=== PATIENT | male | born 1950 | race Two or more races ===

== ENCOUNTER → 2020-05-17 15:31 | Outpatient (BNVA) | payer MEDICARE, SELFPAY | PROVIDERS: PCP Internal Medicine; Visit Provider Internal Medicine | DX: I48.19 Other persistent atrial fibrillation (principal); Z51.81 Encounter for therapeutic drug level monitoring; Z79.01 Long term (current) use of anticoagulants | CPT/HCPCS: 85610; 99211 ==

== ENCOUNTER → 2020-06-21 14:58 | Outpatient (BNVA) | payer MEDICARE, SELFPAY | PROVIDERS: PCP Internal Medicine; Visit Provider Internal Medicine | DX: I48.19 Other persistent atrial fibrillation (principal); Z51.81 Encounter for therapeutic drug level monitoring; Z79.01 Long term (current) use of anticoagulants | CPT/HCPCS: 85610; 99211 ==

== ENCOUNTER → 2020-07-19 15:37 | Outpatient (BNVA) | payer MEDICARE, SELFPAY | PROVIDERS: PCP Internal Medicine; Visit Provider Internal Medicine | DX: I48.19 Other persistent atrial fibrillation (principal); Z51.81 Encounter for therapeutic drug level monitoring; Z79.01 Long term (current) use of anticoagulants | CPT/HCPCS: 85610; 99211 ==

== ENCOUNTER → 2020-09-01 10:30 | Outpatient (BNVA) | payer MEDICARE, SELFPAY | PROVIDERS: PCP Internal Medicine; Visit Provider Internal Medicine | DX: I48.19 Other persistent atrial fibrillation (principal); Z51.81 Encounter for therapeutic drug level monitoring; Z79.01 Long term (current) use of anticoagulants | CPT/HCPCS: 85610; 99211 ==

== ENCOUNTER 2020-09-12 12:36 | Outpatient (REF) | payer MEDICARE, SELFPAY ==
--- NOTE | ~2020-09-12 | US_ITS ---
EXAMINATION: US VENOUS ULTRASOUND WITH DOPPLER LOWER EXTREMITY, LEFT CLINICAL INFORMATION: Swelling COMPARISON: None TECHNIQUE: Ultrasound of the deep veins is performed from the hip to the calf with compression sonography and color and pulse Doppler assessment. Spectral analysis with color-flow imaging is performed. FINDINGS: There is normal venous compression and respiratory variation and augmented flow. The visualized common femoral vein, superficial femoral vein, profunda femoral vein, popliteal vein, and the trifurcation region shows no evidence of deep venous thrombosis. There is no significant popliteal fossa cyst. US/US venous duplex LE LT IMPRESSION: No DVT demonstrated in the left lower extremity.
== END 2020-09-12 12:37 | disposition home or self-care (01) ==
LOC: HO.US 12:36
PROVIDERS: PCP Internal Medicine; Visit Provider Emergency Medicine
DX: L03.116 Cellulitis of left lower limb (principal); R60.0 Localized edema; I73.9 Peripheral vascular disease, unspecified; E11.9 Type 2 diabetes mellitus without complications; I50.9 Heart failure, unspecified
CPT/HCPCS: 93971

== ENCOUNTER 2020-10-09 10:32 | Outpatient (RCR) | payer MEDICARE, SELFPAY | END 2020-10-13 12:16 | disposition home or self-care (01) | LOC: HO.WCC 10:32 | PROVIDERS: PCP Internal Medicine; Visit Provider Physician Assistant | DX: Z09 Encounter for follow-up examination after completed treatment for conditions other than malignant neoplasm (principal); R60.9 Edema, unspecified; I87.2 Venous insufficiency (chronic) (peripheral) | CPT/HCPCS: 99212 ==

== ENCOUNTER → 2020-11-03 10:20 | Outpatient (BNVA) | payer MEDICARE, SELFPAY | PROVIDERS: PCP Internal Medicine; Visit Provider Internal Medicine | DX: I48.19 Other persistent atrial fibrillation (principal); Z51.81 Encounter for therapeutic drug level monitoring; Z79.01 Long term (current) use of anticoagulants | CPT/HCPCS: 85610; 99211 ==

== ENCOUNTER → 2020-12-01 10:37 | Outpatient (BNVA) | payer MEDICARE, SELFPAY | PROVIDERS: PCP Internal Medicine; Visit Provider Internal Medicine | DX: I48.19 Other persistent atrial fibrillation (principal); Z51.81 Encounter for therapeutic drug level monitoring; Z79.01 Long term (current) use of anticoagulants | CPT/HCPCS: 85610; 99212 ==

== ENCOUNTER → 2020-12-29 10:32 | Outpatient (BNVA) | payer MEDICARE, SELFPAY | PROVIDERS: PCP Internal Medicine; Visit Provider Internal Medicine | DX: I48.19 Other persistent atrial fibrillation (principal); Z51.81 Encounter for therapeutic drug level monitoring; Z79.01 Long term (current) use of anticoagulants | CPT/HCPCS: 85610; 99211 ==

== ENCOUNTER → 2021-02-12 10:31 | Outpatient (BNVA) | payer MEDICARE, SELFPAY | PROVIDERS: PCP Internal Medicine; Visit Provider Internal Medicine | DX: I48.19 Other persistent atrial fibrillation (principal); Z51.81 Encounter for therapeutic drug level monitoring; Z79.01 Long term (current) use of anticoagulants | CPT/HCPCS: 85610; 99211 ==

== ENCOUNTER → 2021-03-12 10:23 | Outpatient (BNVA) | payer MEDICARE, SELFPAY | PROVIDERS: PCP Internal Medicine; Visit Provider Internal Medicine | DX: I48.19 Other persistent atrial fibrillation (principal); Z51.81 Encounter for therapeutic drug level monitoring; Z79.01 Long term (current) use of anticoagulants | CPT/HCPCS: 85610; 99211 ==

== ENCOUNTER → 2021-03-14 09:07 | Outpatient (REF) | payer MEDICARE, SELFPAY ==
--- NOTE | ~2021-03-14 | US_ITS ---
EXAMINATION: US LOWER EXTREMITY VENOUS (REFLUX EXAM), BILATERAL CLINICAL INDICATION: This is a 70-year-old male with venous insufficiency and varicose veins. COMPARISON: None. TECHNIQUE: Color flow triplex imaging and compression Doppler was performed to evaluate both the deep and the superficial systems bilaterally. To evaluate the superficial system, the examination was performed in the upright position. Color-flow Doppler ultrasound and compression ultrasound were utilized. In addition, maneuvers were utilized to demonstrate reflux. FINDINGS: 1. DEEP VENOUS ULTRASOUND OF THE RIGHT LOWER EXTREMITY: Common Femoral Vein: Compressible, normal respiratory variation and augmented flow. Femoral vein: Compressible, normal color flow and augmentation. Popliteal Vein: Compressible, normal augmentation. Deep Reflux: There is no evidence of reflux in the deep system in either the common femoral vein or the popliteal vein. There is no evidence of a Vaughn's cyst. 2. SUPERFICIAL ULTRASOUND WITH DOPPLER OF RIGHT LOWER EXTREMITY: GREAT SAPHENOUS VEIN: Saphenofemoral Junction: 0.9 cm. There is no reflux. Mid Thigh: 0.4 cm. The reflux time is 1108 ms. Above Knee: 0.3 cm. There is no reflux. Below Knee: 0.3 cm. The reflux time is 1044 ms. Mid Calf: 0.3 cm. There is no reflux. Ankle: 0.3 cm. There is no reflux. GSV REFLUX: There are isolated segment of reflux but not at the saphenofemoral junction. DUPLICATED GREAT SAPHENOUS VEIN: None SMALL SAPHENOUS VEIN: Proximal: 0.5 cm Distal: 0.2 cm SSV REFLUX: No evidence of reflux. VEIN OF GIACOMINI: None Imaged. PERFORATORS: There is a 0.2 cm mid thigh technical sales representative without reflux. VARICOSITIES: There is a 0.4 cm mid thigh varicose veins with reflux of 2760 ms. 3. DEEP VENOUS ULTRASOUND OF THE LEFT LOWER EXTREMITY: Common Femoral Vein: Compressible, normal respiratory variation and augmented flow. Femoral Vein: Compressible, normal color flow and augmentation. Popliteal Vein: Compressible, normal augmentation. Deep Reflux: There is no evidence of reflux in the deep system in either the common femoral vein or the popliteal vein. There is no evidence of a Vaughn's cyst. 4. SUPERFICIAL ULTRASOUND WITH DOPPLER OF LEFT LOWER EXTREMITY: GREAT SAPHENOUS VEIN: Saphenofemoral Junction: 1.0 cm. There is no reflux. Mid Thigh: 0.3 cm. There is no reflux. Above Knee: 0.4 cm. There is no reflux. Below Knee: 0.3 cm. The reflux time is 2912 ms. Mid Calf: 0.3 cm. The reflux time is 3060 ms. Ankle: 0.3 cm. There is no reflux. GSV REFLUX: There is isolated below-knee reflux. There is no reflux at the saphenofemoral junction. DUPLICATED GREAT SAPHENOUS VEIN: There is a 0.5 cm duplicated lateral great saphenous vein without reflux. SMALL SAPHENOUS VEIN: Proximal: 0.5 cm Distal: 0.3 cm SSV REFLUX: No evidence of reflux. VEIN OF GIACOMINI: None Imaged. PERFORATORS: There is a 0.3 cm mid calf technical sales representative without reflux. VARICOSITIES: There are 0.3 cm proximal calf varicose veins with reflux of 2912 ms. US/US venous duplex LE BI IMPRESSION: 1. There is a patent right great saphenous vein without reflux at the saphenofemoral junction. There are isolated areas of distal reflux. 2. There is a patent right small saphenous vein without evidence of reflux. 3. There are varicose veins in the right mid thigh measuring 0.4 cm with reflux. 4. There is a patent left great saphenous vein without reflux at the saphenofemoral junction. There is distal reflux. 5. There is a patent left small saphenous vein without reflux. 6. There are 0.3 cm varicose veins in the proximal left calf with reflux.
--- NOTE | 2021-03-14 09:13 | CA_ITS ---
Transthoracic Echocardiogram Patient (Last, First, Middle): Sergio Yepez, Gender: Male Date of : 1950 Age: 70 Procedure Date: 03/14/2021 Procedure Type: Transthoracic Echocardiogram Location: OP Height: 167.64 cm Weight: 127.01 kg BSA: 2.31 m2 Heart Rate: bpm BP: 138 / 80 mmHg Inspector Final Assembly Electrical: JEFFREY Referring MD: Yashira Tello MD Symptoms: E11.65 DM 2, I10 HTN, I50.32 CHF Study Quality: Technically Difficult/Contrast ECG Rhythm: Undetermined Conclusions: - The left ventricular systolic function is low normal. The calculated ejection fraction is 52% by biplane method. - There is mildly decreased right ventricular systolic function. - There is mild mitral annular calcification. - There is moderate dilatation of the ascending aorta measuring 4.40 cm and mild dilatation of the aortic arch measuring 3.10 cm. Findings Procedure Information Contrast agent, definity, is being given per protocol without apparent complications. Left Ventricle Normal left ventricular cavity size. There is moderately increased left ventricular wall thickness. The left ventricular systolic function is low normal. The calculated ejection fraction is 52% by biplane method. There is no evidence of regional wall motion abnormalities. Diastolic function is indeterminate on the basis of available data. Right Ventricle Normal right ventricular cavity size. There is mildly decreased right ventricular systolic function. Atria Both atria are normal in size. Aortic Valve There is a normal trileaflet aortic valve. There is mild calcification of the aortic valve. There is no aortic valve stenosis. The mean gradient is 6 mmHg. There is trace (trivial) aortic valve regurgitation. Mitral Valve The mitral valve appears normal. There is mild mitral annular calcification. There is no mitral valve regurgitation. There is no mitral valve stenosis. Pulmonic Valve The pulmonic valve is likely normal. Tricuspid Valve There is mild tricuspid valve regurgitation. The pulmonary artery systolic pressure is normal. Great Vessels The aortic arch is normal in size. There is moderate dilatation of the ascending aorta measuring 4.40 cm and mild dilatation of the aortic arch measuring 3.10 cm. Venous The inferior vena cava is normal in size and collapses greater than 50% with inspiration. Pericardium/Pleural There is no evidence of pericardial effusion. Prior Study Comparison No prior study available for comparison. Measurements 2D Linear Measurements IVSd: 1.33 0.6-0.9/0.6-1.0 cm LVIDd: 4.92 3.9-5.3/4.2-5.9 cm LVIDd Index: 2.13 2.4-3.2/2.2-3.1 cm/m2 LVIDs: 3.52 2.0-3.6 cm LVPWd: 1.26 0.7-1.1 cm Ao Root: 3.80 2.1-3.5 cm LA Diam: 4.70 2.7-3.8/3.0-4.0 cm LAIDs Index: 2.03 1.5-2.3 cm/m2 LV Mass: 316.65 67-162/88-224 g LV Mass Index: 137.08 43-95/49-115 g/m2 LVOT Diam: 2.20 3.0+(-)1.3 cm 2D Systolic Function EF 4C: 53.30 >55% EF 2C: 53.60 >55% EF BiP: 51.50 >55% Aortic Valve AoV Pk Jaleel: 1.58 AoV Mn Jaleel: 1.11 AoV VTI: 0.34 AoV Pk Grad: 10.00 Aov Mn Grad: 6.00 KAYCEE Cont.VTI: 2.23 LVOT LVOT Pk Jaleel: 1.03 LVOT Mn Jaleel: 0.68 LVOT VTI: 0.20 LVOT Pk Grad: 4.00 LVOT Mn Grad: 2.00 LVOT Diam: 2.20 LVOT Area: 3.80 Right Ventricle TAPSE (mm): 16.00 TVS' Jaleel: 12.20 Tricuspid Valve TR Pk Jaleel: 2.66 TR Pk Grad: 28.00 RA Press: 3.00 RVSP: 31.00 Great Vessels Aorta Ao Root-2D: 3.80 2.0-3.7 cm Ao Asc: 4.40 2.1-3.4 cm Ao Arch: 3.10 Updated in Other Vendor System with Status of Final Justice Hopson MD electronically signed on 03/16/2021 11:25:17 AM with status of Final
== END ==
LOC: HO.CARD 09:07
PROVIDERS: PCP Internal Medicine; Visit Provider Internal Medicine
DX: I11.0 Hypertensive heart disease with heart failure (principal); I50.32 Chronic diastolic (congestive) heart failure; E11.65 Type 2 diabetes mellitus with hyperglycemia
CPT/HCPCS: 93306; 93970; Q9957

== ENCOUNTER 2021-03-14 10:23 | Outpatient (REF) | payer MEDICARE, SELFPAY | END 2021-03-14 10:24 | disposition home or self-care (01) | LOC: HO.US 10:23 | PROVIDERS: PCP Internal Medicine; Visit Provider Physician Assistant | DX: Z13.89 Encounter for screening for other disorder (principal) ==

== ENCOUNTER → 2021-04-25 10:03 | Outpatient (BNVA) | payer MEDICARE, SELFPAY | PROVIDERS: PCP Internal Medicine; Visit Provider Internal Medicine | DX: I48.19 Other persistent atrial fibrillation (principal); Z51.81 Encounter for therapeutic drug level monitoring; Z79.01 Long term (current) use of anticoagulants | CPT/HCPCS: 85610; 99211 ==

== ENCOUNTER → 2021-05-21 10:02 | Outpatient (BNVA) | payer OTHER, SELFPAY | PROVIDERS: PCP Internal Medicine; Visit Provider Internal Medicine | DX: I48.19 Other persistent atrial fibrillation (principal); Z51.81 Encounter for therapeutic drug level monitoring; Z79.01 Long term (current) use of anticoagulants | CPT/HCPCS: 85610; 99211 ==

== ENCOUNTER → 2021-06-04 10:26 | Outpatient (BNVA) | payer MEDICARE, SELFPAY | PROVIDERS: PCP Internal Medicine; Visit Provider Internal Medicine | DX: I48.19 Other persistent atrial fibrillation (principal); Z79.01 Long term (current) use of anticoagulants; Z51.81 Encounter for therapeutic drug level monitoring | CPT/HCPCS: 85610; 99211 ==

== ENCOUNTER → 2021-06-27 10:18 | Outpatient (BNVA) | payer MEDICARE, SELFPAY | PROVIDERS: PCP Internal Medicine; Visit Provider Internal Medicine | DX: I48.19 Other persistent atrial fibrillation (principal); Z79.01 Long term (current) use of anticoagulants; Z51.81 Encounter for therapeutic drug level monitoring | CPT/HCPCS: 85610; 99211 ==

== ENCOUNTER → 2021-07-18 09:51 | Outpatient (BNVA) | payer MEDICARE, SELFPAY | PROVIDERS: PCP Internal Medicine; Visit Provider Internal Medicine | DX: I48.19 Other persistent atrial fibrillation (principal); Z79.01 Long term (current) use of anticoagulants; Z51.81 Encounter for therapeutic drug level monitoring | CPT/HCPCS: 85610; 99211 ==

== ENCOUNTER → 2021-08-03 10:48 | Outpatient (BNVA) | payer MEDICARE, SELFPAY | PROVIDERS: PCP Internal Medicine; Visit Provider Internal Medicine | DX: I48.19 Other persistent atrial fibrillation (principal); Z79.01 Long term (current) use of anticoagulants; Z51.81 Encounter for therapeutic drug level monitoring | CPT/HCPCS: 85610 ==

== ENCOUNTER → 2021-08-31 10:50 | Outpatient (BNVA) | payer MEDICARE, SELFPAY | PROVIDERS: PCP Internal Medicine; Visit Provider Internal Medicine | DX: I48.19 Other persistent atrial fibrillation (principal); Z51.81 Encounter for therapeutic drug level monitoring; Z79.01 Long term (current) use of anticoagulants | CPT/HCPCS: 85610; 99211 ==

== ENCOUNTER 2021-09-18 14:58 | Outpatient (REF) | payer OTHER, SELFPAY ==
--- NOTE | 2021-09-18 | PFT_ITS ---
INDICATIONS: COPD. SPIROMETRY: The FEV1 to FVC of 82% with an FEV1 of 2.16 L, which is 75% predicted. An FVC of 2.65 L, which is 70% predicted. No significant response to bronchodilators noted. Maximum voluntary ventilation 85% predicted. LUNG VOLUMES: Total lung capacity 72% predicted with an expiratory reserve volume of 31% predicted. DIFFUSION CAPACITY: DLCO 60% predicted. It does correct to 82% predicted when correcting for the alveolar volume. COMPARISONS: PFTs in 2017. INTERPRETATION: No obstructive ventilatory defects. No significant response to bronchodilators noted. Normal maximum voluntary ventilation. The patient does have a mild restrictive ventilatory defect, partly due to body habitus with an elevated BMI and a decreased expiratory reserve volume, although occult interstitial lung conditions cannot be ruled out. The patient also has a moderate diffusion impairment. This does correct to normal when correcting for the alveolar volume. When compared to 2017, there is a significant improvement in the FVC, a significant improvement of the FEV1, a significant improvement of the total lung capacity, and a significant decrease in the diffusion capacity. Clinical correlation warranted. MD JANUSZ Busby/SIDDHARTH / [id number]
== END 2021-09-18 14:59 | disposition home or self-care (01) ==
LOC: HO.RESP 14:58
PROVIDERS: PCP Internal Medicine; Visit Provider Internal Medicine
DX: J44.9 Chronic obstructive pulmonary disease, unspecified (principal); G47.33 Obstructive sleep apnea (adult) (pediatric); I50.22 Chronic systolic (congestive) heart failure
CPT/HCPCS: 94060; 94727; 94729

== ENCOUNTER → 2021-09-20 10:45 | Outpatient (REF) | payer OTHER, SELFPAY | LOC: HO.CARD 10:45 | PROVIDERS: PCP Internal Medicine; Visit Provider Internal Medicine | DX: I48.19 Other persistent atrial fibrillation (principal); I50.22 Chronic systolic (congestive) heart failure; I77.810 Thoracic aortic ectasia; R53.82 Chronic fatigue, unspecified; Z51.81 Encounter for therapeutic drug level monitoring; Z79.01 Long term (current) use of anticoagulants | CPT/HCPCS: 85610; 99211 ==

== ENCOUNTER → 2021-09-28 10:16 | Outpatient (BNVA) | payer OTHER, SELFPAY | PROVIDERS: PCP Internal Medicine; Visit Provider Internal Medicine | DX: I48.19 Other persistent atrial fibrillation (principal); Z79.01 Long term (current) use of anticoagulants; Z51.81 Encounter for therapeutic drug level monitoring | CPT/HCPCS: 85610; 99211 ==

== ENCOUNTER → 2021-10-02 09:50 | Outpatient (REF) | payer OTHER, SELFPAY ==
--- NOTE | 2021-10-02 09:53 | CA_ITS ---
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 - Moderately increased right ventricular cavity size. - No obvious valvular pathology seen on this study. - There is mild dilatation of the ascending aorta measuring 4.10 cm. Findings Procedure Information Contrast agent, definity, is being given per protocol without apparent complications. Left Ventricle Normal left ventricular cavity size. There is moderately increased left ventricular wall thickness. The left ventricular systolic function is mildly decreased. There is mild global hypokinesis. Diastolic function is indeterminate on the basis of available data. Estimated LVEF about 40-50%. Right Ventricle Moderately increased right ventricular cavity size. There is normal right ventricular systolic function. Atria The left atrium is moderately dilated. The right atrium is normal in size. Aortic Valve There is a normal trileaflet aortic valve. There is no aortic valve stenosis. There is trace (trivial) aortic valve regurgitation. Mitral Valve The mitral valve appears normal. There is trace mitral valve regurgitation. There is no mitral valve stenosis. Pulmonic Valve There is trace pulmonic valve regurgitation. Tricuspid Valve Normal tricuspid valve structure. There is mild tricuspid valve regurgitation. The pulmonary artery systolic pressure is normal. Great Vessels There is mild dilatation of the ascending aorta measuring 4.10 cm. Venous The inferior vena cava is normal in size and collapses greater than 50% with inspiration. Pericardium/Pleural There is no evidence of pericardial effusion. Prior Study Comparison Changes noted compared to prior study dated: 03/14/2021. LVEF slightly lower. Recommendations, Care & Conclusions No obvious valvular pathology seen on this study. Measurements 2D Linear Measurements IVSd: 1.29 0.6-0.9/0.6-1.0 cm LVIDd: 5.49 3.9-5.3/4.2-5.9 cm LVIDd Index: 2.38 2.4-3.2/2.2-3.1 cm/m2 LVIDs: 4.28 2.0-3.6 cm LVPWd: 1.27 0.7-1.1 cm LA Diam: 5.10 2.7-3.8/3.0-4.0 cm LAIDs Index: 2.21 1.5-2.3 cm/m2 LV Mass: 370.44 67-162/88-224 g LV Mass Index: 160.36 43-95/49-115 g/m2 LVOT Diam: 2.40 3.0+(-)1.3 cm 2D Systolic Function EF 4C: 35.10 >55% EF 2C: 37.70 >55% EF BiP: 35.50 >55% Mitral Valve MV Pk E: 1.07 MV Decel Time: 249.00 E'Lateral: 10.10 E'Medial: 6.09 E/E' Med: 17.60 E/E' Lat: 10.60 PHT: 73.00 MVA PHT: 3.01 Decel Gage: 4.30 Aortic Valve AoV Pk Jaleel: 1.64 AoV Mn Jaleel: 1.04 AoV VTI: 0.46 AoV Pk Grad: 11.00 Aov Mn Grad: 5.00 KAYCEE Cont.VTI: 1.88 LVOT LVOT Pk Jaleel: 0.71 LVOT Mn Jaleel: 0.51 LVOT VTI: 0.19 LVOT Pk Grad: 2.00 LVOT Mn Grad: 1.00 LVOT Diam: 2.40 LVOT Area: 4.52 Diastolic Function MV Pk E: 1.07 E'Medial: 6.09 E/E' Med: 17.60 E' Laterial: 10.10 E/E' Lat: 10.60 Right Ventricle TAPSE (mm): 27.00 TVS' Jaleel: 13.00 Tricuspid Valve TR Pk Jaleel: 2.36 TR Pk Grad: 22.00 RA Press: 3.00 RVSP: 25.00 Great Vessels Aorta Sinus of Valsalva: 3.70 2.0-3.5 cm Ao Asc: 4.10 2.1-3.4 cm Pulmonary Valve PV Pk Jaleel: 1.16 Peak PV Grad: 5.00 Updated in Other Vendor System with Status of Final Justice Hopson MD electronically signed on 10/03/2021 12:34:18 PM with status of Final
== END ==
LOC: HO.CARD 09:50
PROVIDERS: PCP Internal Medicine; Visit Provider Internal Medicine
DX: I50.22 Chronic systolic (congestive) heart failure (principal); I77.810 Thoracic aortic ectasia; R53.82 Chronic fatigue, unspecified; G47.33 Obstructive sleep apnea (adult) (pediatric)
CPT/HCPCS: 93306; Q9957

== ENCOUNTER → 2021-10-11 10:36 | Outpatient (BNVA) | payer OTHER, SELFPAY | PROVIDERS: PCP Internal Medicine; Visit Provider Internal Medicine | DX: I48.19 Other persistent atrial fibrillation (principal); Z51.81 Encounter for therapeutic drug level monitoring; Z79.01 Long term (current) use of anticoagulants | CPT/HCPCS: 85610; 99211 ==

== ENCOUNTER → 2021-10-26 10:29 | Outpatient (BNVA) | payer OTHER, SELFPAY | PROVIDERS: PCP Internal Medicine; Visit Provider Internal Medicine | DX: I48.19 Other persistent atrial fibrillation (principal); Z79.01 Long term (current) use of anticoagulants; Z51.81 Encounter for therapeutic drug level monitoring | CPT/HCPCS: 85610; 99211 ==

== ENCOUNTER → 2021-11-21 09:44 | Outpatient (BNVA) | payer OTHER, SELFPAY | PROVIDERS: PCP Internal Medicine; Visit Provider Internal Medicine | DX: I48.19 Other persistent atrial fibrillation (principal); Z79.01 Long term (current) use of anticoagulants; Z51.81 Encounter for therapeutic drug level monitoring | CPT/HCPCS: 85610; 99211 ==

== ENCOUNTER → 2021-12-25 10:14 | Outpatient (BNVA) | payer OTHER, SELFPAY | PROVIDERS: PCP Internal Medicine; Visit Provider Internal Medicine | DX: I48.19 Other persistent atrial fibrillation (principal); Z79.01 Long term (current) use of anticoagulants; Z51.81 Encounter for therapeutic drug level monitoring | CPT/HCPCS: 85610; 99211 ==

== ENCOUNTER 2022-01-09 20:21 | Emergency (ER) | payer OTHER, SELFPAY ==
[2022-01-09 20:24] VITALS: BP 188/94; PULSE 71; RESP 18; TEMP 36.9; O2SAT 95; BMI 46.7
[2022-01-09 20:56] VITALS: BP 206/94; PULSE 62; RESP 20; O2SAT 97
[2022-01-09 21:14] LABS: COVID-19 Test Positive (Negative)
--- NOTE | 2022-01-09 22:42 | ED.URI ---
HPI - URI/Sore Throat General Chief Complaint: Upper Respiratory Symptoms Stated Complaint: Covid symptoms Time Seen by Provider: 01/09/22 22:41 Source: patient Mode of arrival: ambulatory Limitations: language barrier History of Present Illness HPI Narrative: 71-year-old male presents for 1 day of upper respiratory symptoms, cough, sore throat and congestion. He does not report fevers, chills, chest pain or pressure, palpitations, shortness of breath on exertion, edema, abdominal pain, abdominal distention, dysuria, hematuria, weakness, or lightheadedness. MD elicited complaint: cough, sore throat and nasal congestion Onset (ago): day(s) (1) Consistency: constant Severity: mild Description of mucous: clear and watery Able to tolerate fluids by mouth: Yes Exacerbating factors: nothing Context: sick contacts Associated symptoms: rhinorrhea, nasal congestion, sore throat and cough Treatments prior to arrival: none Related Data Home Medications Medication Instructions Recorded Confirmed acetaminophen 500 mg tablet 0 mg PO 12/01/20 10/11/21 albuterol sulfate 2.5 mg/3 mL mg inhalation TID PRN 12/01/20 10/11/21 (0.083 %) solution for nebulization ammonium lactate 12 % topical cream appl topical DAILY PRN 12/01/20 10/11/21 atorvastatin 80 mg tablet 80 mg PO BEDTIME 12/01/20 10/11/21 blood sugar diagnostic (FreeStyle #10 ea 12/01/20 10/11/21 Lite Strips) clobetasol 0.05 % topical cream g topical BID 12/01/20 10/11/21 furosemide 80 mg tablet 80 mg PO BID 12/01/20 10/11/21 gabapentin 100 mg capsule 100 mg PO 12/01/20 10/11/21 insulin aspart U-100 100 unit/mL 10 unit subcut TID 12/01/20 10/11/21 (3 mL) subcutaneous pen (Novolog Flexpen U-100 Insulin aspart) isosorbide mononitrate 120 mg 120 mg PO QAM 12/01/20 10/11/21 tablet,extended release 24 hr lisinopril 40 mg tablet 40 mg PO QAM 12/01/20 10/11/21 metformin 1,000 mg tablet 1,000 mg PO 12/01/20 10/11/21 multivitamin 1 tab PO DAILY 12/01/20 10/11/21 pen needle, diabetic 32 gauge x #50 ea 12/01/20 10/11/21 (UltiCare Pen Needle) umeclidinium 62.5 mcg/actuation 1 inh inhalation DAILY 12/01/20 10/11/21 blister powder for inhalation (Incruse Ellipta) warfarin 5 mg tablet 0 mg PO 12/01/20 12/25/21 albuterol sulfate 90 mcg/actuation 2 puff PO Q4-6H PRN 05/21/21 10/11/21 aerosol inhaler (Ventolin HFA) blood-glucose meter (FreeStyle #1 ea 05/21/21 10/11/21 [place] Lite kit) insulin glargine 100 unit/mL (3 unit subcut 05/21/21 10/11/21 mL) subcutaneous pen (Lantus Solostar U-100 Insulin) labetalol 100 mg tablet 100 mg PO 05/21/21 10/11/21 tamsulosin 0.4 mg capsule 0.4 mg PO DAILY 10/11/21 10/11/21 Allergies Allergy/AdvReac Type Severity Reaction Status Date / Time Tetanus Vaccines and Toxoid Allergy Unknown SWELLING Verified 12/25/21 10:26 [TETANUS] TETNUS SHOT Allergy Unknown UNKNOWN Uncoded 12/25/21 10:26 Review of Systems Review of Systems: Constitutional: No Fever, No Chills ENT/Mouth: No Ear Pain, No Hoarseness, positive sore throat, positive congestion Eyes: No Eye Pain, No Swelling, No Redness, No Foreign Body Cardiovascular: No Chest Pain, No SOB Respiratory: Positive Cough, No Dyspnea Gastrointestinal: No Nausea, No Vomiting, No Diarrhea, No abdominal Pain Genitourinary: No Dysuria, No Hematuria Musculoskeletal: positive muscle pain, No Myalgias, No Joint Swelling Skin: No Skin lacerations, No rash Neuro: No Weakness, No Numbness, No Paresthesias, No Loss of Consciousness, No Dizziness, No Headache Psych: No Anxiety/Panic, No Depression Heme/Lymph: no easy bruising, no Lymphadenopathy Endocrine: No Polyuria, No Polydipsia Yes all other systems are reviewed and are negative [facility] Past Medical History Attestation statement: The following information was validated with the patient. Source: old records reviewed Social History Social History Smoked in Last 30 Days: No Use of substances other than those prescribed or required for medical reasons: No Advance Directives: No Physical Exam Vital Signs: Vital Signs: Last Vital Signs Temp 98.4 F 01/09/22 20:24 Pulse 62 01/09/22 20:56 Resp 20 01/09/22 20:56 BP 206/94 H 01/09/22 20:56 Pulse Ox 97 01/09/22 20:56 O2 Del Method 01/09/22 20:56 BMI result Body Mass Index 46.7 Appearance: Alert. Oriented X3. No acute distress. Eyes: Pupils equal, round and reactive to light. ENT: Pharynx normal. Neck: Normal inspection. Neck supple. CVS: Normal heart rate and rhythm. Pulses normal. Respiratory: No respiratory distress. Lung sounds clear to auscultation all lobes. Abdomen: Soft and nontender. Skin: Skin warm and dry. Normal skin color. Normal skin turgor. Extremities: Gait well-balanced will coordinated. Neuro: No motor deficit. No sensory deficit. Cranial nerves 2-12 intact. Course Course Course Narrative: 71-year-old male presents for evaluation for 1 day of upper respiratory symptoms. He tested positive for COVID-19 while he was in the emergency department waiting room. Patient is alert oriented x4, speaking in complete sentences, lung sounds clear to auscultation all lobes. Patient is ambulatory, even steady gait, speaking in complete sentences, in no respiratory distress. Patient is afebrile, states to have myalgia and requesting medication for pain management. Patient reports that he did not take anything for pain earlier today because he did not think it was that severe. Patient has had for COVID-19 vaccines. Patient verbalized understanding of and agrees to plan of care discharge home. Verbalized understanding of signs and symptoms indicating need for emergent intervention. Medications Administered Discontinued Medications Generic Name Dose Route Start Last Admin Trade Name Freq PRN Reason Stop Dose Admin Acetaminophen 650 mg 01/09/22 22:52 01/09/22 23:23 Acetaminophen 325 Mg Tablet PO 01/09/22 22:53 650 mg ONCE ONE Administration MDM - URI/Sore Throat Differential Diagnosis Differential diagnosis: Likely upper respiratory infection, viral infection, influenza and pharyngitis Medical Records Attestation: I reviewed the patient's medical records. Lab Data Attestation: I reviewed the patient's lab results. Labs: Lab Results 01/09/22 Range/Units 21:00 COVID-19 (JEFERSON) Positive A (Negative) COVID-19 Clin Com See Note Discharge Plan Discharge Clinical Impression: COVID Patient Disposition: Home, Self-Care Instructions: Covid-19 Viral Syndrome and Novel Coronavirus (ED) Hey/Ath, COVID-19 (Coronavirus Disease 2019) (ED) Additional Instructions: Usted fue evaluado por s?ntomas de las v?as respiratorias superiores. Has dado positivo por COVID-19. Beber mucho l?quido. Alterne Tylenol 650 mg cada 6 horas seg?n sea necesario y Motrin 600 mg cada 6 horas seg?n sea necesario para controlar el dolor y la fiebre. Le dieron ortiz ?ltima dosis de Tylenol a las 23:00. Ortiz pr?xima dosis vence a las 05:00. Considere zuleika Motrin a las 02:00. Si octavio Motrin a las 02:00 tendr? un manejo adecuado de la fiebre y el dolor cada 3 horas. Mantenga las pautas de aislamiento. L?vese las rafael con frecuencia. Wesson todos los medicamentos seg?n las indicaciones. Seguimiento con m?dico de atenci?n primaria. Si los s?ntomas empeoran, regrese al departamento de emergencias. Daniel por elegir radha departamento de emergencias para ortiz evaluaci?n. Por favor, ezequiel un seguimiento con el m?dico de atenci?n primaria seg?n sea necesario. Regrese al departamento de emergencias por cualquier s?ntoma nuevo, preocupante o que empeore. You were evaluated for upper respiratory symptoms. You tested positive for COVID-19. Drink plenty of fluids. Alternate Tylenol 650 mg every 6 hours as needed and Motrin 600 mg every 6 hours as needed for pain and fever management. Your last dose of Tylenol was given at 23:00. Your next dose is due at 05:00. Please consider taking Motrin at 02:00. If you take Motrin at 02:00 you will have adequate fever and pain management every 3 hours. Maintain isolation guidelines. Wash your hands frequently. Take all medications as directed. Follow-up with primary care physician. If symptoms worsen please return to the emergency department Thank you for choosing this emergency department for evaluation. Please follow-up with primary care physician as needed. Return to the emergency department for any new, concerning, or worsening symptoms. Prescriptions: No Action (DME) FreeStyle Lite Strips Strip See Rx Instructions Not Applicable .MEDSUPPLY Qty: 10 Rx Instructions: As directed ammonium lactate 12 % cream topical DAILY PRN clobetasol 0.05 % cream topical BID albuterol sulfate 2.5 mg /3 mL (0.083 %) solution for nebulization inhalation TID PRN gabapentin 100 mg capsule 100 mg PO multivitamin Tablet 1 tab PO DAILY Incruse Ellipta 62.5 mcg/actuation blister with device 1 inh inhalation DAILY insulin aspart U-100 [Novolog Flexpen U-100 Insulin] 100 unit/mL (3 mL) insulin pen 10 unit subcut TID warfarin 5 mg tablet 0 mg PO Protocol: Dose Management Condition: Friday (Week One) Dose/Route: 10 mg Instruction: 2 x 5 mg tablets Condition: Friday Dose/Route: 10 mg Instruction: 2 x 5 mg tablets Condition: Friday Dose/Route: 15 mg Instruction: 3 x 5 mg tablets Condition: Friday Dose/Route: 10 mg Instruction: 2 x 5 mg tablets Condition: Dose/Route: 15 mg Instruction: 3 x 5 mg tablets Condition: Friday Dose/Route: 10 mg Instruction: 2 x 5 mg tablets Condition: Friday Dose/Route: 15 mg Instruction: 3 x 5 mg tablets Condition: Friday (Week Two) Dose/Route: 10 mg Instruction: 2 x 5 mg tablets Condition: Friday Dose/Route: 10 mg Instruction: 2 x 5 mg tablets Condition: Friday Dose/Route: 15 mg Instruction: 3 x 5 mg tablets Condition: Friday Dose/Route: 10 mg Instruction: 2 x 5 mg tablets Condition: Dose/Route: 15 mg Instruction: 3 x 5 mg tablets Condition: Friday Dose/Route: 10 mg Instruction: 2 x 5 mg tablets Condition: Friday Dose/Route: 15 mg Instruction: 3 x 5 mg tablets Protocol Text: Adjustment Start Date: Friday12/25/21 INR Value: 2.3 INR Date: 12/25/21 Recheck Date: 01/22/22 isosorbide mononitrate 120 mg tablet extended release 24 hr 120 mg PO QAM lisinopril 40 mg tablet 40 mg PO QAM metformin 1,000 mg tablet 1,000 mg PO furosemide 80 mg tablet 80 mg PO BID atorvastatin 80 mg tablet 80 mg PO BEDTIME (DME) pen needle, diabetic [UltiCare Pen Needle] 32 gauge x 5/32 needle See Rx Instructions .ROUTE .MEDSUPPLY Qty: 50 Rx Instructions: As directed acetaminophen 500 mg tablet 0 mg PO tamsulosin 0.4 mg capsule 0.4 mg PO DAILY albuterol sulfate [Ventolin HFA] 90 mcg/actuation HFA aerosol inhaler 2 puff PO Q4-6H PRN labetalol 100 mg tablet 100 mg PO Lantus Solostar U-100 Insulin 100 unit/mL (3 mL) insulin pen subcut (DME) blood-glucose meter [FreeStyle [place] Lite] Kit See Rx Instructions Not Applicable .MEDSUPPLY Qty: 1 Rx Instructions: As directed Referrals: Physician,Unknown J [Physician] - 1 week Interventions: ED Discharge Assessment Last Done: 01/09/22 23:29 Discharge Date/Time: 01/09/22 23:29
--- OUTSIDE RECORDS SUMMARY | 2022-01-09 22:58 | XMS_ITS | Continuity of Care Document ---
:1950 Author Organization [facility] Address [address] [place] [phone]- Care Team Providers Name Role Phone Name Jesus GIBBS Primary Care Physician [place] [facility] [place](s[place] 04/23/19 - 08/21/19 [facility] [address] [place] [phone]- [facility] Attending Physician: Abel Aguilar MD Admitting Physician: Abel Aguilar MD Referring Physician: Jesus Somers MD Allergies, Adverse Reactions, Alerts Substance Reaction Severity Status Tetanus Toxoid Adsorbed Active Milk Products Active Immunizations Given and Recorded Vaccine Date Status Refusal Reason pneumococcal 23-valent vaccine 06/02/16 Given Medications albuterol-ipratropium 3 mg-0.5 mg/3 ml inhalation solution 3 mL, Neb, 4 times a day, # 90 mL, 0 Refills, Maintenance, 06/06/16 17:35:23, Inhalation Solution, 3mL Neb 4 times a day Start Date: 06/06/16 Status: Orderedaspirin 81 mg oral tablet, chewable 81 mg, By Mouth, Daily, # 30 tablet, Refills 0, Tot. Refills 0, Maintenance, 07/28/16 11:00:56, Route to Pharmacy Electronically, [id number], [facility] Start Date: 07/28/16 Stop Date: 08/27/16 Status: Orderedatorvastatin 80 mg oral tablet = 80 mg, By Mouth, Daily at bedtime, # 30 tablet, 0 Refills, Maintenance, Tablet, Route to Pharmacy Electronically, [id number], [facility] Start Date: 07/28/16 Stop Date: 08/27/16 Status: OrderedFish Oil By Mouth, 0 Refills, Maintenance, 12/23/18 11:38:01 EST Start Date: 12/23/18 Status: Orderedfurosemide 80 mg oral tablet 80 mg, By Mouth, 2 times a day, # 30 tablet, Refills 0, Tot. Refills 0, Maintenance, 07/28/16 11:01:07, Route to Pharmacy Electronically, [id number], [facility] Start Date: 07/28/16 Stop Date: 08/27/16 Status: Orderedgabapentin 100 mg oral capsule Refills 0, Maintenance, 07/07/18 9:55:42 EDT Start Date: 07/07/18 Status: Orderedglimepiride 2 mg oral tablet 1 tablet = 2 mg, By Mouth, Daily, # 30 tablet, 0 Refills, Maintenance, Tablet Start Date: 08/22/11 Status: OrderedHumalog 100 u/ml subcutaneous injection See Instructions, 10 units for 100-150 increasing by 3 units for every 50 mg/dL, # 20 mL, 5 Refills,Maintenance, 03/01/14 9:30:22, 10 units for 100-150 increasing by 3 units for every 50 mg/dL Start Date: 03/01/14 Status: OrderedImdur 30 mg oral tablet, extended release 60 mg, By Mouth, Daily, # 60 tablet, Refills 0, Tot. Refills 0, Maintenance, 07/28/16 11:02:47, Route to Pharmacy Electronically, [id number], [facility] Start Date: 07/28/16 Stop Date: 08/27/16 Status: Orderedinsulin glargine 100 u/ml subcutaneous solution 0.5 mL = 50 units, Subcutaneous Injection, Daily at bedtime, # 15 mL, 0 Refills, Maintenance, 06/06/16 18:01:19, Injection Start Date: 06/06/16 Status: Orderedlisinopril 40 mg oral tablet 1 tablet = 40 mg, By Mouth, Daily, # 30 tablet, 11 Refills, Maintenance, 10/01/13 10:10:15, Tablet, 1 tablet By Mouth Daily,x30 days Start Date: 10/01/13 Stop Date: 09/26/14 Status: Orderedmetformin 1000 mg oral tablet 1 tablet = 1,000 mg, By Mouth, 2 times a day, # 180 tablet, 0 Refills, Maintenance, 12/13/13 10:56:50, Tablet Start Date: 12/13/13 Status: Orderedmetoprolol 25 mg oral tablet, extended release 25 mg, 1, tablet, By Mouth, Daily, # 30 tablet, Refills 0, Tot. Refills 0, Maintenance, 07/09/18 9:32:53 EDT, Route to Pharmacy Electronically, [id number], [facility] Start Date: 07/09/18 Status: OrderedMultivitamin Daily, 0 Refills, Maintenance, 12/23/18 11:37:51 EST Start Date: 12/23/18 Status: Orderednaproxen 500 mg oral tablet 1 tablet = 500 mg, By Mouth, 2 times a day, PRN for pain, # 20 tablet, 0 Refills, Maintenance, 08/05/16 9:34:54, Tablet Start Date: 08/05/16 Status: OrderedNovoLOG FlexPen 100 units/mL subcutaneous solution 0 Refills, Maintenance, 07/07/18 9:56:33 EDT Start Date: 07/07/18 Status: OrderedSingulair 10 mg oral tablet 10 mg, 1, tablet, By Mouth, Daily in PM, # 30 tablet, Refills 0, Maintenance, 08/05/16 9:34:18 Start Date: 08/05/16 Status: OrderedTrulicity Pen 0.75 mg/0.5 mL subcutaneous solution 0 Refills, Maintenance, 07/07/18 9:56:25 EDT Start Date: 07/07/18 Status: Orderedwarfarin 10 mg oral tablet 0.5 tablet = 5 mg, By Mouth, Daily, # 15 tablet, 0 Refills, Maintenance, 07/28/16 11:01:19 EDT, Tablet Start Date: 07/28/16 Stop Date: 08/27/16 Status: Ordered Problem List Condition Effective Dates Status Health Status Informant Diabetes mellitus - adult Active onset(Confirmed) HTN - Hypertension(Confirmed) Active Hyperlipidemia(Confirmed) Active Obstructive sleep apnea (adult or Active pediatric)(Confirmed) Screening colonoscopy(Confirmed) Active Social History Social History Type Response Smoking Status Former smoker; Tobacco user in household: No; Other: quit smoking 2011; entered on: 08/05/16 Sex Male
--- OUTSIDE RECORDS SUMMARY | 2022-01-09 22:58 | XMS_ITS | Continuity of Care Document ---
:1950 Author Organization [facility] Address [address] [place] [phone]- Care Team Providers Name Role Phone Name Jesus GIBBS Primary Care Physician Encounter [facility] [place] ACCT R [id number] Date(s): 11/20/21 - 12/20/21 [facility] [address] [place] [address]- [place] Allergies, Adverse Reactions, Alerts Substance Reaction Severity [...] Maintenance, 07/28/16 11:00:56, Route to Pharmacy Electronically, [id number], [facility] Start Date: 07/28/16 Stop Date: 08/27/16 Status: Orderedatorvastatin 80 mg oral tablet = 80 mg, By Mouth, Daily at bedtime, # 30 tablet, 0 Refills, Maintenance, Tablet, Route to Pharmacy Electronically, [id number], [facility] Start Date: 07/28/16 Stop Date: 08/27/16 Status: OrderedFish Oil By Mouth, 0 Refills, Maintenance, 12/23/18 11:38:01 EST Start Date: 12/23/18 Status: Orderedfurosemide 80 mg oral tablet 80 mg, By Mouth, 2 times a day, # 30 tablet, Refills 0, Tot. Refills 0, Maintenance, 07/28/16 11:01:07, Route to Pharmacy Electronically, [id number], [facility] Start Date: 07/28/16 Stop Date: 08/27/16 [...] Maintenance, 07/28/16 11:02:47, Route to Pharmacy Electronically, [id number], [facility] Start Date: 07/28/16 Stop Date: 08/27/16 [...] 07/09/18 9:32:53 EDT, Route to Pharmacy Electronically, [id number], [facility] Start Date: 07/09/18 Status: OrderedMultivitamin Daily, [...] Date: 08/27/16 Status: Ordered Problem List Condition Confirmation Course Effective Dates Status Health I nformant Status Diabetes mellitus - Confirmed Active adult onset HTN - Hypertension Confirmed Active Hyperlipidemia Confirmed Active Obstructive sleep Confirmed Active apnea (adult or pediatric) Screening colonoscopy Confirmed Active Social History Social History Type Response Smoking Status Former smoker; Tobacco user in household: No; Other: quit smoking 2011; entered on: 6/26/17 Sex Male Patient Care team information Care Team PersonnelName: Jesus Somers MD Position: [facility] Outreach Member Role: PCP Address: Address: [address] [place] [address] Name: Clarisa Gonzalez RN Position: [facility] RN Member Role: Primary Care Nurse Name: Natalie Lau RN Position: [facility] Hospital Control Supervisor Member Role: Primary Care Nurse Name: Charito Costa RN Position: [facility] RN Member Role: Primary Care Nurse Care Team Related PersonsName: ZULEYKA PAPPAS Address: [address] [place] [address] Name: SANCHO GONZALEZ Address: [address] [place] [address]
--- OUTSIDE RECORDS SUMMARY | 2022-01-09 22:58 | XMS_ITS | Continuity of Care Document ---
:1950 Author Organization [facility] Address [address] [place] [address]- Care Team Providers Name Role Phone Name Jesus GIBBS Primary Care Physician [place] [facility] [place](s): 09/06/21 - 10/06/21 [facility] [address] [place] [address]- Attending Physician: Denise Luevano Admitting Physician: Denise Luevano Referring Physician: AdmtrDenise Allergies, Adverse Reactions, Alerts Substance Reaction Severity [...] Maintenance, 07/28/16 11:00:56, Route to Pharmacy Electronically, [id number], [facility] Start Date: 07/28/16 Stop Date: 08/27/16 Status: Orderedatorvastatin 80 mg oral tablet = 80 mg, By Mouth, Daily at bedtime, # 30 tablet, 0 Refills, Maintenance, Tablet, Route to Pharmacy Electronically, [id number], [facility] Start Date: 07/28/16 Stop Date: 08/27/16 Status: OrderedFish Oil By Mouth, 0 Refills, Maintenance, 12/23/18 11:38:01 EST Start Date: 12/23/18 Status: Orderedfurosemide 80 mg oral tablet 80 mg, By Mouth, 2 times a day, # 30 tablet, Refills 0, Tot. Refills 0, Maintenance, 07/28/16 11:01:07, Route to Pharmacy Electronically, [id number], [facility] Start Date: 07/28/16 Stop [...] Maintenance, 07/28/16 11:02:47, Route to Pharmacy Electronically, [id number], [facility] 3 Start Date: 07/28/16 Stop Date: 08/27/16 [...] 07/09/18 9:32:53 EDT, Route to Pharmacy Electronically, [id number], [facility] Start Date: 07/09/18 Status: OrderedMultivitamin Daily, [...] smoking 2011; entered on: 08/05/16 Sex Male Care Team PersonnelName: Jesus Somers MD Address: [address] [place] [id number]
--- OUTSIDE RECORDS SUMMARY | 2022-01-09 22:58 | XMS_ITS | Continuity of Care Document ---
:1950 Author Organization [facility] Address [address] [place] [address]- Care Team Providers Name Role Phone Name Jesus GIBBS Primary Care Physician Encounter [facility] Date(s): 07/22/19 - 08/21/19 [facility] [address] [place] [address]- [facility] Attending Physician: Denise Luevano Admitting Physician: Denise [...] Maintenance, 07/28/16 11:00:56, Route to Pharmacy Electronically, [id number], [facility] Start Date: 07/28/16 Stop Date: 08/27/16 Status: Orderedatorvastatin 80 mg oral tablet = 80 mg, By Mouth, Daily at bedtime, # 30 tablet, 0 Refills, Maintenance, Tablet, Route to Pharmacy Electronically, [id number], [facility] Start Date: 07/28/16 Stop Date: 08/27/16 Status: OrderedFish Oil By Mouth, 0 Refills, Maintenance, 12/23/18 11:38:01 EST Start Date: 12/23/18 Status: Orderedfurosemide 80 mg oral tablet 80 mg, By Mouth, 2 times a day, # 30 tablet, Refills 0, Tot. Refills 0, Maintenance, 07/28/16 11:01:07, Route to Pharmacy Electronically, [id number], [facility] Start Date: 07/28/16 Stop Date: [...] Maintenance, 07/28/16 11:02:47, Route to Pharmacy Electronically, [id number], [facility] Start Date: 07/28/16 Stop Date: [...] 07/09/18 9:32:53 EDT, Route to Pharmacy Electronically, [id number], [facility] 3 Start Date: 07/09/18 Status: OrderedMultivitamin Daily, [...]
--- OUTSIDE RECORDS SUMMARY | 2022-01-09 22:58 | XMS_ITS | Continuity of Care Document ---
:1950 Author Organization [facility] Address [address] [place] [phone]- Care Team Providers Name Role Phone Name Jesus GIBBS Primary Care Physician [place] [facility] [place]): 06/08/21 - 10/06/21 [facility] [address] [place] [address]- Attending Physician: Abel Aguilar MD Admitting Physician: Abel Aguilar MD Allergies, Adverse Reactions, Alerts Substance Reaction [...] Maintenance, 07/28/16 11:00:56, Route to Pharmacy Electronically, [id number], [facility] Start Date: 07/28/16 Stop Date: 08/27/16 Status: Orderedatorvastatin 80 mg oral tablet = 80 mg, By Mouth, Daily at bedtime, # 30 tablet, 0 Refills, Maintenance, Tablet, Route to Pharmacy Electronically, [id number], [facility] Start Date: 07/28/16 Stop Date: 08/27/16 Status: OrderedFish Oil By Mouth, 0 Refills, Maintenance, 12/23/18 11:38:01 EST Start Date: 12/23/18 Status: Orderedfurosemide 80 mg oral tablet 80 mg, By Mouth, 2 times a day, # 30 tablet, Refills 0, Tot. Refills 0, Maintenance, 07/28/16 11:01:07, Route to Pharmacy Electronically, [id number], [facility] 3 Start Date: 07/28/16 Stop Date: 08/27/16 [...] Maintenance, 07/28/16 11:02:47, Route to Pharmacy Electronically, [id number], [facility] 3 Start Date: 07/28/16 Stop Date: 08/27/16 [...] 07/09/18 9:32:53 EDT, Route to Pharmacy Electronically, [id number], [facility] Start Date: 07/09/18 Status: OrderedMultivitamin Daily, [...] Care Team PersonnelName: Jesus Somers MD Address: [address] [place] [id number]
[2022-01-09] MEDS: Acetaminophen 325 MG TABLET 650 MG PO (23:23)
--- NOTE | 2022-01-09 23:29 | PC.NURSE ---
Discharge instruction reviewed with pt. Pt verbalizes understanding.
== END 2022-01-09 23:29 | disposition home or self-care (01) ==
PROVIDERS: Emergency Provider Internal Medicine; PCP Internal Medicine
DX: U07.1 COVID-19 (principal); J02.9 Acute pharyngitis, unspecified
CPT/HCPCS: 87635; 99283; 99284

== ENCOUNTER → 2022-01-24 10:27 | Outpatient (BNVA) | payer OTHER, SELFPAY | PROVIDERS: PCP Internal Medicine; Visit Provider Internal Medicine | DX: I48.19 Other persistent atrial fibrillation (principal); Z79.01 Long term (current) use of anticoagulants; Z51.81 Encounter for therapeutic drug level monitoring | CPT/HCPCS: 85610; 99211 ==

== ENCOUNTER 2022-03-22 10:25 | Outpatient (REF) | payer OTHER, SELFPAY ==
--- NOTE | ~2022-03-22 | XR_ITS ---
EXAMINATION: XR WRIST, LEFT CLINICAL INFORMATION: Pain COMPARISON: None TECHNIQUE: PA, lateral, and oblique views of the left wrist. FINDINGS: No acute fracture or dislocation. Small marginal osteophytes along the radiocarpal and first CMC joints. Alignment is anatomic with normal joint spaces. No erosions or abnormal soft tissue calcifications. XR/XR wrist LT min 3V IMPRESSION: * No acute findings. * Mild degenerative changes as described.
== END 2022-03-22 10:26 | disposition home or self-care (01) ==
LOC: HO.XRAY 10:25
PROVIDERS: Absent Provider Nurse Practitioner Primary Care; PCP Nurse Practitioner Primary Care; Visit Provider Internal Medicine
DX: M25.532 Pain in left wrist (principal); I48.19 Other persistent atrial fibrillation; Z51.81 Encounter for therapeutic drug level monitoring; Z79.01 Long term (current) use of anticoagulants
CPT/HCPCS: 73110; 85610; 99211

== ENCOUNTER → 2022-04-19 10:04 | Outpatient (BNVA) | payer OTHER, SELFPAY | PROVIDERS: PCP Nurse Practitioner Primary Care; Visit Provider Internal Medicine | DX: I48.19 Other persistent atrial fibrillation (principal); Z79.01 Long term (current) use of anticoagulants; Z51.81 Encounter for therapeutic drug level monitoring | CPT/HCPCS: 85610; 99211 ==

== ENCOUNTER → 2022-07-18 10:50 | Outpatient (BNVA) | payer OTHER, SELFPAY | PROVIDERS: PCP Nurse Practitioner Primary Care; Visit Provider Internal Medicine | DX: I48.19 Other persistent atrial fibrillation (principal); Z79.01 Long term (current) use of anticoagulants; Z51.81 Encounter for therapeutic drug level monitoring | CPT/HCPCS: 85610; 99211 ==

== ENCOUNTER → 2022-07-25 10:57 | Outpatient (BNVA) | payer OTHER, SELFPAY | PROVIDERS: PCP Nurse Practitioner Primary Care; Visit Provider Internal Medicine | DX: I48.19 Other persistent atrial fibrillation (principal); Z79.01 Long term (current) use of anticoagulants; Z51.81 Encounter for therapeutic drug level monitoring | CPT/HCPCS: 85610; 99211 ==

== ENCOUNTER 2022-08-21 13:13 | Outpatient (AMB) | payer OTHER, SELFPAY ==
[2022-08-21 13:35] LABS: Prothrombin Time Whole Bld POC 35.5 sec (11.1-13.5)
--- NOTE | 2022-08-21 13:36 | MHC.OFFVISCO ---
Intake Intake Visit Reasons: Anticoagulation Allergies Tetanus Vaccines and Toxoid [TETANUS] Allergy (Unknown, Verified 08/21/22 13:30) SWELLING TETNUS SHOT Allergy (Unknown, Uncoded 08/21/22 13:30) UNKNOWN Medication List - Last Reconciled 08/21/22 by Mervat Del Castillo RN acetaminophen 0 mg PO albuterol sulfate mg inhalation TID PRN albuterol sulfate 90 mcg/actuation (Ventolin HFA) 2 puffs PO Q4-6H PRN ammonium lactate 12% appl topical DAILY PRN atorvastatin 80 mg PO BEDTIME blood sugar diagnostic (FreeStyle Lite Strips) As directed blood-glucose meter (FreeStyle [place] Lite kit) As directed clobetasol 0.05% grams topical BID clotrimazole 1% appl topical BID dapagliflozin propanediol (Farxiga) 5 mg PO DAILY furosemide 80 mg PO BID gabapentin 100 mg PO insulin aspart U-100 (Novolog FlexPen U-100 Insulin aspart) 10 units subcut BID insulin glargine (Lantus Solostar U-100 Insulin) pt states taking 44 units sq q pm isosorbide mononitrate ER 120 mg PO QAM labetalol 100 mg PO lisinopril 40 mg PO QAM metformin 1,000 mg PO multivitamin 1 tab PO DAILY pen needle, diabetic (UltiCare Pen Needle) As directed tamsulosin 0.4 mg PO DAILY triamcinolone acetonide 0.1% 1 appl topical BID-TID umeclidinium 62.5 mcg/actuation (Incruse Ellipta) 1 inh inhalation DAILY warfarin 0 mg See Protocol PO Nursing Note INR: 3.0- in therapeutic range Medications and supplements reviewed No changes in health, diet, medications, or supplements, Denies any signs and symptoms of bleeding or bruising or clotting. 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
== END 2022-08-21 13:43 | disposition home or self-care (01) ==
LOC: HO.ACS 13:13
PROVIDERS: PCP Nurse Practitioner Primary Care; Visit Provider Internal Medicine
DX: Z79.01 Long term (current) use of anticoagulants (principal)

== ENCOUNTER → 2022-08-21 13:13 | Outpatient (BNVA) | payer OTHER, SELFPAY | PROVIDERS: PCP Nurse Practitioner Primary Care; Visit Provider Internal Medicine | DX: I48.19 Other persistent atrial fibrillation (principal); Z79.01 Long term (current) use of anticoagulants; Z51.81 Encounter for therapeutic drug level monitoring | CPT/HCPCS: 85610; 99211 ==

== ENCOUNTER 2022-09-04 10:48 | Outpatient (AMB) | payer OTHER, SELFPAY ==
[2022-09-04 10:58] LABS: Prothrombin Time Whole Bld POC 21.6 sec (11.1-13.5); ~PT, ~INR - Anti Coag Clinic 1.8 (0.9-1.1)
--- NOTE | 2022-09-04 10:58 | MHC.OFFVISCO ---
Intake Intake Visit Reasons: Anticoagulation Allergies Tetanus Vaccines and Toxoid [TETANUS] Allergy (Unknown, Verified 09/04/22 10:53) SWELLING TETNUS SHOT Allergy (Unknown, Uncoded 09/04/22 10:53) UNKNOWN Medication List - Last Reconciled 09/04/22 by Mervat Del Castillo RN acetaminophen 0 mg PO albuterol sulfate mg inhalation TID PRN albuterol sulfate 90 mcg/actuation (Ventolin HFA) 2 puffs PO Q4-6H PRN ammonium lactate 12% appl topical DAILY PRN atorvastatin 80 mg PO BEDTIME blood sugar diagnostic (FreeStyle Lite Strips) As directed blood-glucose meter (FreeStyle [place] Lite kit) As directed clobetasol 0.05% grams topical BID clotrimazole 1% appl topical BID dapagliflozin propanediol (Farxiga) 5 mg PO DAILY furosemide 80 mg PO BID gabapentin 100 mg PO insulin aspart U-100 (Novolog FlexPen U-100 Insulin aspart) 10 units subcut BID insulin glargine (Lantus Solostar U-100 Insulin) pt states taking 44 units sq q pm isosorbide mononitrate ER 120 mg PO QAM labetalol 100 mg PO lisinopril 40 mg PO QAM metformin 1,000 mg PO multivitamin 1 tab PO DAILY pen needle, diabetic (UltiCare Pen Needle) As directed tamsulosin 0.4 mg PO DAILY triamcinolone acetonide 0.1% 1 appl topical BID-TID umeclidinium 62.5 mcg/actuation (Incruse Ellipta) 1 inh inhalation DAILY warfarin 0 mg See Protocol PO Nursing Note INR 1.8-?? out of therapeutic range Medications and supplements reviewed Patient status: pt states missed his dose in the am yesterday and took in the pm Medications or supplements: no changes Diet: same Denies any signs and symptoms of bleeding or clotting or unusual bruising Bleeding, bruising, clotting discussed Nutritional guidance given: no greens for 2 days, eat a red today Dose: 15mg today then reg dosing- 15mg x 3, 10mg x 4 F/U INR Date : 1 week, pt to [place] 09/12/22-09/25/22 Patient verbalizing understanding of instructions given. 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
== END 2022-09-04 11:10 | disposition home or self-care (01) ==
LOC: HO.ACS 10:48
PROVIDERS: PCP Nurse Practitioner Primary Care; Visit Provider Internal Medicine
DX: Z79.01 Long term (current) use of anticoagulants (principal)

== ENCOUNTER → 2022-09-04 10:48 | Outpatient (BNVA) | payer OTHER, SELFPAY | PROVIDERS: PCP Nurse Practitioner Primary Care; Visit Provider Internal Medicine | DX: I48.19 Other persistent atrial fibrillation (principal); Z79.01 Long term (current) use of anticoagulants; Z51.81 Encounter for therapeutic drug level monitoring | CPT/HCPCS: 85610; 99211 ==

== ENCOUNTER 2022-09-10 10:31 | Outpatient (AMB) | payer OTHER, SELFPAY ==
--- NOTE | 2022-09-10 10:32 | MHC.OFFVIS ---
Intake Vital Signs 09/10/22 10:33 Height 5 ft 6 in Weight 295 lb 3.183 oz BMI 47.6 BP 130/68 Blood Pressure Location Lt brachial Pulse 44 L Pulse Source Pulse Oximeter Temp 97.5 F Temp Source Skin Pulse Oximetry (%) 97 Oxygen Delivery Method Room Air Intake Visit Reasons: +RICCI - Confirmed Intake Note: New pt presents today for consult. C/o pain in left leg worse in knee; occasional pain and stiffness in hands. States he feels weak and tired Recreation Specialist Required: Yes Recreation Specialist Language: Rn Relief Charge Name: Milli [id number] Information Interpreted: clinical only Accompanied by: Self / Same As Patient Allergies Tetanus Vaccines and Toxoid [TETANUS] Allergy (Unknown, Verified 09/10/22 10:41) SWELLING TETNUS SHOT Allergy (Unknown, Uncoded 09/10/22 10:41) UNKNOWN Medication List - Last Reconciled 09/10/22 by Salvatore Myles MD acetaminophen 500 mg PO Q6H PRN albuterol sulfate mg inhalation TID PRN albuterol sulfate 90 mcg/actuation (Ventolin HFA) 2 puffs PO Q4-6H PRN ammonium lactate 12% appl topical DAILY PRN aspirin 81 mg PO DAILY atorvastatin 80 mg PO BEDTIME blood sugar diagnostic (FreeStyle Lite Strips) As directed blood-glucose meter (FreeStyle [place] Lite kit) As directed clobetasol 0.05% grams topical BID clotrimazole 1% appl topical BID dapagliflozin propanediol (Farxiga) 5 mg PO DAILY furosemide 80 mg PO BID gabapentin 100 mg PO BID insulin aspart U-100 (Novolog FlexPen U-100 Insulin aspart) 10 units subcut BID insulin glargine (Lantus Solostar U-100 Insulin) pt states taking 44 units sq q pm isosorbide mononitrate ER 120 mg PO QAM labetalol 100 mg PO lisinopril 40 mg PO QAM metformin 1,000 mg PO DAILY multivitamin 1 tab PO DAILY pen needle, diabetic (UltiCare Pen Needle) As directed salmeterol (Serevent Diskus) 1 inh inhalation BID tamsulosin 0.4 mg PO DAILY triamcinolone acetonide 0.1% 1 appl topical BID-TID umeclidinium 62.5 mcg/actuation (Incruse Ellipta) 1 inh inhalation DAILY warfarin 5 mg See Protocol PO DAILY HPI HPI Comments History of Present Illness Details The patient presents with complaints of pain in the left leg. The history and and exam are facilitated through the use of the iPad translating service. He says mostly the pain is around the left knee although the right knee is painful as well. Symptoms are worse with walking up or down stairs. There are also pains with rising up from a chair. He does notice any swelling. He had does not recall any history of falls or injuries to the area. The patient also has discomfort in the anterior lower pretibial regions. He notes dark color there of the skin. They have not ulcerated but they are painful to the touch at times. He has type 2 diabetes with he says poor control of blood sugars, sometimes as high as 350. There is intermittent numbness in the feet. He has not had any foot or leg ulcers. An RICCI was done that showed positivity at a titer of 1-160. He has some micro albuminuria on urine testing. [facility] Medical History (Updated 09/10/22 @ 11:20 by Salvatore Myles MD) RICCI positive Anemia Asthma Chronic diastolic heart failure Chronic low back pain COPD (chronic obstructive pulmonary disease) CRP elevated Depressive disorder Diabetic polyneuropathy Essential hypertension Obstructive sleep apnea Psoriasis Type 2 diabetes mellitus with hyperlipidemia Surgical History No history of previous surgery Family History Mother Cancer Diabetes Hypertension Father Stomach cancer Social History (Updated 09/10/22 @ 10:43 by VIKA Herrera) Household Members: Spouse and Children Alcohol intake: former Patient Tobacco Use Status: Former Tobacco user Review of Systems Const Details: Some weight gain in the last few years. It sounds like he currently avoid stairs because knees are painful so he does very little walking other than flat surfaces. Negative for appetite change, fever, chills, malaise Eyes Details: Negative for vision change, dry eyes,headaches and dizziness ENT Details: Negative for hearing change, tinnitus, oral ulcer, nose bleeds and oral dryness. Card Details: Intermittent ankle edema, he is on chronic diuretics. Negative chest pain, and syncope Resp Details: History of COPD and sleep apnea. Negative for recent changes in SOB, cough and wheezing GI Details: Negative indigestion/heartburn, nausea, abdominal pain, bowel changes, diarrhea, constipation and bloody stool. Details: Nocturia x2. Negative for dysuria, hematuria, decreased force/flow and genital discharge Skin/Breast Details: Negative for itching, rash, hives, Raynaud's symptoms, sun sensitivity, and skin cancer Neuro Details: Some numbness in the feet. Negative for epilepsy, palsy, stroke, changes in speech and weakness Psych Details: Negative for anxiety, depression and stress Endo Details: Negative for polyuria and polydypsia Sancho/Lymph Details: Negative for excessive bruising or bleeding. Physical Exam Vital Signs: Last Vital Signs Temp 97.5 F 09/10/22 10:33 Pulse 44 L 09/10/22 10:33 BP 130/68 09/10/22 10:33 Pulse Ox 97 09/10/22 10:33 Oxygen Delivery Method Room Air 09/10/22 10:33 BMI result Body Mass Index 47.6 APPEARANCE: Patient in no acute distress EYES no redness, pupils equal and reactive to light, eyelids normal EARS: External ear normal, canal clear and tympanic membrane normal. NOSE/SINUS: Airflow through both nares, no nasal discharge, no bleeding THROAT: Oral mucosa moist, no ulcerations NECK: No thyromegaly or masses, no adenopathy, trachea midline. HEART: Regulrar rhythm, S1-S2 heard, no murmurs, rubs or gallops. LUNG: Clear to percussion and auscultation ABD: Normal bowel sounds, no organomegaly, masses or tenderness. EXTREMITIES: Trace ankle and pretibial edema. There is hyperpigmentation in tenderness over the tibia area. This all looks like venous insufficiency. No calf tenderness, normal peripheral pulses. NEURO: Oriented and alert x3. No focal weakness. Reflexes symmetric. Gait normal. I do not detect any sensory loss in the feet. SKIN: Venous stasis at changes in the lower legs. No inflammatory or neoplastic lesions. Normal color and turgor JOINT EXAM:.?? Cervical Spine:.? Full range of motion without pain; no tenderness. Thoracic Spine:.? No scoliosis.? No tenderness on palpation. Lumbar Spine:.? Alignment normal.? Lumbar pain with flexion at 60 degrees. No tenderness. Chest Wall:.? No tenderness, swelling, increased warmth or erythema. Hands:.? Normal pain-free range of motion without tenderness, swelling, increased warmth or erythema. Able to make a full fist and has a good chemical pumper strength. Wrists:.? Normal pain-free range of motion without tenderness, swelling, increased warmth or erythema. Elbows:. Normal pain-free range of motion without tenderness, swelling, increased warmth or erythema. Shoulders:.?? Full range of motion without pain. No tenderness, weakness, swelling, increased warmth or erythema. Hips:.? Full range of motion with mild lumbar pain with extremes of external rotation abduction. No groin pain with motion. Hip bursa:.? Mild trochanteric tenderness. Knees: Right: Mild patellofemoral crepitus but pain-free range of motion. There is minimal medial tenderness without redness or effusion. Left: Mild patellofemoral crepitus and mild pain with extremes of normal flexion or extension. Mild medial tenderness without redness or effusion. There is no popliteal swelling or tenderness. Ankles:.? Normal pain-free range of motion without tenderness, swelling, increased warmth or erythema. Feet:.? Normal pain-free range of motion without tenderness, swelling, increased warmth or erythema. Tender points:.? No tenderness to digital palpation at the occiput, trapezius, second rib, lateral epicondyle, knees, greater trochanter and gluteal area bilaterally. ? Results Reviewed Results Reviewed: May 2022 lab work: ESR 14, CRP 0.89 mg/dL, RICCI 1:160, rheumatoid factor negative, albumin creatinine ratio in the urine was 89 Assessment & Plan Assessment & Plan (1) Knee pain, bilateral: Code(s): M25.561 - Pain in right knee; M25.562 - Pain in left knee (2) RICCI positive: Code(s): R76.8 - Other specified abnormal immunological findings in serum (3) Venous insufficiency (chronic) (peripheral): Code(s): I87.2 - Venous insufficiency (chronic) (peripheral) (4) Osteoarthritis of knees, bilateral: Code(s): M17.0 - Bilateral primary osteoarthritis of knee Plan I think most of his knee pain and leg pain is due to osteoarthritis in the knees, worse on the left. This is compounded by his obesity. Treatment options are limited because he is on Coumadin so use of NSAIDs if dangerous and use of acetaminophen may be associated with fluctuating efficacy of the warfarin. I am referring him for some physical therapy. We discussed the possibility of corticosteroid and/or gel injections for possible symptom relief. He says he wants to try something topically so I did prescribe some diclofenac gel. We will check some other serologies to workup his RICCI but I doubt that they are going to be positive as he does not really have signs or symptoms of SLE. X-rays of the knees are also ordered. A few told him that if he wants to come back for corticosteroid injections he would have to get better control of his blood sugar than he has been having recently. I would avoid corticosteroid injections unless his sugar can be shown to be routinely below 200. I gave him some written information on the osteoarthritis to review. Review of his history, physical exam and lab work took 48 minutes. Orders: Orders XR knee LT 3V Today M17.0 - Bilateral primary osteoarthritis of knee, M25.561 - Pain in right knee, M25.562 - Pain in left knee XR knee RT 3V Today M17.0 - Bilateral primary osteoarthritis of knee, M25.561 - Pain in right knee, M25.562 - Pain in left knee C Reactive Protein Today R76.8 - Other specified abnormal immunological findings in serum Complete Blood Count Auto Diff Today R76.8 - Other specified abnormal immunological findings in serum Erythrocyte Sedimentation Rate Today R76.8 - Other specified abnormal immunological findings in serum Anti DNA DS Antibody Today R76.8 - Other specified abnormal immunological findings in serum Anti Extractable Nuclear Ag Today R76.8 - Other specified abnormal immunological findings in serum PT Evaluation and Treatment Today M25.561 - Pain in right knee, M25.562 - Pain in left knee Medications: New diclofenac sodium 1% 2 grams topical 2XD 100 grams 3RF M17.0 - Bilateral primary osteoarthritis of knee Coding Level of Care Code New Pt Level 4 (06932) Diagnoses Knee pain, bilateral M25.561; M25.562 RICCI positive R76.8 Venous insufficiency (chronic) (peripheral) I87.2 Osteoarthritis of knees, bilateral M17.0
[2022-09-10 10:33] VITALS: BP 130/68; PULSE 44; TEMP 36.4; O2SAT 97; BMI 47.6
== END 2022-09-10 11:31 | disposition home or self-care (01) ==
PROVIDERS: PCP Nurse Practitioner Primary Care; Visit Provider Internal Medicine Rheumatology
DX: M25.561 Pain in right knee (principal); M25.562 Pain in left knee; R76.8 Other specified abnormal immunological findings in serum; I87.2 Venous insufficiency (chronic) (peripheral); M17.0 Bilateral primary osteoarthritis of knee
CPT/HCPCS: 99204

== ENCOUNTER → 2022-09-10 10:31 | Outpatient (BNVA) | payer OTHER, SELFPAY | PROVIDERS: PCP Nurse Practitioner Primary Care; Visit Provider Internal Medicine Rheumatology | DX: M17.0 Bilateral primary osteoarthritis of knee (principal); M25.561 Pain in right knee; M25.562 Pain in left knee; R76.8 Other specified abnormal immunological findings in serum; I87.2 Venous insufficiency (chronic) (peripheral) | CPT/HCPCS: 99202 ==

== ENCOUNTER 2022-09-10 11:35 | Outpatient (REF) | payer OTHER, SELFPAY ==
[2022-09-10 13:30] LABS: MANUAL DIFF FLAG NO
[2022-09-10 13:57] LABS: C Reactive Protein 0.55 mg/dL (< or = 0.50)
[2022-09-10 14:06] LABS: Basophils Absolute Auto 0.1 X10*3/uL (0.0-0.2); Basophils Percent Auto 0.6 % (0-2); Eosinophils Absolute Auto 0.2 X10*3/uL (0.0-0.4); Eosinophils Percent Auto 2.1 % (0-4); Hematocrit 42.4 % (42.0-52.0); Hemoglobin 13.3 g/dl (14.0-18.0); Imm Gran Abs Auto 0.03 X10*3/uL (0.00-0.03); Imm Gran Pct Auto 0.4 % (0.0-0.4); Lymphocytes Absolute Auto 2.1 X10*3/uL (1.2-4.9); Mean Corpuscular HGB Conc 31.4 g/dl (31.0-36.0); Mean Corpuscular Hemoglobin 25.9 pg (27.0-33.0); Mean Corpuscular Volume 82.5 fL (80.0-98.0); Monocytes Absolute Auto 0.8 X10*3/uL (0.1-1.2); Monocytes Percent Auto 9.8 % (2-11); Neutrophils Absolute Auto 4.7 x10*3/uL (2.0-8.3); Neutrophils Percent Auto 60.1 % (45-73); Platelet Count 141 X10*3/uL (160-400); Red Blood Count 5.14 X10*6/uL (4.60-5.80); Red Cell Distribution Width 16.7 % (11.0-16.0); White Blood Count 7.8 X10*3/uL (4.8-10.8)
[2022-09-10 14:34] LABS: Erythrocyte Sedimentation Rate 16 MM/HR (0-15)
[2022-09-11 21:52] LABS: Anti DNA DS Antibody 1 IU/mL; SM/Ribonucleoprotein Ab <1.0 NEG AI (<1.0 NEG); Smith Protein <1.0 NEG AI (<1.0 NEG)
== END 2022-09-10 11:36 | disposition home or self-care (01) ==
LOC: HO.10HDL 11:35
PROVIDERS: Visit Provider Internal Medicine Rheumatology
DX: R76.8 Other specified abnormal immunological findings in serum (principal); M25.561 Pain in right knee; M25.562 Pain in left knee; I87.2 Venous insufficiency (chronic) (peripheral); M17.0 Bilateral primary osteoarthritis of knee
CPT/HCPCS: 36415; 85025; 85652; 86140; 86225; 86235

== ENCOUNTER 2022-09-26 13:09 | Outpatient (AMB) | payer OTHER, SELFPAY ==
[2022-09-26 13:16] LABS: Prothrombin Time Whole Bld POC 33.5 sec (11.1-13.5); ~PT, ~INR - Anti Coag Clinic 2.8 (0.9-1.1)
--- NOTE | 2022-09-26 13:25 | MHC.OFFVISCO ---
Intake Intake Visit Reasons: Anticoagulation Allergies Tetanus Vaccines and Toxoid [TETANUS] Allergy (Unknown, Verified 09/10/22 10:41) SWELLING TETNUS SHOT Allergy (Unknown, Uncoded 09/10/22 10:41) UNKNOWN Nursing Note INR: 2.8 in therapeutic range Medications and supplements reviewed No changes in health, diet, medications, or supplements, Denies any signs and symptoms of bleeding or bruising or clotting. Bleeding, bruising, clotting discussed Nutritional guidance given- EAT A MIX OF FRUITS AND VEGETABLES Dose: KEEP SAME 15MG X 3 DAYS / 10MG X 4 DAYS F/U INR: 2 WEEKS PER PT REQUEST Patient verbalizes understanding of instructions given Anti-Coag Initial Assessment Social Hx Patient Tobacco Use Status: Former Tobacco user alcohol intake: former Coding Level of Care Code Est Patient Level 1 Diagnoses Current use of anticoagulant therapy Z79.01 Assessment & Plan Assessment & Plan (1) Current use of anticoagulant therapy: Code(s): Z79.01 - FDC (current) use of anticoagulants Category: Medical
== END 2022-09-26 13:27 | disposition home or self-care (01) ==
LOC: HO.ACS 13:09
PROVIDERS: PCP Nurse Practitioner Primary Care; Visit Provider Internal Medicine
DX: Z79.01 Long term (current) use of anticoagulants (principal)

== ENCOUNTER → 2022-09-26 13:09 | Outpatient (BNVA) | payer OTHER, SELFPAY | PROVIDERS: PCP Nurse Practitioner Primary Care; Visit Provider Internal Medicine | DX: I48.19 Other persistent atrial fibrillation (principal); Z79.01 Long term (current) use of anticoagulants; Z51.81 Encounter for therapeutic drug level monitoring | CPT/HCPCS: 85610; 99211 ==

== ENCOUNTER 2022-10-10 10:05 | Outpatient (AMB) | payer OTHER, SELFPAY ==
[2022-10-10 10:13] LABS: Prothrombin Time Whole Bld POC 29.8 sec (11.1-13.5); ~PT, ~INR - Anti Coag Clinic 2.5 (0.9-1.1)
--- NOTE | 2022-10-10 10:16 | MHC.OFFVISCO ---
Intake Intake Visit Reasons: Anticoagulation Allergies Tetanus Vaccines and Toxoid [TETANUS] Allergy (Unknown, Verified 09/10/22 10:41) SWELLING TETNUS SHOT Allergy (Unknown, Uncoded 09/10/22 10:41) UNKNOWN Medication List - Last Reconciled 10/10/22 by Nicky Gong RN acetaminophen 500 mg PO Q6H PRN albuterol sulfate mg inhalation TID PRN albuterol sulfate 90 mcg/actuation (Ventolin HFA) 2 puffs PO Q4-6H PRN ammonium lactate 12% appl topical DAILY PRN aspirin 81 mg PO DAILY atorvastatin 80 mg PO BEDTIME blood sugar diagnostic (FreeStyle Lite Strips) As directed blood-glucose meter (FreeStyle [place] Lite kit) As directed clobetasol 0.05% grams topical BID clotrimazole 1% appl topical BID dapagliflozin propanediol (Farxiga) 5 mg PO DAILY diclofenac sodium 1% 2 grams topical 2XD dulaglutide (Trulicity) mg subcut furosemide 80 mg PO BID gabapentin 100 mg PO BID insulin aspart U-100 (Novolog FlexPen U-100 Insulin aspart) 10 units subcut BID insulin glargine (Lantus Solostar U-100 Insulin) pt states taking 44 units sq q pm isosorbide mononitrate ER 120 mg PO QAM labetalol 100 mg PO lisinopril 40 mg PO QAM metformin 1,000 mg PO DAILY multivitamin 1 tab PO DAILY pen needle, diabetic (UltiCare Pen Needle) As directed salmeterol (Serevent Diskus) 1 inh inhalation BID tamsulosin 0.4 mg PO DAILY triamcinolone acetonide 0.1% 1 appl topical BID-TID umeclidinium 62.5 mcg/actuation (Incruse Ellipta) 1 inh inhalation DAILY warfarin 5 mg See Protocol PO DAILY Nursing Note INR: 2.5 in therapeutic range Medications and supplements reviewed No changes in health, diet, medications, or supplements, Denies any signs and symptoms of bleeding or bruising or clotting. 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
== END 2022-10-10 10:20 | disposition home or self-care (01) ==
LOC: HO.ACS 10:05
PROVIDERS: PCP Nurse Practitioner Primary Care; Visit Provider Internal Medicine
DX: Z79.01 Long term (current) use of anticoagulants (principal)

== ENCOUNTER → 2022-10-10 10:05 | Outpatient (BNVA) | payer OTHER, SELFPAY | PROVIDERS: PCP Nurse Practitioner Primary Care; Visit Provider Internal Medicine | DX: I48.19 Other persistent atrial fibrillation (principal); Z79.01 Long term (current) use of anticoagulants; Z51.81 Encounter for therapeutic drug level monitoring | CPT/HCPCS: 85610; 99211 ==

== ENCOUNTER 2022-10-15 10:05 | Outpatient (AMB) | payer OTHER, SELFPAY ==
--- NOTE | 2022-10-15 10:30 | A.OFFVIS_ITS ---
Intake Vital Signs 10/15/22 10:31 Height 5 ft 6 in Weight 294 lb BMI 47.4 BP 118/62 Blood Pressure Location Lt brachial Position Sitting Pulse 42 L Pulse Source Pulse Oximeter Pulse Oximetry (%) 95 Oxygen Delivery Method Room Air Intake Visit Reasons: Shortness of breath Intake Note: pt is here as a new patient for shortness of breath mostly with exertion and states even with talking and also when he lies down, it's been 3 years. Search Engine Optimization Analyst Required: Yes Search Engine Optimization Analyst Name: nolvia Allergies Tetanus Vaccines and Toxoid [TETANUS] Allergy (Unknown, Verified 10/15/22 10:46) SWELLING TETNUS SHOT Allergy (Unknown, Uncoded 10/15/22 10:46) UNKNOWN Medication List - Last Reconciled 10/15/22 by Miguel Thornton MD acetaminophen 500 mg PO Q6H PRN albuterol sulfate mg inhalation TID PRN albuterol sulfate 90 mcg/actuation (Ventolin HFA) 2 puffs PO Q4-6H PRN ammonium lactate 12% appl topical DAILY PRN aspirin 81 mg PO DAILY atorvastatin 80 mg PO BEDTIME blood sugar diagnostic (FreeStyle Lite Strips) As directed blood-glucose meter (FreeStyle [place] Lite kit) As directed clobetasol 0.05% grams topical BID clotrimazole 1% appl topical BID dapagliflozin propanediol (Farxiga) 5 mg PO DAILY diclofenac sodium 1% 2 grams topical 2XD dulaglutide (Trulicity) mg subcut furosemide 80 mg PO BID gabapentin 100 mg PO BID insulin aspart U-100 (Novolog FlexPen U-100 Insulin aspart) 10 units subcut BID insulin glargine (Lantus Solostar U-100 Insulin) pt states taking 44 units sq q pm isosorbide mononitrate ER 120 mg PO QAM labetalol 100 mg PO lisinopril 40 mg PO QAM metformin 1,000 mg PO DAILY multivitamin 1 tab PO DAILY pen needle, diabetic (UltiCare Pen Needle) As directed salmeterol (Serevent Diskus) 1 inh inhalation BID tamsulosin 0.4 mg PO DAILY triamcinolone acetonide 0.1% 1 appl topical BID-TID umeclidinium 62.5 mcg/actuation (Incruse Ellipta) 1 inh inhalation DAILY warfarin 5 mg See Protocol PO DAILY Do you need a note to return to daycare/school/sports/work: No HPI Shortness of breath HPI Details THIS GENTLEMAN IS 71 YEARS OLD BEING SEEN FOR THE 1ST TIME FOR PULMONARY EVALUATION, AND ALSO FOR MANAGEMENT SLEEP APNEA. HE IS A CASE OF MORBID OBESITY, DIAGNOSED TO HAVE OBSTRUCTIVE SLEEP APNEA AT LEAST 10 YEARS AGO, AND HAS BEEN USING CPAP SINCE THEN. CURRENTLY HE IS ON THE 3RD CPAP DEVICE, HE USES IT EVERY NIGHT WITH A FULLFACE MASK AND SLEEPS WELL , SOMETIMES HE USES THE CPAP EVEN DURING THE DAYTIME. THE SETTINGS ARE NOT KNOWN TO US AT THIS TIME. DME SUPPLIER IS THE [employer], , MY OFFICE HAS APPROACHED THE THEY WILL TRY TO PROGRAM HIS CPAP DEVICE SO THAT WE CAN DOWNLOAD THE COMPLIANCE DATA. ANYWAY HE DOES SLEEP BETTER WITH THE CPAP AND WITHOUT THE CPAP HE CANNOT SLEEP. HIS WEIGHT USE THE OVER 300 LBS, HE HAS TRY TO LOSE SOME WEIGHT. HE SAY IS HE IS THE PARTICIPATING IN WEIGHT MANAGEMENT PROGRAM, HE HAS BEEN TOLD THAT BEFORE THE CONSIDERED DOING ANY BARIATRIC PROCEDURE, HE HAS TO LOSE MORE WEIGHT. ACCORDING TO HIM HE HAS ALREADY LOST ABOUT 30 LB OF WEIGHT. HE HAS PAST HISTORY OF SMOKING SINCE AGE 11 AND QUIT 15 YEARS AGO AFTER SMOKING MORE THAN 1 PACK A DAY FOR AT LEAST 40 YEARS OR SO. HE COMPLAINS OF GETTING SHORT OF BREATH ON ANY EXERTION LIKE WALKING IN THE HOUSE, GOING UP HILL, OR CLIMBING STAIRS. WITH THE SHORTNESS OF BREATH HE ALSO HAS SOME WHEEZING SOUNDS. DENIES CHEST PAIN WITH EXERTION. HIS CURRENT MEDICATIONS INCLUDE INCRUSE ELLIPTA 1 INHALATION DAILY, SEREVENT DISKUS-51 INHALATION B.I.D., ALBUTEROL SOLUTION WITH THE NEBULIZER ONCE OR TWICE A DAY AND ALBUTEROL INHALER 2 PUFFS Q 4-6 HOURS P.R.N. WHEN OUTDOORS. HE CONTINUES TO HAVE MILD INTERMITTENT COUGH, WITH MILD TO MODERATE AMOUNT OF MUCUS. THIS GENTLEMAN DOES HAVE MULTIPLE COMORBIDITIES NOTED IN [facility] Medical History (Updated 10/15/22 @ 13:29 by Miguel Thornton MD) RICCI positive Anemia Asthma Chronic diastolic heart failure Chronic low back pain COPD (chronic obstructive pulmonary disease) CRP elevated Depressive disorder Diabetic polyneuropathy Dyspnea on exertion Essential hypertension Morbid obesity Obstructive sleep apnea MAN on CPAP Psoriasis Type 2 diabetes mellitus with hyperlipidemia Surgical History No history of previous surgery Family History (Reviewed 09/10/22 @ 10:45 by Pretty Severino [facility]) Mother Cancer Diabetes Hypertension Father Stomach cancer Social History Household Members: Spouse and Children Alcohol intake: former Patient Tobacco Use Status: Former Tobacco user Review of Systems Const All systems reviewed & are unremarkable except as noted in HPI and below Eyes Reports no additional complaints ENT Reports no additional complaints Card Denies chest pain and Denies leg edema Resp Reports as per HPI GI Reports no additional complaints Reports no additional complaints Musc Reports no additional complaints Skin/Breast Reports system reviewed and no additional complaints, except as documented Neuro Reports no additional complaints Psych Reports no additional complaints Endo Reports no additional complaints Aller/Immun Reports no additional complaints Physical Exam Vital Signs: Last Vital Signs Pulse 42 L 10/15/22 10:31 BP 118/62 10/15/22 10:31 Pulse Ox 95 10/15/22 10:31 Oxygen Delivery Method Room Air 10/15/22 10:31 BMI result Body Mass Index 47.4 Const Other: Morbidly obese, with a round face, obese and short neck, General: comfortable, no acute distress, alert and awake Orientation/consciousness: patient oriented x3 HEENT Other: Narrow and crowded oropharynx, Mallampati class 4 Head: Yes normal to inspection General nose exam: No nasal polyps present and No nasal discharge present Face and sinus: Yes sinuses nontender Mouth: oropharynx abnormals (Crowded and narrow) Throat: Yes posterior oropharynx normal Eyes General: appearance normal, both eyes and all related structures Neck Neck: Yes normal visual inspection, Yes no lymphadenopathy, Yes trachea midline, Yes no JVD and Yes other (Neck circumference 20 in) Thyroid: Thyroid normal Chest Chest palpation & inspection: normal inspection of the chest, normal palpation of entire chest wall and no tenderness Resp Other: Percussion note not perceptible over the basilar areas. Breath sounds are diminished over the lower lobes. No wheezes or crepitations are heard. Cardio Palpation: normal PMI (Not palpable) Rate: regular rate Rhythm: regular rhythm Heart sounds: Gallop heart sound present and Murmur heart sound present GI Palpation (GI): Soft to palpation, Tenderness to palpation present (GI), No hepatosplenomegaly present, Palpable mass present and Other GI palpation findings present (Abdomen is obese and protuberant) Auscultation: normal bowel sounds Back/Spine/Pelvis Thoracic/Lumbar Spine: thoracic and lumbar spine normal to inspection Skin General skin exam: no rashes or lesions noted Neuro General: patient oriented x3 and no focal motor deficits Cranial nerves: Yes CN's II-XII intact bilaterally Extrem General: Yes normal to inspection, Yes no clubbing, cyanosis or edema and Yes no calf tenderness Psych Speech and movement: Normal speech and movement present Assessment & Plan Assessment & Plan (1) COPD (chronic obstructive pulmonary disease): Comment: Patient is being treated for COPD, however I think he has significant restrictive pulmonary disorder, secondary to morbid obesity. Plan is to do complete pulmonary function test, and then decide about his medical regimen. In the meantime I sent him for a chest x-ray. He is being scheduled for pulmonary function test. TX : For the time being continue to use Incruse Ellipta 1 inhalation daily and albuterol inhaler 2 puffs Q 4-6 hours p.r.n.. Alternatively he may use albuterol solution in the nebulizer Q 4-6 hours p.r.n.. Code(s): J44.9 - Chronic obstructive pulmonary disease, unspecified (2) Dyspnea on exertion: Comment: Dyspnea on exertion moderately severe, is most likely secondary to his morbid obesity and restrictive pulmonary disorder. He may have some component of COPD as well. Advised about relationship of his gross obesity 2 shortness of breath. He does need to think seriously about losing weight. Advised to participate more. Actively in the weight management program Do deep breathing exercises 2 or 3 times a day. Code(s): R06.09 - Other forms of dyspnea (3) Morbid obesity: Comment: BMI= 47.5. He claims he has lost some weight, He claims he has been in weight management program, but still on dietary limb. I stress that he should continue to be in the weight management program. A more regular Code(s): E66.01 - Morbid (severe) obesity due to excess calories (4) MAN on CPAP: Comment: He has history of obstructive sleep apnea for the last 10-12 years. Has been using CPAP very regularly. He states that this is his 3rd CPAP. Machine that he is using He does not know the settings. We are trying to contact DME and get more details. Code(s): G47.33 - Obstructive sleep apnea (adult) (pediatric) Orders: Orders XR chest 2V Today E66.01 - Morbid (severe) obesity due to excess calories, J44.9 - Chronic obstructive pulmonary disease, unspecified, R06.09 - Other forms of dyspnea PFT pulmonary function test Today E66.01 - Morbid (severe) obesity due to excess calories, J44.9 - Chronic obstructive pulmonary disease, unspecified, R06.09 - Other forms of dyspnea Coding Level of Care Code New Pt Level 4 (57429) Diagnoses COPD (chronic obstructive pulmonary disease) J44.9 Dyspnea on exertion R06.09 Morbid obesity E66.01 MAN on CPAP G47.33
[2022-10-15 10:31] VITALS: BP 118/62; PULSE 42; O2SAT 95; BMI 47.4
== END 2022-10-15 11:04 | disposition home or self-care (01) ==
PROVIDERS: PCP Nurse Practitioner Primary Care; Visit Provider Internal Medicine
DX: J44.9 Chronic obstructive pulmonary disease, unspecified (principal); R06.09 Other forms of dyspnea; E66.01 Morbid (severe) obesity due to excess calories; G47.33 Obstructive sleep apnea (adult) (pediatric)
CPT/HCPCS: 99204

== ENCOUNTER 2022-10-15 10:05 | Outpatient (REF) | payer OTHER, SELFPAY ==
--- NOTE | ~2022-10-15 | XR_ITS ---
EXAMINATION: XR BILATERAL KNEES CLINICAL INFORMATION: Reason for Exam M25.561 - Pain in right knee COMPARISON: None TECHNIQUE: 3 views of the bilateral knees FINDINGS: RIGHT KNEE: No acute fracture or dislocation. Mild degenerative changes of the knee with mild patellofemoral compartment osteophytes. Trace mineralization within the tibiofemoral joint spaces may reflect chondrocalcinosis. A 4 mm calcification noted in the medial tibiofemoral joint space may reflect a loose body. Small suprapatellar joint effusion. Atherosclerotic vascular calcification. LEFT KNEE: No acute fracture or dislocation. Bony protuberance is noted along the medial femoral condyle which may reflect sequelae of remote medial collateral ligament injury/Clau-Stieda lesion. Moderate degenerative change of the knee with loss of medial compartment joint space and medial and patellofemoral compartment osteophytes and quadriceps tendon enthesopathy. Few ossific fragments in Hoffa's fat pad may reflect loose bodies. Small suprapatellar joint effusion. Atherosclerotic vascular calcification. XR/XR knee RT 3V IMPRESSION: 1. Moderate degenerative changes of the left knee with a small suprapatellar joint effusion and few ossific fragments. This fat pad which may reflect loose bodies. Bony protuberance is noted along the left medial femoral condyle which may reflect sequelae of remote medial collateral ligament injury/Clau-Stieda lesion. 2. Mild degenerative changes of the right knee with small joint effusion and a 4 mm calcification noted in the medial tibiofemoral joint space may reflect a loose body. Trace mineralization within the right tibiofemoral joint spaces may reflect chondrocalcinosis.
--- NOTE | ~2022-10-15 | XR_ITS ---
EXAMINATION: XR CHEST CLINICAL INFORMATION: Morbid obesity due to excess calories. COMPARISON: 01/14/2017 TECHNIQUE: 2 views of the chest were obtained. FINDINGS: The lungs are relatively well expanded. No focal consolidation. No pleural effusion. Cardiac silhouette is unchanged. XR/XR chest 2V IMPRESSION: No acute abnormality.
--- NOTE | ~2022-10-15 | XR_ITS ---
EXAMINATION: XR BILATERAL KNEES CLINICAL INFORMATION: Reason for Exam M25.561 - Pain in right knee COMPARISON: None TECHNIQUE: 3 views of the bilateral knees FINDINGS: RIGHT KNEE: No acute fracture or dislocation. Mild degenerative changes of the knee with mild patellofemoral compartment osteophytes. Trace mineralization within the tibiofemoral joint spaces may reflect chondrocalcinosis. A 4 mm calcification noted in the medial tibiofemoral joint space may reflect a loose body. Small suprapatellar joint effusion. Atherosclerotic vascular calcification. LEFT KNEE: No acute fracture or dislocation. Bony protuberance is noted along the medial femoral condyle which may reflect sequelae of remote medial collateral ligament injury/Clau-Stieda lesion. Moderate degenerative change of the knee with loss of medial compartment joint space and medial and patellofemoral compartment osteophytes and quadriceps tendon enthesopathy. Few ossific fragments in Hoffa's fat pad may reflect loose bodies. Small suprapatellar joint effusion. Atherosclerotic vascular calcification. XR/XR knee LT 3V IMPRESSION: 1. Moderate degenerative changes of the left knee with a small suprapatellar joint effusion and few ossific fragments. This fat pad which may reflect loose bodies. Bony protuberance is noted along the left medial femoral condyle which may reflect sequelae of remote medial collateral ligament injury/Clau-Stieda lesion. 2. Mild degenerative changes of the right knee with small joint effusion and a 4 mm calcification noted in the medial tibiofemoral joint space may reflect a loose body. Trace mineralization within the right tibiofemoral joint spaces may reflect chondrocalcinosis.
== END 2022-10-15 10:06 | disposition home or self-care (01) ==
LOC: HO.XRAY 10:05
PROVIDERS: PCP Nurse Practitioner Primary Care; Visit Provider Internal Medicine
DX: M17.0 Bilateral primary osteoarthritis of knee (principal); R06.09 Other forms of dyspnea; E66.01 Morbid (severe) obesity due to excess calories; J44.9 Chronic obstructive pulmonary disease, unspecified
CPT/HCPCS: 71046; 73562; 99202

== ENCOUNTER 2022-11-08 10:34 | Outpatient (AMB) | payer OTHER, SELFPAY ==
[2022-11-08 10:39] LABS: Prothrombin Time Whole Bld POC 38.1 sec (11.1-13.5); ~PT, ~INR - Anti Coag Clinic 3.2 (0.9-1.1)
--- NOTE | 2022-11-08 10:47 | MHC.OFFVISCO ---
Intake Intake Visit Reasons: Anticoagulation Allergies Tetanus Vaccines and Toxoid [TETANUS] Allergy (Unknown, Verified 11/08/22 10:34) SWELLING TETNUS SHOT Allergy (Unknown, Uncoded 10/15/22 10:46) UNKNOWN Medication List - Last Reconciled 11/08/22 by Naila Martino RN acetaminophen 500 mg PO Q6H PRN albuterol sulfate mg inhalation TID PRN albuterol sulfate 90 mcg/actuation (Ventolin HFA) 2 puffs PO Q4-6H PRN ammonium lactate 12% appl topical DAILY PRN aspirin 81 mg PO DAILY atorvastatin 80 mg PO BEDTIME blood sugar diagnostic (FreeStyle Lite Strips) As directed blood-glucose meter (FreeStyle [place] Lite kit) As directed clobetasol 0.05% grams topical BID clotrimazole 1% appl topical BID dapagliflozin propanediol (Farxiga) 5 mg PO DAILY diclofenac sodium 1% 2 grams topical 2XD dulaglutide (Trulicity) mg subcut furosemide 80 mg PO BID gabapentin 100 mg PO BID insulin aspart U-100 (Novolog FlexPen U-100 Insulin aspart) 10 units subcut BID insulin glargine (Lantus Solostar U-100 Insulin) pt states taking 44 units sq q pm isosorbide mononitrate ER 120 mg PO QAM labetalol 100 mg PO lisinopril 40 mg PO QAM metformin 1,000 mg PO DAILY multivitamin 1 tab PO DAILY pen needle, diabetic (UltiCare Pen Needle) As directed salmeterol (Serevent Diskus) 1 inh inhalation BID tamsulosin 0.4 mg PO DAILY triamcinolone acetonide 0.1% 1 appl topical BID-TID umeclidinium 62.5 mcg/actuation (Incruse Ellipta) 1 inh inhalation DAILY warfarin 5 mg See Protocol PO DAILY Nursing Note NO CP,SOB,DIET/MED CHANGES,FALLS OR SX OF BLEEDING. CONTINUE PRESENT DOSE AND FOLLOW-UP IN 4 WEEKS. WILL BE SURE TO HAVE BROCCOLI TODAY AND TOMORROW GOOD UNDERSTANDING OF DOSING INSTR. Anti-Coag Initial Assessment Social Hx Patient Tobacco Use Status: Former Tobacco user alcohol intake: former Coding Level of Care Code Est Patient Level 1 Diagnoses Current use of anticoagulant therapy Z79.01 Assessment & Plan Assessment & Plan (1) Current use of anticoagulant therapy: Code(s): Z79.01 - half-way (current) use of anticoagulants Category: Medical
== END 2022-11-08 10:50 | disposition home or self-care (01) ==
LOC: HO.ACS 10:34
PROVIDERS: PCP Nurse Practitioner Primary Care; Visit Provider Internal Medicine
DX: Z79.01 Long term (current) use of anticoagulants (principal)

== ENCOUNTER → 2022-11-08 10:34 | Outpatient (BNVA) | payer OTHER, SELFPAY | PROVIDERS: PCP Nurse Practitioner Primary Care; Visit Provider Internal Medicine | DX: I48.19 Other persistent atrial fibrillation (principal); Z79.01 Long term (current) use of anticoagulants; Z51.81 Encounter for therapeutic drug level monitoring | CPT/HCPCS: 85610; 99211 ==

== ENCOUNTER 2022-12-17 10:15 | Outpatient (AMB) | payer OTHER, SELFPAY ==
[2022-12-17 10:25] LABS: Prothrombin Time Whole Bld POC 17.3 sec (11.1-13.5); ~PT, ~INR - Anti Coag Clinic 1.4 (0.9-1.1)
--- NOTE | 2022-12-17 10:39 | MHC.OFFVISCO ---
Intake Intake Visit Reasons: Anticoagulation Allergies Tetanus Vaccines and Toxoid [TETANUS] Allergy (Unknown, Verified 12/17/22 10:23) SWELLING TETNUS SHOT Allergy (Unknown, Uncoded 12/17/22 10:23) UNKNOWN Medication List - Last Reconciled 12/17/22 by Nicky Gong RN acetaminophen 500 mg PO Q6H PRN albuterol sulfate mg inhalation TID PRN albuterol sulfate 90 mcg/actuation (Ventolin HFA) 2 puffs PO Q4-6H PRN ammonium lactate 12% appl topical DAILY PRN aspirin 81 mg PO DAILY atorvastatin 80 mg PO BEDTIME blood sugar diagnostic (FreeStyle Lite Strips) As directed blood-glucose meter (FreeStyle [place] Lite kit) As directed clobetasol 0.05% grams topical BID clotrimazole 1% appl topical BID dapagliflozin propanediol (Farxiga) 5 mg PO DAILY diclofenac sodium 1% 2 grams topical 2XD dulaglutide (Trulicity) mg subcut furosemide 80 mg PO BID gabapentin 100 mg PO BID insulin aspart U-100 (Novolog FlexPen U-100 Insulin aspart) 10 units subcut BID insulin glargine (Lantus Solostar U-100 Insulin) pt states taking 44 units sq q pm isosorbide mononitrate ER 120 mg PO QAM labetalol 100 mg PO lisinopril 40 mg PO QAM metformin 1,000 mg PO DAILY multivitamin 1 tab PO DAILY peg 3350-electrolytes 236-22.74-6.74 -5.86 gram mL PO pen needle, diabetic (UltiCare Pen Needle) As directed salmeterol (Serevent Diskus) 1 inh inhalation BID tamsulosin 0.4 mg PO DAILY triamcinolone acetonide 0.1% 1 appl topical BID-TID umeclidinium 62.5 mcg/actuation (Incruse Ellipta) 1 inh inhalation DAILY warfarin 5 mg See Protocol PO DAILY Nursing Note INR 1.4? out of therapeutic range Medications and supplements reviewed Patient status: drank a lot of v8 juice recently and pomegranits Medications or supplements: no changes Diet: good Denies any signs and symptoms of bleeding or clotting or unusual bruising Bleeding, bruising, clotting discussed Nutritional guidance given: no greens x 3 days , eat orange and reds today Dose: 15mg x 4 days this week / 10mg x 4 days F/U INR Date : 3 days 12/20/22 ? Patient verbalizing understanding of instructions given and will go to the ER for any c/p sob or stroke symptoms t/c to PCP spoke with nurse Banuelos who will convey msg to PCP pt INR and plan of care Anti-Coag Initial Assessment Social Hx Patient Tobacco Use Status: Former Tobacco user alcohol intake: former Coding Level of Care Code Est Patient Level 1 Diagnoses Current use of anticoagulant therapy Z79.01 Assessment & Plan Assessment & Plan (1) Current use of anticoagulant therapy: Code(s): Z79.01 - retirement (current) use of anticoagulants Category: Medical
== END 2022-12-17 10:51 | disposition home or self-care (01) ==
LOC: HO.ACS 10:15
PROVIDERS: PCP Nurse Practitioner Primary Care; Visit Provider Internal Medicine
DX: Z79.01 Long term (current) use of anticoagulants (principal)

== ENCOUNTER → 2022-12-17 10:15 | Outpatient (BNVA) | payer OTHER, SELFPAY | PROVIDERS: PCP Nurse Practitioner Primary Care; Visit Provider Internal Medicine | DX: I48.19 Other persistent atrial fibrillation (principal); Z79.01 Long term (current) use of anticoagulants; Z51.81 Encounter for therapeutic drug level monitoring | CPT/HCPCS: 85610; 99211 ==

== ENCOUNTER 2022-12-23 10:07 | Outpatient (AMB) | payer OTHER, SELFPAY ==
--- NOTE | 2022-12-23 10:12 | MHC.OFFVISCO ---
Intake Intake Visit Reasons: Anticoagulation Allergies Tetanus Vaccines and Toxoid [TETANUS] Allergy (Unknown, Verified 12/23/22 10:08) SWELLING TETNUS SHOT Allergy (Unknown, Uncoded 12/23/22 10:08) UNKNOWN Medication List - Last Reconciled 12/23/22 by Mervat Del Castillo RN acetaminophen 500 mg PO Q6H PRN albuterol sulfate mg inhalation TID PRN albuterol sulfate 90 mcg/actuation (Ventolin HFA) 2 puffs PO Q4-6H PRN ammonium lactate 12% appl topical DAILY PRN aspirin 81 mg PO DAILY atorvastatin 80 mg PO BEDTIME blood sugar diagnostic (FreeStyle Lite Strips) As directed blood-glucose meter (FreeStyle [place] Lite kit) As directed clobetasol 0.05% grams topical BID clotrimazole 1% appl topical BID dapagliflozin propanediol (Farxiga) 5 mg PO DAILY diclofenac sodium 1% 2 grams topical 2XD dulaglutide (Trulicity) mg subcut furosemide 80 mg PO BID gabapentin 100 mg PO BID insulin aspart U-100 (Novolog FlexPen U-100 Insulin aspart) 10 units subcut BID insulin glargine (Lantus Solostar U-100 Insulin) pt states taking 44 units sq q pm isosorbide mononitrate ER 120 mg PO QAM labetalol 100 mg PO lisinopril 40 mg PO QAM metformin 1,000 mg PO DAILY multivitamin 1 tab PO DAILY peg 3350-electrolytes 236-22.74-6.74 -5.86 gram mL PO pen needle, diabetic (UltiCare Pen Needle) As directed salmeterol (Serevent Diskus) 1 inh inhalation BID tamsulosin 0.4 mg PO DAILY triamcinolone acetonide 0.1% 1 appl topical BID-TID umeclidinium 62.5 mcg/actuation (Incruse Ellipta) 1 inh inhalation DAILY warfarin 5 mg See Protocol PO DAILY Nursing Note INR: 2.6- in therapeutic range of 2-3 Medications and supplements reviewed- no changes No changes in health, diet, medications, or supplements, Denies any signs and symptoms of bleeding or bruising or clotting. Bleeding, bruising, clotting discussed Nutritional guidance given pt drank a lot of vegetable juice prev visit Dose: 15mg x 3, 10mg x 4 F/U INR: 2 weeks Patient verbalizes understanding of instructions given educational interpreter marianna used for visit Anti-Coag Initial Assessment Social Hx Patient Tobacco Use Status: Former Tobacco user alcohol intake: former Coding Level of Care Code Est Patient Level 1 Diagnoses Current use of anticoagulant therapy Z79.01 Assessment & Plan Assessment & Plan (1) Current use of anticoagulant therapy: Code(s): Z79.01 - manager terminal (current) use of anticoagulants Category: Medical
[2022-12-23 10:13] LABS: Prothrombin Time Whole Bld POC 30.9 sec (11.1-13.5); ~PT, ~INR - Anti Coag Clinic 2.6 (0.9-1.1)
== END 2022-12-23 10:21 | disposition home or self-care (01) ==
LOC: HO.ACS 10:07
PROVIDERS: PCP Nurse Practitioner Primary Care; Visit Provider Internal Medicine
DX: Z79.01 Long term (current) use of anticoagulants (principal)

== ENCOUNTER → 2022-12-23 10:07 | Outpatient (BNVA) | payer OTHER, SELFPAY | PROVIDERS: PCP Nurse Practitioner Primary Care; Visit Provider Internal Medicine | DX: I48.19 Other persistent atrial fibrillation (principal); Z79.01 Long term (current) use of anticoagulants; Z51.81 Encounter for therapeutic drug level monitoring | CPT/HCPCS: 85610; 99211 ==

== ENCOUNTER 2022-12-26 10:32 | Outpatient (AMB) | payer OTHER, SELFPAY ==
[2022-12-26 10:43] VITALS: BMI 47.4
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
== END 2022-12-26 11:04 | disposition home or self-care (01) ==
PROVIDERS: PCP Nurse Practitioner Primary Care; Visit Provider Orthopaedic Surgery
DX: M17.0 Bilateral primary osteoarthritis of knee (principal)
CPT/HCPCS: 99202

== ENCOUNTER → 2022-12-26 10:32 | Outpatient (BNVA) | payer OTHER, SELFPAY | PROVIDERS: PCP Nurse Practitioner Primary Care; Visit Provider Orthopaedic Surgery | DX: M17.11 Unilateral primary osteoarthritis, right knee (principal); M17.12 Unilateral primary osteoarthritis, left knee | CPT/HCPCS: 99202 ==

== ENCOUNTER 2022-12-30 11:23 | Outpatient (REF) | payer OTHER, SELFPAY ==
[2022-12-30 14:19] LABS: Anion Gap 10 (12-20); Blood Urea Nitrogen 23 mg/dL (9-16); Calcium 9.4 mg/dL (8.4-10.2); Carbon Dioxide 27 mmol/L (22-29); Chloride 107 mmol/L (96-108); Estimated Glomerular Filt Rate 55; Glucose Random 257 mg/dL (60-115); Magnesium 2.2 mg/dL (1.6-2.6); Potassium 4.3 mmol/L (3.3-5.1); Sodium 140 mmol/L (135-145)
== END 2022-12-30 11:24 | disposition home or self-care (01) ==
LOC: HO.HHCL 11:23
PROVIDERS: Visit Provider Nurse Practitioner Primary Care
DX: R25.2 Cramp and spasm (principal); N18.31 Chronic kidney disease, stage 3a
CPT/HCPCS: 36415; 80048; 83735

== ENCOUNTER 2023-01-06 10:43 | Outpatient (AMB) | payer OTHER, SELFPAY ==
[2023-01-06 10:51] LABS: Prothrombin Time Whole Bld POC 35.6 sec (11.1-13.5)
--- NOTE | 2023-01-06 10:52 | MHC.OFFVISCO ---
Intake Intake Visit Reasons: Anticoagulation Allergies Tetanus Vaccines and Toxoid [TETANUS] Allergy (Unknown, Verified 01/06/23 10:45) SWELLING TETNUS SHOT Allergy (Unknown, Uncoded 01/06/23 10:45) UNKNOWN Medication List - Last Reconciled 01/06/23 by Nicky Gong RN acetaminophen 500 mg PO Q6H PRN albuterol sulfate mg inhalation TID PRN albuterol sulfate 90 mcg/actuation (Ventolin HFA) 2 puffs PO Q4-6H PRN ammonium lactate 12% appl topical DAILY PRN aspirin 81 mg PO DAILY atorvastatin 80 mg PO BEDTIME blood sugar diagnostic (FreeStyle Lite Strips) As directed blood-glucose meter (FreeStyle [place] Lite kit) As directed clobetasol 0.05% grams topical BID clotrimazole 1% appl topical BID dapagliflozin propanediol (Farxiga) 5 mg PO DAILY diclofenac sodium 1% 2 grams topical 2XD dulaglutide (Trulicity) mg subcut furosemide 80 mg PO BID gabapentin 100 mg PO BID insulin aspart U-100 (Novolog FlexPen U-100 Insulin aspart) 10 units subcut BID insulin glargine (Lantus Solostar U-100 Insulin) pt states taking 44 units sq q pm isosorbide mononitrate ER 120 mg PO QAM labetalol 100 mg PO lisinopril 40 mg PO QAM metformin 1,000 mg PO DAILY multivitamin 1 tab PO DAILY omeprazole 20 mg PO QAM peg 3350-electrolytes 236-22.74-6.74 -5.86 gram mL PO pen needle, diabetic (UltiCare Pen Needle) As directed salmeterol (Serevent Diskus) 1 inh inhalation BID tamsulosin 0.4 mg PO DAILY triamcinolone acetonide 0.1% 1 appl topical BID-TID umeclidinium 62.5 mcg/actuation (Incruse Ellipta) 1 inh inhalation DAILY warfarin 5 mg See Protocol PO DAILY Nursing Note INR: 3.0 in therapeutic range Medications and supplements reviewed No changes in health, diet, medications, or supplements, Denies any signs and symptoms of bleeding or bruising or clotting. Bleeding, bruising, clotting discussed Nutritional guidance given - lauri today Dose: same 15mg x 3 days/ 10mg x 4days F/U INR: 3 weeks Patient verbalizes understanding of instructions given Anti-Coag Initial Assessment Social Hx Patient Tobacco Use Status: Former Tobacco user alcohol intake: former Coding Level of Care Code Est Patient Level 1
== END 2023-01-06 10:54 | disposition home or self-care (01) ==
LOC: HO.ACS 10:43
PROVIDERS: PCP Nurse Practitioner Primary Care; Visit Provider Internal Medicine
DX: Z79.01 Long term (current) use of anticoagulants (principal)

== ENCOUNTER → 2023-01-06 10:43 | Outpatient (BNVA) | payer OTHER, SELFPAY | PROVIDERS: PCP Nurse Practitioner Primary Care; Visit Provider Internal Medicine | DX: I48.19 Other persistent atrial fibrillation (principal); Z79.01 Long term (current) use of anticoagulants; Z51.81 Encounter for therapeutic drug level monitoring | CPT/HCPCS: 85610; 99211 ==

== ENCOUNTER 2023-01-31 09:16 | Outpatient (AMB) | payer OTHER, SELFPAY ==
--- NOTE | 2023-01-31 09:21 | MHC.OFFVISCO ---
Intake Intake Visit Reasons: Anticoagulation Allergies Tetanus Vaccines and Toxoid [TETANUS] Allergy (Unknown, Verified 01/31/23 09:17) SWELLING TETNUS SHOT Allergy (Unknown, Uncoded 01/31/23 09:17) UNKNOWN Medication List - Last Reconciled 01/31/23 by Mervat Del Castillo RN acetaminophen 500 mg PO Q6H PRN albuterol sulfate mg inhalation TID PRN albuterol sulfate 90 mcg/actuation (Ventolin HFA) 2 puffs PO Q4-6H PRN ammonium lactate 12% appl topical DAILY PRN aspirin 81 mg PO DAILY atorvastatin 80 mg PO BEDTIME blood sugar diagnostic (FreeStyle Lite Strips) As directed blood-glucose meter (FreeStyle [place] Lite kit) As directed clobetasol 0.05% grams topical BID clotrimazole 1% appl topical BID dapagliflozin propanediol (Farxiga) 5 mg PO DAILY diclofenac sodium 1% 2 grams topical 2XD dulaglutide (Trulicity) mg subcut furosemide 80 mg PO BID gabapentin 100 mg PO BID insulin aspart U-100 (Novolog FlexPen U-100 Insulin aspart) 10 units subcut BID insulin glargine (Lantus Solostar U-100 Insulin) pt states taking 44 units sq q pm isosorbide mononitrate ER 120 mg PO QAM labetalol 100 mg PO lisinopril 40 mg PO QAM metformin 1,000 mg PO DAILY multivitamin 1 tab PO DAILY omeprazole 20 mg PO QAM peg 3350-electrolytes 236-22.74-6.74 -5.86 gram mL PO pen needle, diabetic (UltiCare Pen Needle) As directed salmeterol (Serevent Diskus) 1 inh inhalation BID tamsulosin 0.4 mg PO DAILY triamcinolone acetonide 0.1% 1 appl topical BID-TID umeclidinium 62.5 mcg/actuation (Incruse Ellipta) 1 inh inhalation DAILY warfarin 5 mg See Protocol PO DAILY Nursing Note INR: 2.5- in therapeutic range of 2-3 Medications and supplements reviewed- no changes No changes in health, diet, medications, or supplements, Denies any signs and symptoms of bleeding or bruising or clotting. Bleeding, bruising, clotting discussed Nutritional guidance given Dose: 15mg x 3, 10mg x 4 F/U INR: 3 weeks Patient verbalizes understanding of instructions given Anti-Coag Initial Assessment Social Hx Patient Tobacco Use Status: Former Tobacco user alcohol intake: former Coding Level of Care Code Est Patient Level 1 Diagnoses Current use of anticoagulant therapy Z79.01 Assessment & Plan Assessment & Plan (1) Current use of anticoagulant therapy: Code(s): Z79.01 - skilled nursing (current) use of anticoagulants Category: Medical
[2023-01-31 09:22] LABS: ~PT, ~INR - Anti Coag Clinic 2.5 (0.9-1.1)
== END 2023-01-31 09:27 | disposition home or self-care (01) ==
LOC: HO.ACS 09:16
PROVIDERS: PCP Nurse Practitioner Primary Care; Visit Provider Internal Medicine
DX: Z79.01 Long term (current) use of anticoagulants (principal)

== ENCOUNTER → 2023-01-31 09:16 | Outpatient (BNVA) | payer OTHER, SELFPAY | PROVIDERS: PCP Nurse Practitioner Primary Care; Visit Provider Internal Medicine | DX: I48.19 Other persistent atrial fibrillation (principal); Z51.81 Encounter for therapeutic drug level monitoring; Z79.01 Long term (current) use of anticoagulants | CPT/HCPCS: 85610; 99211 ==

== ENCOUNTER 2023-02-17 15:06 | Outpatient (REF) | payer OTHER, SELFPAY ==
--- NOTE | ~2023-02-17 | XR_ITS ---
EXAMINATION: XR SHOULDER, LEFT CLINICAL INFORMATION: Left shoulder pain. COMPARISON: None available. TECHNIQUE: Four views of the left shoulder. FINDINGS: The bones and soft tissues are normal. No fracture. Glenohumeral and acromioclavicular alignment is anatomic with normal joint space. No abnormal soft tissue calcifications. XR/XR shoulder LT min 2V IMPRESSION: Normal left shoulder.
--- NOTE | ~2023-02-17 | XR_ITS ---
EXAMINATION: XR ANKLE, RIGHT CLINICAL INFORMATION: Pain. COMPARISON: None available. TECHNIQUE: AP, lateral, and mortise views of the right ankle. FINDINGS: Chronic appearing deformity of the distal fibula with callus formation. No acute fracture. Anatomic alignment. Mild generative osteoarthritis. Small calcaneal spurs. Scattered vascular calcifications. Nonspecific soft tissue swelling. XR/XR ankle RT min 3V IMPRESSION: 1. Chronic appearing deformity of the distal fibula with callus formation. 2. No acute fracture or malalignment. 3. Mild degenerative osteoarthritis. 4. Nonspecific soft tissue swelling.
== END 2023-02-17 15:07 | disposition home or self-care (01) ==
LOC: HO.HHCX 15:06
PROVIDERS: Visit Provider Internal Medicine
DX: M25.512 Pain in left shoulder (principal); M25.571 Pain in right ankle and joints of right foot; G89.29 Other chronic pain
CPT/HCPCS: 73030; 73610

== ENCOUNTER 2023-02-21 09:27 | Outpatient (AMB) | payer OTHER, SELFPAY ==
[2023-02-21 09:45] LABS: Prothrombin Time Whole Bld POC 26.7 sec (11.1-13.5); ~PT, ~INR - Anti Coag Clinic 2.2 (0.9-1.1)
--- NOTE | 2023-02-21 09:58 | MHC.OFFVISCO ---
Intake Intake Visit Reasons: Anticoagulation Allergies Tetanus Vaccines and Toxoid [TETANUS] Allergy (Unknown, Verified 02/21/23 09:38) SWELLING TETNUS SHOT Allergy (Unknown, Uncoded 02/21/23 09:38) UNKNOWN Medication List - Last Reconciled 02/21/23 by Coral Adhikari RN acetaminophen 500 mg PO Q6H PRN albuterol sulfate mg inhalation TID PRN albuterol sulfate 90 mcg/actuation (Ventolin HFA) 2 puffs PO Q4-6H PRN ammonium lactate 12% appl topical DAILY PRN atorvastatin 80 mg PO BEDTIME blood sugar diagnostic (FreeStyle Lite Strips) As directed blood-glucose meter (FreeStyle [place] Lite kit) As directed clobetasol 0.05% grams topical BID clotrimazole 1% appl topical BID dapagliflozin propanediol (Farxiga) 5 mg PO DAILY diclofenac sodium 1% 2 grams topical 2XD dulaglutide (Trulicity) mg subcut furosemide 80 mg PO BID gabapentin 100 mg PO BID insulin aspart U-100 (Novolog FlexPen U-100 Insulin aspart) 10 units subcut BID insulin glargine (Lantus Solostar U-100 Insulin) pt states taking 44 units sq q pm isosorbide mononitrate ER 120 mg PO QAM labetalol 100 mg PO lisinopril 40 mg PO QAM metformin 1,000 mg PO DAILY multivitamin 1 tab PO DAILY omeprazole 20 mg PO QAM peg 3350-electrolytes 236-22.74-6.74 -5.86 gram mL PO pen needle, diabetic (UltiCare Pen Needle) As directed salmeterol (Serevent Diskus) 1 inh inhalation BID tamsulosin 0.4 mg PO DAILY triamcinolone acetonide 0.1% 1 appl topical BID-TID umeclidinium 62.5 mcg/actuation (Incruse Ellipta) 1 inh inhalation DAILY warfarin 5 mg See Protocol PO DAILY Nursing Note Amb to ACS feeling well, limited Romansh, georgian interpretter Sara and Mikhail available Medications and supplements reviewed, started Amoxicillin on Friday for dental issue, pt made aware of need to call when starts/stops any medication and amoxicillin can increase INR No changes in health, diet, medications, or supplements Denies any unusual signs and symptoms of bruising, bleeding Denies any new Chest pain, SOB, or clotting INR: 2.2 in therapeutic range Nutritional guidance given: greens daily while on antibiotic then balance greens and reds in diet Dose: continue usual dosing;15mg x 3 days and 10mg x 4 days F/U INR: 2 weeks Patient verbalizes understanding of instructions given with accurate read back/ teach back of dosing Anti-Coag Initial Assessment Social Hx Patient Tobacco Use Status: Former Tobacco user alcohol intake: former Coding Level of Care Code Est Patient Level 1 Diagnoses Current use of anticoagulant therapy Z79.01 Time Spent (min) 20 Assessment & Plan Assessment & Plan (1) Current use of anticoagulant therapy: Code(s): Z79.01 - nursing home (current) use of anticoagulants Category: Medical
== END 2023-02-21 12:14 | disposition home or self-care (01) ==
LOC: HO.ACS 09:27
PROVIDERS: PCP Nurse Practitioner Primary Care; Visit Provider Internal Medicine
DX: Z79.01 Long term (current) use of anticoagulants (principal)

== ENCOUNTER → 2023-02-21 09:27 | Outpatient (BNVA) | payer OTHER, SELFPAY | PROVIDERS: PCP Nurse Practitioner Primary Care; Visit Provider Internal Medicine | DX: I48.19 Other persistent atrial fibrillation (principal); Z79.01 Long term (current) use of anticoagulants; Z51.81 Encounter for therapeutic drug level monitoring | CPT/HCPCS: 85610; 99211 ==

== ENCOUNTER 2023-03-03 17:38 | Outpatient (REF) | payer OTHER, SELFPAY | END 2023-03-03 17:39 | disposition home or self-care (01) | LOC: HO.HHCLNP 17:38 | PROVIDERS: Visit Provider Nurse Practitioner Family | DX: R30.0 Dysuria (principal) | CPT/HCPCS: 87086 ==

== ENCOUNTER 2023-03-13 11:26 | Outpatient (REF) | payer OTHER, SELFPAY ==
[2023-03-13 13:38] LABS: Anion Gap 12 (12-20); Blood Urea Nitrogen 27 mg/dL (9-16); Calcium 9.5 mg/dL (8.4-10.2); Carbon Dioxide 26 mmol/L (22-29); Chloride 106 mmol/L (96-108); Estimated Glomerular Filt Rate 49; Glucose Random 146 mg/dL (60-115); Sodium 140 mmol/L (135-145)
[2023-03-13 14:18] LABS: Prostate Specific Antigen 0.29 ng/mL (<0.05-4.0)
== END 2023-03-13 11:27 | disposition home or self-care (01) ==
LOC: HO.HHCL 11:26
PROVIDERS: Visit Provider Internal Medicine
DX: N40.1 Benign prostatic hyperplasia with lower urinary tract symptoms (principal); N13.8 Other obstructive and reflux uropathy; R35.0 Frequency of micturition; Z12.5 Encounter for screening for malignant neoplasm of prostate
CPT/HCPCS: 36415; 80048; 84153

== ENCOUNTER 2023-03-17 19:48 | Outpatient (REF) | payer OTHER, SELFPAY ==
[2023-03-18 09:45] LABS: CT PCR NOT DETECTED (Not Detect.); NG PCR NOT DETECTED (Not Detect.)
== END 2023-03-17 19:49 | disposition home or self-care (01) ==
LOC: HO.HHCLNP 19:48
PROVIDERS: Visit Provider Emergency Medicine
DX: Z20.2 Contact with and (suspected) exposure to infections with a predominantly sexual mode of transmission (principal)
CPT/HCPCS: 0353U

== ENCOUNTER 2023-03-18 09:47 | Outpatient (AMB) | payer OTHER, SELFPAY ==
--- NOTE | 2023-03-18 10:23 | MHC.OFFVISCO ---
Intake Intake Visit Reasons: Anticoagulation Allergies Tetanus Vaccines and Toxoid [TETANUS] Allergy (Unknown, Verified 03/18/23 09:51) SWELLING TETNUS SHOT Allergy (Unknown, Uncoded 03/18/23 09:51) UNKNOWN Medication List - Last Reconciled 03/18/23 by Coral Adhikari RN acetaminophen 500 mg PO Q6H PRN albuterol sulfate mg inhalation TID PRN albuterol sulfate 90 mcg/actuation (Ventolin HFA) 2 puffs PO Q4-6H PRN ammonium lactate 12% appl topical DAILY PRN atorvastatin 80 mg PO BEDTIME blood sugar diagnostic (FreeStyle Lite Strips) As directed blood-glucose meter (FreeStyle [place] Lite kit) As directed clobetasol 0.05% grams topical BID clotrimazole 1% appl topical BID dapagliflozin propanediol (Farxiga) 5 mg PO DAILY diclofenac sodium 1% 2 grams topical 2XD dulaglutide (Trulicity) mg subcut furosemide 80 mg PO BID gabapentin 100 mg PO BID insulin aspart U-100 (Novolog FlexPen U-100 Insulin aspart) 10 units subcut BID insulin glargine (Lantus Solostar U-100 Insulin) pt states taking 44 units sq q pm isosorbide mononitrate ER 120 mg PO QAM labetalol 100 mg PO lisinopril 40 mg PO QAM metformin 1,000 mg PO DAILY multivitamin 1 tab PO DAILY omeprazole 20 mg PO QAM peg 3350-electrolytes 236-22.74-6.74 -5.86 gram mL PO pen needle, diabetic (UltiCare Pen Needle) As directed salmeterol (Serevent Diskus) 1 inh inhalation BID tamsulosin 0.4 mg PO DAILY triamcinolone acetonide 0.1% 1 appl topical BID-TID umeclidinium 62.5 mcg/actuation (Incruse Ellipta) 1 inh inhalation DAILY warfarin 5 mg See Protocol PO DAILY Nursing Note Amb to ACS feeling well, computer game tester available- Micronesian speaking Medications and supplements reviewed, missed appt 03/07, sts also had antibiotic for UTI, never called us and was seen at [facility] for continued urinary issues and will be starting on a pill today and then 1, 3 days later for a rash on penis (see [facility] notes, not able to ID any new med as pt prescribed) instructed he needs to call us with that med No other changes in health, diet, medications, or supplements Denies any unusual signs and symptoms of bruising, bleeding Denies any new Chest pain, SOB, or clotting INR: 2.6 in therapeutic range Nutritional guidance given: balance greens and reds in diet Dose: continue usual dosing;15mg x 3 days and 10mg x 4 days F/U INR: 2 weeks, stressed importance of follow up as scheduled and call us with new medication Patient verbalizes understanding of instructions given with accurate read back/ teach back of dosing Anti-Coag Initial Assessment Social Hx Patient Tobacco Use Status: Former Tobacco user alcohol intake: former Questionnaires HAS-BLED Does the patient had uncontrolled Hypertension?: No Does the patient have renal disease?: Yes Does the patient have liver disease?: No Does the patient have a history of stroke?: No Has the patient had major bleeding or predisposition to bleeding?: No Does the patient have labile INRs?: No Is the patient over 65 years of age?: Yes Is the patient on medications that gives them a predisposition to bleeding?: Yes Does the patient use alcohol?: No HAS-BLED Score: 3 CHADSVASC Age: 66-74 Gender: Male Does the patient have a history of CHF?: No Does the patient have a history of Hypertension?: Yes Does the patient have a history of Stroke/TIA/Thromboembolism?: No Does the patient have a history of Vascular Disease (prior [place], PAD or aortic plaque)?: No Does the patient have a history of Diabetes?: Yes CHADS VACS Score: 3 Evan Prediction Score Rsk VTE Active Cancer: No Previous VTE, excluding superficial vein thrombosis: No Reduced mobility: No Already known Thrombophilic Condition: Yes With-in last month Trauma and/or Surgery: No Elderly 70 year or older: Yes Heart and/or Respiratory Failure: No Acute Myocardial infarction and/or Ischemic Stroke: No Acute Infection and/or Rheumatologic Disorder: No Obesity (BMI 30 or greater): Yes Ongoing Hormonal Treatment: No Score: 5 Evan Score less than 4; Low Risk of VTE Evan Score 4 or greater; High Risk of VTE Coding Level of Care Code Est Patient Level 2 Diagnoses Current use of anticoagulant therapy Z79.01 Time Spent (min) 30 Results AMB INR Fingerstick AMB INR Fingerstick 2.6 Last Edit by Coral Adhikari RN on 03/18/23 10:20 interface failure AMB INR Fingerstick AMB INR Fingerstick 2.6 Last Edit by Coral Adhikari RN on 03/18/23 10:21 interface failure Assessment & Plan Assessment & Plan (1) Current use of anticoagulant therapy: Code(s): Z79.01 - 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
[2023-03-19 08:16] LABS: Prothrombin Time Whole Bld POC 30.7 sec (11.1-13.5); ~PT, ~INR - Anti Coag Clinic 2.6 (0.9-1.1)
== END 2023-03-18 10:35 | disposition home or self-care (01) ==
LOC: HO.ACS 09:47
PROVIDERS: PCP Nurse Practitioner Primary Care; Visit Provider Internal Medicine
DX: Z79.01 Long term (current) use of anticoagulants (principal)

== ENCOUNTER → 2023-03-18 09:47 | Outpatient (BNVA) | payer OTHER, SELFPAY | PROVIDERS: PCP Nurse Practitioner Primary Care; Visit Provider Internal Medicine | DX: I48.19 Other persistent atrial fibrillation (principal); Z79.01 Long term (current) use of anticoagulants; Z51.81 Encounter for therapeutic drug level monitoring | CPT/HCPCS: 85610; 99212 ==

== ENCOUNTER 2023-04-07 09:24 | Outpatient (AMB) | payer OTHER, SELFPAY ==
[2023-04-07 09:33] LABS: Prothrombin Time Whole Bld POC 18.8 sec (11.1-13.5); ~PT, ~INR - Anti Coag Clinic 1.6 (0.9-1.1)
--- NOTE | 2023-04-07 09:37 | MHC.OFFVISCO ---
Intake Intake Visit Reasons: Anticoagulation Allergies Tetanus Vaccines and Toxoid [TETANUS] Allergy (Unknown, Verified 04/07/23 09:25) SWELLING TETNUS SHOT Allergy (Unknown, Uncoded 04/07/23 09:25) UNKNOWN Nursing Note Amb to [facility] feeling much better than Friday interp available for visit Medications and supplements reviewed, pt started on Augmentin and Prednisone for resp issue (see compose note 04/04) colonoscopy R/S to September, enc pt to call and see if that can be sooner than September No other changes in health, diet, medications, or supplements Denies any unusual signs and symptoms of bruising, bleeding Denies any new Chest pain, SOB, or clotting INR:1.6 below therapeutic range, reviewed dosing from last week, (was supposed to decrease dose on Friday only to 10mg vs 15mg) sts he wasn't feeling well and missed dose completely Nutritional guidance given: no greens today then balance greens and reds in diet Dose: increase dose today to 15mg then continue usual dosing;15mg x 3 days and 10mg x 4 days F/U INR: Monday 04/10 (completes meds 04/08) Patient verbalizes understanding of instructions given with accurate read back/ teach back of dosing Anti-Coag Initial Assessment Social Hx Patient Tobacco Use Status: Former Tobacco user alcohol intake: former Coding Level of Care Code Est Patient Level 1 Diagnoses Current use of anticoagulant therapy Z79.01 Time Spent (min) 15 Assessment & Plan Assessment & Plan (1) Current use of anticoagulant therapy: Code(s): Z79.01 - 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
== END 2023-04-07 09:49 | disposition home or self-care (01) ==
LOC: HO.ACS 09:24
PROVIDERS: PCP Nurse Practitioner Primary Care; Visit Provider Internal Medicine
DX: Z79.01 Long term (current) use of anticoagulants (principal)

== ENCOUNTER → 2023-04-07 09:24 | Outpatient (BNVA) | payer OTHER, SELFPAY | PROVIDERS: PCP Nurse Practitioner Primary Care; Visit Provider Internal Medicine | DX: I48.19 Other persistent atrial fibrillation (principal); Z79.01 Long term (current) use of anticoagulants; Z51.81 Encounter for therapeutic drug level monitoring | CPT/HCPCS: 85610; 99211 ==

== ENCOUNTER 2023-04-11 08:55 | Outpatient (AMB) | payer OTHER, SELFPAY ==
--- NOTE | 2023-04-11 09:01 | MHC.OFFVISCO ---
Intake Intake Visit Reasons: Anticoagulation Allergies Tetanus Vaccines and Toxoid [TETANUS] Allergy (Unknown, Verified 04/11/23 08:57) SWELLING TETNUS SHOT Allergy (Unknown, Uncoded 04/11/23 08:57) UNKNOWN Medication List - Last Reconciled 04/11/23 by Mervat Del Castillo RN acetaminophen 500 mg PO Q6H PRN albuterol sulfate mg inhalation TID PRN albuterol sulfate 90 mcg/actuation (Ventolin HFA) 2 puffs PO Q4-6H PRN ammonium lactate 12% appl topical DAILY PRN atorvastatin 80 mg PO BEDTIME blood sugar diagnostic (FreeStyle Lite Strips) As directed blood-glucose meter (FreeStyle [place] Lite kit) As directed clobetasol 0.05% grams topical BID clotrimazole 1% appl topical BID dapagliflozin propanediol (Farxiga) 5 mg PO DAILY diclofenac sodium 1% 2 grams topical 2XD dulaglutide (Trulicity) mg subcut furosemide 80 mg PO BID gabapentin 100 mg PO BID insulin aspart U-100 (Novolog FlexPen U-100 Insulin aspart) 10 units subcut BID insulin glargine (Lantus Solostar U-100 Insulin) pt states taking 44 units sq q pm isosorbide mononitrate ER 120 mg PO QAM labetalol 100 mg PO lisinopril 40 mg PO QAM metformin 1,000 mg PO DAILY multivitamin 1 tab PO DAILY omeprazole 20 mg PO QAM peg 3350-electrolytes 236-22.74-6.74 -5.86 gram mL PO pen needle, diabetic (UltiCare Pen Needle) As directed salmeterol (Serevent Diskus) 1 inh inhalation BID tamsulosin 0.4 mg PO DAILY triamcinolone acetonide 0.1% 1 appl topical BID-TID umeclidinium 62.5 mcg/actuation (Incruse Ellipta) 1 inh inhalation DAILY warfarin 5 mg See Protocol PO DAILY Nursing Note INR 1.6- out of therapeutic range of 2-3 Medications and supplements reviewed- pneumonia vaccine approx 4 days ago Patient status: pt with no c.o offered. prev inr sub therapeutic due to missed dose, pt states missed a dose on tues- 15mg due to not available from pharmacy, pt instructed to call [facility] or [facility] pharmacy when med not available or missed dose.pt states was ill last week , tested neg for covid Medications or supplements: no changes Diet: same Denies any signs and symptoms of bleeding or clotting or unusual bruising Bleeding, bruising, clotting discussed - pt aware at risk for clotting due to low inr Nutritional guidance given: no rhys/greens, eat roho/reds to raise english viual food list given to pt Dose: 15mg today , tomm and sun then cont reg dosing , 15mg x 3, 10mg x 4 F/U INR Date : ?04/15/23? Patient verbalizing understanding of instructions given. revenue accounting manager used- mini Anti-Coag Initial Assessment Social Hx Patient Tobacco Use Status: Former Tobacco user alcohol intake: former Coding Level of Care Code Est Patient Level 1 Diagnoses Current use of anticoagulant therapy Z79.01 Assessment & Plan Assessment & Plan (1) Current use of anticoagulant therapy: Code(s): Z79.01 - emt intermediate (current) use of anticoagulants Category: Medical
[2023-04-11 09:03] LABS: Prothrombin Time Whole Bld POC 19.2 sec (11.1-13.5); ~PT, ~INR - Anti Coag Clinic 1.6 (0.9-1.1)
== END 2023-04-11 09:23 | disposition home or self-care (01) ==
LOC: HO.ACS 08:55
PROVIDERS: PCP Nurse Practitioner Primary Care; Visit Provider Internal Medicine
DX: Z79.01 Long term (current) use of anticoagulants (principal)

== ENCOUNTER → 2023-04-11 08:55 | Outpatient (BNVA) | payer OTHER, SELFPAY | PROVIDERS: PCP Nurse Practitioner Primary Care; Visit Provider Internal Medicine | DX: I48.19 Other persistent atrial fibrillation (principal); Z79.01 Long term (current) use of anticoagulants; Z51.81 Encounter for therapeutic drug level monitoring | CPT/HCPCS: 85610; 99211 ==

== ENCOUNTER 2023-04-15 10:09 | Outpatient (AMB) | payer OTHER, SELFPAY ==
--- NOTE | 2023-04-15 10:21 | MHC.OFFVISCO ---
Intake Intake Visit Reasons: Anticoagulation Allergies Tetanus Vaccines and Toxoid [TETANUS] Allergy (Unknown, Verified 04/15/23 10:17) SWELLING TETNUS SHOT Allergy (Unknown, Uncoded 04/15/23 10:17) UNKNOWN Medication List - Last Reconciled 04/15/23 by Mervat Del Castillo RN acetaminophen 500 mg PO Q6H PRN albuterol sulfate mg inhalation TID PRN albuterol sulfate 90 mcg/actuation (Ventolin HFA) 2 puffs PO Q4-6H PRN ammonium lactate 12% appl topical DAILY PRN atorvastatin 80 mg PO BEDTIME blood sugar diagnostic (FreeStyle Lite Strips) As directed blood-glucose meter (FreeStyle [place] Lite kit) As directed clobetasol 0.05% grams topical BID clotrimazole 1% appl topical BID dapagliflozin propanediol (Farxiga) 5 mg PO DAILY diclofenac sodium 1% 2 grams topical 2XD dulaglutide (Trulicity) mg subcut furosemide 80 mg PO BID gabapentin 100 mg PO BID insulin aspart U-100 (Novolog FlexPen U-100 Insulin aspart) 10 units subcut BID insulin glargine (Lantus Solostar U-100 Insulin) pt states taking 44 units sq q pm isosorbide mononitrate ER 120 mg PO QAM labetalol 100 mg PO lisinopril 40 mg PO QAM metformin 1,000 mg PO DAILY multivitamin 1 tab PO DAILY omeprazole 20 mg PO QAM peg 3350-electrolytes 236-22.74-6.74 -5.86 gram mL PO pen needle, diabetic (UltiCare Pen Needle) As directed salmeterol (Serevent Diskus) 1 inh inhalation BID tamsulosin 0.4 mg PO DAILY triamcinolone acetonide 0.1% 1 appl topical BID-TID umeclidinium 62.5 mcg/actuation (Incruse Ellipta) 1 inh inhalation DAILY warfarin 5 mg See Protocol PO DAILY Nursing Note INR: 2.4- in therapeutic range of 2-3 Medications and supplements reviewed- no changes No changes in health, diet, medications, or supplements, Denies any signs and symptoms of bleeding or bruising or clotting. Bleeding, bruising, clotting discussed Nutritional guidance given - balance reds and greens in diet be consistent Dose: 15mg x 3, 10mg x 4 F/U INR: 2 weeks Patient verbalizes understanding of instructions given sexual assault response coordinator jose carlos used for this acs visit Anti-Coag Initial Assessment Social Hx Patient Tobacco Use Status: Former Tobacco user alcohol intake: former Coding Level of Care Code Est Patient Level 1 Diagnoses Current use of anticoagulant therapy Z79.01 Assessment & Plan Assessment & Plan (1) Current use of anticoagulant therapy: Code(s): Z79.01 - detention (current) use of anticoagulants Category: Medical
[2023-04-15 10:22] LABS: Prothrombin Time Whole Bld POC 28.9 sec (11.1-13.5); ~PT, ~INR - Anti Coag Clinic 2.4 (0.9-1.1)
== END 2023-04-15 10:31 | disposition home or self-care (01) ==
LOC: HO.ACS 10:09
PROVIDERS: PCP Nurse Practitioner Primary Care; Visit Provider Internal Medicine
DX: Z79.01 Long term (current) use of anticoagulants (principal)

== ENCOUNTER → 2023-04-15 10:09 | Outpatient (BNVA) | payer OTHER, SELFPAY | PROVIDERS: PCP Nurse Practitioner Primary Care; Visit Provider Internal Medicine | DX: I48.19 Other persistent atrial fibrillation (principal); Z79.01 Long term (current) use of anticoagulants; Z51.81 Encounter for therapeutic drug level monitoring | CPT/HCPCS: 85610; 99211 ==

== ENCOUNTER 2023-04-15 11:57 | Outpatient (REF) | payer OTHER, SELFPAY ==
[2023-04-15 14:12] LABS: CDiff Gene PCR POSITIVE (Negative)
[2023-04-15 14:15] LABS: CDIFF Internal ctrl Dots and bkg OK (V); CDiff Toxin Negative (Negative)
== END 2023-04-15 11:58 | disposition home or self-care (01) ==
LOC: HO.HHCLNP 11:57
PROVIDERS: Visit Provider Nurse Practitioner Primary Care
DX: R19.7 Diarrhea, unspecified (principal)
CPT/HCPCS: 82274; 87324; 87493; 87507

== ENCOUNTER 2023-04-29 08:39 | Outpatient (AMB) | payer OTHER, SELFPAY ==
--- NOTE | 2023-04-29 08:56 | A.OFFVIS_ITS ---
Intake Intake Visit Reasons: BPH with urinary frequency Intake Note: Patient presents today for a follow-up on BPH and urinary frequency Meds- Tamsulosin, Alfuzosin Allergies to Antibiotic- No Known Allergies Blood Thinner- Warfarin Post Void Residual: 22ml Urban Gardening Specialist Required: Yes Urban Gardening Specialist Name: ARTHUR PETERSON-ALICIA Accompanied by: Self / Same As Patient Allergies Tetanus Vaccines and Toxoid [TETANUS] Allergy (Unknown, Verified 04/29/23 19:40) SWELLING TETNUS SHOT Allergy (Unknown, Uncoded 04/29/23 19:40) UNKNOWN Medication List - Last Reconciled 04/29/23 by CHAVEZ Chan-ANGELIA acetaminophen 500 mg PO Q6H PRN albuterol sulfate mg inhalation TID PRN albuterol sulfate 90 mcg/actuation (Ventolin HFA) 2 puffs PO Q4-6H PRN alfuzosin ER 10 mg PO BEDTIME 30 days ammonium lactate 12% appl topical DAILY PRN atorvastatin 80 mg PO BEDTIME blood sugar diagnostic (FreeStyle Lite Strips) As directed blood-glucose meter (FreeStyle [place] Lite kit) As directed clobetasol 0.05% grams topical BID clotrimazole 1% appl topical BID clotrimazole-betamethasone 1-0.05 % 1 appl topical BID 4 weeks dapagliflozin propanediol (Farxiga) 5 mg PO DAILY diclofenac sodium 1% 2 grams topical 2XD dulaglutide (Trulicity) mg subcut furosemide 80 mg PO BID gabapentin 100 mg PO BID insulin aspart U-100 (Novolog FlexPen U-100 Insulin aspart) 10 units subcut BID insulin glargine (Lantus Solostar U-100 Insulin) pt states taking 44 units sq q pm isosorbide mononitrate ER 120 mg PO QAM labetalol 100 mg PO lisinopril 40 mg PO QAM metformin 1,000 mg PO DAILY multivitamin 1 tab PO DAILY omeprazole 20 mg PO QAM peg 3350-electrolytes 236-22.74-6.74 -5.86 gram mL PO pen needle, diabetic (UltiCare Pen Needle) As directed salmeterol (Serevent Diskus) 1 inh inhalation BID umeclidinium 62.5 mcg/actuation (Incruse Ellipta) 1 inh inhalation DAILY warfarin 5 mg See Protocol PO DAILY HPI HPI Comments History of Present Illness Annemarie Hill is a 72-year-old Lithuanian-speaking male patient of Dr. Posadas. He has a past medical history of obstructive sleep apnea on CPAP, morbid ob esity, RICCI positive, chronic diastolic heart failure, type 2 diabetes, hyperlipidemia, psoriasis, hypertension, diabetic polyneuropathy, depression, COPD, chronic low back pain, asthma, and anemia. He presents to the office today as a new patient for balanitis and ongoing lower urinary tract symptoms he has been experiencing. In discussion with the patient today he reports noting urinary urgency, urinary frequency, nocturia, and episodes of incontinence if not near a bathroom. He otherwise denies hematuria, foul smelling urine, changes to urinary stream, flank pain, fever, and or chills. Discussed at length potential causes for lower urinary tract symptoms patient is experiencing. Discussed at length importance of managing diabetes for improvement in lower urinary tract symptoms as well as overall health and well-being. Discussed obtaining retroperitoneal ultrasound for further assessment evaluation. In review of patient's chart it appears PSA 04/05 0.3. He reports having started Flomax with PCP however did not find this helpful in his lower urinary tract symptoms. In office urinalysis results reviewed with the patient today. PVR 22 mL. PFSH Medical History MAN on CPAP Morbid obesity Dyspnea on exertion CRP elevated RICCI positive Chronic diastolic heart failure Type 2 diabetes mellitus with hyperlipidemia Psoriasis Obstructive sleep apnea Essential hypertension Diabetic polyneuropathy Depressive disorder COPD (chronic obstructive pulmonary disease) Chronic low back pain Asthma Anemia Surgical History No history of previous surgery Family History Mother Cancer Diabetes Hypertension Father Stomach cancer Social History Household Members: Spouse and Children Alcohol intake: former Patient Tobacco Use Status: Former Tobacco user Review of Systems Const Reports as per [facility] Eyes Reports no additional complaints ENT Reports as per HPI Card Reports as per HPI Resp Reports as per HPI GI Reports no additional complaints Reports as per HPI Musc Reports as per [facility] Neuro Reports no additional complaints Psych Reports as per HPI Endo Reports as per [facility] Physical Exam Const General: cooperative, comfortable, no acute distress, well developed, alert and awake Nutritional Appearance: obese Orientation/consciousness: patient oriented x3 Limitations: ambulation with cane HEENT Head: Yes normal to inspection, Yes normocephalic and Yes atraumatic Ears: hearing grossly normal bilaterally Eyes General: appearance normal, both eyes and all related structures Neck Neck: Yes normal visual inspection and Yes trachea midline Chest Chest palpation & inspection: normal inspection of the chest Resp Effort & Inspection: normal respiratory effort and able to speak in complete sentences Cardio Rate: regular rate GI Inspection: Yes normal to inspection General: Yes no CVA tenderness Penis: normal penis, uncircumcised and other (mild irritation and inflammation noted to the head/penile glans) Scrotum: scrotum normal Testes: Testes normal Back/Spine/Pelvis Back: no CVA tenderness Skin General skin exam: no rashes or lesions noted Neuro General: patient oriented x3 Extrem General: Yes normal to inspection Psych Appearance: grossly normal and well kempt Mental Status: mental status grossly normal Speech and movement: Normal speech and movement present and Clear speech present Affect: normal affect Attitude: cooperative Thought process: Normal thought process present Thought content: Normal thought content present Insight: Fair insight present (Psych) Judgement: Fair judgement present (Psych) Office Procedures Post Void Residual Post Residual Void Post Void Residual (PVR): 22 [id number] Void Residual by ultrasound Results AMB Urinalysis, Automated UA Leukoctes 0 Abhilash/uL Last Edit by Gissel Salgado CMA on 04/29/23 09 :01 UA Nitrite Negative Last Edit by Gissel Salgado CMA on 04/29/23 09: 01 UA Urobilinogen 0.2 mg/dL Last Edit by Gissel Salgado CMA on 4 09:01 UA Protein 30 mg/dL Last Edit by Gissel Salgado CMA on 04/29/23 09:0 1 UA pH 6.0 Last Edit by Gissel Salgado CMA on 04/29/23 09:01 UA Blood 0 [place]/uL Last Edit by Gissel Salgado CMA on 04/29/23 09:01 UA Specific [place] 1.015 Last Edit by Gissel Salgado CMA on 09:01 UA Ketone Negative Last Edit by Gissel Salgado CMA on 04/29/23 09:0 1 UA Bilirubin 0 mg/dL Last Edit by Gissel Salgado CMA on 04/29/23 09: 01 UA Glucose 0 mg/dL Last Edit by Gissel Salgado CMA on 04/29/23 09:01 Results Reviewed Results Reviewed: Laboratory Last Values Urine pH (Auto) 6.0 04/29/23 09:00 Specific [place] (Auto) 1.015 04/29/23 09:00 Urine Protein (Auto) 30 mg/dL 04/29/23 09:00 Glucose (UA)(Auto) 0 mg/dL 04/29/23 09:00 Urine Ketones (Auto) Negative 04/29/23 09:00 Urine Blood (Auto) 0 [place]/uL 04/29/23 09:00 Urine Nitrite (Auto) Negative 04/29/23 09:00 Urine Bilirubin (Auto) 0 mg/dL 04/29/23 09:00 Urine Urobilinogen (Auto) 0.2 mg/dL 04/29/23 09:00 Leukocyte Esterase (Auto) 0 Abhilash/uL 04/29/23 09:00 Assessment & Plan Assessment & Plan (1) Balanitis: Code(s): N48.1 - Balanitis (2) Urinary frequency: Code(s): R35.0 - Frequency of micturition (3) Nocturia: Code(s): R35.1 - Nocturia Plan In office urinalysis results reviewed with the patient today; as noted above. PVR 22 mL. Reviewed recent PSA results with the patient today; as noted above. Will obtain retroperitoneal ultrasound for further assessment evaluation. Discussed at length importance of limiting fluids prior to bed to assist with decreasing episodes of nocturia. Discussed importance of managing diabetes for improvement in lower urinary tract symptoms as well as overall health and well-being. Start clotrimazole-betamethasone as discussed and prescribed. Start alfuzosin 10 mg daily as discussed and prescribed. Discussed potential for near future in office cystoscopy for further assessment evaluation. Discussed at length potential causes of balanitis as well as lower urinary tract symptoms patient is experiencing. Follow-up in 1-3 months with imaging to be completed prior; or sooner with any issues, concerns, and or questions. Orders: Orders AMB Urinalysis Automated Today R33.9 - Retention of urine, unspecified AMB Post Void Residual by ultrasound Today R33.9 - Retention of urine, unspecified US retroperitoneal comp Today R35.0 - Frequency of micturition, R35.1 - Nocturia Medications: New alfuzosin ER Take before bedtime 10 mg PO BEDTIME 30 days 30 tabs 1RF N32.0 - Bladder- neck obstruction, N40.1 - Benign prostatic hyperplasia with lower urinary tract symptoms, R33.9 - Retention of urine, unspecified, R35.1 - Nocturia, R39.12 - Poor urinary stream clotrimazole-betamethasone 1-0.05 % Apply thin coat 2 times per day 1 appl topical BID 4 weeks 45 grams 0RF N48.1 - Balanitis Patient Instructions: The patient had an opportunity to ask questions regarding the treatment plan. All questions were answered. Physical exam, labs, and imaging were discussed and reviewed in detail. As well as risks, benefits, and discussion of treatment choices. No major barriers to understanding were identified. The patient expressed understanding and agreement with the above treatment plan. The patient was made aware they should contact our office by phone for worsening of their current condition, the appearance of new symptoms, or with any questions or concerns. Compliance is encouraged with any medications and follow up testing that is ordered. It is a privilege to be allowed the opportunity to participate in? your urological care.? Again, if you have any questions or concerns If you have any questions or concerns please do not hesitate to contact me. The office is [phone]. This note is constructed using voice recognition software. While every effort has been made to ensure accuracy hand mixer errors may have been included. Yours sincerely, SHAHANA Chan Coding Level of Care Code New Pt Level 4 (28891) Diagnoses Balanitis N48.1 Urinary frequency R35.0 Nocturia R35.1 CPT Codes Post Residual Void - PVR CPT Code: 83315-[id number] Void Residual by ultrasound ([id number])
== END 2023-04-29 09:53 | disposition home or self-care (01) ==
PROVIDERS: PCP Nurse Practitioner Primary Care; Visit Provider Nurse Practitioner Family
DX: N48.1 Balanitis (principal); R35.0 Frequency of micturition; R35.1 Nocturia; R33.9 Retention of urine, unspecified
CPT/HCPCS: 99204

== ENCOUNTER → 2023-04-29 08:39 | Outpatient (BNVA) | payer OTHER, SELFPAY | PROVIDERS: PCP Nurse Practitioner Primary Care; Visit Provider Nurse Practitioner Family | DX: N48.1 Balanitis (principal); R35.0 Frequency of micturition; R35.1 Nocturia; Z79.01 Long term (current) use of anticoagulants | CPT/HCPCS: 51798; 81003; 85610; 99202; 99211 ==

== ENCOUNTER 2023-04-29 09:57 | Outpatient (AMB) | payer OTHER, SELFPAY ==
[2023-04-29 10:25] LABS: Prothrombin Time Whole Bld POC 27.4 sec (11.1-13.5); ~PT, ~INR - Anti Coag Clinic 2.3 (0.9-1.1)
--- NOTE | 2023-04-29 10:30 | MHC.OFFVISCO ---
Intake Intake Visit Reasons: Anticoagulation Allergies Tetanus Vaccines and Toxoid [TETANUS] Allergy (Unknown, Verified 04/29/23 10:14) SWELLING TETNUS SHOT Allergy (Unknown, Uncoded 04/29/23 10:14) UNKNOWN Medication List - Last Reconciled 04/29/23 by Coral Adhikari RN acetaminophen 500 mg PO Q6H PRN albuterol sulfate mg inhalation TID PRN albuterol sulfate 90 mcg/actuation (Ventolin HFA) 2 puffs PO Q4-6H PRN alfuzosin ER 10 mg PO BEDTIME 30 days ammonium lactate 12% appl topical DAILY PRN atorvastatin 80 mg PO BEDTIME blood sugar diagnostic (FreeStyle Lite Strips) As directed blood-glucose meter (FreeStyle [place] Lite kit) As directed clobetasol 0.05% grams topical BID clotrimazole 1% appl topical BID clotrimazole-betamethasone 1-0.05 % 1 appl topical BID 4 weeks dapagliflozin propanediol (Farxiga) 5 mg PO DAILY diclofenac sodium 1% 2 grams topical 2XD dulaglutide (Trulicity) mg subcut furosemide 80 mg PO BID gabapentin 100 mg PO BID insulin aspart U-100 (Novolog FlexPen U-100 Insulin aspart) 10 units subcut BID insulin glargine (Lantus Solostar U-100 Insulin) pt states taking 44 units sq q pm isosorbide mononitrate ER 120 mg PO QAM labetalol 100 mg PO lisinopril 40 mg PO QAM metformin 1,000 mg PO DAILY multivitamin 1 tab PO DAILY omeprazole 20 mg PO QAM peg 3350-electrolytes 236-22.74-6.74 -5.86 gram mL PO pen needle, diabetic (UltiCare Pen Needle) As directed salmeterol (Serevent Diskus) 1 inh inhalation BID umeclidinium 62.5 mcg/actuation (Incruse Ellipta) 1 inh inhalation DAILY warfarin 5 mg See Protocol PO DAILY Nursing Note Amb to ACS feeling well, interpretter available for visit Medications and supplements reviewed, was just at urology, Tamsulosin DC and to atart alfuzosin ( no warfarin interactions with each) No other changes in health, diet, medications, or supplements Denies any unusual signs and symptoms of bruising, bleeding Denies any new Chest pain, SOB, or clotting INR: 2.3 in therapeutic range Nutritional guidance given: balance greens and reds in diet Dose: continue usual dosing; 15mg x 3 days and 10mg x 4 days F/U INR: 2 weeks Patient verbalizes understanding of instructions given with accurate read back/ teach back of dosing Anti-Coag Initial Assessment Social Hx Patient Tobacco Use Status: Former Tobacco user alcohol intake: former Coding Level of Care Code Est Patient Level 1 Diagnoses Current use of anticoagulant therapy Z79.01 Time Spent (min) 15 Results AMB Urinalysis, Automated UA Leukoctes 0 Abhilash/uL Last Edit by Gissel Salgado CMA on 04/29/23 09:01 UA Nitrite Negative Last Edit by Gissel Salgado CMA on 04/29/23 09:01 UA Urobilinogen 0.2 mg/dL Last Edit by Gissel Salgado CMA on 04/29/23 09:01 UA Protein 30 mg/dL Last Edit by Gissel Salgado, ARDEN on 04/29/23 09:01 UA pH 6.0 Last Edit by Gissel Salgado, ARDEN on 04/29/23 09:01 UA Blood 0 [place]/uL Last Edit by Gissel Salgado, FINAL INSPECTOR BALANCE WHEEL on 04/29/23 09:01 UA Specific [place] 1.015 Last Edit by Gissel Salgado CMA on 04/29/23 09:01 UA Ketone Negative Last Edit by Gissel Salgado CMA on 04/29/23 09:01 UA Bilirubin 0 mg/dL Last Edit by Gissel Salgado CMA on 04/29/23 09:01 UA Glucose 0 mg/dL Last Edit by Gissel Salgado CMA on 04/29/23 09:01 Assessment & Plan Assessment & Plan (1) Current use of anticoagulant therapy: Code(s): Z79.01 - detention (current) use of anticoagulants Category: Medical
== END 2023-04-29 11:41 | disposition home or self-care (01) ==
LOC: HO.ACS 09:57
PROVIDERS: PCP Nurse Practitioner Primary Care; Visit Provider Internal Medicine
DX: Z79.01 Long term (current) use of anticoagulants (principal)

== ENCOUNTER 2023-05-07 08:46 | Outpatient (AMB) | payer OTHER, SELFPAY ==
--- NOTE | 2023-05-07 08:58 | A.OFFVIS_ITS ---
Intake Intake Visit Reasons: New Prob- right ankle pain Intake Note: Sergio is a 72 year old male who presents today for a new problem visit with complaints of bilateral ankle pain, left is worse than the right. Denies injury. He has had pain and swelling for about 2 months now. He is using a diclofenac cream for his symptoms, which is very helpful particularly at night, he is looking for a refill. Denies numbness and tingling. Increased pain with walking and weight bearing. 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 Required: Yes 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 Name: [id number] Allergies Tetanus Vaccines and Toxoid [TETANUS] Allergy (Unknown, Verified 04/29/23 19:40) SWELLING TETNUS SHOT Allergy (Unknown, Uncoded 04/29/23 19:40) UNKNOWN Medication List - Last Reconciled 05/07/23 by Daisy Dawn MD acetaminophen 500 mg PO Q6H PRN albuterol sulfate mg inhalation TID PRN albuterol sulfate 90 mcg/actuation (Ventolin HFA) 2 puffs PO Q4-6H PRN alfuzosin ER 10 mg PO BEDTIME 30 days ammonium lactate 12% appl topical DAILY PRN atorvastatin 80 mg PO BEDTIME blood sugar diagnostic (FreeStyle Lite Strips) As directed blood-glucose meter (FreeStyle [place] Lite kit) As directed clobetasol 0.05% grams topical BID clotrimazole 1% appl topical BID clotrimazole-betamethasone 1-0.05 % 1 appl topical BID 4 weeks dapagliflozin propanediol (Farxiga) 5 mg PO DAILY diclofenac sodium 1% 2 grams topical 2XD dulaglutide (Trulicity) mg subcut furosemide 80 mg PO BID gabapentin 100 mg PO BID insulin aspart U-100 (Novolog FlexPen U-100 Insulin aspart) 10 units subcut BID insulin glargine (Lantus Solostar U-100 Insulin) pt states taking 44 units sq q pm isosorbide mononitrate ER 120 mg PO QAM labetalol 100 mg PO lisinopril 40 mg PO QAM metformin 1,000 mg PO DAILY multivitamin 1 tab PO DAILY omeprazole 20 mg PO QAM peg 3350-electrolytes 236-22.74-6.74 -5.86 gram mL PO pen needle, diabetic (UltiCare Pen Needle) As directed salmeterol (Serevent Diskus) 1 inh inhalation BID umeclidinium 62.5 mcg/actuation (Incruse Ellipta) 1 inh inhalation DAILY warfarin 5 mg See Protocol PO DAILY HPI HPI Comments History of Present Illness Details History of poorly controlled DM, DM neuropathy, on coumadin. History of positive RICCI, seen by Rheumatology previously. Recent BUN 27, Creatinine 1.43. Complaining of left ankle pain and swelling, 7 months. Says not much numbness. No foot drop. Worse with walking. He says that he uses cane for walking. Denies low back pain. 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 MAN on CPAP Morbid obesity Dyspnea on exertion CRP elevated RICCI positive Chronic diastolic heart failure Type 2 diabetes mellitus with hyperlipidemia Psoriasis Obstructive sleep apnea Essential hypertension Diabetic polyneuropathy Depressive disorder COPD (chronic obstructive pulmonary disease) Chronic low back pain Asthma Anemia Surgical History (Reviewed 05/07/23 @ 09:03 by Floridalma Ruff [facility]) No history of previous surgery Family History Mother Cancer Diabetes Hypertension Father Stomach cancer Social History (Reviewed 05/07/23 @ 09:03 by Floridalma Ruff [facility]) Household Members: Spouse and Children Alcohol intake: former Patient Tobacco Use Status: Former Tobacco user Review of Systems Const All systems reviewed & are unremarkable except as noted in HPI and below Physical Exam Constitutional: Patient appears to be in no acute distress, well nourished and well developed. MSK: 2+ pitting edema bilateral, tender to touch, chronic skin changes. No tenderness over Achillis tendon, plantar fascia, malleoli. No footdrop. No increased tone noted. Neurological: Cannon?s negative bilaterally. Babinski was down going bilaterally. Clonus was negative. Results Reviewed Results Reviewed: I independently reviewed the results of the following: Very small calcaneal spurs. Ordering Physician: Smith Barnes MD Date of Service: 02/17/23 Procedure(s): XR ankle RT min 3V Accession Number(s): [id number] cc: Smith Barnes MD~ EXAMINATION: XR ANKLE, RIGHT CLINICAL INFORMATION: Pain. COMPARISON: None available. TECHNIQUE: AP, lateral, and mortise views of the right ankle. FINDINGS: Chronic appearing deformity of the distal fibula with callus formation. No acute fracture. Anatomic alignment. Mild generative osteoarthritis. Small calcaneal spurs. Scattered vascular calcifications. Nonspecific soft tissue swelling. XR/XR ankle RT min 3V IMPRESSION: 1. Chronic appearing deformity of the distal fibula with callus formation. 2. No acute fracture or malalignment. 3. Mild degenerative osteoarthritis. 4. Nonspecific soft tissue swelling. 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 Exam did not show any signs of plantar fasciitis, Achillis tendinitis or ankle sprain. He has history of diabetic neuropathy. Previous ankle x-rays have reported degenerative changes. He needs compression stockings. He said he has tried 1 but too tight on him. We will send a referral to prosthetics and orthotics in [place] for the compression stockings. He requested refill of diclofenac gel. Topical use of NSAIDs would be safer than oral given that he is on Coumadin. He has tolerated this in the past. Instructions given. Prescription sent. We will send for PT to work on gait. Assessment and plan discussed with patient, and patient was agreeable. All questions were answered thoroughly. Follow-up 3 months. Daisy Dawn MD, MARTY Board Certified, [place] [employer] and [employer] (ABPMR) Board Certified, [place] [employer] Electro[employer] (ABEM) Orders: Orders PT Evaluation and Treatment Today E11.42 - Type 2 diabetes mellitus with diabetic polyneuropathy, M19.071 - Primary osteoarthritis, right ankle and foot, M19.072 - Primary osteoarthritis, left ankle and foot, R60.9 - Edema, unspecified Medications: New compression socks, large As directed, pls measure what size would fit 2 ea 0RF edema R60.9 - Edema, unspecified diclofenac sodium 1% apply to single knee, ankle, foot; for foot includes sole/toes/top of foot, up to 4 times a day 4 grams topical QID 100 grams 0RF ankle pain; Coding Level of Care Code New Pt Level 4 (01837) Diagnoses Localized edema R60.0 Edema type: localized Diabetic polyneuropathy associated with type 2 diabetes mellitus E11.42 Diabetes mellitus type: type 2 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
== END 2023-05-07 09:31 | disposition home or self-care (01) ==
PROVIDERS: PCP Nurse Practitioner Primary Care; Visit Provider Physical Medicine & Rehabilitation
DX: R60.0 Localized edema (principal); E11.42 Type 2 diabetes mellitus with diabetic polyneuropathy; M19.071 Primary osteoarthritis, right ankle and foot; M19.072 Primary osteoarthritis, left ankle and foot
CPT/HCPCS: 99204

== ENCOUNTER → 2023-05-07 08:46 | Outpatient (BNVA) | payer OTHER, SELFPAY | PROVIDERS: PCP Nurse Practitioner Primary Care; Visit Provider Physical Medicine & Rehabilitation | DX: M19.072 Primary osteoarthritis, left ankle and foot (principal); M19.071 Primary osteoarthritis, right ankle and foot; R60.0 Localized edema; Z79.01 Long term (current) use of anticoagulants | CPT/HCPCS: 99202 ==

== ENCOUNTER 2023-05-16 09:29 | Outpatient (AMB) | payer OTHER, SELFPAY ==
--- NOTE | 2023-05-16 09:39 | MHC.OFFVISCO ---
Intake Intake Visit Reasons: Anticoagulation Allergies Tetanus Vaccines and Toxoid [TETANUS] Allergy (Unknown, Verified 05/16/23 09:34) SWELLING TETNUS SHOT Allergy (Unknown, Uncoded 05/16/23 09:34) UNKNOWN Medication List - Last Reconciled 05/16/23 by Mervat Del Castillo RN acetaminophen 500 mg PO Q6H PRN albuterol sulfate mg inhalation TID PRN albuterol sulfate 90 mcg/actuation (Ventolin HFA) 2 puffs PO Q4-6H PRN alfuzosin ER 10 mg PO BEDTIME 30 days ammonium lactate 12% appl topical DAILY PRN atorvastatin 80 mg PO BEDTIME blood sugar diagnostic (FreeStyle Lite Strips) As directed blood-glucose meter (FreeStyle [place] Lite kit) As directed clobetasol 0.05% grams topical BID clotrimazole 1% appl topical BID clotrimazole-betamethasone 1-0.05 % 1 appl topical BID 4 weeks compression socks, large As directed, pls measure what size would fit dapagliflozin propanediol (Farxiga) 5 mg PO DAILY diclofenac sodium 1% 4 grams topical QID diclofenac sodium 1% 2 grams topical 2XD dulaglutide (Trulicity) mg subcut furosemide 80 mg PO BID gabapentin 100 mg PO BID insulin aspart U-100 (Novolog FlexPen U-100 Insulin aspart) 10 units subcut BID insulin glargine (Lantus Solostar U-100 Insulin) pt states taking 44 units sq q pm isosorbide mononitrate ER 120 mg PO QAM labetalol 100 mg PO lisinopril 40 mg PO QAM metformin 1,000 mg PO DAILY multivitamin 1 tab PO DAILY omeprazole 20 mg PO QAM peg 3350-electrolytes 236-22.74-6.74 -5.86 gram mL PO pen needle, diabetic (UltiCare Pen Needle) As directed salmeterol (Serevent Diskus) 1 inh inhalation BID umeclidinium 62.5 mcg/actuation (Incruse Ellipta) 1 inh inhalation DAILY warfarin 5 mg See Protocol PO DAILY Nursing Note INR: 2.5- in therapeutic range of 2-3 Medications and supplements reviewed No changes in health, diet, medications, or supplements, Denies any signs and symptoms of bleeding or bruising or clotting. Bleeding, bruising, clotting discussed Nutritional guidance given Dose: 15mg x 3, 10mg x 4 F/U INR: 3 weeks Patient verbalizes understanding of instructions given solvent recoverer Pascale used for this acs visit Anti-Coag Initial Assessment Social Hx Patient Tobacco Use Status: Former Tobacco user alcohol intake: former Coding Level of Care Code Est Patient Level 1 Diagnoses Current use of anticoagulant therapy Z79.01 Results AMB INR Fingerstick AMB INR Fingerstick 2.5 Last Edit by Mervat Del Castillo RN on 05/16/23 09:41 Assessment & Plan Assessment & Plan (1) Current use of anticoagulant therapy: Code(s): Z79.01 - extermination inspector (current) use of anticoagulants Category: Medical
[2023-05-16 09:40] LABS: Prothrombin Time Whole Bld POC 29.5 sec (11.1-13.5); ~PT, ~INR - Anti Coag Clinic 2.5 (0.9-1.1)
== END 2023-05-16 10:07 | disposition home or self-care (01) ==
LOC: HO.ACS 09:29
PROVIDERS: PCP Nurse Practitioner Primary Care; Visit Provider Internal Medicine
DX: Z79.01 Long term (current) use of anticoagulants (principal)

== ENCOUNTER → 2023-05-16 09:29 | Outpatient (BNVA) | payer OTHER, SELFPAY | PROVIDERS: PCP Nurse Practitioner Primary Care; Visit Provider Internal Medicine | DX: I48.19 Other persistent atrial fibrillation (principal); Z79.01 Long term (current) use of anticoagulants; Z51.81 Encounter for therapeutic drug level monitoring | CPT/HCPCS: 85610; 99211 ==

== ENCOUNTER 2023-06-04 10:19 | Outpatient (REF) | payer OTHER, SELFPAY ==
--- NOTE | ~2023-06-04 | US_ITS ---
EXAMINATION: US RETROPERITONEAL COMPLETE (RENAL) CLINICAL INFORMATION: Nocturia. COMPARISON: CT abdomen and pelvis without and with contrast 08/15/2016. TECHNIQUE: Real-time imaging of the kidneys and bladder. FINDINGS: RIGHT KIDNEY: 13.8 x 6.0 x 5.6 cm (SAG x AP x TRV). The kidney is normal in size, contour, and echogenicity. Renal cortical thickness is normal. No renal calculi or hydronephrosis. There is a 6.1 x 5.3 x 6.2 cm cyst in the lower pole and a 3.3 x 3.1 x 3.2 cm cyst in the mid kidney. No imaging follow-up is recommended. LEFT KIDNEY: 13.2 x 5.2 x 4.2 cm (SAG x AP x TRV). The kidney is normal in size, contour, and echogenicity. Renal cortical thickness is normal. No calculi or focal parenchymal lesions. No hydronephrosis. There is an extrarenal pelvis, a normal variant. BLADDER: Well distended and normal. Bilateral ureteral jets are not demonstrated. Prevoid bladder volume is 441 mL. Postvoid bladder volume is 67.2 mL. The prostate volume is 20.8 mL. US/US retroperitoneal comp IMPRESSION: 1. No significant findings within the kidneys. 2. Moderate size post void residual.
== END 2023-06-04 10:20 | disposition home or self-care (01) ==
LOC: HO.US 10:19
PROVIDERS: PCP Nurse Practitioner Primary Care; Visit Provider Nurse Practitioner Family
DX: R35.1 Nocturia (principal); R35.0 Frequency of micturition
CPT/HCPCS: 76770

== ENCOUNTER 2023-06-06 09:42 | Outpatient (AMB) | payer OTHER, SELFPAY ==
[2023-06-06 09:53] LABS: Prothrombin Time Whole Bld POC 38.8 sec (11.1-13.5); ~PT, ~INR - Anti Coag Clinic 3.2 (0.9-1.1)
--- NOTE | 2023-06-06 09:54 | MHC.OFFVISCO ---
Intake Intake Visit Reasons: Anticoagulation Allergies Tetanus Vaccines and Toxoid [TETANUS] Allergy (Unknown, Verified 05/16/23 09:34) SWELLING TETNUS SHOT Allergy (Unknown, Uncoded 05/16/23 09:34) UNKNOWN Medication List - Last Reconciled 06/06/23 by Mervat Del Castillo RN acetaminophen 500 mg PO Q6H PRN albuterol sulfate mg inhalation TID PRN albuterol sulfate 90 mcg/actuation (Ventolin HFA) 2 puffs PO Q4-6H PRN alfuzosin ER 10 mg PO BEDTIME 30 days ammonium lactate 12% appl topical DAILY PRN atorvastatin 80 mg PO BEDTIME blood sugar diagnostic (FreeStyle Lite Strips) As directed blood-glucose meter (FreeStyle [place] Lite kit) As directed clobetasol 0.05% grams topical BID clotrimazole 1% appl topical BID clotrimazole-betamethasone 1-0.05 % 1 appl topical BID 4 weeks compression socks, large As directed, pls measure what size would fit dapagliflozin propanediol (Farxiga) 5 mg PO DAILY diclofenac sodium 1% 4 grams topical QID diclofenac sodium 1% 2 grams topical 2XD dulaglutide (Trulicity) mg subcut furosemide 80 mg PO BID gabapentin 100 mg PO BID insulin aspart U-100 (Novolog FlexPen U-100 Insulin aspart) 10 units subcut BID insulin glargine (Lantus Solostar U-100 Insulin) pt states taking 44 units sq q pm isosorbide mononitrate ER 120 mg PO QAM labetalol 100 mg PO lisinopril 40 mg PO QAM metformin 1,000 mg PO DAILY multivitamin 1 tab PO DAILY omeprazole 20 mg PO QAM peg 3350-electrolytes 236-22.74-6.74 -5.86 gram mL PO pen needle, diabetic (UltiCare Pen Needle) As directed salmeterol (Serevent Diskus) 1 inh inhalation BID umeclidinium 62.5 mcg/actuation (Incruse Ellipta) 1 inh inhalation DAILY warfarin 5 mg See Protocol PO DAILY Nursing Note INR 3.2-?? out of therapeutic range of 2-3 Medications and supplements reviewed Patient status: pt with c.o knee pain Medications or supplements: taking gabapentin prn pt states ibuprofen was prescribed but not taking. he was made aware of bleed risk with this Diet: same Denies any signs and symptoms of bleeding or clotting or unusual bruising Bleeding, bruising, clotting discussed Nutritional guidance given: eat greens to lower welsh visual food list provided Dose: cont same 15mg x 3, 10mg x 4 F/U INR Date : 3 weeks?? Patient verbalizing understanding of instructions given. insole tacker jayesh used for this visit Anti-Coag Initial Assessment Social Hx Patient Tobacco Use Status: Former Tobacco user alcohol intake: former Coding Level of Care Code Est Patient Level 1 Diagnoses Current use of anticoagulant therapy Z79.01 Assessment & Plan Assessment & Plan (1) Current use of anticoagulant therapy: Code(s): Z79.01 - care home (current) use of anticoagulants Category: Medical
== END 2023-06-06 10:06 | disposition home or self-care (01) ==
LOC: HO.ACS 09:42
PROVIDERS: PCP Nurse Practitioner Primary Care; Visit Provider Internal Medicine
DX: Z79.01 Long term (current) use of anticoagulants (principal)

== ENCOUNTER → 2023-06-06 09:42 | Outpatient (BNVA) | payer OTHER, SELFPAY | PROVIDERS: PCP Nurse Practitioner Primary Care; Visit Provider Internal Medicine | DX: I48.19 Other persistent atrial fibrillation (principal); Z51.81 Encounter for therapeutic drug level monitoring; Z79.01 Long term (current) use of anticoagulants | CPT/HCPCS: 85610; 99211 ==

== ENCOUNTER 2023-06-27 09:04 | Outpatient (AMB) | payer OTHER, SELFPAY ==
--- NOTE | 2023-06-27 09:04 | A.OFFVIS_ITS ---
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 marketing account executive Newspaper Copy Editor Required: Yes Newspaper Copy Editor Name: ID#[id number] Allergies Tetanus Vaccines and Toxoid [TETANUS] Allergy (Unknown, Verified 06/27/23 09:34) SWELLING TETNUS SHOT Allergy (Unknown, Uncoded 06/27/23 09:34) UNKNOWN Medication List - Last Reconciled 06/27/23 by SHAHANA Chan acetaminophen 500 mg PO Q6H PRN albuterol sulfate mg inhalation TID PRN albuterol sulfate 90 mcg/actuation (Ventolin HFA) 2 puffs PO Q4-6H PRN alfuzosin ER 10 mg PO BEDTIME 30 days ammonium lactate 12% appl topical DAILY PRN atorvastatin 80 mg PO BEDTIME blood sugar diagnostic (FreeStyle Lite Strips) As directed blood-glucose meter (FreeStyle [place] Lite kit) As directed clobetasol 0.05% grams topical BID clotrimazole 1% appl topical BID clotrimazole-betamethasone 1-0.05 % 1 appl topical BID 4 weeks compression socks, large As directed, pls measure what size would fit dapagliflozin propanediol (Farxiga) 5 mg PO DAILY diclofenac sodium 1% 4 grams topical QID diclofenac sodium 1% 2 grams topical 2XD dulaglutide (Trulicity) mg subcut furosemide 80 mg PO BID gabapentin 100 mg PO BID insulin aspart U-100 (Novolog FlexPen U-100 Insulin aspart) 10 units subcut BID insulin glargine (Lantus Solostar U-100 Insulin) pt states taking 44 units sq q pm isosorbide mononitrate ER 120 mg PO QAM labetalol 100 mg PO lisinopril 40 mg PO QAM metformin 1,000 mg PO DAILY multivitamin 1 tab PO DAILY omeprazole 20 mg PO QAM peg 3350-electrolytes 236-22.74-6.74 -5.86 gram mL PO pen needle, diabetic (UltiCare Pen Needle) As directed salmeterol (Serevent Diskus) 1 inh inhalation BID umeclidinium 62.5 mcg/actuation (Incruse Ellipta) 1 inh inhalation DAILY warfarin 5 mg See Protocol PO DAILY HPI Comments Details: Sergio is a 72-year-old Nauruan-speaking male patient of Dr. Posadas. He has a past medical history of obstructive sleep apnea on CPAP, morbid obesity, RICCI positive, chronic diastolic heart failure, type 2 diabetes, hyperlipidemia, psoriasis, hypertension, diabetic polyneuropathy, depression, COPD, chronic low back pain, asthma, and anemia. He is being follow-up on today via telehealth for his history of balanitis and lower urinary tract symptoms. In discussion with the patient today he reports significant improvement in balanitis. During last office visit patient was prescribed alfuzosin however patient reports he never started taking the medication as he feels lower urinary tract symptoms have since resolved. He is vague when discussing his lower urinary tract symptoms. Recent retroperitoneal ultrasound results reviewed with the patient today. Bilateral kidneys with no hydronephrosis or renal calculi. There is a 6.2 cm cyst in the lower pole of the right kidney and a 3.3 cm cyst in the mid kidney that require no imaging follow-up is recommended per radiology report. The bladder is well distended and normal. Bilateral ureteral jets are not demonstrated. Pre void bladder volume is approximately 440 mL. Postvoid bladder volume is approximately 68 mL. The prostate volume is 21ml's. When asked he reports he is happy with his current voiding parameters. He would like to continue with surveillance monitoring at this time and does not wish to trial medications and or undergo further workup with in office cystoscopy or urodynamics. In review of patient's chart it appears PSA 04/05 0.3. He had previously been on Flomax however did not find this helpful. He otherwise offers no other issues or concerns at this time. [facility] Medical History Degenerative joint disease of both ankles and feet MAN on CPAP Morbid obesity Dyspnea on exertion CRP elevated RICCI positive Chronic diastolic heart failure Type 2 diabetes mellitus with hyperlipidemia Psoriasis Obstructive sleep apnea Essential hypertension Diabetic polyneuropathy Depressive disorder COPD (chronic obstructive pulmonary disease) Chronic low back pain Asthma Anemia Surgical History No history of previous surgery Family History Mother Cancer Diabetes Hypertension Father Stomach cancer Social History Household Members: Spouse and Children Alcohol intake: former Patient Tobacco Use Status: Former Tobacco user Review of Systems Const Reports as per [facility] Eyes Reports no additional complaints ENT Reports as per HPI Card Reports as per HPI Resp Reports as per HPI GI Reports no additional complaints Reports as per HPI Musc Reports as per HPI Neuro Reports no additional complaints Psych Reports as per HPI Endo Reports as per HPI Physical Exam Const General: cooperative Resp Effort & Inspection: able to speak in complete sentences Psych Attitude: cooperative Thought process: Normal thought process present Thought content: Normal thought content present Judgement: Fair judgement present (Psych) Telehealth Telehealth Telehealth Platform: Telephone Location of provider rendering services: practice address Location of patient: address on file Patient Identification confirmed using: Name, : Yes Telehealth method: voice only Patient verbally consented to treatment: Yes Patient verbally consented to billing insurance company: Yes Patient informed of any privacy concerns related to visit: Yes Minutes spent on Phone/Video with Pt.: 15 Results Reviewed Results Reviewed: Date of Service: 06/04/23 EXAMINATION: US RETROPERITONEAL COMPLETE (RENAL) FINDINGS: RIGHT KIDNEY: 13.8 x 6.0 x 5.6 cm (SAG x AP x TRV). The kidney is normal in size, contour, and echogenicity. Renal cortical thickness is normal. No renal calculi or hydronephrosis. There is a 6.1 x 5.3 x 6.2 cm cyst in the lower pole and a 3.3 x 3.1 x 3.2 cm cyst in the mid kidney. No imaging follow-up is recommended. LEFT KIDNEY: 13.2 x 5.2 x 4.2 cm (SAG x AP x TRV). The kidney is normal in size, contour, and echogenicity. Renal cortical thickness is normal. No calculi or focal parenchymal lesions. No hydronephrosis. There is an extrarenal pelvis, a normal variant. BLADDER: Well distended and normal. Bilateral ureteral jets are not demonstrated. Prevoid bladder volume is 441 mL. Postvoid bladder volume is 67.2 mL. The prostate volume is 20.8 mL. IMPRESSION: 1. No significant findings within the kidneys. 2. Moderate size post void residual. Assessment & Plan Assessment & Plan (1) Balanitis: Code(s): N48.1 - Balanitis Category: Medical (2) Urinary frequency: Code(s): R35.0 - Frequency of micturition Category: Medical (3) Nocturia: Code(s): R35.1 - Nocturia Category: Medical Plan Stop alfuzosin; as patient reports he never started and does not wish to at this time. Patient reports no bothersome urinary issues or concerns at this time. Patient reports balanitis is significantly improved. He is happy with his current voiding parameters. Recent retroperitoneal ultrasound results reviewed with the patient today; as noted above. Follow-up in 3 months with [facility]; or sooner with any issues, concerns, and or questions. Medications: Discontinued alfuzosin ER Take before bedtime Discontinued Reason: Doctor's Order 10 mg PO BEDTIME 30 days 30 tabs 1RF N32.0 - Bladder-neck obstruction, N40.1 - Benign prostatic hyperplasia with lower urinary tract symptoms, R33.9 - Retention of urine, unspecified, R35.1 - Nocturia, R39.12 - Poor urinary stream clotrimazole-betamethasone 1-0.05 % Apply thin coat 2 times per day Discontinued Reason: No Longer Medically Relevant 1 appl topical BID 4 weeks 45 grams 0RF N48.1 - Balanitis Patient Instructions: The patient had an opportunity to ask questions regarding the treatment plan. All questions were answered. Physical exam, labs, and imaging were discussed and reviewed in detail. As well as risks, benefits, and discussion of treatment choices. No major barriers to understanding were identified. The patient expressed understanding and agreement with the above treatment plan. The patient was made aware they should contact our office by phone for worsening of their current condition, the appearance of new symptoms, or with any questions or concerns. Compliance is encouraged with any medications and follow up testing that is ordered. It is a privilege to be allowed the opportunity to participate in? your urological care.? Again, if you have any questions or concerns If you have any questions or concerns please do not hesitate to contact me. The office is [phone]. This note is constructed using voice recognition software. While every effort has been made to ensure accuracy supervisor drilling and shooting errors may have been included. Yours sincerely, SHAHANA Chan Coding Level of Care Code Tele Est Pt Level 3 (46866) Diagnoses Balanitis N48.1 Urinary frequency R35.0 Nocturia R35.1
== END 2023-06-27 10:21 | disposition home or self-care (01) ==
LOC: HO.HUSH 09:04
PROVIDERS: PCP Nurse Practitioner Primary Care; Visit Provider Nurse Practitioner Family
DX: N48.1 Balanitis (principal); R35.0 Frequency of micturition; R35.1 Nocturia
CPT/HCPCS: 99442

== ENCOUNTER → 2023-06-27 09:04 | Outpatient (BNVA) | payer OTHER, SELFPAY | PROVIDERS: PCP Nurse Practitioner Primary Care; Visit Provider Nurse Practitioner Family ==

== ENCOUNTER 2023-07-02 09:14 | Outpatient (AMB) | payer OTHER, SELFPAY ==
[2023-07-02 09:27] LABS: Prothrombin Time Whole Bld POC 37.9 sec (11.1-13.5); ~PT, ~INR - Anti Coag Clinic 3.2 (0.9-1.1)
--- NOTE | 2023-07-02 09:30 | MHC.OFFVISCO ---
Intake Intake Visit Reasons: Anticoagulation Allergies Tetanus Vaccines and Toxoid [TETANUS] Allergy (Unknown, Verified 07/02/23 09:20) SWELLING TETNUS SHOT Allergy (Unknown, Uncoded 07/02/23 09:20) UNKNOWN Medication List - Last Reconciled 07/02/23 by Mervat Del Castillo RN acetaminophen 500 mg PO Q6H PRN albuterol sulfate mg inhalation TID PRN albuterol sulfate 90 mcg/actuation (Ventolin HFA) 2 puffs PO Q4-6H PRN ammonium lactate 12% appl topical DAILY PRN atorvastatin 80 mg PO BEDTIME blood sugar diagnostic (FreeStyle Lite Strips) As directed blood-glucose meter (FreeStyle [place] Lite kit) As directed clobetasol 0.05% grams topical BID compression socks, large As directed, pls measure what size would fit dapagliflozin propanediol (Farxiga) 5 mg PO DAILY diclofenac sodium 1% 4 grams topical QID diclofenac sodium 1% 2 grams topical 2XD dulaglutide (Trulicity) mg subcut furosemide 80 mg PO BID gabapentin 100 mg PO BID insulin aspart U-100 (Novolog FlexPen U-100 Insulin aspart) 10 units subcut BID insulin glargine (Lantus Solostar U-100 Insulin) pt states taking 44 units sq q pm isosorbide mononitrate ER 120 mg PO QAM labetalol 100 mg PO lisinopril 40 mg PO QAM metformin 1,000 mg PO DAILY multivitamin 1 tab PO DAILY omeprazole 20 mg PO QAM pen needle, diabetic (UltiCare Pen Needle) As directed salmeterol (Serevent Diskus) 1 inh inhalation BID umeclidinium 62.5 mcg/actuation (Incruse Ellipta) 1 inh inhalation DAILY warfarin 5 mg See Protocol PO DAILY Nursing Note INR 3.2-?? out of therapeutic range of 2-3 Medications and supplements reviewed Patient status: no c.o Medications or supplements: pt states lantus 44 units, novolog 20units Diet: eating more melon Denies any signs and symptoms of bleeding or clotting or unusual bruising Bleeding, bruising, clotting discussed Nutritional guidance given: eat greens to lower, no reds for 2 days Dose: 15mg x 3, 10mg x 4 F/U INR Date : 2 weeks?? Patient verbalizing understanding of instructions given. delimber operator Kathryn used for this visit Anti-Coag Initial Assessment Social Hx Patient Tobacco Use Status: Former Tobacco user alcohol intake: former Coding Level of Care Code Est Patient Level 1 Diagnoses Current use of anticoagulant therapy Z79.01 Assessment & Plan Assessment & Plan (1) Current use of anticoagulant therapy: Code(s): Z79.01 - termite control representative (current) use of anticoagulants Category: Medical
== END 2023-07-02 09:37 | disposition home or self-care (01) ==
LOC: HO.ACS 09:14
PROVIDERS: PCP Nurse Practitioner Primary Care; Visit Provider Internal Medicine
DX: Z79.01 Long term (current) use of anticoagulants (principal)

== ENCOUNTER → 2023-07-02 09:14 | Outpatient (BNVA) | payer OTHER, SELFPAY | PROVIDERS: PCP Nurse Practitioner Primary Care; Visit Provider Internal Medicine | DX: I48.19 Other persistent atrial fibrillation (principal); Z79.01 Long term (current) use of anticoagulants; Z51.81 Encounter for therapeutic drug level monitoring | CPT/HCPCS: 85610; 99211 ==

== ENCOUNTER 2023-07-24 15:00 | Outpatient (REF) | payer OTHER, SELFPAY ==
[2023-07-24 15:26] LABS: MANUAL DIFF FLAG NO
[2023-07-24 16:09] LABS: Basophils Absolute Auto 0.1 X10*3/uL (0.0-0.2); Basophils Percent Auto 0.6 % (0-2); Eosinophils Absolute Auto 0.2 X10*3/uL (0.0-0.4); Eosinophils Percent Auto 1.8 % (0-4); Hematocrit 37.5 % (42.0-52.0); Hemoglobin 12.4 g/dl (14.0-18.0); Imm Gran Abs Auto 0.01 X10*3/uL (0.00-0.03); Imm Gran Pct Auto 0.1 % (0.0-0.4); Lymphocytes Absolute Auto 2.1 X10*3/uL (1.2-4.9); Lymphocytes Percent Auto 25.2 % (20-40); Mean Corpuscular HGB Conc 33.1 g/dl (31.0-36.0); Mean Corpuscular Hemoglobin 27.7 pg (27.0-33.0); Mean Corpuscular Volume 83.7 fL (80.0-98.0); Mean Platelet Volume 12.1 fL (9.4-12.4); Monocytes Absolute Auto 0.7 X10*3/uL (0.1-1.2); Monocytes Percent Auto 8.2 % (2-11); Neutrophils Absolute Auto 5.3 x10*3/uL (2.0-8.3); Neutrophils Percent Auto 64.1 % (45-73); Platelet Count 152 X10*3/uL (160-400); Red Blood Count 4.48 X10*6/uL (4.60-5.80); White Blood Count 8.3 X10*3/uL (4.8-10.8)
[2023-07-24 16:26] LABS: Estimated Average Glucose 183 mg/dL
[2023-07-24 16:44] LABS: Creatinine Urine 25.19 mg/dL; Microalbum/Creatinine Ratio Ur 230.2 ug/mg cr (<30); Total Protein Urine Random 10 mg/dL (<12)
[2023-07-24 16:47] LABS: Anion Gap 10 (12-20); Blood Urea Nitrogen 15 mg/dL (9-16); Calcium 9.4 mg/dL (8.4-10.2); Carbon Dioxide 29 mmol/L (22-29); Chloride 105 mmol/L (96-108); Estimated Glomerular Filt Rate > 60; Glucose Random 82 mg/dL (60-115); Iron 57 mcg/dL (45-160); Magnesium 1.9 mg/dL (1.6-2.6); Percent Iron Saturation 22 % (15-50); Phosphorus 2.3 mg/dL (2.7-4.5); Potassium 3.5 mmol/L (3.3-5.1); Sodium 140 mmol/L (135-145); Total Iron Binding Capacity 261 mcg/dL (228-428); Unsaturated Iron Binding 204 ug/dL; Uric Acid 7.6 mg/dL (3.4-7.0)
[2023-07-24 16:49] LABS: Parathyroid Hormone Intact 202.3 pg/mL (8.7-77.1)
[2023-07-24 17:02] LABS: Ferritin 39 ng/mL (20-250)
[2023-07-24 21:50] LABS: Appearance Urine Clear; Color Urine Yellow; Glucose Urine UA Negative (Negative); Leukocyte Esterase Urine Negative (Negative); Nitrite Urine Negative (Negative); Specific Gravity - Urine <= 1.005 (1.005-1.025); Urine Blood Negative (Negative); Urine Ketones Negative (Negative); Urine Protein Negative (Neg-Trace)
[2023-07-25 12:23] LABS: Complement C3 113 mg/dL (82-185)
[2023-07-28 23:38] LABS: Anti DNA DS Antibody 1 IU/mL
[2023-07-29 13:24] LABS: ANA Pattern 2 Nuclear, Speckled; Anti Nuclear Antibody Pattern Nuclear, Homogeneous; Anti Nuclear Antibody Screen POSITIVE (NEGATIVE)
== END 2023-07-24 15:01 | disposition home or self-care (01) ==
LOC: HO.LAB 15:00
PROVIDERS: Visit Provider Internal Medicine
DX: N18.31 Chronic kidney disease, stage 3a (principal)
CPT/HCPCS: 36415; 80048; 81003; 82043; 82570; 82610; 82652; 82728; 83036; 83540; 83735; 83970; 84100; 84156; 84550; 85025; 86038; 86039; 86160; 86225

== ENCOUNTER 2023-07-28 11:05 | Outpatient (AMB) | payer OTHER, SELFPAY ==
[2023-07-28 11:11] LABS: Prothrombin Time Whole Bld POC 35.8 sec (11.1-13.5)
--- NOTE | 2023-07-28 11:26 | MHC.OFFVISCO ---
Intake Intake Visit Reasons: Anticoagulation Allergies Tetanus Vaccines and Toxoid [TETANUS] Allergy (Unknown, Verified 07/02/23 09:20) SWELLING TETNUS SHOT Allergy (Unknown, Uncoded 07/02/23 09:20) UNKNOWN Medication List - Last Reconciled 07/28/23 by Coral Adhikari RN acetaminophen 500 mg PO Q6H PRN albuterol sulfate mg inhalation TID PRN albuterol sulfate 90 mcg/actuation (Ventolin HFA) 2 puffs PO Q4-6H PRN ammonium lactate 12% appl topical DAILY PRN atorvastatin 80 mg PO BEDTIME blood sugar diagnostic (FreeStyle Lite Strips) As directed blood-glucose meter (FreeStyle [place] Lite kit) As directed clobetasol 0.05% grams topical BID compression socks, large As directed, pls measure what size would fit dapagliflozin propanediol (Farxiga) 5 mg PO DAILY diclofenac sodium 1% 4 grams topical QID diclofenac sodium 1% 2 grams topical 2XD dulaglutide (Trulicity) mg subcut furosemide 80 mg PO BID gabapentin 100 mg PO BID insulin aspart U-100 (Novolog FlexPen U-100 Insulin aspart) 10 units subcut BID insulin glargine (Lantus Solostar U-100 Insulin) pt states taking 44 units sq q pm isosorbide mononitrate ER 120 mg PO QAM labetalol 100 mg PO lisinopril 40 mg PO QAM metformin 1,000 mg PO DAILY multivitamin 1 tab PO DAILY omeprazole 20 mg PO QAM pen needle, diabetic (UltiCare Pen Needle) As directed salmeterol (Serevent Diskus) 1 inh inhalation BID umeclidinium 62.5 mcg/actuation (Incruse Ellipta) 1 inh inhalation DAILY warfarin 5 mg See Protocol PO DAILY Nursing Note Amb to [facility] feeling well [place] interprettor available for visit Medications and supplements reviewed, sts he picked up his warfarin from the pharmacy but he can't remember where he put the new meds sts he was looking when he realized he had appt now, he will call us when he finds warfarin, usually takes it in the morning No changes in health, medications, or supplements, Sts he is getting information on diabetic diets and is trying to eat better, sts he has already lost 6lbs Denies any signs and symptoms of bleeding or bruising or clotting. Bleeding, bruising, clotting discussed INR 3.0 top of range Dose- to continue usual dosing 15mg x 3 days and 10mg x 4 days Nutritional guidance given- balance greens and reds in diet, be aware of the raising of INR (and BS) with fruits FU INR: 2 weeks, pt planning 3 week visit to [place] 08/31 Patient verbalizes understanding of instructions given Anti-Coag Initial Assessment Social Hx Patient Tobacco Use Status: Former Tobacco user alcohol intake: former Coding Level of Care Code Est Patient Level 1 Diagnoses Current use of anticoagulant therapy Z79.01 Time Spent (min) 15 Assessment & Plan Assessment & Plan (1) Current use of anticoagulant therapy: Code(s): Z79.01 - [facility] (current) use of anticoagulants Category: Medical
== END 2023-07-28 11:43 | disposition home or self-care (01) ==
LOC: HO.ACS 11:05
PROVIDERS: PCP Nurse Practitioner Primary Care; Visit Provider Internal Medicine
DX: Z79.01 Long term (current) use of anticoagulants (principal)

== ENCOUNTER → 2023-07-28 11:05 | Outpatient (BNVA) | payer OTHER, SELFPAY | PROVIDERS: PCP Nurse Practitioner Primary Care; Visit Provider Internal Medicine | DX: I48.19 Other persistent atrial fibrillation (principal); Z79.01 Long term (current) use of anticoagulants; Z51.81 Encounter for therapeutic drug level monitoring | CPT/HCPCS: 85610; 99211 ==

== ENCOUNTER 2023-08-25 10:46 | Outpatient (AMB) | payer MEDICARE, MEDICAID, SELFPAY ==
[2023-08-25 10:49] VITALS: BP 138/72; PULSE 77; O2SAT 97; BMI 46.6
--- NOTE | 2023-08-25 10:49 | HO.NEPHOV_ITS ---
Vital Signs 08/25/23 10:49 Height 5 ft 6 in Weight 289 lb BMI 46.6 BP 138/72 Blood Pressure Location Rt radial Position Sitting Pulse 77 Pulse Source Pulse Oximeter Pulse Oximetry (%) 97 Oxygen Delivery Method Room Air Intake Visit Reasons: Transferring Care RTANE/ Conf Litigation Associate Required: Yes Litigation Associate Name: Luzma [id number] Accompanied by: Self / Same As Patient Allergies Tetanus Vaccines and Toxoid [TETANUS] Allergy (Unknown, Verified 08/25/23 10:51) SWELLING TETNUS SHOT Allergy (Unknown, Uncoded 07/02/23 09:20) UNKNOWN HPI Comments Details: I had the delight of seeing Sergio in consultation for chronic kidney disease. He has diabetes and hypertension for over 20 years. He has obstructive sleep apnea and uses his CPAP machine. He is known to have positive antinuclear antibody. He does not have any hematuria, dysuria, dribbling of urine, nausea, vomiting, diarrhea. He has no history of any renal stones. He claims to be compliant with his medications. He has high BMI. He denies any sinusitis, recurrent sore throat, joint swellings, epistaxis, photosensitivity, new skin rashes, orthostatic symptoms. He is known to have renal cysts. His hemoglobin A1c has improved from 8.2-8. He does not check his blood pressure at home but claims to be at goal. Otherwise there were no other new systemic complaints at this office visit. [facility] Medical History Degenerative joint disease of both ankles and feet MAN on CPAP Morbid obesity Dyspnea on exertion CRP elevated RICCI positive Chronic diastolic heart failure Type 2 diabetes mellitus with hyperlipidemia Psoriasis Obstructive sleep apnea Essential hypertension Diabetic polyneuropathy Depressive disorder COPD (chronic obstructive pulmonary disease) Chronic low back pain Asthma Anemia Surgical History No history of previous surgery Family History Mother Cancer Diabetes Hypertension Father Stomach cancer Social History Household Members: Spouse and Children Alcohol intake: former Patient Tobacco Use Status: Former Tobacco user Review of Systems Const All systems reviewed & are unremarkable except as noted in HPI and below Physical Exam Vital Signs: Last Vital Signs Pulse 77 08/25/23 10:49 BP 138/72 08/25/23 10:49 Pulse Ox 97 08/25/23 10:49 Oxygen Delivery Method Room Air 08/25/23 10:49 BMI result Body Mass Index 46.6 Const General: comfortable and no acute distress Orientation/consciousness: patient oriented x3 HEENT Head: Yes normocephalic Mouth: Normal oral and palatal mucosa present Eyes EOM: EOMs intact bilaterally Neck Neck: Yes supple Resp Auscultation: clear to auscultation bilaterally Cardio Jugular venous distension: no JVD Rate: regular rate GI Palpation (GI): Soft to palpation Auscultation: normal bowel sounds General: Yes no CVA tenderness Back/Spine/Pelvis Back: no CVA tenderness Skin General skin exam: no rashes or lesions noted Neuro General: patient oriented x3 and moves all extremities Extrem General: Yes no pedal edema Results Reviewed Nephrology Results: Hgb 12.4 g/dl (14.0-18.0) L 07/24/23 WBC 8.3 X10*3/uL (4.8-10.8) 07/24/23 Plt Count 152 X10*3/uL (160-400) L 07/24/23 Sodium 140 mmol/L (135-145) 07/24/23 Potassium 3.5 mmol/L (3.3-5.1) 07/24/23 Chloride 105 mmol/L (96-108) 07/24/23 Carbon Dioxide 29 mmol/L (22-29) 07/24/23 BUN 15 mg/dL (9-16) 07/24/23 Creatinine 1.04 mg/dL (0.5-1.4) 07/24/23 Calcium 9.4 mg/dL (8.4-10.2) 07/24/23 Phosphorus 2.3 mg/dL (2.7-4.5) L 07/24/23 PTH Intact 202.3 pg/mL (8.7-77.1) H 07/24/23 Urine Protein Negative mg/dL (Neg-Trace) 07/24/23 Urine Creatinine 25.19 mg/dL 07/24/23 Protein/Creatinin Ratio 0.40 (<0.2) H 07/24/23 Assessment & Plan Assessment & Plan (1) Chronic diastolic heart failure: Code(s): I50.32 - Chronic diastolic (congestive) heart failure Category: Medical (2) CKD stage 3a, GFR 45-59 ml/min: Code(s): N18.31 - Chronic kidney disease, stage 3a Category: Medical (3) Hypertension: Code(s): I10 - Essential (primary) hypertension Category: Medical Qualifiers: Hypertension type: primary hypertension Qualified Code(s): I10 - Essential (primary) hypertension Plan 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 He is at risk for secondary FSGS. His last urine studies showed microalbuminuria 230 mg. His renal ultrasound showed cysts on the right kidney. His blood sugar needs to be maintained at goal. He should maintain his blood pressure at goal. He should avoid nonsteroidal anti-inflammatories. He tries to keep with good hydration. He is on statins. He has been on ABIGAIL inhibitor and had been started on Farxiga. He will benefit from weight loss. Follow-up blood work and urine studies ordered. Time spent retrieving all the data from previous providers including automotive vehicle inspector and PCP, patient encounter and recommendation 62 minutes. I did not make any medication changes today. Answered all questions. Follow- up appointment given. Orders: Orders Complete Blood Count Auto Diff 08/25/23 N18.31 - Chronic kidney disease, stage 3a, I10 - Essential (primary) hypertension, I50.32 - Chronic diastolic (congestive) heart failure Creatinine 08/25/23 N18.31 - Chronic kidney disease, stage 3a, I10 - Essential (primary) hypertension, I50.32 - Chronic diastolic (congestive) heart failure Calcium 08/25/23 N18.31 - Chronic kidney disease, stage 3a, I10 - Essential (primary) hypertension, I50.32 - Chronic diastolic (congestive) heart failure Parathyroid Hormone Intact 08/25/23 N18.31 - Chronic kidney disease, stage 3a, I10 - Essential (primary) hypertension, I50.32 - Chronic diastolic (congestive) heart failure Blood Urea Nitrogen 08/25/23 N18.31 - Chronic kidney disease, stage 3a, I10 - Essential (primary) hypertension, I50.32 - Chronic diastolic (congestive) heart failure Electrolytes 08/25/23 N18.31 - Chronic kidney disease, stage 3a, I10 - Essential (primary) hypertension, I50.32 - Chronic diastolic (congestive) heart failure Vitamin D 25-OH Total 08/25/23 N18.31 - Chronic kidney disease, stage 3a, I10 - Essential (primary) hypertension, I50.32 - Chronic diastolic (congestive) heart failure Phosphorus 08/25/23 N18.31 - Chronic kidney disease, stage 3a, I10 - Essential (primary) hypertension, I50.32 - Chronic diastolic (congestive) heart failure Coding Level of Care Code New Pt Level 5 (42567) Diagnoses Chronic diastolic heart failure I50.32 CKD stage 3a, GFR 45-59 ml/min N18.31 Primary hypertension I10 Hypertension type: primary hypertension
== END 2023-08-25 11:29 | disposition home or self-care (01) ==
PROVIDERS: PCP Nurse Practitioner Primary Care; Visit Provider Internal Medicine Nephrology
DX: I13.0 Hypertensive heart and chronic kidney disease with heart failure and stage 1 through stage 4 chronic kidney disease, or unspecified chronic kidney disease (principal); E11.22 Type 2 diabetes mellitus with diabetic chronic kidney disease; I50.32 Chronic diastolic (congestive) heart failure; N18.31 Chronic kidney disease, stage 3a
CPT/HCPCS: 99205

== ENCOUNTER → 2023-08-25 10:46 | Outpatient (BNVA) | payer MEDICARE, MEDICAID, SELFPAY | PROVIDERS: PCP Nurse Practitioner Primary Care; Visit Provider Internal Medicine Nephrology | DX: I13.0 Hypertensive heart and chronic kidney disease with heart failure and stage 1 through stage 4 chronic kidney disease, or unspecified chronic kidney disease (principal); E11.22 Type 2 diabetes mellitus with diabetic chronic kidney disease; N18.31 Chronic kidney disease, stage 3a; I50.32 Chronic diastolic (congestive) heart failure | CPT/HCPCS: 99202 ==

== ENCOUNTER 2023-10-09 10:32 | Outpatient (AMB) | payer MEDICARE, MEDICAID, SELFPAY ==
[2023-10-09 11:03] LABS: Prothrombin Time Whole Bld POC 34.7 sec (11.1-13.5); ~PT, ~INR - Anti Coag Clinic 2.9 (0.9-1.1)
--- NOTE | 2023-10-09 11:12 | MHC.OFFVISCO ---
Intake Intake Visit Reasons: Anticoagulation Allergies Tetanus Vaccines and Toxoid [TETANUS] Allergy (Unknown, Verified 10/09/23 10:52) SWELLING TETNUS SHOT Allergy (Unknown, Uncoded 10/09/23 10:52) UNKNOWN Medication List - Last Reconciled 10/09/23 by Coral Jennings, RN acetaminophen 500 mg PO Q6H PRN albuterol sulfate mg inhalation TID PRN albuterol sulfate 90 mcg/actuation (Ventolin HFA) 2 puffs PO Q4-6H PRN ammonium lactate 12% appl topical DAILY PRN atorvastatin 80 mg PO BEDTIME blood sugar diagnostic (FreeStyle Lite Strips) As directed blood-glucose meter (FreeStyle [place] Lite kit) As directed clobetasol 0.05% grams topical BID compression socks, large As directed, pls measure what size would fit dapagliflozin propanediol (Farxiga) 5 mg PO DAILY diclofenac sodium 1% 4 grams topical QID diclofenac sodium 1% 2 grams topical 2XD dulaglutide (Trulicity) mg subcut furosemide 80 mg PO BID gabapentin 100 mg PO BID insulin aspart U-100 (Novolog FlexPen U-100 Insulin aspart) 10 units subcut BID insulin glargine (Lantus Solostar U-100 Insulin) pt states taking 44 units sq q pm isosorbide mononitrate ER 120 mg PO QAM labetalol 100 mg PO lisinopril 40 mg PO QAM metformin 1,000 mg PO DAILY multivitamin 1 tab PO DAILY omeprazole 20 mg PO QAM pen needle, diabetic (UltiCare Pen Needle) As directed salmeterol (Serevent Diskus) 1 inh inhalation BID semaglutide (Ozempic) mg subcut umeclidinium 62.5 mcg/actuation (Incruse Ellipta) 1 inh inhalation DAILY warfarin 5 mg See Protocol PO DAILY Nursing Note INR: 2.9 in therapeutic range 2-3 drafter chief design utilized. Pt was not seen in [facility] since 07/28/23. Educated on the importance of taking warfarin and verifying INR. Medications and supplements reviewed. Pt has been taking Ozempic but this was not reported to [facility]. Explained to pt the importance of reporting any new meds to us as they may cause his INR to be too high or too low. He understood. No changes in health, diet, medications, or supplements, Denies any signs and symptoms of bleeding or bruising or clotting. Bleeding, bruising, clotting discussed Nutritional guidance given Dose: 10mg X 4 days and 15mg X 3 days F/U INR: 3 weeks Patient verbalizes understanding of instructions given Anti-Coag Initial Assessment Social Hx Patient Tobacco Use Status: Former Tobacco user alcohol intake: former Coding Level of Care Code Est Patient Level 1 Diagnoses Current use of anticoagulant therapy Z79.01 Assessment & Plan Assessment & Plan (1) Current use of anticoagulant therapy: Code(s): Z79.01 - alf (current) use of anticoagulants Category: Medical
== END 2023-10-09 11:20 | disposition home or self-care (01) ==
LOC: HO.ACS 10:32
PROVIDERS: PCP Nurse Practitioner Primary Care; Visit Provider Internal Medicine
DX: Z79.01 Long term (current) use of anticoagulants (principal)

== ENCOUNTER → 2023-10-09 10:32 | Outpatient (BNVA) | payer MEDICARE, MEDICAID, SELFPAY | PROVIDERS: PCP Nurse Practitioner Primary Care; Visit Provider Internal Medicine ==

== ENCOUNTER 2023-10-09 10:35 | Outpatient (REF) | payer MEDICARE, MEDICAID, SELFPAY ==
[2023-10-09 11:18] LABS: MANUAL DIFF FLAG NO
[2023-10-09 11:34] LABS: Basophils Absolute Auto 0.1 X10*3/uL (0.0-0.2); Basophils Percent Auto 0.7 % (0-2); Eosinophils Absolute Auto 0.1 X10*3/uL (0.0-0.4); Eosinophils Percent Auto 1.3 % (0-4); Hematocrit 40.1 % (42.0-52.0); Hemoglobin 12.9 g/dl (14.0-18.0); Imm Gran Abs Auto 0.04 X10*3/uL (0.00-0.03); Imm Gran Pct Auto 0.4 % (0.0-0.4); Lymphocytes Absolute Auto 2.3 X10*3/uL (1.2-4.9); Lymphocytes Percent Auto 24.1 % (20-40); Mean Corpuscular HGB Conc 32.2 g/dl (31.0-36.0); Mean Corpuscular Hemoglobin 26.7 pg (27.0-33.0); Mean Corpuscular Volume 82.9 fL (80.0-98.0); Mean Platelet Volume 12.4 fL (9.4-12.4); Monocytes Absolute Auto 0.8 X10*3/uL (0.1-1.2); Neutrophils Absolute Auto 6.3 x10*3/uL (2.0-8.3); Neutrophils Percent Auto 65.5 % (45-73); Platelet Count 163 X10*3/uL (160-400); Red Blood Count 4.84 X10*6/uL (4.60-5.80); Red Cell Distribution Width 16.6 % (11.0-16.0); White Blood Count 9.6 X10*3/uL (4.8-10.8)
[2023-10-09 12:15] LABS: Parathyroid Hormone Intact 212.8 pg/mL (8.7-77.1)
[2023-10-09 12:28] LABS: Anion Gap 12 (12-20); Blood Urea Nitrogen 19 mg/dL (9-16); Calcium 9.6 mg/dL (8.4-10.2); Carbon Dioxide 28 mmol/L (22-29); Chloride 104 mmol/L (96-108); Estimated Glomerular Filt Rate > 60; Phosphorus 2.4 mg/dL (2.7-4.5); Potassium 3.9 mmol/L (3.3-5.1); Sodium 140 mmol/L (135-145)
[2023-10-09 12:31] LABS: Vitamin D 25-OH Total 39.2 ng/mL (>30)
== END 2023-10-09 10:36 | disposition home or self-care (01) ==
LOC: HO.LAB 10:35
PROVIDERS: Absent Provider Nurse Practitioner Primary Care; PCP Nurse Practitioner Primary Care; Visit Provider Internal Medicine Nephrology
DX: I13.0 Hypertensive heart and chronic kidney disease with heart failure and stage 1 through stage 4 chronic kidney disease, or unspecified chronic kidney disease (principal); I50.32 Chronic diastolic (congestive) heart failure; N18.31 Chronic kidney disease, stage 3a; I48.19 Other persistent atrial fibrillation; Z51.81 Encounter for therapeutic drug level monitoring; Z79.01 Long term (current) use of anticoagulants
CPT/HCPCS: 36415; 80051; 82306; 82310; 82565; 83970; 84100; 84520; 85025; 85610; 99211

== ENCOUNTER 2023-10-30 10:55 | Outpatient (AMB) | payer MEDICARE, MEDICAID, SELFPAY ==
[2023-10-30 11:12] LABS: Prothrombin Time Whole Bld POC 32.3 sec (11.1-13.5); ~PT, ~INR - Anti Coag Clinic 2.7 (0.9-1.1)
--- NOTE | 2023-10-30 11:19 | MHC.OFFVISCO ---
Intake Intake Visit Reasons: Anticoagulation Allergies Tetanus Vaccines and Toxoid [TETANUS] Allergy (Unknown, Verified 10/30/23 11:08) SWELLING TETNUS SHOT Allergy (Unknown, Uncoded 10/30/23 11:08) UNKNOWN Medication List - Last Reconciled 10/30/23 by Coral Jennings, RN acetaminophen 500 mg PO Q6H PRN albuterol sulfate mg inhalation TID PRN albuterol sulfate 90 mcg/actuation (Ventolin HFA) 2 puffs PO Q4-6H PRN ammonium lactate 12% appl topical DAILY PRN atorvastatin 80 mg PO BEDTIME blood sugar diagnostic (FreeStyle Lite Strips) As directed blood-glucose meter (FreeStyle [place] Lite kit) As directed clobetasol 0.05% grams topical BID compression socks, large As directed, pls measure what size would fit dapagliflozin propanediol (Farxiga) 5 mg PO DAILY diclofenac sodium 1% 4 grams topical QID diclofenac sodium 1% 2 grams topical 2XD dulaglutide (Trulicity) mg subcut furosemide 80 mg PO BID gabapentin 100 mg PO BID insulin aspart U-100 (Novolog FlexPen U-100 Insulin aspart) 10 units subcut BID insulin glargine (Lantus Solostar U-100 Insulin) pt states taking 44 units sq q pm isosorbide mononitrate ER 120 mg PO QAM labetalol 100 mg PO lisinopril 40 mg PO QAM metformin 1,000 mg PO DAILY multivitamin 1 tab PO DAILY omeprazole 20 mg PO QAM pen needle, diabetic (UltiCare Pen Needle) As directed salmeterol (Serevent Diskus) 1 inh inhalation BID semaglutide (Ozempic) mg subcut umeclidinium 62.5 mcg/actuation (Incruse Ellipta) 1 inh inhalation DAILY warfarin 5 mg See Protocol PO DAILY Nursing Note Pt to [facility]. 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 Bleeding, bruising, clotting discussed Nutritional guidance given Dose: 10mg X 4 days anf 15mg X 3 days F/U INR: 3 weeks Patient verbalizes understanding of instructions given Anti-Coag Initial Assessment Social Hx Patient Tobacco Use Status: Former Tobacco user alcohol intake: former Coding Level of Care Code Est Patient Level 1 Diagnoses Current use of anticoagulant therapy Z79.01 Assessment & Plan Assessment & Plan (1) Current use of anticoagulant therapy: Code(s): Z79.01 - shelter (current) use of anticoagulants Category: Medical
== END 2023-10-30 11:22 | disposition home or self-care (01) ==
LOC: HO.ACS 10:55
PROVIDERS: PCP Nurse Practitioner Primary Care; Visit Provider Internal Medicine
DX: Z79.01 Long term (current) use of anticoagulants (principal)

== ENCOUNTER → 2023-10-30 10:55 | Outpatient (BNVA) | payer OTHER, SELFPAY | PROVIDERS: PCP Nurse Practitioner Primary Care; Visit Provider Internal Medicine | DX: I48.19 Other persistent atrial fibrillation (principal); Z79.01 Long term (current) use of anticoagulants; Z51.81 Encounter for therapeutic drug level monitoring | CPT/HCPCS: 85610; 99211 ==

== ENCOUNTER → 2023-11-12 15:16 | Outpatient (BNVA) | payer OTHER, SELFPAY | PROVIDERS: PCP Nurse Practitioner Primary Care; Visit Provider Internal Medicine ==

== ENCOUNTER → 2023-11-14 14:11 | Outpatient (BNVA) | payer OTHER, SELFPAY | PROVIDERS: PCP Nurse Practitioner Primary Care; Visit Provider Internal Medicine ==

== ENCOUNTER 2023-11-17 11:14 | Outpatient (AMB) | payer MEDICARE, MEDICAID, SELFPAY ==
[2023-11-17 11:23] LABS: Prothrombin Time Whole Bld POC 20.3 sec (11.1-13.5); ~PT, ~INR - Anti Coag Clinic 1.7 (0.9-1.1)
--- NOTE | 2023-11-17 11:39 | MHC.OFFVISCO ---
Intake Intake Visit Reasons: Anticoagulation Allergies Tetanus Vaccines and Toxoid [TETANUS] Allergy (Unknown, Verified 11/17/23 11:15) SWELLING TETNUS SHOT Allergy (Unknown, Uncoded 11/17/23 11:15) UNKNOWN Medication List - Last Reconciled 11/17/23 by Nicky Gong RN acetaminophen 500 mg PO Q6H PRN albuterol sulfate mg inhalation TID PRN albuterol sulfate 90 mcg/actuation (Ventolin HFA) 2 puffs PO Q4-6H PRN amlodipine 10 mg PO DAILY ammonium lactate 12% appl topical DAILY PRN aspirin 81 mg PO DAILY atorvastatin 80 mg PO BEDTIME blood sugar diagnostic (FreeStyle Lite Strips) As directed blood-glucose meter (FreeStyle [place] Lite kit) As directed clobetasol 0.05% grams topical BID compression socks, large As directed, pls measure what size would fit dapagliflozin propanediol (Farxiga) 10 mg PO DAILY diclofenac sodium 1% 4 grams topical QID diclofenac sodium 1% 2 grams topical 2XD furosemide 80 mg PO BID gabapentin 100 mg PO BID insulin aspart U-100 (Novolog FlexPen U-100 Insulin aspart) 16 units subcut TID insulin glargine (Lantus Solostar U-100 Insulin) pt states taking 44 units sq q pm isosorbide mononitrate ER 120 mg PO QAM lisinopril 40 mg PO QAM metformin 1,000 mg PO BID multivitamin 1 tab PO DAILY omega-3 fatty acids 500 mg PO DAILY omeprazole 20 mg PO QAM pen needle, diabetic (UltiCare Pen Needle) As directed salmeterol (Serevent Diskus) 1 inh inhalation BID semaglutide (Ozempic) 1 mg subcut umeclidinium 62.5 mcg/actuation (Incruse Ellipta) 1 inh inhalation DAILY warfarin 5 mg See Protocol PO DAILY Nursing Note INR: 1.7 OUT OF therapeutic range- Was suppose to have [facility]NA today but came in due to confusionwith mian call- [place] [facility] [place] [id number] Medications and supplements reviewed No changes in health, diet, medications, or supplements, Denies any signs and symptoms of bleeding or bruising or clotting. 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
== END 2023-11-17 11:45 | disposition home or self-care (01) ==
LOC: HO.ACS 11:14
PROVIDERS: PCP Nurse Practitioner Primary Care; Visit Provider Internal Medicine
DX: Z79.01 Long term (current) use of anticoagulants (principal)

== ENCOUNTER → 2023-11-17 11:14 | Outpatient (BNVA) | payer OTHER, SELFPAY | PROVIDERS: PCP Nurse Practitioner Primary Care; Visit Provider Internal Medicine | DX: I48.19 Other persistent atrial fibrillation (principal); Z79.01 Long term (current) use of anticoagulants; Z51.81 Encounter for therapeutic drug level monitoring | CPT/HCPCS: 85610; 99212 ==

== ENCOUNTER → 2023-11-21 09:04 | Outpatient (BNVA) | payer OTHER, SELFPAY | PROVIDERS: PCP Nurse Practitioner Primary Care; Visit Provider Internal Medicine | DX: Z79.01 Long term (current) use of anticoagulants (principal) ==

== ENCOUNTER 2023-11-26 11:23 | Outpatient (AMB) | payer OTHER, SELFPAY ==
--- NOTE | 2023-11-26 11:32 | HO.NEPHOV_ITS ---
Vital Signs 11/26/23 11:33 Height 5 ft 6 in Weight 281 lb 2 oz BMI 45.4 BP 132/60 Blood Pressure Location Rt brachial Position Sitting Pulse 65 Pulse Source Pulse Oximeter Pulse Oximetry (%) 98 Oxygen Delivery Method Room Air Intake Visit Reasons: CKD Java Websphere Developer Required: Yes Java Websphere Developer Language: Pet Care Associate Services: Java Websphere Developer Present Java Websphere Developer Name: Shahid [id number] Accompanied by: Self / Same As Patient Allergies Tetanus Vaccines and Toxoid [TETANUS] Allergy (Unknown, Verified 11/26/23 11:36) SWELLING TETNUS SHOT Allergy (Unknown, Uncoded 11/17/23 11:15) UNKNOWN HPI Comments Details: I had the delight of seeing Sergio in follow up for chronic kidney disease. He has diabetes and hypertension for over 20 years. He has obstructive sleep apnea and uses his CPAP machine. He is known to have positive antinuclear antibody. He does not have any hematuria, dysuria, dribbling of urine, nausea, vomiting, diarrhea. He has no history of any renal stones. He claims to be compliant with his medications. He has high BMI. He denies any sinusitis, recurrent sore throat, joint swellings, epistaxis, photosensitivity, new skin rashes, orthostatic symptoms. He is known to have renal cysts. His hemoglobin A1c has improved. Otherwise there were no other new systemic complaints at this office visit [facility] Medical History Degenerative joint disease of both ankles and feet MAN on CPAP Morbid obesity Dyspnea on exertion CRP elevated RICCI positive Chronic diastolic heart failure Type 2 diabetes mellitus with hyperlipidemia Psoriasis Obstructive sleep apnea Essential hypertension Diabetic polyneuropathy Depressive disorder COPD (chronic obstructive pulmonary disease) Chronic low back pain Asthma Anemia Surgical History No history of previous surgery Family History Mother Cancer Diabetes Hypertension Father Stomach cancer Social History Household Members: Spouse and Children Alcohol intake: former Patient Tobacco Use Status: Former Tobacco user Review of Systems Const All systems reviewed & are unremarkable except as noted in HPI and below Physical Exam Vital Signs: Last Vital Signs Pulse 65 11/26/23 11:33 BP 132/60 11/26/23 11:33 Pulse Ox 98 11/26/23 11:33 Oxygen Delivery Method Room Air 11/26/23 11:33 BMI result Body Mass Index 45.4 Const General: comfortable and no acute distress Orientation/consciousness: patient oriented x3 HEENT Head: Yes normocephalic Mouth: Normal oral and palatal mucosa present Eyes EOM: EOMs intact bilaterally Neck Neck: Yes supple Resp Auscultation: clear to auscultation bilaterally Cardio Jugular venous distension: no JVD Rate: regular rate GI Palpation (GI): Soft to palpation Auscultation: normal bowel sounds General: Yes no CVA tenderness Back/Spine/Pelvis Back: no CVA tenderness Skin General skin exam: no rashes or lesions noted Neuro General: patient oriented x3 and moves all extremities Extrem General: Yes no pedal edema Results Reviewed Nephrology Results: Hgb 12.9 g/dl (14.0-18.0) L 10/09/23 WBC 9.6 X10*3/uL (4.8-10.8) 10/09/23 Plt Count 163 X10*3/uL (160-400) 10/09/23 Sodium 140 mmol/L (135-145) 10/09/23 Potassium 3.9 mmol/L (3.3-5.1) 10/09/23 Chloride 104 mmol/L (96-108) 10/09/23 Carbon Dioxide 28 mmol/L (22-29) 10/09/23 BUN 19 mg/dL (9-16) H 10/09/23 Creatinine 1.14 mg/dL (0.5-1.4) 10/09/23 Calcium 9.6 mg/dL (8.4-10.2) 10/09/23 Phosphorus 2.4 mg/dL (2.7-4.5) L 10/09/23 PTH Intact 212.8 pg/mL (8.7-77.1) H 10/09/23 Assessment & Plan Assessment & Plan (1) CKD stage 3a, GFR 45-59 ml/min: Code(s): N18.31 - Chronic kidney disease, stage 3a Category: Medical (2) Hypertension: Code(s): I10 - Essential (primary) hypertension Category: Medical Qualifiers: Hypertension type: primary hypertension Qualified Code(s): I10 - Essential (primary) hypertension Plan 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 He is at risk for secondary FSGS. His last urine studies showed microalbuminuria 230 mg. His renal ultrasound showed cysts on the right kidney. His blood sugar needs to be maintained at goal. He should maintain his blood pressure at goal. He should avoid nonsteroidal anti-inflammatories. He tries to keep with good hydration. He is on statins. He has been on ABIGAIL inhibitor and Farxiga. He will benefit from weight loss. Follow-up blood work and urine studies ordered. He will be a candidate for calcitriol at next visit. I did not make any medication changes today. Answered all questions. Follow-up appointment given. Orders: Orders Creatinine 3 Months I10 - Essential (primary) hypertension, N18.31 - Chronic kidney disease, stage 3a Blood Urea Nitrogen 3 Months I10 - Essential (primary) hypertension, N18.31 - Chronic kidney disease, stage 3a Parathyroid Hormone Intact 3 Months I10 - Essential (primary) hypertension, N18.31 - Chronic kidney disease, stage 3a Electrolytes 3 Months I10 - Essential (primary) hypertension, N18.31 - Chronic kidney disease, stage 3a Calcium 3 Months I10 - Essential (primary) hypertension, N18.31 - Chronic kidney disease, stage 3a Coding Level of Care Code Est Pt Level 4 (39566) Diagnoses CKD stage 3a, GFR 45-59 ml/min N18.31 Primary hypertension I10 Hypertension type: primary hypertension
[2023-11-26 11:33] VITALS: BP 132/60; PULSE 65; O2SAT 98; BMI 45.4
== END 2023-11-26 12:06 | disposition home or self-care (01) ==
PROVIDERS: PCP Nurse Practitioner Primary Care; Visit Provider Internal Medicine Nephrology
DX: I12.9 Hypertensive chronic kidney disease with stage 1 through stage 4 chronic kidney disease, or unspecified chronic kidney disease (principal); N18.31 Chronic kidney disease, stage 3a
CPT/HCPCS: 99214

== ENCOUNTER → 2023-11-26 11:23 | Outpatient (BNVA) | payer OTHER, SELFPAY | PROVIDERS: PCP Nurse Practitioner Primary Care; Visit Provider Internal Medicine Nephrology | DX: I12.9 Hypertensive chronic kidney disease with stage 1 through stage 4 chronic kidney disease, or unspecified chronic kidney disease (principal); N18.31 Chronic kidney disease, stage 3a | CPT/HCPCS: 99212 ==

== ENCOUNTER → 2023-12-03 15:20 | Outpatient (BNVA) | payer OTHER, SELFPAY | PROVIDERS: PCP Nurse Practitioner Primary Care; Visit Provider Internal Medicine | DX: Z79.01 Long term (current) use of anticoagulants (principal) ==

== ENCOUNTER → 2023-12-11 14:25 | Outpatient (BNVA) | payer OTHER, SELFPAY | PROVIDERS: PCP Nurse Practitioner Primary Care; Visit Provider Internal Medicine ==

== ENCOUNTER → 2023-12-18 14:16 | Outpatient (BNVA) | payer OTHER, SELFPAY | PROVIDERS: PCP Nurse Practitioner Primary Care; Visit Provider Internal Medicine ==

== ENCOUNTER → 2024-01-01 14:27 | Outpatient (BNVA) | payer OTHER, SELFPAY | PROVIDERS: PCP Nurse Practitioner Primary Care; Visit Provider Internal Medicine ==

== ENCOUNTER → 2024-01-06 14:32 | Outpatient (BNVA) | payer OTHER, SELFPAY | PROVIDERS: PCP Nurse Practitioner Primary Care; Visit Provider Internal Medicine ==

== ENCOUNTER 2024-01-13 11:03 | Outpatient (AMB) | payer OTHER, SELFPAY ==
[2024-01-13 11:19] LABS: Prothrombin Time Whole Bld POC 33.3 sec (11.1-13.5); ~PT, ~INR - Anti Coag Clinic 2.8 (0.9-1.1)
--- NOTE | 2024-01-13 11:26 | MHC.OFFVISCO ---
Intake Intake Visit Reasons: Anticoagulation Allergies Tetanus Vaccines and Toxoid [TETANUS] Allergy (Unknown, Verified 01/13/24 11:04) SWELLING TETNUS SHOT Allergy (Unknown, Uncoded 01/13/24 11:04) UNKNOWN Medication List - Last Reconciled 01/13/24 by Nicky Gong RN acetaminophen 500 mg PO Q6H PRN albuterol sulfate mg inhalation TID PRN albuterol sulfate 90 mcg/actuation (Ventolin HFA) 2 puffs PO Q4-6H PRN amlodipine 10 mg PO DAILY ammonium lactate 12% appl topical DAILY PRN aspirin 81 mg PO DAILY atorvastatin 80 mg PO BEDTIME blood sugar diagnostic (FreeStyle Lite Strips) As directed blood-glucose meter (FreeStyle [place] Lite kit) As directed clobetasol 0.05% grams topical BID compression socks, large As directed, pls measure what size would fit dapagliflozin propanediol (Farxiga) 10 mg PO DAILY diclofenac sodium 1% 4 grams topical QID diclofenac sodium 1% 2 grams topical 2XD furosemide 80 mg PO BID gabapentin 100 mg PO BID insulin aspart U-100 (Novolog FlexPen U-100 Insulin aspart) 20 units subcut BID insulin glargine (Lantus Solostar U-100 Insulin) pt states taking 44 units sq q pm isosorbide mononitrate ER 120 mg PO QAM lisinopril 40 mg PO QAM magnesium citrate 100 mg PO BID metformin 500 mg PO BID multivitamin 1 tab PO DAILY omeprazole 20 mg PO QAM pen needle, diabetic (UltiCare Pen Needle) As directed salmeterol (Serevent Diskus) 1 inh inhalation BID semaglutide (Ozempic) 1 mg subcut umeclidinium 62.5 mcg/actuation (Incruse Ellipta) 1 inh inhalation DAILY warfarin 5 mg See Protocol PO DAILY Nursing Note Pt d/c from [facility] - came by clinic [facility] an [place] [facility] [place] [facility]- he asked if he could be seen today incjuanita on - Pt added to schedule today INR: 2.8 in therapeutic range Medications and supplements reviewed No changes in health, diet, medications, or supplements, Denies any signs and symptoms of bleeding or bruising or clotting. Bleeding, bruising, clotting discussed Nutritional guidance given Dose: pt states he took 10mg last 4 or 5 days days - he's not sure he was thought to be on 15mg x 3 days/ 10mg x 4 days - he stated he did not understand the VNA instructions will try 10mg x 5 days/ 15mg x 2 days and f/u 2 weeks F/U INR: 2 weeks Patient verbalizes understanding of instructions given Anti-Coag Initial Assessment Social Hx Patient Tobacco Use Status: Former Tobacco user alcohol intake: former Coding Level of Care Code Est Patient Level 1 Diagnoses Current use of anticoagulant therapy Z79.01 Results AMB INR Fingerstick AMB INR Fingerstick 2.8 Last Edit by Nicky Gong RN on 01/13/24 11:21 MANUAL ENTRY Assessment & Plan Assessment & Plan (1) Current use of anticoagulant therapy: Code(s): Z79.01 - long term care pharmacist (current) use of anticoagulants Category: Medical
== END 2024-01-13 11:32 | disposition home or self-care (01) ==
LOC: HO.ACS 11:03
PROVIDERS: PCP Nurse Practitioner Primary Care; Visit Provider Internal Medicine
DX: Z79.01 Long term (current) use of anticoagulants (principal)

== ENCOUNTER → 2024-01-13 11:03 | Outpatient (BNVA) | payer OTHER, SELFPAY | PROVIDERS: PCP Nurse Practitioner Primary Care; Visit Provider Internal Medicine | DX: I48.19 Other persistent atrial fibrillation (principal); Z79.01 Long term (current) use of anticoagulants; Z51.81 Encounter for therapeutic drug level monitoring | CPT/HCPCS: 85610; 99211 ==

== ENCOUNTER 2024-03-24 09:54 | Outpatient (AMB) | payer OTHER, SELFPAY ==
--- NOTE | 2024-03-24 10:02 | HO.NEPHOV ---
Vital Signs 03/24/24 10:04 Height 5 ft 6 in Weight 290 lb 4 oz BMI 46.8 BP 130/80 Blood Pressure Location Rt brachial Position Sitting Pulse 48 L Pulse Source Pulse Oximeter Pulse Oximetry (%) 96 Oxygen Delivery Method Room Air Intake Visit Reasons: R/S 02/18/24/ Medical Assistant Ob Gyn Required: Yes Medical Assistant Ob Gyn Language: Measuring Clerk Services: Medical Assistant Ob Gyn Present Medical Assistant Ob Gyn Name: Heather [phone] Accompanied by: Self / Same As Patient Allergies Tetanus Vaccines and Toxoid [TETANUS] Allergy (Unknown, Verified 03/24/24 10:04) SWELLING TETNUS SHOT Allergy (Unknown, Uncoded 01/13/24 11:04) UNKNOWN HPI Comments Details: Sergio was seen in follow up for chronic kidney disease. He has diabetes and hypertension for over 20 years. He has obstructive sleep apnea and uses his CPAP machine. He is known to have positive antinuclear antibody. He does not have any hematuria, dysuria, dribbling of urine, nausea, vomiting, diarrhea. He has no history of any renal stones. He claims to be compliant with his medications. He has high BMI. He denies any sinusitis, recurrent sore throat, joint swellings, epistaxis, photosensitivity, new skin rashes, orthostatic symptoms. He is known to have renal cysts. He recently had COVID. 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 MAN on CPAP Morbid obesity Dyspnea on exertion CRP elevated RICCI positive Chronic diastolic heart failure Type 2 diabetes mellitus with hyperlipidemia Psoriasis Obstructive sleep apnea Essential hypertension Diabetic polyneuropathy Depressive disorder COPD (chronic obstructive pulmonary disease) Chronic low back pain Asthma Anemia Surgical History No history of previous surgery Family History Mother Cancer Diabetes Hypertension Father Stomach cancer Social History Household Members: Spouse and Children Alcohol intake: former Patient Tobacco Use Status: Former Tobacco user Review of Systems Const All systems reviewed & are unremarkable except as noted in HPI and below Physical Exam Vital Signs: Last Vital Signs Pulse 48 L 03/24/24 10:04 BP 138/80 03/24/24 10:04 Pulse Ox 96 03/24/24 10:04 Oxygen Delivery Method Room Air 03/24/24 10:04 BMI result Body Mass Index 46.8 Const General: comfortable and no acute distress Orientation/consciousness: patient oriented x3 HEENT Head: Yes normocephalic Mouth: Normal oral and palatal mucosa present Eyes EOM: EOMs intact bilaterally Neck Neck: Yes supple Resp Auscultation: clear to auscultation bilaterally Cardio Jugular venous distension: no JVD Rate: regular rate GI Palpation (GI): Soft to palpation Auscultation: normal bowel sounds General: Yes no CVA tenderness Back/Spine/Pelvis Back: no CVA tenderness Skin General skin exam: no rashes or lesions noted Neuro General: patient oriented x3 and moves all extremities Extrem General: Yes no pedal edema Results Reviewed Nephrology Results: No Data to Display Assessment & Plan Assessment & Plan (1) CKD stage 3a, GFR 45-59 ml/min: Code(s): N18.31 - Chronic kidney disease, stage 3a Category: Medical (2) Hypertension: Code(s): I10 - Essential (primary) hypertension Category: Medical Qualifiers: Hypertension type: primary hypertension Qualified Code(s): I10 - Essential (primary) hypertension Plan 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 He is at risk for secondary FSGS. His last urine studies showed microalbuminuria . His renal ultrasound showed cysts on the right kidney. His blood sugar needs to be maintained at goal. He should maintain his blood pressure at goal. He should avoid nonsteroidal anti-inflammatories. He tries to keep with good hydration. He is on statins. He has been on ABIGAIL inhibitor and Farxiga. He will benefit from weight loss. Follow-up blood work and urine studies ordered. He will be a candidate for calcitriol at next visit. I did not make any medication changes today. Answered all questions. Follow-up appointment given Coding Level of Care Code Est Pt Level 4 (26498) Diagnoses CKD stage 3a, GFR 45-59 ml/min N18.31 Primary hypertension I10 Hypertension type: primary hypertension
[2024-03-24 10:04] VITALS: BP 130/80; PULSE 48; O2SAT 96; BMI 46.8
--- OUTSIDE RECORDS SUMMARY | 2024-03-24 11:35 | XMS_ITS | Encounter Summary ---
Author Organization [employer] Address [address] [place] [address] 7 [place] [address] Care Team Providers Care Sanitary Inspector Name Role Phone Yashira Tello MD Primary Care Provider + Marge Posadas Primary Care Provider [phone] Encounter Details Date Type Department Care Team ([facility] Contact Info) Description 04/15/2022 Orders Only [facility] CHC MED & PEDS [address] [place], [place] [phone] April Collins LPN Social History Tobacco Use Types Packs/Day Years Used Date Smoking Tobacco: Never Passive Smoke Exposure: Never Smokeless Tobacco: Never Alcohol Use Standard Drinks/Week Comments Never 0 (1 standard drink = 0.6 oz pur e alcohol) PHQ-2 Answer Date Recorded Patient Health Questionnaire-2 Score 0 01/30/2022 Depression Answer Date Recorded Patient Health Questionnaire-2 Score 0 01/30/2022 Sex and Gender Information Value Date Recorded Sex Assigned at Male 12/10/2021 10:24 AM EDT Legal Sex Male 10:24 AM EDT Gender Identity Male 12/10/2021 10:24 AM EDT Sexual Orientation Straight 12/10/2021 10 :24 AM EDT COVID-19 Exposure Response Date Recorded In the last 10 days, have yo u been in contact with someone who was confirmed or suspected to have Coronavirus/COVID-19? No / Unsure 03/19/2022 9:28 AM EST documented as of this encounter Plan of Treatment Upcoming Encounters Date Type Department Care Team (Late Contact Info) Description 05/24/2024 10:30 AM EDT Office Visit [facility] [address] [place], [place] [phone] Anuradha Golden, OLIVE [address] [place] [address] documented as of this encounter Visit Diagnoses Not on filedocumented in this encounter Care Teams Sanitary Inspector Relationship Specialty Start Date End Date Yashira Tello MD [address] [place], [place] [phone] PCP - General Family Medicine 06/29/20 04/30/22 Marge Posadas ANP [address] [place], [place] [phone] PCP - General Family Medicine 05/01/22 documented as of this encounter
--- OUTSIDE RECORDS SUMMARY | 2024-03-24 11:35 | XMS_ITS | Encounter Summary ---
Author Organization [facility] Address [address] [facility] [address] [place] [address] Phone Care Team Providers Care Packer Denture Name Role Phone Marge Posadas E COMMERCE MARKETING ANALYST Primary Care Provider Unavailbrafdord e Encounter Details Date Type Department Care Team (Late st Contact Info) Description 02/27/2024 Orders Only [facility] [address] [place] [facility] [place] [address] Yrn Sneed MD [address] [facility] [address] [place] [id number] Stage 3a chronic kidney disease (HCC) Social History Tobacco Use Types Packs/Day Years Used Date Smoking Tobacco: Never Assessed Sex and Gender Information Value Date Recorded Sex Assigned at Not on file Legal Sex Male 5:25 PM EST Gender Identity Not on file Sexual Orientation Not on file documented as of this encounter Plan of Treatment Not on file documented as of this encounter Visit Diagnoses Diagnosis Stage 3a chronic kidney disease (HCC) documented in this encounter Care Teams Packer Denture Relationship Specialty Start Date End Date Marge Posadas NP [address] [place] [address] PCP - General Nurse Practitioner 07/24/23 documented as of this encounter
--- OUTSIDE RECORDS SUMMARY | 2024-03-24 11:35 | XMS_ITS | Encounter Summary ---
Author Organization [employer] Address 75 [facility] 7t [place] [address] Care Team Providers Care Brokerage Coordinator Name Role Phone Cuauhtemoc Marge MELGAR Primary Care Provider Reason for Visit * Reason Comments Med Refill Encounter Details Date Type Department Care Team (Late st Contact Info) Description 04/14/2023 Refill [facility] [place] [address] [place], [place] [phone] Artem Benites MD [address] [place], [place] [phone] Social History Tobacco Use Types Packs/Day Years Used Date Smoking Tobacco: Former Cigarettes Passive Smoke Exposure: Past Smokeless Tobacco: Never Alcohol Use Standard Drinks/Week Comments Not Currently 0 (1 standard drink = 0.6 oz pur e alcohol) PHQ-2 Answer Date Recorded Patient Health Questionnaire-2 Score 0 01/30/2022 Housing Stability Answer Date Recorded What is your housing situation today? I have dionisio hamlin 11/26/[address] you li ve. Do you have problems with any of the following? None of the above 11/26/2022 Food Insecurity Answer Date Recorded Within the past 12 months, y ou worried that your food would run out before you got money to buy more: Never True 11/26/2022 Within the past 12 months,th e food you bought just didn't last and you didn't have enough money to get more: Never True Transportation Answer Date Recorded In the past 12 months, has l ack of transportation kept you from medical appts, meetings, work or from getting things needed for daily living? No 11/26/2022 Utilities Answer Date Recorded In the past 12 months, has t he electric, gas, oil or water company threatened to shut off services in your home? No 11/26/2022 Depression Answer Date Recorded Patient Health Questionnaire-2 Score 0 01/30/2022 Sex and Gender Information Value Date Recorded Sex Assigned at Male 12/10/2021 10:24 AM EDT Legal Sex Male 10:24 AM EDT Gender Identity Male 12/10/2021 10:24 AM EDT Sexual Orientation Straight 12/10/2021 10 :24 AM EDT documented as of this encounter Plan of Treatment Upcoming Encounters Date Type Department Care Team (Late st Contact Info) Description 05/24/2024 10:30 AM EDT Office Visit [facility] [address] [place] [address] Anuradha Golden, OD [address] [place] [address] documented as of this encounter Visit Diagnoses Not on filedocumented in this encounter Care Teams Brokerage Coordinator Relationship Specialty Start Date End Date Marge Posadas ANP [address] [place] [address] PCP - General Family Medicine 05/01/22 documented as of this encounter
--- OUTSIDE RECORDS SUMMARY | 2024-03-24 11:35 | XMS_ITS | Encounter Summary ---
Author Organization [employer] Address [address] [place] [address] 7 [place] [address] Care Team Providers Care Senior Mechanical Development Engineer Name Role Phone Marge Posadas Primary Care Provider [phone] Reason for Visit * Reason Onset Date Comments Durable Medical Equipment 04/21/2023 Encounter Details Date Type Department Care Team ([facility] st Contact Info) Description 04/21/2023 Telephone [facility] MEDICINE [address] [place], [place] [phone] Marge Posadas ANP [address] [place], [place] [phone] Durable Medical Equipment Social History Tobacco Use Types Packs/Day Years [...] AM EDT documented as of this encounter Miscellaneous Notes * Telephone Encounter - Shannon Penn RN - 04/21/2023 3:19 PM EDT Pt w/ + c. Diff PCR, negative toxin - if still having diarrhea, will rec tx. Called pt to clarify if any known h/o c. Diff and assess current sx. If no h/o infx, will tx as initial infx and recommendvancomycin 125mg PO 4x/d x10d. Fidaxomicin not in stock at [facility] but vanco is. No answer, No VM set up on primary #. TC placed to patient regarding above message from Nohemi Posadas. Patient states he is not having any symptoms r/t C.diff. He is not aware of any previous history of this infection. He denies any blood in stool, diarrhea, cramping or pain. He states his stools are normal and he has been eating a lot of fiber and vegetables and is feeling well in this department. He states he was seen this morning for bleeding from his R ear and his concerns are currently more about his coumadin dosing. Patient advised that we would send message to PCP and be back in touch if PCP still recommends antibiotic treatment and to call us if he develops any symptoms of diarrhea, abdominal pain, blood in stool, etc. Patient expressed understanding. Routing message back to Nohemi Posadas for review. * Telephone Encounter - Alla Martínez - 04/21/2023 1:30 PM EDT Tc from pt requesting a blood glucose monitor. Please contact pt at [phone] documented in this encounter Plan of Treatment Upcoming Encounters Date Type Department Care Team (Late st Contact Info) Description 05/24/2024 10:30 AM EDT Office Visit [facility] OPTOMETRY [address] [place] [address] Anuradha Golden, OD [address] [place] [address] documented as of this encounter Visit Diagnoses Not on filedocumented in this encounter Care Teams Senior Mechanical Development Engineer Relationship Specialty Start Date End Date Marge Posadas ANP [address] [place], [place] [phone] PCP - General Family Medicine 05/01/22 documented as of this encounter
--- OUTSIDE RECORDS SUMMARY | 2024-03-24 11:35 | XMS_ITS | Encounter Summary ---
Author Organization [employer] Address [address] [place] [address] 7 [place] [address] Care Team Providers Care Spray Stainer Name Role Phone Yashira Tello MD Primary Care Provider + Marge Posadas Primary Care Provider [phone] Encounter Details Date Type Department Care Team ([facility] Contact Info) Description 03/19/[address] [facility] CHC MED & PEDS [address] [place], [place] [phone] April Collins LPN Social History Tobacco Use [...] Description 05/24/2024 10:30 AM EDT Office Visit [facility] OPTOMETRY [address] [place], [place] [phone] Anuradha Golden, OLIVE [address] [place] [address] documented as of this encounter Visit Diagnoses Not on filedocumented in this encounter Care Teams Spray Stainer Relationship Specialty Start Date End Date Yashira Tello MD [address] [place], [place] [phone] PCP - General Family Medicine 06/29/20 04/30/22 Marge Posadas ANP [address] [place], [place] [phone] PCP - General Family Medicine 05/01/22 documented as of this encounter
--- OUTSIDE RECORDS SUMMARY | 2024-03-24 11:35 | XMS_ITS | Encounter Summary ---
Author Organization [employer] Address [address] [facility] 7t [place] [address] Care Team Providers Care Adult School Counselor Name Role Phone Cuauhtemoc Marge MELGAR Primary Care Provider [phone] Reason for Visit * Reason Comments Med Refill Encounter Details Date Type Department Care Team (Late st Contact Info) Description 04/09/2023 Refill [facility] [place] [address] [place], [place] [phone] Artem Benites MD [address] [place], [place] [phone] Social History Tobacco Use Types Packs/Day Years [...] Description 05/24/2024 10:30 AM EDT Office Visit [facility] OPT[facility] [address] [place] [address] Anuradha Golden, OD [address] [place] [address] documented as of this encounter Visit Diagnoses Not on filedocumented in this encounter Care Teams Adult School Counselor Relationship Specialty Start Date End Date Marge Posadas ANP [address] [place] [address] PCP - General Family Medicine 05/01/22 documented as of this encounter
--- OUTSIDE RECORDS SUMMARY | 2024-03-24 11:35 | XMS_ITS ---
Author Organization [facility] Address [address] [place] [address] Care Team Providers Care Manager Of Project Management Name Role Phone Marge Posadas Primary Care Provider Kaylen Castro [phone] REASON FOR VISIT Transulator Encounters Encounter Location Date Provider Diagnosis [facility] [address] [place] [address] 10/23/2023 Kaylen Ribeiro Plan Of Treatment Next Appt Details Provider Name:Kaylen lyn, 04/22/2024 01:00:00 PM, [facility], [place], [address], Progress Notes * Sergio YEPEZ FDO B:1950 (73 yo M)Acc No.[id number]:10/23/2023 Patient:?FRANCISCA HILL Seamusnicole valera Abby :1950???Age:72 Y???Sex:Male Address:[address] [place] [address], [address] * true * Date:? Generated for Printi harvinder/David/eTransmitting on:?03/24/2024 11:35 AM EST
--- OUTSIDE RECORDS SUMMARY | 2024-03-24 11:36 | XMS_ITS | Encounter Summary ---
Author Organization [employer] Address [address] [place] [address] 7 [place] [address] Care Team Providers Care Nut Feeder Name Role Phone Marge Posadas Primary Care Provider [phone] Encounter Details Date Type Department Care Team (Late Contact Info) Description 10/29/2022 Orders Only [facility] CHC MED & PEDS [address] [place], [place] [phone] Kellie Cramer LPN Social History Tobacco Use Types Packs/Day [...] Description 05/24/2024 10:30 AM EDT Office Visit [facility] OPTOMETRY [address] [place], [place] [phone] Anuradha Golden, OD [address] [place] [address] documented as of this encounter Visit Diagnoses Not on filedocumented in this encounter Care Teams Nut Feeder Relationship Specialty Start Date End Date Marge Posadas ANP [address] [place] [address] PCP - General Family Medicine 05/01/22 documented as of this encounter
--- OUTSIDE RECORDS SUMMARY | 2024-03-24 11:36 | XMS_ITS | Clinical Summary ---
Author Organization [facility] Address [address] [facility] [address] [place] [address] Phone Care Team Providers Care Contract Administration Specialist Name Role Phone Marge Posadas NP Primary Care Provider Unavailabl e Allergies Active Allergy Reactions Criticality Noted Date Comments Metoprolol 10/07/2018 Tetanus Toxoids 01/19/2022 Tetanus vaccines and toxoid per previous EHR Medications albuterol HFA (PROVENTIL HFA;VENTOLIN HFA) 108 (90 Base) MCG/ACT inhaler Inhale 2 puffs every 4 (four) to 6 (six) hours if needed 07/23/19 24 Active albuterol (2.5 MG/3ML) 0.083% nebulizer solution TAKE 3ML BY NEBULIZATION ROUTE EVERY 6 HOURS IF NEEDED FOR WHEEZING OR SHORTNESS OF BREATH 04/16/19 24 Active alfuzosin (UROXATRAL) 10 MG 24 hr tablet Take 10 mg by mouth at bed time 06/18/19 24 Active atorvastatin (LIPITOR) 80 MG tablet Take 1 tablet by mouth at bed time 07/02/19 24 Active aspirin (ST ALONSO) 81 MG EC tablet Take 1 tablet by mouth at bed time 05/13/19 24 Active calcipotriene (DOVONOX) 0.005 % cream Apply twice daily for 2 weeks 03/19/19 23 Active clobetasol (TEMOVATE) 0.05 % ointment APPLY 2 GRAMS TOPICALLY TO AFFECTED AREA(S) TWICE DAILY FOR 14 DAYS 07/23/19 24 Active clotrimazole-be tamethasone (LOTRISONE) cream APPLY A THIN LAYER TOPICALLY TO AFFECTED AREA(S) TWICE DAILY FOR 28 DAYS 04/29/19 24 Active Continuous Glucose Director Digital Strategy (FreeStyle Donna 2 Yellow Jacket) device 1 each 05/31/19 23 Active Continuous Glucose Sensor (FreeStyle Donna 2 Sensor) [facility] USE DIRECTED, CHANGE EVERY 14 DAYS 06/25/19 24 Active Diclofenac Sodium 1 % gel APPLY 2 GRAMS TOPICALLY TO AFFECTED AREA(S) FOUR TIMES DAILY 12/11/19 23 Active Trulicity 3 MG/0.5ML solution pen-injector INJECT ONE PEN (= 3MG) SUBCUTANEOUSLY ONCE A WEEK DIRECTED 05/13/19 24 Active fluconazole (DIFLUCAN) 150 MG tablet Take one tablet today, then one tablet in 3 days for a total of 2 doses 03/17/19 24 Active gabapentin (NEURONTIN) 100 MG capsule TAKE 1 CAPSULE BY MOUTH TWICE DAILY IN THE MORNING AND AT BEDTIME 07/08/19 19 Active furosemide (LASIX) 80 MG tablet Take 80 mg by mouth every morning and evening Active FreeStyle Precision Reid Test test strip TEST BLOOD SUGAR SIX TIMES DAILY FOR cgm failure OR BLOOD SUGAR extremes 03/03/19 24 Active NovoLOG FLEXPEN 100 UNIT/ML injection INJECT 16 UNITS SUBCUTANEOUSLY BEFORE MEALS AND SNACKS 07/08/19 19 Active warfarin (COUMADIN) 5 MG tablet TAKE 1 TO 3 TABLETS BY MOUTH ONCE DAILY DIRECTED PER COUMADIN CLINIC 07/16/19 24 Active Incruse Ellipta 62.5 MCG/ACT aerosol powder INHALE 1 PUFF BY MOUTH EVERY DAY AT THE SAME TIME 07/11/19 24 Active triamcinolone (KENALOG) 0.1 % cream Apply twice daily to L ankle for 1 week, then up to BID as needed for itching 01/31/20 22 Active tamsulosin (FLOMAX) 0.4 MG 24 hr capsule Take 0.4 mg by mouth 11/15/19 23 Active Ozempic, 1 MG/DOSE, 4 MG/3ML solution pen-injector Inject 1 MG SUBCUTANEOUSLY EVERY 7 DAYS IN THE ABDOMEN, THIGHS OR UPPER ARM. ROTATE INJECTION SITES. 06/12/19 24 Active Serevent Diskus 50 MCG/ACT aerosol powder Inhale 1 puff in the morning and 1 puff in the evening. 07/23/19 24 Active omeprazole (PriLOSEC) [address] capsule TAKE 1 CAPSULE BY MOUTH DAILY ON EMPTY STOMACH 30 MINUTES BEFORE BREAKFAST 12/06/19 23 Active Multiple Vitamin (Multivitamin) tablet Take 1 tablet by mouth 1 (one) time each day with breakfast Active metFORMIN (GLUCOPHAGE) 1000 MG tablet TAKE 1 TABLET BY MOUTH TWICE DAILY IN THE MORNING AND IN THE EVENING WITH MEALS 12/14/19 14 Active lisinopril 40 MG tablet Take 40 mg by mouth every morning 05/13/19 24 Active TRUEplus Lancets 33G misc TEST BLOOD SUGAR SIX TIMES DAILY 02/20/19 24 Active labetalol (NORMODYNE) 100 MG tablet Take 1 tablet by mouth every morning and evening 07/11/19 24 Active isosorbide mononitrate (IMDUR) 120 MG 24 hr tablet Take 120 mg by mouth Active Pentips 32G X 4 MM misc USE UP TO FIVE TIMES DAILY 07/01/19 24 Active Lantus SoloStar 100 UNIT/ML injection INJECT 44 UNITS SUBCUTANEOUSLY ONCE DAILY DIRECTED 03/11/19 24 Active Dapagliflozin Propanediol (Farxiga) 10 MG tablet Take 10 mg by mouth 1 (one) time each day in the morning 30 tablet 11 07/26/19 24 025 Active Active Problems Problem Noted Date Diagnosed Date Obstructive sleep apnea 04/26/2014 Hyperlipidemia 10/26/2013 Screening colonoscopy 07/22/2011 Hypertension 07/22/2011 Type 2 diabetes mellitus 07/22/2011 Encounters Date Type Department Care Team Description 02/27/2024 [facility] [address] [place] [address] Yrn Sneed MD Stage 3a chronic kidney disease (HCC) 01/30/2024 Orders Only [facility] [address] [place] [address] Yrn Sneed MD Stage 3a chronic kidney disease (HCC) 01/02/2024 Orders Only [facility] [address] [place] [address] Yrn Sneed MD Stage 3a chronic kidney disease (HCC) from Last 3 Months Social History Tobacco Use Types Packs/Day Years Used Date Smoking Tobacco: Never Assessed Sex and Gender Information Value Date Recorded Sex Assigned at Not on file Legal Sex Male 5:25 PM EST Gender Identity Not on file Sexual Orientation Not on file Last Filed Vital Signs Vital Sign Reading Time Taken Comments Blood Pressure 126/62 07/24/2023 2:00 PM EDT Pulse 64 07/24/2023 2:00 PM EDT Temperature - - Respiratory Rate - - Oxygen Saturation - - Inhaled Oxygen Concentration - - Weight 136 kg (300 lb) 07/24/2023 2:00 PM EDT Height - - Body Mass Index - - Plan of Treatment Health Maintenance Due Date Last Done Comments Colorectal Cancer Screening: Annual FOBT 2001 Colorectal Cancer Screening: Sigmoidoscopy 2001 Colorectal Cancer Screening: Colonoscopy 07/21/2021 07/22/2011 Diabetes: Ophthalmology Exam 07/23/2023 Diabetes: Pedal Pulse Checked 07/23/2023 Diabetes: Sensory Foot Exam 07/23/2023 Diabetes: Visual Foot Exam 07/23/2023 Diabetes: Hemoglobin A1C 09/12/2023 06/12/2023 Influenza Vaccine (#1) 2023 9, 10/28/2017, 10/30/2016, Additional history exists Pneumococcal Vaccine: 65+ Years Completed 04/08/2023, 12/04/2018, 10/28/2017, Additional history exists Hepatitis B Vaccine Aged Out No longe r eligible based on patient's age to complete this topic Insurance [facility] ([id number]) SHABNAM PORTER [id number] [facility] ([id number]) [place]NAM PORTER [id number] Care Teams Contract Administration Specialist Relationship Specialty Start Date End Date Marge Posadas NP [address] [place] [address] PCP - General Nurse Practitioner 07/24/23
--- OUTSIDE RECORDS SUMMARY | 2024-03-24 11:36 | XMS_ITS | Encounter Summary ---
Author Organization [employer] Address [address] [place] [address] 7 [place] [address] Care Team Providers Care Surgery Technician Name Role Phone Marge Posadas Primary Care Provider [phone] Reason for Visit * Reason Comments Med Refill Encounter Details Date Type Department Care Team ([facility] st Contact Info) Description 09/28/2023 Refill [facility] MED[facility] [address] [place], [place] [id number] Marge Posadas ANP [address] [place], [place] [phone] Pulmonary emphysema, unspecified emphysema type (CMS/HCC) Social History Tobacco Use Types Packs/Day Years Used Date Smoking Tobacco: Former Cigarettes Passive Smoke Exposure: Past Smokeless Tobacco: Never Alcohol Use Standard Drinks/Week Comments Not Currently 0 (1 standard drink = 0.6 oz pur e alcohol) Depression Answer Date Recorded Patient Health Questionnaire-9 Score 1 06/12/2023 Patient Health Questionnaire-9 Score 1 06/12/2023 Last PHQ-9: Questionnaire Data Not on file 0 06/12/2023 Housing Stability Answer Date Recorded What is your housing situation today? I have dionisio hamlin 06/12/[address] you li ve. Do you have problems with any of the following? None of the above 06/12/2023 Food Insecurity Answer Date Recorded Within the past 12 months, y ou worried that your food would run out before you got money to buy more: Never True 06/12/2023 Within the past 12 months,th e food you bought just didn't last and you didn't have enough money to get more: Never True 03/2023 Transportation Answer Date Recorded In the past 12 months, has l ack of transportation kept you from medical appts, meetings, work or from getting things needed for daily living? No 06/12/2023 Utilities Answer Date Recorded In the past 12 months, has t he electric, gas, oil or water company threatened to shut off services in your home? No 06/12/2023 Depression Answer Date Recorded Patient Health Questionnaire-2 Score 1 06/12/2023 Sex and Gender Information Value Date Recorded Sex Assigned at Male 12/10/2021 10:24 AM EDT Legal Sex Male 10:24 AM EDT Gender Identity Male 12/10/2021 10:24 AM EDT Sexual Orientation Straight 12/10/2021 10 :24 AM EDT documented as of this encounter Plan of Treatment Upcoming Encounters Date Type Department Care Team (Late st Contact Info) Description 05/24/2024 10:30 AM EDT Office Visit [facility] [address] [place] [address] Anuradha Golden, OD [address] [place] [address] documented as of this encounter Visit Diagnoses Diagnosis Pulmonary emphysema, unspecified emphysema type (CMS/HCC) documented in this encounter Additional Health Concerns Assessment Noted Time PHQ-9 Depression Total Score: 1 06/12/19 24 11:18 AM EDT documented as of this encounter Care Teams Surgery Technician Relationship Specialty Start Date End Date Marge Posadas ANP [address] [place] [address] PCP - General Family Medicine 05/01/22 documented as of this encounter
--- OUTSIDE RECORDS SUMMARY | 2024-03-24 11:36 | XMS_ITS | Patient Health Record ---
[facility] Address [address] [place] [address] Care Team Providers Care Chairman And Ceo Name Role Phone Marge Posadas Primary Care Provider Kaylen Castro Unavailable [phone] Allergies Allergen (clinical drug ingredient) Drug/Non Drug Allergy documented on EMR Reaction Allergy Type Onset Date Status Lactose Unknown Drug Allergy Active Tetanus Toxoids Unknown Drug Allergy A ctive Reason For Referral No Information Medications Medication SIG (Take, Route, Frequency, Duration) Notes Start Date End Date Status Alfuzosin HCl ER 10 MG TAKE 1 TABLET BY MOUTH AT BEDTIME Oral for 30 [id number],Unavai lable Not-Taking Ozempic (1 MG/DOSE) 4 MG/3ML Inject 1 MG SUBCUTANEOUSLY EVERY 7 DAYS IN THE ABDOMEN, THIGHS OR UPPER ARM. ROTATE INJECTION SITES. Subcutaneous for 28 ,Unavai lable Active Multivitamin - TAKE 1 TABLET BY JYOTI TH EVERY MORNING WITH FOOD Oral for 90 Active Lisinopril 40 MG TAKE 1 TABLET BY JYOTI TH EVERY MORNING Oral for 90 Active Ventolin HFA 108 (90 Base) MCG/ACT Inhalation for 17 Active Trulicity 3 MG/0.5ML INJECT ONE PEN (= 3 MG) SUBCUTANEOUSLY ONCE A WEEK DIRECTED Subcutaneous for 69,Unavai lable Active TRUEplus Lancets 33G - for 17 Active Clobetasol Propionate 0.05 % External for 15 Not-Andres ing Aspirin Adult Low Strength 81 MG Oral for 90 Not-Taking Furosemide 80 MG TAKE 1 TABLET BY JYOTI TH TWICE DAILY IN THE MORNING AND IN THE EVENING Oral for 90 I5032,Unavai lable Active Warfarin Sodium 5 MG TAKE 1 TO 3 TABLETS BY MOUTH ONCE DAILY DIRECTED PER COUMADIN CLINIC Oral for 23 Z7901,Unavai lable Active Albuterol Sulfate (2.5 MG/3ML) 0.083% INHALE 1 AMPULE USING A NEBULIZER THREE TIMES DAILY NEEDED FOR ASTHMA AND SHORTNESS OF BREATH Inhalation for 10 Not-Taking FreeStyle Donna 2 Sensor - USE DIRECTED AND CHANGE EVERY 14 DAYS for 84 E1169,Unavai lable Active Atorvastatin Calcium 80 MG TAKE 1 TABLET BY MOUTH AT BEDTIME Oral for 90 Active Diclofenac Sodium 1 % APPLY 4 GRAMS TOPICALLY FOUR TIMES DAILY FOR PAIN External for 7 days Not-Taking Extra Depth Orthopedic Shoes (1 Pair) with Customized Heat Molded Multidensity Innersoles (3 Pair) as directed Dx: NIDDM/Polyneuropathy (E11.42), Hammertoe Foot Deformity (M20.41,M20.42), Preulcerative Skin Lesion(s) (L85.1 Active Gabapentin 100 MG TAKE 1 CAPSULE BY MOUTH TWICE DAILY IN THE MORNING AND AT BEDTIME Oral for 30 Active metFORMIN HCl 1000 MG TAKE 1 TABLET BY MOUTH TWICE DAILY IN THE MORNING AND IN THE EVENING WITH MEALS Oral for 90 E1142,Unavai lable Active NovoLOG FlexPen 100 UNIT/ML Subcutaneous for 21 Active Ammonium Lactate 12 % 1 application Externally to affected areas of dry skin to feet except for between the toes Twice a day for 30 days Active Lantus SoloStar 100 UNIT/ML INJECT 44 UNITS SUBCUTANEOUSLY ONCE DAILY DIRECTED Subcutaneous for 33 E119,Unavail able Active Labetalol HCl 100 MG TAKE 1 TABLET BY MI UT TWICE DAILY IN THE MORNING AND IN THE EVENING Oral for 30 I10,Unavaila ble Active Pentips 32G X 4 MM USE UP TO FIVE TIMES DAILY for 20 E1142,Unavai lable Active Isosorbide Mononitrate ER 120 MG TAKE 1 Tablet BY MOUTH EVERY MORNING Oral for 90 I5022,Unavai lable Not-Taking Incruse Ellipta 62.5 MCG/ACT Inhalation for 30 Not-Taking Easy Touch Lancets 33G/Twist - USE TO TEST BLOOD SUGAR 6 TIMES PER DAY for 17 Active Social History Tobacco Use: Social History Observation Description Date Details (start date - stop date) Former Smoker NA - NA Tobacco use other than smoking: Question Answer Notes Are you an other tobacco user? No Tobacco Control (Standard) Question Answer Notes Tobacco use: Former smoker Additional Findings: Tobacco non-user Ex-cigaret te smoker AUDIT-C (Standard) Question Answer Notes Did you have a drink containing alcohol in the p ast year? No Points 0 Interpretation Negative Problems Problem Type SNOMED Code ICD Code Onset Dates Problem Status W/U Status Risk Notes Problem Acquired hammer toe of right foot (7852674373289009 ) Other hammer toe(s) (acquired), right foot (M20.41) Active confirmed Problem Acquired hammer toe of left foot ([id number] ) Other hammer toe(s) (acquired), left foot (M20.42) Active confirmed Problem Polyneuropathy due to type 2 diabetes mellitus (742566378) Type 2 diabetes mellitus with diabetic polyneuropathy (E11.42) Active confirmed Vital Signs Blood pressure diastolic 82 mm Hg 01/22/2024 Height 5ft 5in in 01/22/2024 Blood pressure systolic 147 mm Hg 01/22/2024 Weight 280 lbs 01/22/2024 BMI 46.59 kg/m2 01/22/2024 Encounters Encounter Location Date Provider Diagnosis [address] [address] 07/10/2023 Kaylen Quintin Type 2 diabetes mellitus with diabetic polyneuropathy E11.42 ; Tinea unguium B35.1 ; Other hammer toe(s) (acquired), right foot M20.41 and Other hammer toe(s) (acquired), left foot M20.[address] [address] 10/23/2023 Kaylen Ribeiro Type 2 diabetes mellitus with diabetic polyneuropathy E11.42 ; Tinea unguium B35.1 ; Other hammer toe(s) (acquired), right foot M20.41 and Other hammer toe(s) (acquired), left foot M20.[address] [address] 01/22/2024 Kaylen Rossiriki Type 2 diabetes mellitus with diabetic polyneuropathy E11.42 ; Xerosis of skin L85.3 ; Tinea unguium B35.1 ; Other hammer toe(s) (acquired), right foot M20.41 and Other hammer toe(s) (acquired), left foot M20.42 [facility] [place] [address] [facility] [place] [address] 01/22/2024 Kaylen Ribeiro [facility] [place] [address] 04/22/2023 Kaylen Ribeiro [facility] [facility] [place] [address] 07/10/2023 Kaylen Ribeiro [facility] [place] [address] [place] [address] 10/23/2023 Kaylen Ribeiro Assessments Encounter Date Diagnosis (ICD Code) Assessment Notes Treatment Notes Treatment Clinical Notes Section Notes 07/10/2023 Type 2 diabetes mellitus with diabetic polyneuropathy (ICD-10 - E11.42) 07/10/2023 Tinea unguium (ICD-10 - B35.1) 10/23/2023 Type 2 diabetes mellitus with diabetic polyneuropathy (ICD-10 - E11.42) 01/22/2024 Type 2 diabetes mellitus with diabetic polyneuropathy (ICD-10 - E11.42) 01/22/2024 Xerosis of skin (ICD-10 - L85.3) 01/22/2024 Tinea unguium (ICD-10 - B35.1) 07/10/2023 Other hammer toe(s) (acquired), right foot (ICD-10 - M20.41) Patient Educated with: DIABETIC FOOT CARE INSTRUCTIONS. pdf (DIABETIC FOOT CARE INSTRUCTIONS. pdf) 10/23/2023 Tinea unguium (ICD-10 - B35.1) 01/22/2024 Other hammer toe(s) (acquired), right foot (ICD-10 - M20.41) 10/23/2023 Other hammer toe(s) (acquired), right foot (ICD-10 - M20.41) Patient Educated with: DIABETIC FOOT CARE INSTRUCTIONS. pdf (DIABETIC FOOT CARE INSTRUCTIONS. pdf) 07/10/2023 Other hammer toe(s) (acquired), left foot (ICD-10 - M20.42) 10/23/2023 Other hammer toe(s) (acquired), left foot (ICD-10 - M20.42) 01/22/2024 Other hammer toe(s) (acquired), left foot (ICD-10 - M20.42) Plan Of Treatment Next Appt Details Provider Name:Kaylen lyn, 04/22/2024 01:00:00 PM, [address] [facility], [place], [address], Insurance Providers Payer Name Payer Address Payer Phone Subscriber Number Group Number Insured Name Patient Relationship to Insured Coverage Start Date Coverage End Date [facility] [employer] Claims [address] [place] [id number] [phone] [id number] [facility] Self - patient is the insured Medical (General) History Medical History History ICD Code Diabetic High Blood Pressure asthma nerve pain Surgical History Surgery Date(Month/Year) Hospitalization History Reason Date(Month/Year) blood pressure too low [facility] 11/2023 [facility] water in lungs
--- OUTSIDE RECORDS SUMMARY | 2024-03-24 11:36 | XMS_ITS ---
[facility] Organization [facility] Address [address] [place] [address] Care Team Providers Care Inside Sales Coordinator Name Role Phone Marge Posadas Primary Care Provider Kaylen Castro Unavailable [phone] Allergies Allergen (clinical drug ingredient) Drug/Non Drug Allergy documented on EMR Reaction Allergy Type Onset Date Status Lactose Unknown Drug Allergy Active Tetanus Toxoids Unknown Drug Allergy A ctive REASON FOR VISIT At Risk Footcare, Toe Irritation, Skin problem(s) Medications Medication SIG (Take, Route, Frequency, Duration) Notes Start Date End Date Status TRUEplus Lancets 33G - for 17 Active Clobetasol Propionate 0.05 % External for 15 Not-Andres ing Aspirin Adult Low Strength 81 MG Oral for 90 Not-Taking Furosemide 80 MG TAKE 1 TABLET BY JYOTI TH TWICE DAILY IN THE MORNING AND IN THE EVENING Oral for 90 I5032,Unavai lable Active Albuterol Sulfate (2.5 MG/3ML) 0.083% INHALE 1 AMPULE USING A NEBULIZER THREE TIMES DAILY NEEDED FOR ASTHMA AND SHORTNESS OF BREATH Inhalation for 10 Not-Taking Ozempic (1 MG/DOSE) 4 MG/3ML Inject 1 MG SUBCUTANEOUSLY EVERY 7 DAYS IN THE ABDOMEN, THIGHS OR UPPER ARM. ROTATE INJECTION SITES. Subcutaneous for 28 E1169,Unavai lable Active Multivitamin - TAKE 1 TABLET BY JYOTI TH EVERY MORNING WITH FOOD Oral for 90 Active Lisinopril 40 MG TAKE 1 TABLET BY JYOTI TH EVERY MORNING Oral for 90 Active Ventolin HFA 108 (90 Base) MCG/ACT Inhalation for 17 Active Trulicity 3 MG/0.5ML INJECT ONE PEN (= 3 MG) SUBCUTANEOUSLY ONCE A WEEK DIRECTED Subcutaneous for 28 E1169,Unavai lable Active Alfuzosin HCl ER 10 MG TAKE 1 TABLET BY MOUTH AT BEDTIME Oral for 30 R3912,Unavai lable Not-Taking Pentips 32G X 4 MM USE UP TO FIVE TIMES DAILY for 20 E1142,Unavai lable Active Isosorbide Mononitrate ER 120 MG TAKE 1 Tablet BY MOUTH EVERY MORNING Oral for 90 I5022,Unavai lable Not-Taking Incruse Ellipta 62.5 MCG/ACT Inhalation for 30 Not-Taking Easy Touch Lancets 33G/Twist - USE TO TEST BLOOD SUGAR 6 TIMES PER DAY for 17 Active Gabapentin 100 MG TAKE 1 CAPSULE BY MOUTH TWICE DAILY IN THE MORNING AND AT BEDTIME Oral for 30 Active metFORMIN HCl 1000 MG TAKE 1 TABLET BY MOUTH TWICE DAILY IN THE MORNING AND IN THE EVENING WITH MEALS Oral for 90 E1142,Unavai lable Active NovoLOG FlexPen 100 UNIT/ML Subcutaneous for 21 Active Lantus SoloStar 100 UNIT/ML INJECT 44 UNITS SUBCUTANEOUSLY ONCE DAILY DIRECTED Subcutaneous for 33 E119,Unavail able Active Labetalol HCl 100 MG TAKE 1 TABLET BY MO UTH TWICE DAILY IN THE MORNING AND IN THE EVENING Oral for 30 I10,Unavaila ble Active FreeStyle Donna 2 Sensor - USE DIRECTED AND CHANGE EVERY 14 DAYS for 84 E1169,Unavai lable Active Diclofenac Sodium 1 % APPLY 4 GRAMS TOPICALLY FOUR TIMES DAILY FOR PAIN External for 7 days Not-Taking Extra Depth Orthopedic Shoes (1 Pair) with Customized Heat Molded Multidensity Innersoles (3 Pair) as directed Dx: NIDDM/Polyneuropathy (E11.42), Hammertoe Foot Deformity (M20.41,M20.42), Preulcerative Skin Lesion(s) (L85.1 Active Ammonium Lactate 12 % 1 application Externally to affected areas of dry skin to feet except for between the toes Twice a day for 30 days Active Warfarin Sodium 5 MG TAKE 1 TO 3 TABLETS BY MOUTH ONCE DAILY DIRECTED PER COUMADIN CLINIC Oral for 23 Z7901,Unavai lable Active Atorvastatin Calcium 80 MG TAKE 1 TABLET BY MOUTH AT BEDTIME Oral for 90 Active Social History Tobacco Use: Social History [...] ast year? No Points 0 Interpretation Negative Vital Signs Height 5ft 5in in 01/22/2024 Weight 280 lbs 01/22/2024 BMI 46.59 kg/m2 01/22/2024 Blood pressure systolic 147 mm Hg 01/22/20 24 Blood pressure diastolic 82 mm Hg 024 Encounters Encounter Location Date Provider Diagnosis [facility] [address] [address] 01/22/2024 Kaylen Ribeiro Type 2 diabetes mellitus with diabetic polyneuropathy E11.42 ; Xerosis of skin L85.3 ; Tinea unguium B35.1 ; Other hammer toe(s) (acquired), right foot M20.41 and Other hammer toe(s) (acquired), left foot M20.42 Assessments Encounter Date Diagnosis (ICD Code) Assessment Notes Treatment Notes Treatment Clinical Notes Section Notes 01/22/2024 Type 2 diabetes mellitus with diabetic polyneuropathy (ICD-10 - E11.42) 01/22/2024 Xerosis of skin (ICD-10 - L85.3) 01/22/2024 Tinea unguium (ICD-10 - B35.1) 01/22/2024 Other hammer toe(s) (acquired), right foot (ICD-10 - M20.41) 01/22/2024 Other hammer toe(s) (acquired), left foot (ICD-10 - M20.42) Plan Of Treatment Medication Medication Name Sig Start Date Stop Date Notes Ammonium Lactate 12 % 1 application Exte rnally to affected areas of dry skin to feet except for between the toes Twice a day for 30 days Next Appt Details Follow Up: 3 Months, Reason: Provider Name:Kaylen lyn, 04/22/2024 01:00:00 PM, [address] [facility], [place], [address], Procedure Notes * Category Sub-Category Detail Notes Debride Nail 6-10 Nail debridement Due to the cl inical pathology outlined in the exam findings, performance of this nail treatment is medically necessary as its management by an unskilled/untrained nonprofessional would put this patients foot and overall health at risk. Therefore, debridement to affected nail(s), as described in exam was performed exclusively by the physician of record to reduce/remove overall nail length, girth, thickness, subungual debris, and necrotic tissue, by manual and/or electrical means through the use of a nail nipper and/or dremel-type salvage grinder, to a more viable healthy nail plate or bed tissue 6-10 nails in total. Silver nitrate was used for any petechial bleeding as necessary. Definitive antifungal treatment options, both pharmaceutical and surgical, have been reviewed and discussed with the patient. The patient solely prefers the use of intermittent/as needed professional debridement services for their nail condition and understands the need for additional periodic treatments to maintain effectiveness in symptomatic relief - 55196 Keratoma Treatment Parring or Cutting o f Benign Hyperkeratotic Lesion(s) (-56) 2-4 Lesions - Due to the at risk nature of the patients medical condition as documented in the exam findings, performance of this keratoderma treatment is medically necessary as its management by an unskilled/untrained nonprofessional would put this patients foot and overall health at risk. Therefore, the benign hyperkeratotic lesions, ( 2) in total, locations as stated and described in the exam were pared, and/or cut utilizing a sterile 15 blade, tissue nippers, and/or power dremel instrumentation by the physician of record - 30842 Progress Notes * Sergio YEPEZ FDO B:1950 (73 yo M)Acc No.[id number]:01/22/2024 Progress Note Patient:?Seamus YEPEZ Provider:?Kaylen Ribeiro DPM :1950???Age:73 Y???Sex:Male Catarino e:01/22/2024 Address:[address] [place], [place] [id number] Pcp:Marge Posadas Subjective: * Chief Complaints: * ???At Risk FootcareToe Irrit ationSkin problem(s) * HPI: ???At Risk footcare:?Pt States Last PCP Visit:?Date?11/25/2023 ?Doctor Of Osteopathy present. ???Toe pain:?Location:?B/L feet.?Duration:?several years.?Aggravated by:?shoes, any pressure.?Treatments:?states delivery pending.?Skin problems:?Nature:?dryness , scaling.?Location:?B/L .?Duration:?several days.?Course:?worse.? * ROS:?General/Constitutional:?Nausea?denies.?Vomiting?denies.?Hunger Thirst?denies.?Loss appetite?denies.?Chills?denies.?Fatigue?denies.?Fever?denies.?Night Sweats?denies.?Unexplained weight loss?denies.?Unexplained weight gain?denies.?HEENTM:?Dentures?admits.?Dizziness?denies.?Glasses/contacts?admits.?Retinopathy?den ies.?Blurred/double vision?denies.?TMJ?denies.?Discharge/drainage?denies.?Implants?denies.?Sore throat?denies.?Dental implants?denies.?Hard of hearing ?denies.?Difficulty chewing/swallowing/speaking?denies.?Nose bleeds?denies.?Sore mouth?denies.?Respiratory:?On O xygen?denies.?Pneumonia/pleurisy?denies.?Bronchitis?denies.?Emphysema?denies.?Co ughing?denies.?Cough blood?denies.?Shortness of breath?admits.?Wheezing?denies.?Cardiovascular:?Pacemaker?denies.?MVP?denies.?WPW?denies.?CHF?denies.?Heart attack?denies.?Septal defect?denies.?Rapid beat?denies.?Chest pain ?denies.?Atrial Fib.?denies.?Murmur/Palpitations?denies.?Gastrointestinal:?Hemorrhoids?denies.?Stomach/Abdominal pain?denies.?Dark blood stool?denies.?Irritable bowel ?denies.?Constipation?denies.?Diarrhea?denies.?Hematology:?Swelling?admits.?Clots?denies.?Varicose Veins?denies.?Bruising?denies.?Bleeding problem?denies.?Genitourinary:?Blood urine?denies.?Frequent/Painfu/urination/bladder control?denies.?Kidney stones?denies.?Infection (UTI)?denies.?Nephropathy?denies.?sex trans dis (STD)?denies.?Prostate?denies.?Musculoskeletal:?Hammertoes?denies.?Bunions?denies.?Back Pain?denies.?Muscle Cramps/ Resting?denies.?Muscle cramps / walking?denies.?Generalized aches and pains?admits.?Weakness?denies.?Integ.:?Rankin?denies.?Scars?denies.?Corns/calluses?denies.?Ingrown nails?denies.?Painful nails?admits.?Open Sores?denies.?Rashes?denies.?Neurologic:?Difficulty sleeping?denies.?Brain disorder?denies.?Numbness?denies.?Balance t rouble?denies.?Confusion?denies.?Fainting/blackouts?denies.?Tingling?denies.?Gerhard mors?denies.? * Medical History:? * Surgical History:?Denies Pas t Surgical History * Hospitalization/Major Diagno stic Procedure:?[facility] or [facility] water in lungs blood pressure too low [facility] 11/2023 * Family History:?Mother: dawson olivia.?Father: .?Spouse: alive.? * Social History:?Tobacco Use:?Tobacco use other than smoking?Are you an other tobacco user??No ?Tobacco Control (Standard)?Tobacco use:?Former smoker ?Additional Findings: Tobacco non-user?Ex-cigarette smoker ???Drugs/Alcohol:?Drugs?Have you used drugs other than those for medical reasons in the past 12 months??No ???Miscellaneous:?Caffeine: yes, frequency:, 1-2 cups per day. ?Children: yes, 6. ?Exercise: no. ?Marital status: . ?Occupation: Retired [employer]. ???Drug/Alcohol:?AUDIT-C (Standard)?Did you have a drink containing alcohol in the past year??No ?Points?0 ?Interpretation?Negative * Medications:?TakingWarfarin Sodium 5 MG Tablet TAKE 1 TO 3 TABLETS BY MOUTH ONCE DAILY DIRECTED PER COUMADIN CLINIC Oral , Notes to Pharmacist: [id number],UnavailableFreeStyle Donna 2 Sensor - Miscellaneous USE DIRECTED AND CHANGE EVERY 14 DAYS , Notes to Pharmacist: E1169,UnavailableGabapentin 100 MG Capsule TAKE 1 CAPSULE BY MOUTH TWICE DAILY IN THE MORNING AND AT BEDTIME Oral metFORMIN HCl 1000 MG Tablet TAKE 1 TABLET BY MOUTH TWICE DAILY IN THE MORNING AND IN THE EVENING WITH MEALS Oral , Notes to Pharmacist: E1142,UnavailableNovoLOG FlexPen 100 UNIT/ML Solution Pen-injector Subcutaneous Lantus SoloStar 100 UNIT/ML Solution Pen- injector INJECT 44 UNITS SUBCUTANEOUSLY ONCE DAILY DIRECTED Subcutaneous , Notes to Pharmacist: E119,UnavailableLabetalol HCl 100 MG Tablet TAKE 1 TABLET BY MOUTH TWICE DAILY IN THE MORNING AND IN THE EVENING Oral , Notes to Pharmacist: I10,UnavailablePentips 32G X 4 MM Miscellaneous USE UP TO FIVE TIMES DAILY , Notes to Pharmacist: E1142,UnavailableEasy Touch Lancets 33G/Twist - Miscellaneous USE TO TEST BLOOD SUGAR 6 TIMES PER DAY Ozempic (1 MG/DOSE) 4 MG/3ML Solution Pen-injector Inject 1 MG SUBCUTANEOUSLY EVERY 7 DAYS IN THE ABDOMEN, THIGHS OR UPPER ARM. ROTATE INJECTION SITES. Subcutaneous , Notes to Pharmacist: E1169,UnavailableMultivitamin - Tablet TAKE 1 TABLET BY MOUTH EVERY MORNING WITH FOOD Oral Lisinopril 40 MG Tablet TAKE 1 TABLET BY MOUTH EVERY MORNING Oral Ventolin HFA 108 (90 Base) MCG/ACT Aerosol Solution Inhalation Trulicity 3 MG/0.5ML Solution Pen-injector INJECT ONE PEN (= 3MG) SUBCUTANEOUSLY ONCE A WEEK DIRECTED Subcutaneous , Notes to Pharmacist: E1169,UnavailableTRUEplus Lancets 33G - Miscellaneous Furosemide 80 MG Tablet TAKE 1 TABLET BY MOUTH TWICE DAILY IN THE MORNING AND IN THE EVENING Oral , Notes to Pharmacist: I5032,UnavailableAtorvastatin Calcium 80 MG Tablet TAKE 1 TABLET BY MOUTH AT BEDTIME Oral Extra Depth Orthopedic Shoes (1 Pair) with Customized Heat Molded Multidensity Innersoles (3 Pair) as directed Dx: NIDDM/Polyneuropathy (E11.42), Hammertoe Foot Deformity (M20.41,M20.42), Preulcerative Skin Lesion(s) (L85.1 Taking Warfarin Sodium 5 MG Tablet TAKE 1 TO 3 TABLETS BY MOUTH ONCE DAILY DIRECTED PER COUMADIN CLINIC Oral , Notes to Pharmacist: Z7901,UnavailableTaking FreeStyle Donna 2 Sensor - Miscellaneous USE DIRECTED AND CHANGE EVERY 14 DAYS , Notes to Pharmacist: E1169,UnavailableTaking Gabapentin 100 MG Capsule TAKE 1 CAPSULE BY MOUTH TWICE DAILY IN THE MORNING AND AT BEDTIME Oral Taking metFORMIN HCl 1000 MG Tablet TAKE 1 TABLET BY MOUTH TWICE DAILY IN THE MORNING AND IN THE EVENING WITH MEALS Oral , Notes to Pharmacist: E1142,UnavailableTaking NovoLOG FlexPen 100 UNIT/ML Solution Pen-injector Subcutaneous Taking Lantus SoloStar 100 UNIT/ML Solution Pen- injector INJECT 44 UNITS SUBCUTANEOUSLY ONCE DAILY DIRECTED Subcutaneous , Notes to Pharmacist: E119,UnavailableTaking Labetalol HCl 100 MG Tablet TAKE 1 TABLET BY MOUTH TWICE DAILY IN THE MORNING AND IN THE EVENING Oral , Notes to Pharmacist: I10,UnavailableTaking Pentips 32G X 4 MM Miscellaneous USE UP TO FIVE TIMES DAILY , Notes to Pharmacist: E1142,UnavailableTaking Easy Touch Lancets 33G/Twist - Miscellaneous USE TO TEST BLOOD SUGAR 6 TIMES PER DAY Taking Ozempic (1 MG/DOSE) 4 MG/3ML Solution Pen-injector Inject 1 MG SUBCUTANEOUSLY EVERY 7 DAYS IN THE ABDOMEN, THIGHS OR UPPER ARM. ROTATE INJECTION SITES. Subcutaneous , Notes to Pharmacist: E1169,UnavailableTaking Multivitamin - Tablet TAKE 1 TABLET BY MOUTH EVERY MORNING WITH FOOD Oral Taking Lisinopril 40 MG Tablet TAKE 1 TABLET BY MOUTH EVERY MORNING Oral Taking Ventolin HFA 108 (90 Base) MCG/ACT Aerosol Solution Inhalation Taking Trulicity 3 MG/0.5ML Solution Pen-injector INJECT ONE PEN (= 3MG) SUBCUTANEOUSLY ONCE A WEEK DIRECTED Subcutaneous , Notes to Pharmacist: E1169,UnavailableTaking TRUEplus Lancets 33G - Miscellaneous Taking Furosemide 80 MG Tablet TAKE 1 TABLET BY MOUTH TWICE DAILY IN THE MORNING AND IN THE EVENING Oral , Notes to Pharmacist: I5032,UnavailableTaking Atorvastatin Calcium 80 MG Tablet TAKE 1 TABLET BY MOUTH AT BEDTIME Oral Taking Extra Depth Orthopedic Shoes (1 Pair) with Customized Heat Molded Multidensity Innersoles (3 Pair) as directed Dx: NIDDM/Polyneuropathy (E11.42), Hammertoe Foot Deformity (M20.41,M20.42), Preulcerative Skin Lesion(s) (L85.1 Not-Taking/PRNDiclofenac Sodium 1 % Gel APPLY 4 GRAMS TOPICALLY FOUR TIMES DAILY FOR PAIN External Isosorbide Mononitrate ER 120 MG Tablet Extended Release 24 Hour TAKE 1 Tablet BY MOUTH EVERY MORNING Oral , Notes to Pharmacist: I5022,UnavailableIncruse Ellipta 62.5 MCG/ACT Aerosol Powder Breath Activated Inhalation Alfuzosin HCl ER 10 MG Tablet Extended Release 24 Hour TAKE 1 TABLET BY MOUTH AT BEDTIME Oral , Notes to Pharmacist: R3912,UnavailableClobetasol Propionate 0.05 % Ointment External Aspirin Adult Low Strength 81 MG Tablet Delayed Release Oral Albuterol Sulfate (2.5 MG/3ML) 0.083% Nebulization Solution INHALE 1 AMPULE USING A NEBULIZER THREE TIMES DAILY NEEDED FOR ASTHMA AND SHORTNESS OF BREATH Inhalation Medication List reviewed and reconciled with the patientNot-Taking/PRN Diclofenac Sodium 1 % Gel APPLY 4 GRAMS TOPICALLY FOUR TIMES DAILY FOR PAIN External Not-Taking/PRN Isosorbide Mononitrate ER 120 MG Tablet Extended Release 24 Hour TAKE 1 Tablet BY MOUTH EVERY MORNING Oral , Notes to Pharmacist: I5022,UnavailableNot-Taking/PRN Incruse Ellipta 62.5 MCG/ACT Aerosol Powder Breath Activated Inhalation Not-Taking/PRN Alfuzosin HCl ER 10 MG Tablet Extended Release 24 Hour TAKE 1 TABLET BY MOUTH AT BEDTIME Oral , Notes to Pharmacist: R3912,UnavailableNot-Taking/PRN Clobetasol Propionate 0.05 % Ointment External Not-Taking/PRN Aspirin Adult Low Strength 81 MG Tablet Delayed Release Oral Not-Taking/PRN Albuterol Sulfate (2.5 MG/3ML) 0.083% Nebulization Solution INHALE 1 AMPULE USING A NEBULIZER THREE TIMES DAILY NEEDED FOR ASTHMA AND SHORTNESS OF BREATH Inhalation Medication List reviewed and reconciled with the patient * Allergies:?Tetanus ToxoidsLa ctoseyes[Allergies Verified] Objective: * Vitals:?Ht: 5ft 5in, Wt:280, BMI:46.59, Shoe size: 10.5, BP:147/82mm Hg, BS: not taken, Ht-cm: 165.1 cm, Wt-k.01 kg. * Examination: ???CQM Exceptions:: ?Hemoglobin A1c not performed?Ophthalmology Referral: ?DIABETES EYE EXAM?Neurological: ?SENSORY:? Neurological exam demonstrates, reduced light touch sensation, reduced sharp/dull pin prick discrimination , B/L, 5.07 monofilament test performed at plantar aspects of 5 varied sites per foot shows sensation, reduced , B/L.?Nails: ?NAILS are:?Elongated, overgrown, dystrophic, lytic, greater than 3mm thick, discolored and friable with crumbly malodorous subungual debris, with dull to no pain on palpation due to neuropathy, 1-5 B/L.?Dermatologic: ?SKIN FINDINGS:?Skin exam reveals Keratotic lesion(s) located at , TA , T5 , Skin shows sign(s) of, dryness, scaling, in a stocking fashion, no fissure(s) present, B/L.?Vascular: ?DP PULSES(B):? 3/4, B/L.?PT PULSES(B):? 1/4, B/L.?CAPILLARY FILL TIME:?immediate, all digits, B/L.?TEMPERTURE GRADIENT(C):?normal, warm to cool, proximal to distal, B/L, B/L.?PIGMENTATION:? brawny, B/L.?Orthopedic: ?MUSCLE STRENGTH:?5/5 all groups in a symmetrical fashion, B/L.?DIGITAL DEFORMITIES:?Digital contracture, PIPJ, 2-5 B/L, incompl-reducible to push-up test, no over, nor underlapping, with evidence of shoe producing skin irritation.?FOOTWEAR:?worn, non-supportive, shoe gear properties exacerbate patient's foot/toe deformity.?General Examination: ?GENERAL APPEARANCE:?Reveals a pleasant, alert, well nourished, well- developed, well hydrated individual, who demonstrates proper attention to hygiene/body habitus, and is in no acute distress, Pt serves as own historian for office visit today.?ORIENTED:?person, place, and time.?FOOT EXAM:?Footwear Evaluation? Assessment: * Assessment: 1.?Type 2 diabetes mellitus with diabetic polyneuropathy - E11.42???2.?Xerosis of skin - L85.3 (Primary)???Specify :Acute problem, Uncomplicated (3),Rx Management (4)???3.?Tinea unguium - B35.1???4.?Other hammer toe(s) (acquired), right foot - M20.41???Specify :Chronic problem, Worse (4),Rx Management (4)???5.?Other hammer toe(s) (acquired), left foot - M20.42???Specify :Chronic problem, Worse (4),Rx Management (4)??? Plan: * Treatment: * Procedures:?Debride Nail 6-10:?Nail debridement?Due to the clinical pathology outlined in the exam findings, performance of this nail treatment is medically necessary as its management by an unskilled/untrained nonprofessional would put this patients foot and overall health at risk. Therefore, debridement to affected nail(s), as described in exam ?was performed exclusively by the physician of record to reduce/remove overall nail length, girth, thickness, subungual debris, and necrotic tissue, by manual and/or electrical means through the use of a nail nipper and/or dremel-type salvage grinder, to a more viable healthy nail plate or bed tissue 6-10 nails in total. Silver nitrate was used for any petechial bleeding as necessary. Definitive antifungal treatment options, both pharmaceutical and surgical, have been reviewed and discussed with the patient. The patient solely prefers the use of intermittent/as needed professional debridement services for their nail condition and understands the need for additional periodic treatments to maintain effectiveness in symptomatic relief - 16588.?Keratoma Treatment:?Parring or Cutting of Benign Hyperkeratotic Lesion(s)?(-56) 2-4 Lesions - Due to the at risk nature of the patients medical condition as documented in the exam findings, performance of this keratoderma treatment is medically necessary as its management by an unskilled/untrained nonprofessional would put this patients foot and overall health at risk. Therefore, the benign hyperkeratotic lesions, ( 2) in total, locations as stated and described in the exam? ?were pared, and/or cut utilizing a sterile 15 blade, tissue nippers, and/or power dremel instrumentation by the physician of record - 61499.? * Procedure Codes:?64220 DEBRI DE NAIL, 6 OR MORE, Modifiers: XS 00509 TRIM SKIN LESIONS, 2 TO 4, Modifiers: XS * Preventive Medicine:? ??Counseling:?Discussion:?-13: Office or other outpatient visit for the evaluation and management of an established patient, which required a medically appropriate history and/or examination and LOW level of DECISION MAKING for: 1 STABLE ACUTE UNCOMPLICATED PROBLEM, 2 OR MORE MINOR PROBLEMS, OR 1 STABLE CHRONIC PROBLEM, THAT POSE(S) A LOW RISK FOR MORBIDITY/MORTALITY. The visit on the day of the encounter encompassed interpreting the data and educating the patient as to the nature of their condition, treatment options available according to their individual PMH, meds, allergies, and overall health/living conditions, as well as any potential risks or complications that may occur from a failure to adhere to, and participate in, the recommended course of therapy. The discussion included a complete verbal, and/or written explanation of the examination results, any x-rays taken, the proposed diagnosis, and outline of the treatment plan. A schedule for future care needs was also explained. The patient verbalized an understanding of the instructions at this time and agreed to be an active participant in their treatment. If the patient should think of any questions or concerns after the visit, I have encouraged the patient to call the office.?Shoe Gear Counseling:?Patient to obtain shoes hopefully soon.?Xerosis:?The patient was counseled on the diagnosis, potential etiologies, and treatment options for their skin condition. We discussed the risks and benefits of each option from performing no treatment, to utilizing OTC topical skin creams/ointments, to utilizing prescription topical creams/ointments, to utilizing customized compounded topical medications and use of nocturnal occlusion with any/all previously detailed therapies. We discussed the advantages and disadvantages of each possible treatment and importance for adherence to all the recommended therapies for optimum success and avoid potential complications such as open sore/infection/possible hospitalization. We discussed the potential effectiveness of each topical preparation as well as each ones possible side effects and/or patient medication interactions. Patient questions re: use, dosage, successful outcomes, and application consistency were reviewed and the patient verbalized that all answers were clearly understood. The patient has decided to apply Rx skin creams to their feet save the interspaces while paying special attention to the heels. Such was sent to their pharmacy at the time of visit.? * Follow Up:?3 Months * Images: * Sign off status: Completed true * Provider:?Kaylen Ribeiro, DPM Date:?01/2024 Generated for Aldo blanton/David/Fay on:?03/24/2024 11:35 AM EST History and Physical Notes * HPI (History of Present Illness) Category Sub-Category Detail Notes Category Not es Toe pain Location: B/L feet Duration: several years Aggravated by: shoes, any pressure Treatments: states delivery pend ing Skin problems Nature: dryness , scaling Location: B/L Duration: several days Course: worse At Risk footcare Pt States Last PCP Visit: Date: 4 Doctor Of Osteopathy present Examination Category Sub-Category Detail Notes Category Not es Neurological SENSORY: Neurological exa m demonstrates, reduced light touch sensation, reduced sharp/dull pin prick discrimination , B/L, 5.07 monofilament test performed at plantar aspects of 5 varied sites per foot shows sensation, reduced , B/L Dermatologic SKIN FINDINGS: Skin exam reveal s Keratotic lesion(s) located at , TA , T5 , Skin shows sign(s) of, dryness, scaling, in a stocking fashion, no fissure(s) present, B/L Orthopedic FOOTWEAR: worn, non-suppor tive, shoe gear properties exacerbate patient's foot/toe deformity DIGITAL DEFORMITIES: Digital contracture , PIPJ, 2-5 B/L, incompl-reducible to push-up test, no over, nor underlapping, with evidence of shoe producing skin irritation MUSCLE STRENGTH: 5/5 all groups in a symmetrical fashion, B/L General Examination GENERAL APPEARANCE: Reveals a pleasant, alert, well nourished, well-developed, well hydrated individual, who demonstrates proper attention to hygiene/body habitus, and is in no acute distress, Pt serves as own historian for office visit today FOOT EXAM: Lower Extremity Neurological Exa m performed:: Yes ORIENTED: person, place, and t fatimah Footwear Evaluation Footwear Evaluation performe d:: Yes Ophthalmology Referral DIABETES EYE EXAM Procedure Perform ed:: Yes ?Date of Exam Performed: 01/22/2023 Diabetic Retinopathy Screening:: Yes Findings of Diabetic Eye Exam:: no retin opathy Vascular DP PULSES (B): 3/4, B/L PT PULSES (B): 1/4, B/L CAPILLARY FILL TIME: immediate, all digi ts, B/L TEMPERTURE GRADIENT (C): normal, warm to cool, proximal to distal, B/L, B/L PIGMENTATION: brawny, B/L Nails NAILS are: Elongated, overg rown, dystrophic, lytic, greater than 3mm thick, discolored and friable with crumbly malodorous subungual debris, with dull to no pain on palpation due to neuropathy, 1-5 B/L CQM Exceptions: Hemoglobin A1c not performed Reason:: No r delio specified
--- OUTSIDE RECORDS SUMMARY | 2024-03-24 11:37 | XMS_ITS | Encounter Summary ---
Author Organization [employer] Address [address] [facility] 7 [place] [address] Care Team Providers Care Resource Manager Forester Name Role Phone Cuauhtemoc Marge MELGAR Primary Care Provider [phone] Reason for Visit * Reason Comments Med Refill Encounter Details Date Type Department Care Team (Late st Contact Info) Description 12/16/2022 Refill [facility] MEDICINE [address] [place], [place] [phone] Tamera Clemente FNP [address] [place], [place] [phone] Type 2 diabetes mellitus with hyperlipidemia (CMS/HCC) Social History Tobacco Use Types Packs/Day [...] Description 05/24/2024 10:30 AM EDT Office Visit [facility] OPTOMETRY [address] [place], [place] [phone] Anuradha Golden, OD [address] [place] [address] documented as of this encounter Visit Diagnoses Diagnosis Type 2 diabetes mellitus with hyperlipidemia (CMS/HCC) (CMS/HCC) documented in this encounter Care Teams Resource Manager Forester Relationship Specialty Start Date End Date Marge Posadas ANP 230 [place] [address] PCP - General Family Medicine 05/01/22 documented as of this encounter
--- OUTSIDE RECORDS SUMMARY | 2024-03-24 11:37 | XMS_ITS | Encounter Summary ---
Author Organization [employer] Address [address] [place] [address] 7 [place] [address] Care Team Providers Care Technology Coach Name Role Phone Marge Posadas Primary Care Provider [phone] Reason for Visit * Reason Onset Date Comments Med Refill 11/13/2022 Medication Question 11/13/2022 Encounter Details Date Type Department Care Team ([facility] st Contact Info) Description 11/13/2022 Telephone [facility] MEDICINE [address] [place], [place] [phone] Marge Posadas ANP 230 [place], [place] [phone] Med Refill; Medication Question Social History Tobacco Use Types Packs/Day Years [...] encounter Miscellaneous Notes * Telephone Encounter - Coleen Johnston - 11/13/2022 9:52 AM EDT Tc from pt requesting med refill for medication NovoLOG FLEXPEN 100 UNIT/ML pen. [place] Counselor informed hestill has refills at the pharmacy but pt states has ran out of medication and that he is taking 16 units and script states to take 10 units . [place] Counselor spoke with pharmacy and a new script is needed . documented in this encounter Plan of Treatment Upcoming Encounters Date Type Department Care Team (Late st Contact Info) Description 05/24/2024 10:30 AM EDT Office Visit [facility] OPTOMETRY [address] [place], [place] [phone] Anuradha Golden, OD 230 [place] [address] documented as of this encounter Visit Diagnoses Not on filedocumented in this encounter Care Teams Technology Coach Relationship Specialty Start Date End Date Marge Posadas ANP 230 [place] [address] PCP - General Family Medicine 05/01/22 documented as of this encounter
--- OUTSIDE RECORDS SUMMARY | 2024-03-24 11:37 | XMS_ITS | Encounter Summary ---
Author Organization [employer] Address [address] [facility] 7t [place] [address] Care Team Providers Care Cs Associate Name Role Phone Cuauhtemoc Marge MELGAR Primary Care Provider [phone] Reason for Visit * Reason Comments Med Refill Encounter Details Date Type Department Care Team (Late st Contact Info) Description 11/19/2023 Refill [facility] MEDICINE 230 [place], [place] [phone] April Shaver DO 230 [place], [place] [phone] Social History Tobacco Use Types Packs/Day Years [...] Description 05/24/2024 10:30 AM EDT Office Visit [facility] OPTOMETRY [address] [place] [address] [place], Anuradha, OD [address] [place] [address] documented as of this encounter Visit Diagnoses Not on filedocumented in this encounter Additional Health Concerns Assessment Noted Time PHQ-9 Depression Total Score: 1 06/12/19 24 11:18 AM EDT documented as of this encounter Care Teams Cs Associate Relationship Specialty Start Date End Date Marge Posadas ANP [address] [place] [address] PCP - General Family Medicine 05/01/22 documented as of this encounter
--- OUTSIDE RECORDS SUMMARY | 2024-03-24 11:37 | XMS_ITS | Encounter Summary ---
Author Organization [employer] Address [address] [facility] 7t [place] [address] Care Team Providers Care Data Operations Manager Name Role Phone Marge Posadas TALIA Primary Care Provider [phone] Reason for Visit * Reason Comments covid positive Encounter Details Date Type Department Care Team ([facility] st Contact Info) Description 02/25/2024 9:20 AM EST Office Visit [facility] 230 [place] [address] Meenakshi Tai MD [address] [place] [address] COVID (Primary Dx) Social History Tobacco Use Types Packs/Day Years [...] AM EDT documented as of this encounter Progress Notes * Meenakshi Tai MD - 02/25/2024 9:20 AM EST Subjective Patient ID: Sergio Britt is a 73 y.o. male who presents for No chief complaint on file.. Covid URI This is a new problem. The current episode started yesterday. The problem has been unchanged. Therehas been no fever. Associated symptoms include congestion and coughing. Pertinent negatives includeno diarrhea, dysuria, ear pain, headaches, joint pain, joint swelling, nausea, neck pain, plugged ear sensation, rash, rhinorrhea, sinus pain, sneezing, sore throat, swollen glands, vomiting or wheezing. Review of Systems Constitutional: Negative. HENT: Positive for congestion. Negative for ear pain, rhinorrhea, sinus pain, sneezing and sore throat. Respiratory: Positive for cough. Negative for wheezing. Cardiovascular: Negative. Gastrointestinal: Negative. Negative for diarrhea, nausea and vomiting. Genitourinary: Negative. Negative for dysuria. Musculoskeletal: Negative for joint pain and neck pain. Skin: Negative for rash. Neurological: Negative for headaches. Objective Physical Exam Constitutional: Appearance: Normal appearance. Cardiovascular: Rate and Rhythm: Normal rate and regular rhythm. Pulmonary: Effort: Pulmonary effort is normal. Breath sounds: Normal breath sounds. Neurological: General: No focal deficit present. Mental Status: He is alert. Psychiatric: Mood and Affect: Mood normal. Behavior: Behavior normal. Assessment/Plan Diagnoses and all orders for this visit: COVID Comments: Pt is positive for COVID. Advised tylenol /motrin .Started on paxlovid and Mucinex as needed Advised Steam inhalation Advised plenty of fluids Other orders - Nirmatrelvir&Ritonavir 150/100 (Paxlovid, 150/100,) 10 x 150 MG & 10 x 100MG tablet therapy pack; Take 1 Dose by mouth 2 times daily. - Dextromethorphan-guaiFENesin (Mucinex DM) 30-600 MG tablet sustained-release 12 hour; Use 1 tab TID documented in this encounter Plan of Treatment Upcoming Encounters Date Type Department Care Team (Late st Contact Info) Description 05/24/2024 10:30 AM EDT Office Visit [facility] [address] [place], [place] [phone] Anuradha Golden, OD 230 [place] [address] documented as of this encounter Visit Diagnoses Diagnosis COVID- Primary documented in this encounter Additional Health Concerns Assessment Noted Time PHQ-9 Depression Total Score: 1 06/12/19 24 11:18 AM EDT documented as of this encounter Care Teams Data Operations Manager Relationship Specialty Start Date End Date Marge Posadas ANP [address] [place] [address] PCP - General Family Medicine 05/01/22 documented as of this encounter
--- OUTSIDE RECORDS SUMMARY | 2024-03-24 11:37 | XMS_ITS | Encounter Summary ---
Author Organization [employer] Address [address] [place] [address] 7 [place] [address] Care Team Providers Care Diving Judge Name Role Phone Marge Posadas Primary Care Provider [phone] Reason for Visit * Reason Comments Med Refill Encounter Details Date Type Department Care Team ([facility] st Contact Info) Description 03/10/[address] [facility] 230 [place], [place] [phone] Marge Posadas ANP [address] [place], [place] [phone] Chronic systolic heart failure (CMS/HCC) Social History Tobacco Use Types Packs/Day [...] 05/24/2024 10:30 AM EDT Office Visit [facility] OPTOMETRY [address] [place] [address] Anuradha Golden, OD [address] [place] [address] documented as of this encounter Visit Diagnoses Diagnosis Chronic systolic heart failure (CMS/HCC) Chronic systolic heart failure documented in this encounter Additional Health Concerns Assessment Noted Time PHQ-9 Depression Total Score: 1 06/12/19 24 11:18 AM EDT documented as of this encounter Care Teams Diving Judge Relationship Specialty Start Date End Date Marge Posadas ANP [address] [place] [address] PCP - General Family Medicine 05/01/22 documented as of this encounter
--- OUTSIDE RECORDS SUMMARY | 2024-03-24 11:37 | XMS_ITS | Encounter Summary ---
Author Organization [employer] Address [address] [facility] 7t [place] [address] Care Team Providers Care Senior Telecommunications Engineer Name Role Phone Posadas Marge MELGAR Primary Care Provider [phone] Reason for Referral * Consultation (Routine) - Canceled Specialty Diagnoses / Procedures Referred By Contac t Referred To Contact Pulmonary Disease Diagnoses Balanitis Cough, unspecified type Pulmonary emphysema, unspecified emphysema type (CMS/HCC) Carleen Avilez MD [address] [place] [address] Phone: tel: fax: [facility]monology [address] [place] [address] [place], [place] Phone: tel: fax: Referral ID Status Reason Start Date Expiration Date Visits Requested Visits Authorized [id number] Canceled Specialty Services Required 03/09/2024 03/09/2025 1 1 Encounter Details Date Type Department Care Team (Late st Contact Info) Description 03/09/2024 2:00 PM EST Office Visit [facility] 230 [place], [place] [phone] Carleen Avilez MD [address] [place] [address] Balanitis (Primary Dx); Cough, unspecified type; Pulmonary emphysema, unspecified emphysema type (CMS/HCC); Lung nodule Social History Tobacco Use Types Packs/Day Years Used Date Smoking Tobacco: Former Cigarettes Passive Smoke Exposure: Past Smokeless Tobacco: Never Tobacco Cessation:Counseling Given: Not Answered Alcohol Use Standard Drinks/Week Comments Not Currently [...] AM EDT documented as of this encounter Last Filed Vital Signs Vital Sign Reading Time Taken Comments Blood Pressure 133/80 03/09/2024 1:50 PM EST Pulse 65 03/09/2024 1:50 PM EST Temperature 36.1 ??C (97 ??F) 03/09/2024 1:50 PM EST Respiratory Rate 20 03/09/2024 1:50 PM EST Oxygen Saturation 95% 03/09/2024 1:50 PM EST Inhaled Oxygen Concentration - - Weight 130 kg (285 lb 9.6 oz) 03/09/2024 1:50 PM EST Height 167.6 cm (5' 6 ) 03/09/2024 1:50 PM EST Body Mass Index 46.1 03/09/2024 1:50 PM EST documented in this encounter Patient Instructions * Patient Instructions* Carleen Avilez MD - 03/09/2024 2:00 PM EST [facility] DO[facility] DE [facility]OLOG[facility] documented in this encounter Progress Notes * Ginger Lu - 03/09/2024 2:20 PM EST Subjective Patient ID: Sergio Britt is a 73 y.o. male with past medical history of chronic atrial fibrillation, chronic diastolic heart failure, hypertension, hyperlipidemia, insulin-dependant type 2diabetes, diabetic neuropathy and retinopathy, COPD, MAN, eczema and depression who presents to walk in clinic for penis complaint. Pt is on SGLP2-Farxiga for type 2 diabetes treatment, that can cause penile candidiasis. Seen on by Urologist on 01/30/24 for Balanitis. Seen in [facility] on 02/[facility]/24 for balanitis and reported sxs x1 month and prescribed clotrimazole. Seen by [facility] at home yesterday(03/09/24 for cough since COVID dx from 2 weeks ago. Noted normal penis exam. Pt reports significant pain to his foreskin with inability to pull back. He notes he is taking Farxiga that is prescribed by his Mammography Technologist. He reports continuing to cough and feels a hoarseness to his voice. Pt wants a medication the will help with this. Per records; - CT of lungs 2021 IMPRESSION: emphysematous disease without interval developing suspicious pulmonary nodule by low-dose screening CT analysis when compared to [id number]. -CXR 03/03/24 in [facility] IMPRESSION: No acute abnormality. Review of Systems Constitutional: Negative for fever and unexpected weight change. Respiratory: Negative for shortness of breath. Cardiovascular: Negative for chest pain. Gastrointestinal: Negative for abdominal pain. Genitourinary: Positive for penile pain and penile swelling. Negative for difficulty urinating. Objective Visit Vitals BP 133/80 (BP Location: Left arm, Patient Position: Sitting, BP Cuff Size: Adult) Pulse 65 Temp 97 ??F (36.1 ??C) (Temporal) Resp 20 Body mass index is 46.1 kg/m??. Physical Exam Constitutional: Appearance: Normal appearance. Cardiovascular: Rate and Rhythm: Normal rate. Pulmonary: Effort: Pulmonary effort is normal. Breath sounds: Transmitted upper airway sounds present. No decreased breath sounds, wheezing, rhonchi or rales. Comments: Lungs CTA Genitourinary: Penis: Uncircumcised. Tenderness (reported when pt retracted foreskin) present. Testes: Normal. Skin: Nails: There is clubbing. Neurological: Mental Status: He is oriented to person, place, and time. Problem List Items Addressed This Visit Balanitis - Primary Discussed suspecting that his Farxiga could be causing the recurring balanitis. Encouraged to discuss medication changes with Mammography Technologist who prescribed the medication. Also gave pt the phone numberfor [facility] to call and make appt to get re-evaluated for recurring balanitis. No acute findings on exam of infectious process. Able to retract foreskin although reports pain. -prescribed nystatin (Mycostatin) cream Relevant Medications nystatin (Mycostatin) cream Other Relevant Orders Referral to Pulmonology Cough Persistent cough in setting of COVID 2 weeks ago and emphysema. - CT of lungs 2021 IMPRESSION: emphysematous disease without interval developing suspicious pulmonary nodule by low-dose screening CT analysis when compared to . -CXR 03/03/24 in [facility] IMPRESSION: No acute abnormality. -referred to [facility] 03/09/24 Relevant Orders Referral to Pulmonology Pulmonary emphysema (CMS/HCC) Persistent cough in setting of COVID 2 weeks ago and emphysema. - CT of lungs 2021 IMPRESSION: emphysematous disease without interval developing suspicious pulmonary nodule by low-dose screening CT analysis when compared to . -CXR 03/03/24 in [facility] IMPRESSION: No acute abnormality. -referred to [facility] 03/09/24 Relevant Orders Referral to Pulmonology Lung nodule Persistent cough in setting of COVID 2 weeks ago and emphysema. - CT of lungs 2021 IMPRESSION: emphysematous disease without interval developing suspicious pulmonary nodule by low-dose screening CT analysis when compared to . -CXR 03/03/24 in [facility] IMPRESSION: No acute abnormality. -referred to [facility] 03/09/24 -No evidence of acute disease process. Suspect recurring balanitis due to Farxiga use. Symptoms mild. -Will treat with Nystatin cream. -ER precautions discussed. -Seek medical attention for worsening symptoms. I, Ginger Lu, am serving as a scribe to document services personally performed by Dr. [place], based on the patient's response to questions by provider and providers statements to me. documented in this encounter Miscellaneous Notes * Assessment & Plan Note - Ginger Lu - 03/09/2024 2:25 PM ESTAssociated Problem(s): Pulmonary emphysema (CMS/HCC) Persistent cough in setting of COVID 2 weeks ago and emphysema. - CT of lungs 2021 IMPRESSION: emphysematous disease without interval developing suspicious pulmonary nodule by low-dose screening CT analysis when compared to . -CXR 03/03/24 in [facility] IMPRESSION: No acute abnormality. -referred to [facility] 03/09/24 * Assessment & Plan Note - Ginger Lu - 03/09/2024 2:25 PM ESTAssociated Problem(s): Lung nodule Persistent cough in setting of COVID 2 weeks ago and emphysema. - CT of lungs 2021 IMPRESSION: emphysematous disease without interval developing suspicious pulmonary nodule by low-dose screening CT analysis when compared to . -CXR 03/03/24 in [facility] IMPRESSION: No acute abnormality. -referred to [facility] 03/09/24 * Assessment & Plan Note - Carleen Avilez MD - 03/09/2024 2:16 PM EST Associated Problem(s): Cough Persistent cough in setting of COVID 2 weeks ago and emphysema. - CT of lungs 2021 IMPRESSION: emphysematous disease without interval developing suspicious pulmonary nodule by low-dose screening CT analysis when compared to . -CXR 03/03/24 in [facility] IMPRESSION: No acute abnormality. -referred to [facility] 03/09/24 * Assessment & Plan Note - Ginger Lu - 03/09/2024 2:13 PM ESTAssociated Problem(s): Balanitis Discussed suspecting that his Farxiga could be causing the recurring balanitis. Encouraged to discuss medication changes with Mammography Technologist who prescribed the medication. Also gave pt the phone numberfor [facility] to call and make appt to get re-evaluated for recurring balanitis. No acute findings on exam of infectious process. Able to retract foreskin although reports pain. -prescribed nystatin (Mycostatin) cream documented in this encounter Plan of Treatment Upcoming Encounters Date Type Department Care Team (Late st Contact Info) Description 05/24/2024 10:30 AM EDT Office Visit [facility] OPTOMETRY [address] [place] [address] Chico, Anuradha, OD [address] [place] [address] Scheduled Referrals Name Type Priority Associated Diagnoses Orde r Schedule Referral to Pulmonology Outpatient Referral Routine Balanitis Cough, unspecified type Pulmonary emphysema, unspecified emphysema type (CMS/HCC) Expected: 03/09/2024 (Approximate), Expires: 03/09/2025 documented as of this encounter Visit Diagnoses Diagnosis Balanitis- Primary Balanoposthitis Cough, unspecified type Pulmonary emphysema, unspecified emphysema type (CMS/HCC) Lung nodule Other diseases of lung, not elsewhere classified documented in this encounter Additional Health Concerns Assessment Noted Time PHQ-9 Depression Total Score: 1 06/12/19 24 11:18 AM EDT documented as of this encounter Care Teams Senior Telecommunications Engineer Relationship Specialty Start Date End Date Marge Posadas ANP [address] [place] [address] PCP - General Family Medicine 05/01/22 documented as of this encounter
--- OUTSIDE RECORDS SUMMARY | 2024-03-24 11:37 | XMS_ITS | Encounter Summary ---
Author Organization [employer] Address [address] [place] [address] 7 [place] [address] Care Team Providers Care Bus Starter Name Role Phone Marge Posadas Primary Care Provider [phone] Reason for Visit * Reason Comments Med Refill Encounter Details Date Type Department Care Team (Late st Contact Info) Description 11/14/2022 Refill [facility] MEDICINE [address] [place], [place] [phone] Yashira Tello MD [address] [place], [place] [phone] Chronic obstructive pulmonary disease, unspecified COPD type (CMS/HCC) Social History Tobacco Use Types [...] Description 05/24/2024 10:30 AM EDT Office Visit [facility] OPTOMETRY [address] [place], [place] [phone] Anuradha Golden OD [address] [place] [address] documented as of this encounter Visit Diagnoses Diagnosis Chronic obstructive pulmonary disease, unspecified COPD type (CMS/HCC) documented in this encounter Care Teams Bus Starter Relationship Specialty Start Date End Date Marge Posadas ANP [address] [place], [place] [phone] PCP - General Family Medicine 05/01/22 documented as of this encounter
--- OUTSIDE RECORDS SUMMARY | 2024-03-24 11:37 | XMS_ITS | Encounter Summary ---
Author Organization [employer] Address [address] [place] [address] 7 [place] [address] Care Team Providers Care Insole Filler Name Role Phone Marge Posadas Primary Care Provider [phone] Reason for Visit * Reason Comments Med Refill Encounter Details Date Type Department Care Team (Late st Contact Info) Description 03/10/2023 Refill [facility] MEDICINE [address] [place], [place] [phone] Marge Posadas ANP [address] [place], [place] [phone] Rash Social History Tobacco Use Types Packs/Day Years [...] Description 05/24/2024 10:30 AM EDT Office Visit [facility] OPTOMETRY [address] [place], [place] [phone] Anuradha Golden, OLIVE [address] [place] [address] documented as of this encounter Visit Diagnoses Diagnosis Rash Rash and other nonspecific skin eruption documented in this encounter Care Teams Insole Filler Relationship Specialty Start Date End Date Marge Posadas ANP [address] [place] [address] PCP - General Family Medicine 05/01/22 documented as of this encounter
--- OUTSIDE RECORDS SUMMARY | 2024-03-24 11:37 | XMS_ITS | Clinical Summary ---
Author Organization [employer] Address [address] [place] [address] [address] [place] [address] Care Team Providers Care Rebar Worker Name Role Phone Marge Posadas TALIA Primary Care Provider [phone] Allergies Active Allergy Reactions Criticality Noted Date Comments Metoprolol 10/07/2018 Germanium 12/30/2022 Tetanus Toxoids 01/19/2022 Tetanus vaccines and toxoid per previous EHR Medications calcipotriene (Dovonex) 0.005 % creamIndications: Psoriasis Apply twice daily for 2 weeks 60 g 1 023 Active omeprazole (PriLOSEC) [address] capsule TAKE 1 CAPSULE BY MOUTH DAILY ON EMPTY STOMACH 30 MINUTES BEFORE BREAKFAST 023 Active TRUEplus Lancets 33G misc TEST BLOOD SUGAR SIX TIMES DAILY 100 each 11 024 Active glucose blood (FreeStyle Precision Reid Test) test strip TEST BLOOD SUGAR SIX TIMES DAILY FOR cgm failure OR BLOOD SUGAR extremes 100 each 024 Active albuterol (2.5 MG/3ML) 0.083% nebulizer solution INHALE 1 AMPULE USING A NEBULIZER THREE TIMES DAILY NEEDED FOR ASTHMA OR SHORTNESS OF BREATH 90 mL 1 024 Active Continuous Glucose Sensor (FreeStyle Donna 2 Sensor) miscIndications:T ype 2 diabetes mellitus with hyperlipidemia (CMS/HCC) (CMS/[facility]) USE DIRECTED, CHANGE EVERY 14 DAYS 6 each 3 024 Active Pentips 32G X 4 MM miscIndications:D iabetic polyneuropathy associated with type 2 diabetes mellitus (CMS/HCC) USE UP TO FIVE TIMES DAILY 100 each 11 05/21/2 024 Active atorvastatin (Lipitor) 80 MG tablet TAKE 1 TABLET BY MOUTH AT BEDTIME 90 tablet 2 Active Blood Glucose Monitoring Suppl (StarbuckLabs2Style Lite) w/Device kitIndications:Di abetic polyneuropathy associated with type 2 diabetes mellitus (CMS/HCC) 1 each 3 times daily. USE Directed 1 kit Active NovoLOG FLEXPEN 100 UNIT/ML penIndications:Ty pe 2 diabetes mellitus with hyperlipidemia (CMS/HCC) (CMS/[facility]) INJECT 16 UNITS SUBCUTANEOUSLY BEFORE MEALS AND SNACKS 15 mL 11 Active Aspirin Low Dose 81 MG EC tabletIndications :Other specified personal risk factors, not elsewhere classified TAKE 1 TABLET BY MOUTH EVERY EVENING 90 tablet 1 Active metFORMIN (Glucophage) 1000 MG tabletIndications :Type 2 diabetes mellitus with diabetic polyneuropathy (CMS/HCC) TAKE 1 TABLET BY MOUTH TWICE DAILY IN THE MORNING AND IN THE EVENING WITH MEALS 180 tablet 1 Active furosemide (Lasix) 80 MG tabletIndications :Chronic diastolic heart failure (CMS/HCC) Take 1 tab BID 180 tablet 1 Active Diclofenac Sodium 1 % gelIndications:Ac miladys pain of left shoulder APPLY 2 GRAMS TOPICALLY NEEDED TO AFFECTED AREA(S) FOUR TIMES DAILY FOR PAIN 100 g 2 Active Multiple Vitamin (Multivitamin) tablet TAKE 1 TABLET BY MOUTH EVERY MORNING WITH FOOD ( VITAMIN) 30 tablet 1 Active amLODIPine (Norvasc) 10 MG tablet Take 1 tablet by mouth Once per day. Active Farxiga 10 MG Take 1 tablet by mouth Once per day. Active Ozempic, 1 MG/DOSE, 4 MG/3ML solution pen-injector Inject 1 MG SUBCUTANEOUSLY EVERY 7 DAYS IN THE ABDOMEN, THIGHS OR UPPER ARM. ROTATE INJECTION SITES. Active warfarin (Coumadin) 5 MG tabletIndications :Anticoagulated on Coumadin TAKE 1 TO 3 TABLETS DAILY DIRECTED BY coumadin clinic (PREVENT COAGULOS DE BLOOD) 68 tablet 2 Active Lantus SoloStar 100 UNIT/ML penIndications:Ty pe 2 diabetes mellitus without complication, unspecified whether half-way insulin use ([facility]/HCC) INJECT 44 UNITS SUBCUTANEOUSLY ONCE DAILY DIRECTED 15 mL 3 024 Active Continuous Glucose Hop Farm Worker (FreeStyle Donna 2 [place]) deviceIndications :Type 2 diabetes mellitus with hyperlipidemia (CMS/HCC) (CMS/HCC) 1 each 5 (five) times a day. 1 each 024 Active clotrimazole (Clotrimazole Anti-Fungal) 1 % creamIndications: Rash APPLY TOPICALLY TO THE AFFECTED AREA(S) TWICE DAILY FOR FOURTEEN DAYS 45 g 1 024 Active clobetasol (Temovate) 0.05 % ointmentIndicatio ns:Psoriasis APPLY 2 GRAMS TOPICALLY TO AFFECTED AREA(S) TWICE DAILY FOR FOURTEEN DAYS 60 g 1 024 Active gabapentin (Neurontin) 100 MG capsuleIndication s:Diabetes mellitus due to underlying condition with diabetic neuropathy, with long-term current use of insulin (CMS/HCC) TAKE 1 CAPSULE BY MOUTH TWICE DAILY IN THE MORNING AND AT BEDTIME (for nerve pain) 60 capsule 1 024 Active Serevent Diskus 50 MCG/ACT aerosol powderIndications :Pulmonary emphysema, unspecified emphysema type (CMS/HCC) INHALE 1 PUFF BY MOUTH TWICE DAILY (for COPD) 60 each 2 024 Active albuterol (Ventolin HFA) 108 (90 Base) MCG/ACT inhalerIndication s:Pulmonary emphysema, unspecified emphysema type (CMS/HCC) INHALE 2 PUFFS BY MOUTH EVERY 4 TO 6 HOURS NEEDED 18 g 1 024 Active Incruse Ellipta 62.5 MCG/ACT aerosol powderIndications :Chronic obstructive pulmonary disease, unspecified COPD type (CMS/HCC) INHALE 1 PUFF BY MOUTH EVERY DAY AT THE SAME TIME 30 each 3 024 Active lisinopril 40 MG tablet TAKE 1 TABLET BY MOUTH EVERY DAY IN THE MORNING 90 tablet 1 025 Active Nirmatrelvir&Jeramy navir 150/100 (Paxlovid, 150/100,) 10 x 150 MG & 10 x 100MG tablet therapy pack Take 1 Dose by mouth 2 times daily. 30 each 025 Active Dextromethorphan- guaiFENesin (Mucinex DM) 30-600 MG tablet sustained-release 12 hour Use 1 tab TID 28 tablet 025 Active nystatin (Mycostatin) creamIndications: Balanitis Apply topically 2 times daily. 15 g 1 025 2025 Active isosorbide mononitrate ER (Imdur) 120 MG 24 hr tabletIndications :Chronic systolic heart failure (CMS/HCC) TAKE 1 TABLET BY MOUTH EVERY MORNING (for the heart) 90 tablet 1 025 Active isosorbide mononitrate ER (Imdur) 120 MG 24 hr tabletIndications :Chronic systolic heart failure (CMS/HCC) TAKE 1 Tablet BY MOUTH EVERY MORNING 90 tablet 1 024 2024 Discontinued clotrimazole (Lotrimin) 1 % creamIndications: Balanitis Apply topically 2 times daily for 7 days. 30 g 025 2024 benzonatate (Tessalon Perles) 100 MG capsule Take 1 capsule (100 mg) by mouth if needed in the morning, at noon, and at bedtime for cough for up to 7 days. Do not crush or chew. 20 capsule 025 2024 Hospital, Clinic, or Other Facility Administered Medication Ordered Dose Route Frequency Start Date End Date Status albuterol (2.5 MG/3ML) 0.083% nebulizer solution 2.5 mgIndications:Wheezi ng 2.5 mg NEBULIZATION Once 03/03/2024 03/03/2024 Ended Active Problems Problem Noted Date Diagnosed Date Cough 03/09/2024 Assessment & Plan (03/09/2024 2:25 PM EST): Persistent cough in setting of COVID 2 weeks ago and emphysema. - CT of lungs 2021 IMPRESSION: emphysematous disease without interval developing suspicious pulmonary nodule by low-dose screening CT analysis when compared to [id number]. -CXR 03/03/24 in [facility] IMPRESSION: No acute abnormality. -referred to Car Sales Consultant 03/09/24 Lung nodule 03/09/2024 Assessment & Plan (03/09/2024 2:25 PM EST): Persistent cough in setting of COVID 2 weeks ago and emphysema. - CT of lungs 2021 IMPRESSION: emphysematous disease without interval developing suspicious pulmonary nodule by low-dose screening CT analysis when compared to [id number]. -CXR 03/03/24 in [facility] IMPRESSION: No acute abnormality. -referred to Car Sales Consultant 03/09/24 Balanitis 03/13/2023 Assessment & Plan (03/09/2024 2:14 PM EST): Discussed suspecting that his Farxiga could be causing the recurring balanitis. Encouraged to discuss medication changes with Roof Cement And Paint Maker Helper who prescribed the medication. Also gave pt the phone number for [facility] to call and make appt to get re-evaluated for recurring balanitis. No acute findings on exam of infectious process. Able to retract foreskin although reports pain. -prescribed nystatin (Mycostatin) cream Assessment & Plan (03/13/2023 12:05 PM EST): Hygiene counseling done Clotrimazole apply BID for 2 weeks if symptoms persist RTC I also advise patient to chio enriquez ( he admits he likes to eats desserts every day) I food counselor about better control with his diabetes and to f/u with PCP Benign prostatic hyperplasia with urinary freque ncy 03/13/2023 Assessment & Plan (03/13/2023 12:05 PM EST): Possible prostate problem PSA ordered urology referral Hyperlipidemia 09/05/2022 Chronic atrial fibrillation 06/04/2022 Overview (06/04/2022): Anticoagulated on coumadin Cataract of left eye 06/04/2022 Assessment & Plan (06/04/2022 1:52 PM EDT): Pt was here today for preop visit x left eye cataract surgery Pt is a high risk patient w mx comorbidities including AF on AC, HF,COPD uncontrolled DM today hb1AC 9.8, CBG 181, I called his insurance commissioner's office and discussed that surgery is a low risk procedure but the pt should be optimize with his DM management prior to do surgery, currently his HB1AC is close to 10 so can increase risk for infection and poor healing of tissue after surgery. Telephone Messenger's staff explained that cataract is not severe and there is no urgency for the procedure -I explained to patient today and to insurance commissioner's staff that will not clear for now to pt until DM is better controlled. Pt agreed with plan and this note will be faxed to his insurance commissioner Telephone Messenger: Location: [address], [place] [address] RCICI positive 06/04/2022 Assessment & Plan (06/04/2022 1:45 PM EDT): Pt referred at last visit by PCP to therapy teacher x + RICCI in recent labs --advised pt to make sure to f up w appt once is schedule Ascending aorta dilatation 01/19/2022 Chronic low back pain 01/19/2022 Eczema 01/19/2022 Fatigue 01/19/2022 Lower urinary tract symptoms 01/19/2022 Noncompliance with treatment 01/19/2022 Pulmonary emphysema 01/19/2022 Assessment & Plan (03/09/2024 2:25 PM EST): Persistent cough in setting of COVID 2 weeks ago and emphysema. - CT of lungs 2021 IMPRESSION: emphysematous disease without interval developing suspicious pulmonary nodule by low-dose screening CT analysis when compared to [id number]. -CXR 03/03/24 in [facility] IMPRESSION: No acute abnormality. -referred to Car Sales Consultant 03/09/24 Slow transit constipation 01/19/2022 Systolic heart failure 01/19/2022 Ex-smoker 01/19/2022 History of bacterial infection 01/19/2022 Activity of daily living alteration 01/19/2022 Anticoagulated on Coumadin 01/19/2022 Overview (01/19/2022): Anticoagulant effect per previous EHR Diabetic polyneuropathy 10/28/2017 Disorder of vein 10/28/2017 Psoriasis 09/12/2017 Erectile dysfunction 02/11/2017 Presbyesophagus 01/01/2017 Anemia 10/02/2016 Chronic diastolic heart failure 10/02/2016 Rash 04/05/2016 Assessment & Plan (11/25/2023 10:34 AM EDT): Patient here with c/o new onset of a tiny cluster of fluid filled vesicles left anterior lower leg. Completely asymptomatic. Etiology ? Exam suggestive of contact dermatitis, although pt denies any pruritus. No evidence of infection. Plan: Recommended to keep leg elevated while at home. No evidence of over edema but patient has chronic statis dermatitis . Did not drain to avoid risk of infection. Referral to adult derm clinic for evaluation. Discussed with patient if vesicles grow or spread to come in or present himself to the nearest ER Asthma 12/07/2015 Obstructive sleep apnea syndrome in adult 2015 Persistent microalbuminuria associated with type 2 diabetes mellitus (CMS/HCC) 12/07/2015 Chronic obstructive lung disease 09/27/2015 Depressive disorder 09/27/2015 Hypertension 09/27/2015 Severe obesity 09/27/2015 Type 2 diabetes mellitus 09/27/2015 Assessment & Plan (06/04/2022 1:43 PM EDT): Pt with uncontrolled DM today Hb1AC 9.8 Pt reports having CBGs > 200s at home ,last lab here in 300s ,does reports sometimes also thinks is having low CBGs due to symptoms , but pt is not actually checking his CBGs at home. -discussed w pt in length in regards importance of DM control ,improve diet ( pt states eating too much ) -continue metformin BID -gave written info to pt to increase his lantus to 44 ,currently using 40 u HS but to decrease rapid insulin to 14 u TID w meals from 16 u for now -explained to check his CBGs in fasting and 2 hours after biggest meal and bring at next visit --seems he was in the past on trulicty with cards but apparently pt was not taking medication and was dced -I spoke w pt and he agreed to try fargixa 5mg daily with cardiac and renal benefits--I prescribed med verbally to px -discussed case today w his PCP and PCP referred pt x diabetes educational management and resent prescription x continued glucose monitoring -referred today to reject opener and filler -RTC in 6 weeks w PCP -may need to consider to resume GLP1 if possible in the future x weight loss -pt in MTM program Resolved Problems Problem Noted Date Diagnosed Date Resolved Date Acute diarrhea 01/19/2022 12/09/2023 Acute exacerbation of chroni c obstructive bronchitis 01/01/2017 11/18/2023 Encounters Date Type Department Care Team Description 03/10/2024 Refill [facility] [address] [place] [phone] Marge Posadas ANP Chronic systolic heart failure ([facility]/HCC) 03/09/2024 2:00 PM EST Office Visit [facility] [address] [place] [phone] Carleen Avilez MD Balanitis (Primary Dx); Cough, unspecified type; Pulmonary emphysema, unspecified emphysema type ([facility]); Lung nodule 03/03/2024 11:20 AM EST Office Visit [facility] [address] [place] [phone] April Shaver DO COVID-19 (Primary Dx); Wheezing 02/25/2024 9:20 AM EST Office Visit [facility] [address] [address] Meenakshi Tai MD COVID (Primary Dx) 02/19/2024 10:00 AM EST Office Visit [facility] [address] [address] Noe Aaron MD Balanitis (Primary Dx); Encounter for immunization 02/19/2024 Travel 02/12/2024 Refill [facility] [address] [place] [phone] Marge Posadas ANP 01/21/2024 Refill [facility] [address] [phone] Marge Posadas ANP Rash; Psoriasis; Diabetes mellitus due to underlying condition with diabetic neuropathy, with long-term current use of insulin ([facility]); Pulmonary emphysema, unspecified emphysema type ([facility]); Chronic obstructive pulmonary disease, unspecified COPD type ([facility]/HCC) 01/13/[address] [address] Archana Vasquez MA chart prep 01/13/2024 Orders Only GENERIC EXTERNAL DATA DEPARTMENT Provider, Generic External Data 12/26/[address] [address] Amanda Leyva MA DME for DM Shoes from Last 3 Months Immunizations Name Administration Dates Next Due Influenza High-dose Quadriva lent Preservative Free 12/18/2022,10/30/2021,11/30/2020,12/05 Influenza injectable quadriv alent IIV4 with preservative 10/28/2017,10/30/2016,10/31/2015 Influenza, High Dose Seasona l, Preservative Free 02/19/2024,12/04/2018 Moderna Covid-19 Vaccine 12+ 05/21/2021,04/28/19,03/30/2020 Pfizer Covid-19 Vaccine 12+ 12/04/2020 Pfizer Covid-19 Vaccine 12+ Bivalent 12/04/2021 Pneumococcal Conjugate PCV 13 12/04/2018 Pneumococcal Conjugate PCV 20 04/08/2023 Pneumococcal Polysaccharide PPSV23 10/28/2017, Zoster, Recombinant 07/02/2022,04/24/2022 Family History Medical History Relation Name Comments Hypertension Father Lung cancer Father Relation Name Status Comments Father Social History Tobacco Use Types Packs/Day Years [...] Orientation Straight 12/10/2021 10 :24 AM EDT Last Filed Vital Signs Vital Sign Reading [...] Mass Index 46.1 03/09/2024 1:50 PM EST Plan of Treatment Upcoming Encounters Date Type Department Care Team (Late st Contact Info) Description 05/24/2024 10:30 AM EDT Office Visit [facility] [address] [place] [address] [place], Anuradha, OD [address] [place] [address] Health Maintenance Due Date Last Done Comments CT Colonography 1952 FIT DNA/Cologuard 1950 Sigmoidoscopy 1952 Alcohol/Substance Use Screening 1964 Hepatitis C Screening 1970 DTaP/Tdap/Td Vaccines (1 - Tdap) 11/08/1971 RSV Patients and Patients Aged 60 years or older (1 - Risk 60-74 years 1-dose series) 2012 Colonoscopy 09/15/2021 09/16/2011, 09/16/2011 Lipid Panel 09/20/2022 09/20/2021, 05/12, 11/11/2019 COVID-19 Vaccine ( season) 2023 12/04/2021, 05/21/2021, 12/04/2020, Additional history exists Diabetes: Hemoglobin A1C 02/18/2024 024, 06/12/2023, 04/08/2023, Additional history exists Colorectal Cancer Screening 04/14/2024 FIT 04/14/2024 04/15/2023 FOBT 04/14/2024 04/15/2023 Depression Screening 06/11/2024 06/12/2023, 06/12/19 24 Diabetes: Foot Exam 06/11/2024 06/12/2023, 06/12/2023, 12/19/2022, Additional history exists SDOH Screening 06/11/2024 06/12/2023 Eye Exam 12/18/2024 12/18/2022, 09/2022, 12/18/2022, Additional history exists Tobacco Screening 03/09/2025 03/09/2024 Zoster Vaccines Completed 07/02/2022, 04/24/2022 Pneumococcal Vaccine: 50+ Years Completed 04/08/2023, 12/04/2018, 10/28/2017, Additional history exists Influenza Vaccine Completed 02/19/2024, , 10/30/2021, Additional history exists HIB Vaccines Aged Out No longer eligi ble based on patient's age to complete this topic HPV Vaccines Aged Out No longer eligi ble based on patient's age to complete this topic Hepatitis A Vaccines Aged Out No long er eligible based on patient's age to complete this topic Hepatitis B Vaccines Aged Out No long er eligible based on patient's age to complete this topic IPV Vaccines Aged Out No longer eligi ble based on patient's age to complete this topic Meningococcal Vaccine Aged Out No shirley sukhdev eligible based on patient's age to complete this topic RSV under 20 months Aged Out No longe r eligible based on patient's age to complete this topic Rotavirus Vaccines Aged Out No longer eligible based on patient's age to complete this topic Procedures Procedure Name Priority Date/Time Associated Diagnosis Comments PROTHROMBIN TIME WHOLE BLD POC Routine 01/13/2024 11:16 AM EST ~PT, ~INR - ANTI COAG CLINIC Routine 01/13/2024 11:16 AM EST POCT GLYCATED HEMOGLOBIN, TOTAL Routine 11/18/2023 11:41 AM EDT Persistent microalbuminuria associated with type 2 diabetes mellitus (CMS/HCC) (CMS/HCC) FECAL GLOBIN BY IMMUNOCHEMISTRY Routine 04/15/2023 8:30 AM EST Acute diarrhea LIPID PANEL, STANDARD Routine 09/20/2021 9:03 AM EDT HM COLONOSCOPY Routine 09/16/2011 from Last 3 Months or Most Recently Relevant to Health Maintenance Results * (ABNORMAL) PROTHROMBIN TIME WHOLE BLD POC (01/13/2024 11:16 AM EST) Protime 33.3(H) 11.1 - 13.5 sec [facility] 01/13/2024 11:1 6 AM EST 01/13/2024 11:18 AM EST us Generic External Data Provider LAB BLOOD ORDERAB LES Final Result [facility] [address] [place] [address] [phone] * (ABNORMAL) ~PT, ~INR - ANTI COAG CLINIC (01/13/2024 11:16 AM EST) Prothrombin Time INR 2.8(H) 0.9 - 1.1 [facility] Comment:METER #: [id number] TERNATIONAL NORMALIZED RATIO (INR) REFERENCE RANGES Reference RangeFor patients not on anticoagulant therapy: 0.9 - 1.1INR ranges for oral anticoagulanttherapy:For prevention and treatment of venous thrombosis and pulmonary embolism: 2.0 - 3.0For acute myocardial infarction with aspirin therapy: 2.0 - 3.0For acute myocardial infarction without aspirin therapy: 3.0 - 4.0For patients with mechanical prosthetic heart valves: 2.5 - 3.5 01/13/2024 11:1 6 AM EST 01/13/2024 11:18 AM EST Generic External Data Provider LAB BLOOD ORDERAB LES Final Result Performing Organization Address [facility]/ZIP Co de Phone Number [facility] [address] [place] [phone] * (ABNORMAL) POCT HGB A1C (11/18/2023 11:41 AM EDT) Hemoglobin A1C 8.1(A) 4.0 - 6.0 % QC Media Lot # [id number] Lot# Expiration Date [id number] Blood 11/18/2023 11:4 1 AM EDT Marge MELGAR POINT OF CARE TEST ENTER/EDIT OR DERABLES Final Result * Fecal Globin by Immunochemistry (04/15/2023 8:30 AM EST) Fecal Globin By Immunochemistry SEE NOTE [facility] Comment:FECAL GLOBIN BY IMMU NOCHEMISTRY Micro Number: [id number] Test Status: Final Specimen Source: Not given Specimen Quality: Inadequate Fecal Globin: Test not performed. No specimen received.THIS TEST WAS PERFORMED AT:[employer] [address] [id number] OWUSU MD Stool Rectal contents / Unknown 04/15/2023 8:30 AM EST 04/15/2023 12:02 PM EST Marge MELGAR LAB BODY FLUIDS AND STOOLS ORDER TARYN Final Result Performing Organization Address [facility]/ZIP Co de Phone Number [facility] [address] [place] [phone] * LIPID PANEL, STANDARD (09/20/2021 9:03 AM EDT) Chol/HDLC Ratio 2.5 <5.0 (calc) [facility] Cholesterol, Total 103 <200 mg/dL [facility] HDL Cholesterol 42 > OR = 40 mg/dL [facility] LDL Cholesterol 49 mg/dL (calc) [facility] Comment: Reference range: <100 ?? Desirable range <100 mg/dL for primary prevention; ?? <70 mg/dL for patients with CHD or diabetic patients ?? with > or = 2 CHD risk factors. ?? LDL-C is now calculated using the Antwon ?? calculation, which is a validated novel method providing ?? better accuracy than the Friedewald equation in the ?? estimation of LDL-C. ?? Fran GOMES et al. JACEK. 2013;310(19): 2198-4967 ?? (http://hybris.TheCityGame/faq/VYR227) Non-HDL Cholesterol 61 <130 mg/dL (calc) [facility] Comment: For patients with diabetes plus 1 major ASCVD risk ?? factor, treating to a non-HDL-C goal of <100 mg/dL ?? (LDL-C of <70 mg/dL) is considered a therapeutic ?? option. Triglycerides 50 <150 mg/dL [facility] 09/20/2021 9:03 AM EDT Ricci Tello MD LAB BLOOD ORDERABLES Fin al Result [facility] [address] * Colonoscopy (09/16/2011) Pathologist [facility] Colonoscopy Normal Normal us Historical Provider HEALTH MAINTENANCE Final Result from Last 3 Months or Most Recently Relevant to Health Maintenance Insurance - ALO Care Teams Rebar Worker Relationship Specialty Start Date End Date Marge Posadas ANP [address] [place] [phone] PCP - General Family Medicine 05/01/22
--- OUTSIDE RECORDS SUMMARY | 2024-03-24 11:37 | XMS_ITS | Encounter Summary ---
Author Organization [employer] Address [address] [place] [address] [address] [place] [address] Care Team Providers Care Fine Arts Packer Name Role Phone Marge Posadas Primary Care Provider [phone] Reason for Visit * Reason Comments Med Refill Encounter Details Date Type Department Care Team (Late st Contact Info) Description 01/29/2023 Refill [facility] [address] [place], [place] [phone] Marge Posadas ANP [address] [place], [place] [phone] Psoriasis Social History Tobacco Use Types Packs/Day Years [...] [facility] [address] [place], [place] [phone] Anuradha Golden, OLIVE [address] [place] [address] documented as of this encounter Visit Diagnoses Diagnosis Psoriasis Other psoriasis documented in this encounter Care Teams Fine Arts Packer Relationship Specialty Start Date End Date Marge Posadas ANP [address] [place] [address] PCP - General Family Medicine 05/01/22 documented as of this encounter
--- OUTSIDE RECORDS SUMMARY | 2024-03-24 11:37 | XMS_ITS | Encounter Summary ---
Author Organization [employer] Address [address] [place] [address] 7t [place] [address] Care Team Providers Care Tower Erector Name Role Phone Cuauhtemoc Marge MELGAR Primary Care Provider [phone] Reason for Visit * Reason Comments Shortness of Breath Cough Wheezing Encounter Details Date Type Department Care Team ([facility] st Contact Info) Description 03/03/2024 11:20 AM EST Office Visit [facility] [address] [place], [place] [phone] April Shaver DO [address] [place], [place] [phone] COVID-19 (Primary Dx); Wheezing Social History Tobacco Use Types Packs/Day Years [...] Sign Reading Time Taken Comments Blood Pressure 158/85 03/03/2024 11:08 AM EST Pulse 70 03/03/2024 11:29 AM EST Temperature 36.6 ??C (97.9 ??F) 03/03/2024 11:[address] Respiratory Rate 32 03/03/2024 11:59 AM EST Oxygen Saturation 98% 03/03/2024 11:59 AM EST on 2L NC Inhaled Oxygen Concentration - - Weight 130 kg (286 lb) 03/03/2024 11:08 AM EST Height 167.6 cm (5' 6 ) 03/03/2024 11:08 AM EST Body Mass Index 46.16 03/03/2024 11:08 AM EST documented in this encounter Progress Notes * April Shaver, - 03/03/2024 11:20 AM EST SUBJECTIVE: Sergio Britt is a 73 y.o. year old male who presents for sick visit . He was seen in [place] one week ago with cough and congestion. He was dx'd with COVID and given paxlovidand mucinex. He says that he completed the covid treatment and still has mucinex left at home. He comes to [place] today c/o wheezing and SOB. He has pumps at home that he has been using and using his nebulizer machine twice a day but not helping. He used his nebulizer machine at 7 am and had treatment upon arrival but feels the same. He has a lot of cough. No ST or ear pain. No fevers. He says he can't sleep at night because of his wheezing and breathing. History provided by: Patient help desk coordinator used: Yes Wheezing Severity compared to prior episodes: More severe Timing: Constant Progression: Worsening Chronicity: New Relieved by: Nothing Associated symptoms: cough, fatigue and shortness of breath Associated symptoms: no chest pain, no chest tightness, no ear pain, no fever, no headaches, no rash, no rhinorrhea and no sore throat Review of Systems Constitutional: Positive for fatigue. Negative for fever. HENT: Negative for ear pain, rhinorrhea and sore throat. Respiratory: Positive for cough, shortness of breath and wheezing. Negative for chest tightness. Cardiovascular: Negative for chest pain. Gastrointestinal: Negative for abdominal pain, diarrhea and vomiting. Skin: Negative for rash. Neurological: Negative for headaches. 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 (CMS/HCC) (CMS/HCC) Presbyesophagus Psoriasis Pulmonary emphysema (CMS/HCC) Slow transit constipation Systolic heart failure (CMS/HCC) Type 2 diabetes mellitus (CMS/HCC) Erectile dysfunction Ex-smoker History of bacterial infection Activity of daily living alteration Anticoagulated on Coumadin Chronic atrial fibrillation (CMS/HCC) Cataract of left eye RICCI positive Hyperlipidemia Balanitis Benign prostatic hyperplasia with urinary frequency Allergies Allergen Reactions Metoprolol Milkflow [Germanium] Tetanus Toxoids Tetanus vaccines and toxoid per previous EHR OBJECTIVE Vitals: 03/03/24 1108 03/03/24 1129 03/03/24 1159 BP: (!) 158/85 BP Location: Left arm Patient Position: Sitting BP Cuff Size: Adult long Pulse: 104 70 Resp: (!) 27 (!) 32 Temp: 97.9 ??F (36.6 ??C) TempSrc: Temporal SpO2: 97% 94% 98% Weight: 286 lb (130 kg) Height: 5' 6 (1.676 m) Physical Exam Constitutional: General: He is not in acute distress. Appearance: Normal appearance. Cardiovascular: Rate and Rhythm: Normal rate and regular rhythm. Heart sounds: Normal heart sounds. No murmur heard. Pulmonary: Effort: Pulmonary effort is normal. Tachypnea present. No respiratory distress. Breath sounds: Examination of the right-upper field reveals rhonchi. Examination of the left-upper field reveals rhonchi. Examination of the right-middle field reveals rhonchi. Examination of the left-middle field reveals rhonchi. Examination of the right-lower field reveals rhonchi. Examination ofthe left- lower field reveals rhonchi. Rhonchi present. Comments: Coarse BS diffusely Scattered expiratory wheezing Neurological: General: No focal deficit present. Mental Status: He is alert and oriented to person, place, and time. Cranial Nerves: No cranial nerve deficit. Motor: No weakness. Gait: Gait normal. Psychiatric: Mood and Affect: Mood normal. ASSESSMENT/PLAN Diagnoses and all orders for this visit: COVID-19 With worsening sx, hypoxia and tachypnea on exam, no improvement with nebulizer treatment/O2 supplementation -advised pt that he needs to go to ED for further eval and acute treatment, he agrees with [facility]erto [facility] [place] RN contacted EMS for transport -attempted to notify [facility] ED triage of patient's arrival multiple times but no answer, AREN RN will attempt to contact [facility] Wheezing - albuterol (2.5 MG/3ML) 0.083% nebulizer solution 2.5 mg F/U with PCP after ED eval Current Outpatient Medications: albuterol (2.5 MG/3ML) 0.083% nebulizer solution, INHALE 1 AMPULE USING A NEBULIZER THREE TIMES DAILY NEEDED FOR ASTHMA OR SHORTNESS OF BREATH, Disp: 90 mL, Rfl: 1 albuterol (Ventolin HFA) 108 (90 Base) MCG/ACT inhaler, INHALE 2 PUFFS BY MOUTH EVERY 4 TO 6 HOURS NEEDED, Disp: 18 g, Rfl: 1 amLODIPine (Norvasc) 10 MG tablet, Take 1 tablet by mouth Once per day., Disp: , Rfl: Aspirin Low Dose 81 MG EC tablet, TAKE 1 TABLET BY MOUTH EVERY EVENING, Disp: 90 tablet, Rfl: 1 atorvastatin (Lipitor) 80 MG tablet, TAKE 1 TABLET BY MOUTH AT BEDTIME, Disp: 90 tablet, Rfl: 2 Blood Glucose Monitoring Suppl (FreeStyle Lite) w/Device kit, 1 each 3 times daily. USE Directed, Disp: 1 kit, Rfl: 0 calcipotriene (Dovonex) 0.005 % cream, Apply twice daily for 2 weeks, Disp: 60 g, Rfl: 1 clobetasol (Temovate) 0.05 % ointment, APPLY 2 GRAMS TOPICALLY TO AFFECTED AREA(S) TWICE DAILY FOR FOURTEEN DAYS, Disp: 60 g, Rfl: 1 clotrimazole (Clotrimazole Anti-Fungal) 1 % cream, APPLY TOPICALLY TO THE AFFECTED AREA(S) TWICE DAILY FOR FOURTEEN DAYS, Disp: 45 g, Rfl: 1 Continuous Glucose Lifts And Cranes Inspector (FreeStyle Donna 2 [place]) device, 1 each 5 (five) times a day., Disp: 1 each, Rfl: 0 Continuous Glucose Sensor (FreeStyle Donna 2 Sensor) [facility] [place], USE DIRECTED, CHANGE EVERY 14 DAYS, Disp: 6 each, Rfl: 3 Dextromethorphan-guaiFENesin (Mucinex DM) 30-600 MG tablet sustained-release 12 hour, Use 1 tab TID, Disp: 28 tablet, Rfl: 0 Diclofenac Sodium 1 % gel, APPLY 2 GRAMS TOPICALLY NEEDED TO AFFECTED AREA(S) FOUR TIMES DAILY FOR PAIN, Disp: 100 g, Rfl: 2 Farxiga 10 MG, Take 1 tablet by mouth Once per day., Disp: , Rfl: furosemide (Lasix) 80 MG tablet, Take 1 tab BID, Disp: 180 tablet, Rfl: 1 gabapentin (Neurontin) 100 MG capsule, TAKE 1 CAPSULE BY MOUTH TWICE DAILY IN THE MORNING AND AT BEDTIME (for nerve pain), Disp: 60 capsule, Rfl: 1 glucose blood (FreeStyle Precision Reid Test) test strip, TEST BLOOD SUGAR SIX TIMES DAILY FOR cgm failure OR BLOOD SUGAR extremes, Disp: 100 each, Rfl: 11 Incruse Ellipta 62.5 MCG/ACT aerosol powder , INHALE 1 PUFF BY MOUTH EVERY DAY AT THE SAME TIME, Disp: 30 each, Rfl: 3 isosorbide mononitrate ER (Imdur) 120 MG 24 hr tablet, TAKE 1 Tablet BY MOUTH EVERY MORNING, Disp: 90 tablet, Rfl: 1 Lantus SoloStar 100 UNIT/ML pen, INJECT 44 UNITS SUBCUTANEOUSLY ONCE DAILY DIRECTED, Disp: 15 mL, Rfl: 3 lisinopril 40 MG tablet, TAKE 1 TABLET BY MOUTH EVERY DAY IN THE MORNING, Disp: 90 tablet, Rfl: 1 metFORMIN (Glucophage) 1000 MG tablet, TAKE 1 TABLET BY MOUTH TWICE DAILY IN THE MORNING AND IN THEEVENING WITH MEALS, Disp: 180 tablet, Rfl: 1 Multiple Vitamin (Multivitamin) tablet, TAKE 1 TABLET BY MOUTH EVERY MORNING WITH FOOD ( VITAMIN), Disp: 30 tablet, Rfl: 1 Nirmatrelvir&Ritonavir 150/100 (Paxlovid, 150/100,) 10 x 150 MG & 10 x 100MG tablet therapypack, Take 1 Dose by mouth 2 times daily., Disp: 30 each, Rfl: 0 NovoLOG FLEXPEN 100 UNIT/ML pen, INJECT 16 UNITS SUBCUTANEOUSLY BEFORE MEALS AND SNACKS, Disp: 15 mL, Rfl: 11 omeprazole (PriLOSEC) [address] capsule, TAKE 1 CAPSULE BY MOUTH DAILY ON EMPTY STOMACH 30 MINUTES BEFORE BREAKFAST, Disp: , Rfl: Ozempic, 1 MG/DOSE, 4 MG/3ML solution pen-injector, Inject 1 MG SUBCUTANEOUSLY EVERY 7 DAYS IN THE ABDOMEN, THIGHS OR UPPER ARM. ROTATE INJECTION SITES., Disp: , Rfl: Pentips 32G X 4 MM misc, USE UP TO FIVE TIMES DAILY, Disp: 100 each, Rfl: 11 Serevent Diskus 50 MCG/ACT aerosol powder , INHALE 1 PUFF BY MOUTH TWICE DAILY (for COPD), Disp: 60each, Rfl: 2 TRUEplus Lancets 33G misc, TEST BLOOD SUGAR SIX TIMES DAILY, Disp: 100 each, Rfl: 11 warfarin (Coumadin) 5 MG tablet, TAKE 1 TO 3 TABLETS DAILY DIRECTED BY coumadin clinic (PREVENT COAGULOS DE BLOOD), Disp: 68 tablet, Rfl: 2 No current facility-administered medications for this visit. * Pilar Cramer RN - 03/03/2024 11:20 AM EST EMS called at 1148 per verbal order per Dr. Shaver and informed pt requesting transport to [facility]. EMS arrived and given verbal report by Walk In LEVI Blanchard. Pt being transported to [facility]. Pt to F/U as needed upon discharge. documented in this encounter Plan of Treatment Upcoming Encounters Date Type Department Care Team (Late st Contact Info) Description 05/24/2024 10:30 AM EDT Office Visit [facility] [address] [place] [address] Anuradha Golden, OD [address] [place], [place] [phone] documented as of this encounter Visit Diagnoses Diagnosis COVID-19- Primary Wheezing documented in this encounter Administered Medications Inactive Administered Medications - up to 3 most recent administrations Medication Order MAR Action Action Date Dose Rate Site albuterol (2.5 MG/3ML) 0.083% nebulizer solution 2.5 mg 2.5 mg, Nebulization, Once, On Fri03/03/24 at 1130, For 1 doseIndications:Wheezing Given 03/03/2024 11:30 AM EST 2.5 mg documented in this encounter Additional Health Concerns Assessment Noted Time PHQ-9 Depression Total Score: 1 06/12/19 24 11:18 AM EDT documented as of this encounter Care Teams Tower Erector Relationship Specialty Start Date End Date Marge Posadas ANP [address] [place], [place] [phone] PCP - General Family Medicine 05/01/22 documented as of this encounter
--- OUTSIDE RECORDS SUMMARY | 2024-03-24 11:37 | XMS_ITS | Encounter Summary ---
Author Organization [employer] Address [address] [place] [address] 7 [place] [address] Care Team Providers Care Shovel Log Loader Operator Name Role Phone Marge Posadas Primary Care Provider [phone] Reason for Visit * Reason Comments Med Refill Encounter Details Date Type Department Care Team (Late st Contact Info) Description 01/31/2023 Refill [facility] [address] [place], [place] [phone] Marge Posadas ANP [address] [place], [place] [phone] Social History Tobacco Use Types Packs/Day Years [...] Description 05/24/2024 10:30 AM EDT Office Visit [facility] [address] [place], [place] [phone] Anuradha Golden, OLIVE [address] [place] [address] documented as of this encounter Visit Diagnoses Not on filedocumented in this encounter Care Teams Shovel Log Loader Operator Relationship Specialty Start Date End Date Marge Posadas ANP [address] [place] [address] PCP - General Family Medicine 05/01/22 documented as of this encounter
--- OUTSIDE RECORDS SUMMARY | 2024-03-24 11:37 | XMS_ITS | Encounter Summary ---
Author Organization [employer] Address [address] [facility] 7t [place] [address] Care Team Providers Care Mountain Or Glacier Guide Name Role Phone Marge Posadas TALIA Primary Care Provider [phone] Encounter Details Date Type Department Care Team ([facility] st Contact Info) Description 02/18/2023 Orders Only [facility] MED & PEDS [address] [place], [place] [phone] Smith Barnes MD [address] [place] [address] Chronic pain of right ankle (Primary Dx) Social History Tobacco Use Types [...] Description 05/24/2024 10:30 AM EDT Office Visit [facility] [address] [place] [address] Anuradha Golden, OLIVE [address] [place] [address] documented as of this encounter Visit Diagnoses Diagnosis Chronic pain of right ankle- Primary documented in this encounter Care Teams Mountain Or Glacier Guide Relationship Specialty Start Date End Date Marge Posadas ANP [address] [place] [address] PCP - General Family Medicine 05/01/22 documented as of this encounter
--- OUTSIDE RECORDS SUMMARY | 2024-03-24 11:37 | XMS_ITS | Encounter Summary ---
Author Organization [employer] Address [address] [place] [address] 7 [place] [address] Care Team Providers Care Paint Stockman Name Role Phone Yashira Tello MD Primary Care Provider + Marge Posadas Primary Care Provider [phone] Reason for Visit * Reason Onset Date Comments Referral 01/15/2022 Encounter Details Date Type Department Care Team (Late st Contact Info) Description 01/15/2022 Telephone [facility] MED[facility]INE [address] [place], [place] [phone] Yashira Tello MD [address] [place], [place] [phone] Referral Social History Tobacco Use Types Packs/Day Years Used Date Smoking Tobacco: Never Assessed Sex and Gender Information Value Date Recorded Sex Assigned at Male 12/10/2021 10:24 AM EDT Legal Sex Male 10:24 AM EDT Gender Identity Male 12/10/2021 10:24 AM EDT Sexual Orientation Straight 12/10/2021 10 :24 AM EDT documented as of this encounter Miscellaneous Notes * Telephone Encounter - Zee Fitch RN - 01/15/2022 4:50 PM EST Call returned, spoke with spouse who states that patient now having rash on hands, on legs, feet and abdomen. Per spouse pt used ointment and benadryl without relief. Pt wants derm referral. Advised due rash worsening will need to be seen in office for referral to be submitted. Pt spouse agrees to notify pt to come into [facility] tomorrow for exam. Reviewed operating hours and wait times vary based on pt volume and sx acuity. Protocol Used: Rash or Redness - Widespread (Adult) Protocol-Based Disposition: See in Office or Video Visit Today Video visit offer not recorded Positive Triage Question: * Severe itching * All higher-acuity triage questions were negative Care Advice Discussed: * Reassurance and Education - Widespread Rash * Antihistamine Medicines for Moderate to Severe Itching * Reasons To Call Back - You become worse * Telephone Encounter - Natalie Mendel - 01/15/2022 10:05 AM EST Tc from pt calling requesting a dermatology referral. No detail on location. Pt stated is having a huge rash. Pt was triage on 12/31 and was seen with PDR. Shaver. Pt decline triage PCP DR. Tello documented in this encounter Plan of Treatment Upcoming Encounters Date Type Department Care Team (Late st Contact Info) Description 05/24/2024 10:30 AM EDT Office Visit [facility] [address] [place] [address] [place], Anuradha, OD [address] [place] [address] documented as of this encounter Visit Diagnoses Not on filedocumented in this encounter Care Teams Paint Stockman Relationship Specialty Start Date End Date Yashira Tello MD [address] [place] [address] PCP - General Family Medicine 06/29/20 04/30/22 Marge Posadas ANP [address] [place] [address] PCP - General Family Medicine 05/01/22 documented as of this encounter
--- OUTSIDE RECORDS SUMMARY | 2024-03-24 11:37 | XMS_ITS | Encounter Summary ---
Author Organization [employer] Address [address] [place] [address] 7 [place] [address] Care Team Providers Care Double Corner Cutter Name Role Phone Marge Posadas Primary Care Provider [phone] Reason for Visit * Reason Comments Med Refill Encounter Details Date Type Department Care Team (Late st Contact Info) Description 09/10/2023 Refill [facility] MEDICINE [address] [place], [place] [phone] Marge Posadas ANP [address] [place], [place] [phone] Diabetes mellitus due to underlying condition with diabetic neuropathy, with long-term current use of insulin ([facility]) Social History Tobacco Use Types Packs/Day Years [...] Description 05/24/2024 10:30 AM EDT Office Visit [facility] [address] [place], [place] [phone] Anuradha Golden OD [address] [place] [address] documented as of this encounter Visit Diagnoses Diagnosis Diabetes mellitus due to underlying condition with diabetic neuropathy, with long-term current use of insulin ([facility]) documented in this encounter Additional Health Concerns Assessment Noted Time PHQ-9 Depression Total Score: 1 06/12/19 24 11:18 AM EDT documented as of this encounter Care Teams Double Corner Cutter Relationship Specialty Start Date End Date Marge Posadas ANP [address] [place] [address] PCP - General Family Medicine 05/01/22 documented as of this encounter
--- OUTSIDE RECORDS SUMMARY | 2024-03-24 11:37 | XMS_ITS | Encounter Summary ---
Author Organization [employer] Address [address] [facility] 7t [place] [address] Care Team Providers Care Financial Analyst Name Role Phone Marge Posadas Primary Care Provider [phone] Reason for Visit * Reason Comments Med Refill Encounter Details Date Type Department Care Team (Late st Contact Info) Description 11/23/2023 Refill [facility] [address] [place], [place] [phone] Marge Posadas ANP [address] [place] [address] Pulmonary emphysema, unspecified emphysema type (CMS/HCC) Social [...] Description 05/24/2024 10:30 AM EDT Office Visit [facility] [address] [place] [address] ChicoAnuradha javed, OD [address] [place] [address] documented as of this encounter Visit Diagnoses Diagnosis Pulmonary emphysema, unspecified emphysema type (CMS/HCC) documented in this encounter Additional Health Concerns Assessment Noted Time PHQ-9 Depression Total Score: 1 06/12/19 24 11:18 AM EDT documented as of this encounter Care Teams Financial Analyst Relationship Specialty Start Date End Date Marge Posadas ANP [address] [place] [address] PCP - General Family Medicine 05/01/22 documented as of this encounter
--- OUTSIDE RECORDS SUMMARY | 2024-03-24 11:37 | XMS_ITS ---
Author Organization [facility] Address [address] [place] [address] Care Team Providers Care Access Liaison Name Role Phone Marge Posadas Primary Care Provider Kaylen Castro [phone] REASON FOR VISIT Computational Physicist needed Encounters Encounter Location Date Provider Diagnosis [facility] [address] [address] 01/22/2024 Kaylen Ribeiro Plan Of Treatment Next Appt Details Provider Name:Kaylen lyn, 04/22/2024 01:00:00 PM, [facility] [address], [place], [address], Progress Notes * Sergio YEPEZ FDO B:1950 (73 yo M)Acc No.[id number]:01/22/2024 Patient:?Seamus YEPEZ :1950???Age:73 Y???Sex:Male Address:[address] [place] [address], [address] * * Date:?
== END 2024-03-24 10:29 | disposition home or self-care (01) ==
PROVIDERS: PCP Nurse Practitioner Primary Care; Visit Provider Internal Medicine Nephrology
DX: N18.31 Chronic kidney disease, stage 3a (principal); I10 Essential (primary) hypertension
CPT/HCPCS: 99214

== ENCOUNTER → 2024-03-24 09:54 | Outpatient (BNVA) | payer OTHER, SELFPAY | PROVIDERS: PCP Nurse Practitioner Primary Care; Visit Provider Internal Medicine Nephrology | DX: I12.9 Hypertensive chronic kidney disease with stage 1 through stage 4 chronic kidney disease, or unspecified chronic kidney disease (principal); N18.31 Chronic kidney disease, stage 3a | CPT/HCPCS: 99212 ==

== ENCOUNTER 2024-07-01 08:50 | Outpatient (REF) | payer OTHER, SELFPAY ==
--- OUTSIDE RECORDS SUMMARY | 2024-07-01 09:01 | XMS_ITS | Encounter Summary ---
Author Organization [employer] Address [address] [facility] 7t [place] [address] Care Team Providers Care Linux Network Engineer Name Role Phone Cuauhtemoc Marge MELGAR Primary Care Provider [phone] Reason for Visit * Reason Comments Med Refill Encounter Details Date Type Department Care Team (Late st Contact Info) Description 04/09/[address] [facility] WALK-IN [address] [phone] Artem Benites MD [address] [place], [place] [phone] Social History Tobacco Use Types Packs/Day Years [...] Care Team (Late st Contact Info) Description 07/14/2024 10:30 AM EDT Office Visit [facility] OPTOMETRY [address] [place], [place] [phone] Anuradha Golden, OLIVE [address] [place] [address] documented as of this encounter Visit Diagnoses Not on filedocumented in this encounter Care Teams Linux Network Engineer Relationship Specialty Start Date End Date Marge Posadas ANP [address] [place] [address] PCP - General Family Medicine 05/01/22 04/19/24 documented as of this encounter
--- OUTSIDE RECORDS SUMMARY | 2024-07-01 09:01 | XMS_ITS | Encounter Summary ---
Author Organization [employer] Address [address] [place] [address] 7t [place] [address] Care Team Providers Care Glass Furnace Operator Name Role Phone Marge Posadas Primary Care Provider [phone] Encounter Details Date Type Department Care Team (Late Contact Info) Description 10/29/2022 Orders Only [facility] CHC MED & PEDS [address] [place], [place] [phone] Kellie Cramer LPN Social History Tobacco Use [...] Description 07/14/2024 10:30 AM EDT Office Visit [facility] OPT[facility] [address] [place], [place] [phone] Anuradha Golden, OD [address] [place], [place] [phone] documented as of this encounter Visit Diagnoses Not on filedocumented in this encounter Care Teams Glass Furnace Operator Relationship Specialty Start Date End Date Marge Posadas ANP [address] [place] [address] PCP - General Family Medicine 05/01/22 04/19/24 documented as of this encounter
--- OUTSIDE RECORDS SUMMARY | 2024-07-01 09:01 | XMS_ITS | Encounter Summary ---
Author Organization [facility] Address [address] [place] [address] 7 [place] [address] Care Team Providers Care Process Technician Name Role Phone Yashira Tello MD Primary Care Provider + Marge Posadas Primary Care Provider [phone] Reason for Visit * Reason Onset Date Comments Referral 01/15/2022 Encounter Details Date Type Department Care Team ([facility] st Contact Info) Description 01/15/2022 Telephone [facility] MEDICINE [address] [place], [place] [phone] Yashira Tello MD 230 [place], [place] [phone] Referral Social History Tobacco Use Types Packs/Day [...] agrees to notify pt to come into [facility] tomorrow for exam. Reviewed operating hours and [...] Description 07/14/2024 10:30 AM EDT Office Visit [facility] OPTOMETRY [address] [place] [address] [place], Anuradha, OD 230 [place] [address] documented as of this encounter Visit Diagnoses Not on filedocumented in this encounter Care Teams Process Technician Relationship Specialty Start Date End Date Yashira Tello MD 230 [place] [address] PCP - General Family Medicine 06/29/20 04/30/22 Marge Posadas ANP 230 [place] [address] PCP - General Family Medicine 05/01/22 04/19/24 documented as of this encounter
--- OUTSIDE RECORDS SUMMARY | 2024-07-01 09:01 | XMS_ITS | Encounter Summary ---
Author Organization [employer] Address [address] [place] [address] 7t [place] [address] Care Team Providers Care Doll Dresser Name Role Phone Unavailable Primary Care Provider Unavailabl e Reason for Visit * Reason Comments Med Refill Encounter Details Date Type Department Care Team ([facility] st Contact Info) Description 06/13/2024 Refill [facility] WALK-IN CENTER 230 [place], [place] [phone] Marge Posadas ANP 230 [place], [place] [phone] Chronic obstructive pulmonary disease, unspecified COPD type [...] Description 07/14/2024 10:30 AM EDT Office Visit [facility] OPTOMETRY [address] [place] [address] Chico, Anuradha, OD 230 [place] [address] documented as of this encounter Visit Diagnoses Diagnosis Chronic obstructive pulmonary disease, unspecified COPD type (CMS/HCC) documented in this encounter Additional Health Concerns Assessment Noted Time PHQ-9 Depression Total Score: 1 06/12/19 24 11:18 AM EDT documented as of this encounter
--- OUTSIDE RECORDS SUMMARY | 2024-07-01 09:01 | XMS_ITS | Encounter Summary ---
Author Organization [employer] Address [address] [place] [address] 7 [place] [address] Care Team Providers Care Cotton Presser Name Role Phone Unavailable Primary Care Provider Unavailabl e Reason for Visit * Reason Comments Med Refill Encounter Details Date Type Department Care Team ([facility] st Contact Info) Description 06/22/2024 Refill [facility] MEDICINE 230 [place], [place] [phone] Marge Posadas, ANP 230 [place] [address] Emphysema, unspecified (CMS/HCC) Social History Tobacco Use Types Packs/Day [...] Description 07/14/2024 10:30 AM EDT Office Visit [facility] OPTOMETRY [address] [place] [address] Chico, Anuradha, OD [address] [place] [address] documented as of this encounter Visit Diagnoses Diagnosis Emphysema, unspecified (CMS/HCC) documented in this encounter Additional Health Concerns Assessment Noted Time PHQ-9 Depression Total Score: 1 06/12/19 24 11:18 AM EDT documented as of this encounter
--- OUTSIDE RECORDS SUMMARY | 2024-07-01 09:01 | XMS_ITS | Encounter Summary ---
Author Organization [employer] Address [address] [place] [address] 7 [place] [address] Care Team Providers Care Supervisor Dairy Sanitation Name Role Phone Marge Posadas Primary Care Provider [phone] Reason for Visit * Reason Onset Date Comments Durable Medical Equipment 04/21/2023 Encounter Details Date Type Department Care Team ([facility] st Contact Info) Description 04/21/2023 Telephone [facility] MEDICINE 230 [place], [place] [phone] Marge Posdaas ANP 230 [place], [place] [phone] Durable Medical Equipment Social History Tobacco Use [...] 4x/d x10d. Fidaxomicin not in stock at [facility] but vanco is. No answer, No VM [...] blood glucose monitor. Please contact pt at [phone] documented in this encounter Plan of Treatment Upcoming Encounters Date Type Department Care Team (Late st Contact Info) Description 07/14/2024 10:30 AM EDT Office Visit [facility] OPTOMETRY [address] [place] [address] Anuradha Golden, OD 230 [place] [address] documented as of this encounter Visit Diagnoses Not on filedocumented in this encounter Care Teams Supervisor Dairy Sanitation Relationship Specialty Start Date End Date Marge Posadas ANP 230 [place], [place] [phone] PCP - General Family Medicine 05/01/22 04/19/24 documented as of this encounter
--- OUTSIDE RECORDS SUMMARY | 2024-07-01 09:01 | XMS_ITS | Encounter Summary ---
Author Organization [employer] Address [address] [place] [address] 7t [place] [address] Care Team Providers Care Plumbing Service Technician Name Role Phone Marge Posadas Primary Care Provider [phone] Reason for Visit * Reason Comments Med Refill Encounter Details Date Type Department Care Team (Late st Contact Info) Description 09/10/[address] 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
--- OUTSIDE RECORDS SUMMARY | 2024-07-01 09:01 | XMS_ITS | Encounter Summary ---
Author Organization [employer] Address [address] [facility] 7t [place] [address] Care Team Providers Care Beef Boner Name Role Phone Cuauhtemoc Marge MELGAR Primary Care Provider [phone] Reason for Visit * Reason Comments Med Refill Encounter Details Date Type Department Care Team (Late st Contact Info) Description 04/14/2023 Refill [facility] WALK-IN [address] [phone] Artem Benites MD 230 [place], [place] [phone] Social History Tobacco Use Types Packs/Day Years [...] Description 07/14/2024 10:30 AM EDT Office Visit [facility] OPTOMETRY [address] [place], [place] [phone] Anuradha Golden, OLIVE 230 [place] [address] documented as of this encounter Visit Diagnoses Not on filedocumented in this encounter Care Teams Beef Boner Relationship Specialty Start Date End Date Marge Posadas ANP 230 [place] [address] PCP - General Family Medicine 05/01/22 04/19/24 documented as of this encounter
--- OUTSIDE RECORDS SUMMARY | 2024-07-01 09:01 | XMS_ITS | Encounter Summary ---
Author Organization [employer] Address [address] [place] [address] 7t [place] [address] Care Team Providers Care Trauma Director Name Role Phone Unavailable Primary Care Provider Unavailabl e Reason for Visit * Reason Comments Med Refill Encounter Details Date Type Department Care Team ([facility] st Contact Info) Description 05/16/2024 Refill [facility] WALK-IN CENTER [address] [place], [place] [phone] Marge Posadas ANP 230 [place], [place] [phone] Pulmonary emphysema, unspecified emphysema type (CMS/HCC) Social [...] Description 07/14/2024 10:30 AM EDT Office Visit [facility] OPTOMETRY [address] [place], [place] [phone] Chico, Anuradha, OD 230 [place] [address] documented as of this encounter Visit Diagnoses Diagnosis Pulmonary emphysema, unspecified emphysema type (CMS/HCC) documented in this encounter Additional Health Concerns Assessment Noted Time PHQ-9 Depression Total Score: 1 06/12/19 24 11:18 AM EDT documented as of this encounter
--- OUTSIDE RECORDS SUMMARY | 2024-07-01 09:01 | XMS_ITS ---
Author Organization [facility] Address [address] [place] [address] Care Team Providers Care Transmission Line Engineer Name Role Phone Marge Posadas Primary Care Provider Kayeln Castro [phone] REASON FOR VISIT A1C Encounters Encounter Location Date Provider Diagnosis [facility] [address] [place] [address] 04/22/2024 Kaylen Ribeiro Plan Of Treatment Next Appt Details Provider Name:Kaylen lyn, 07/22/2024 01:00:00 PM, [address] [facility], [place], [address], Progress Notes * Sergio YEPEZ FDO B:1950 (73 yo M)Acc No.[id number]:04/22/2024 Patient:?FRANCISCA HILL Seamusnicole Mora :1950???Age:73 Y???Sex:Male Address:[address] [place] [address], [address] * true * Date:? Generated for Printi harvinder/David/eTransmitting on:?07/01/2024 09:01 AM EDT
--- OUTSIDE RECORDS SUMMARY | 2024-07-01 09:01 | XMS_ITS | Encounter Summary ---
Author Organization [employer] Address [address] [place] [address] 7t [place] [address] Care Team Providers Care Waiter/Waitress First Class Name Role Phone Marge Posadas Primary Care Provider [phone] Reason for Visit * Reason Comments Med Refill Encounter Details Date Type Department Care Team (Late st Contact Info) Description 09/28/2023 Refill [facility] MEDICINE 230 [place], [place] [phone] Marge Posadas ANP 230 [place], [place] [phone] Pulmonary emphysema, unspecified emphysema type (CMS/HCC) Social [...] Description 07/14/2024 10:30 AM EDT Office Visit [facility] OPTOMETRY [address] [place] [address] ChicoAnuradha javed, OD 230 [place] [address] documented as of this encounter Visit Diagnoses Diagnosis Pulmonary emphysema, unspecified emphysema type (CMS/HCC) documented in this encounter Additional Health Concerns Assessment Noted Time PHQ-9 Depression Total Score: 1 06/12/19 24 11:18 AM EDT documented as of this encounter Care Teams Waiter/Waitress First Class Relationship Specialty Start Date End Date Marge Posadas ANP [address] [place] [address] PCP - General Family Medicine 05/01/22 04/19/24 documented as of this encounter
--- OUTSIDE RECORDS SUMMARY | 2024-07-01 09:01 | XMS_ITS | Encounter Summary ---
Author Organization [employer] Address [address] [place] [address] 7t [place] [address] Care Team Providers Care Architecture Department Chair Name Role Phone Yashira Tello MD Primary Care Provider + Marge Posadas Primary Care Provider [phone] Encounter Details Date Type Department Care Team ([facility] Contact Info) Description 03/19/2022 Orders Only [facility] MED & PEDS [address] [place], [place] [phone] April Collins LPN Social History Tobacco Use [...] Upcoming Encounters Date Type Department Care Team ([facility] Contact Info) Description 07/14/2024 10:30 AM EDT Office Visit [facility] OPTOMETRY [address] [place], [place] [phone] Anuradha Golden, OLIVE 230 [place] [address] documented as of this encounter Visit Diagnoses Not on filedocumented in this encounter Care Teams Architecture Department Chair Relationship Specialty Start Date End Date Yashira Tello MD [address] [place], [place] [phone] PCP - General Family Medicine 06/29/20 04/30/22 Marge Posadas ANP [address] [place], [place] [phone] PCP - General Family Medicine 05/01/22 04/19/24 documented as of this encounter
--- OUTSIDE RECORDS SUMMARY | 2024-07-01 09:01 | XMS_ITS | Encounter Summary ---
Author Organization [employer] Address [address] [facility] 7t [place] [address] Care Team Providers Care Facilities Operations Technician Name Role Phone Marge Posadas TALIA Primary Care Provider [phone] Encounter Details Date Type Department Care Team ([facility] st Contact Info) Description 02/18/2023 Orders Only [facility] MED & PEDS [address] [place], [place] [phone] Smith Barnes MD 505 [place] [address] Chronic pain of right ankle (Primary Dx) [...] Description 07/14/2024 10:30 AM EDT Office Visit [facility] OPTOMETRY [address] [place] [address] Anuradha Golden, OD [address] [place] [address] documented as of this encounter Visit Diagnoses Diagnosis Chronic pain of right ankle- Primary documented in this encounter Care Teams Facilities Operations Technician Relationship Specialty Start Date End Date Marge Posadas ANP 230 [place] [address] PCP - General Family Medicine 05/01/22 04/19/24 documented as of this encounter
--- OUTSIDE RECORDS SUMMARY | 2024-07-01 09:01 | XMS_ITS | Patient Health Record ---
Author Organization [facility] Address [address] [place] [address] Care Team Providers Care Waste Baler Name Role Phone Marge Posadas Primary Care Provider Kaylen Castro Unavailable [phone] Allergies Allergen (clinical drug ingredient) Drug/Non Drug Allergy documented on EMR Reaction Allergy Type Onset Date Status Lactose Unknown Drug Allergy Active Tetanus Toxoids Unknown Drug Allergy A ctive Results Component Value Reference Range Notes HEMOGLOBIN A1C (GLYCOHEMOGLO BIN) Reviewed date:04/22/2024 01:31:03 PM Interpretation: Performing Lab: Notes/Report: HEMOGLOBIN A1C % (HH) 8.1 Reason For Referral No Information Medications Medication SIG (Take, Route, Frequency, Duration) Notes Start Date End Date Status Atorvastatin Calcium 80 MG TAKE 1 TABLET BY MOUTH AT BEDTIME Oral for 90 Active Furosemide 80 MG TAKE 1 TABLET BY JYOTI TH TWICE DAILY IN THE MORNING AND IN THE EVENING Oral for 90 I5032,Unavai lable Active Extra Depth Orthopedic Shoes (1 Pair) with Customized Heat Molded Multidensity Innersoles (3 Pair) as directed Dx: NIDDM/Polyneuropathy (E11.42), Hammertoe Foot Deformity (M20.41,M20.42), Preulcerative Skin Lesion(s) (L85.1 Active Ventolin HFA 108 (90 Base) MCG/ACT Inhalation for 17 Active Lisinopril 40 MG TAKE 1 TABLET BY JYOTI TH EVERY MORNING Oral for 90 Active TRUEplus Lancets 33G - for 17 Active Trulicity 3 MG/0.5ML INJECT ONE PEN (= 3 MG) SUBCUTANEOUSLY ONCE A WEEK DIRECTED Subcutaneous for 28 E1169,Unavai lable Active Ammonium Lactate 12 % 1 application Externally to affected areas of dry skin to feet except for between the toes Twice a day for 30 days Active Multivitamin - TAKE 1 TABLET BY JYOTI TH EVERY MORNING WITH FOOD Oral for 90 Active Ozempic (1 MG/DOSE) 4 MG/3ML Inject 1 MG SUBCUTANEOUSLY EVERY 7 DAYS IN THE ABDOMEN, THIGHS OR UPPER ARM. ROTATE INJECTION SITES. Subcutaneous for 28 E1169,Unavai lable Active Easy Touch Lancets 33G/Twist - USE TO TEST BLOOD SUGAR 6 TIMES PER DAY for 17 Active Lantus SoloStar 100 UNIT/ML INJECT 44 UNITS SUBCUTANEOUSLY ONCE DAILY DIRECTED Subcutaneous for 33 E119,Unavail able Active NovoLOG FlexPen 100 UNIT/ML Subcutaneous for 21 Active Pentips 32G X 4 MM USE UP TO FIVE TIMES DAILY for 20 E1142,Unavai lable Active Labetalol HCl 100 MG TAKE 1 TABLET BY MO UTH TWICE DAILY IN THE MORNING AND IN THE EVENING Oral for 30 I10,Unavaila ble Active FreeStyle Donna 2 Sensor - USE DIRECTED AND CHANGE EVERY 14 DAYS for 84 E1169,Unavai lable Active Clobetasol Propionate 0.05 % External for 15 Not-Andres ing Warfarin Sodium 5 MG TAKE 1 TO 3 TABLETS BY MOUTH ONCE DAILY DIRECTED PER COUMADIN CLINIC Oral for 23 Z7901,Unavai lable Active Alfuzosin HCl ER 10 MG TAKE 1 TABLET BY MOUTH AT BEDTIME Oral for 30 R3912,Unavai lable Not-Taking metFORMIN HCl 1000 MG TAKE 1 TABLET BY MOUTH TWICE DAILY IN THE MORNING AND IN THE EVENING WITH MEALS Oral for 90 E1142,Unavai lable Active Albuterol Sulfate (2.5 MG/3ML) 0.083% INHALE 1 AMPULE USING A NEBULIZER THREE TIMES DAILY NEEDED FOR ASTHMA AND SHORTNESS OF BREATH Inhalation for 10 Not-Taking Gabapentin 100 MG TAKE 1 CAPSULE BY MOUTH TWICE DAILY IN THE MORNING AND AT BEDTIME Oral for 30 Active Aspirin Adult Low Strength 81 MG Oral for 90 Not-Taking Diclofenac Sodium 1 % APPLY 4 GRAMS TOPICALLY FOUR TIMES DAILY FOR PAIN External for 7 days Not-Taking Incruse Ellipta 62.5 MCG/ACT Inhalation for 30 Not-Taking Isosorbide Mononitrate ER 120 MG TAKE 1 Tablet BY MOUTH EVERY MORNING Oral for 90 I5022,Unavai lable Not-Taking Social History Tobacco Use: Social History Observation Description Date Details (start date - stop date) Never Smoker NA - NA Tobacco use other than smoking: Question Answer Notes Are you an other tobacco user? No Tobacco Control (Standard) Question Answer Notes Tobacco use: Nonsmoker Additional Findings: Tobacco non-user Current no nsmoker AUDIT-C (Standard) Question Answer Notes Did you have a drink containing alcohol in the p ast year? No Points 0 Interpretation Negative Problems Problem Type SNOMED Code ICD Code Onset Dates Problem Status W/U Status Risk Notes Problem Acquired hammer toe of right foot (584377573132 9105) Other hammer toe(s) (acquired), right foot (M20.41) Active confirmed Problem Acquired hammer toe of left foot (174595421109 9103) Other hammer toe(s) (acquired), left foot (M20.42) Active confirmed Problem Type 2 diabetes mellitus with diabetic polyneuropathy (E11.42) Active confirmed Vital Signs Blood pressure diastolic 82 mm Hg 04/22/2024 Height 5ft 5 in in 04/22/2024 Blood pressure systolic 147 mm Hg 04/22/2024 Weight 280 lbs 04/22/2024 BMI 46.59 kg/m2 04/22/2024 Encounters Encounter Location Date Provider Diagnosis [address] [address] 07/10/2023 Kaylen Quintin Type 2 diabetes mellitus with diabetic polyneuropathy E11.42 ; Tinea unguium B35.1 ; Other hammer toe(s) (acquired), right foot M20.41 and Other hammer toe(s) (acquired), left foot M20.[address] [address] 10/23/2023 Kaylen Ribeiro Type 2 diabetes mellitus with diabetic polyneuropathy E11.42 ; Tinea unguium B35.1 ; Other hammer toe(s) (acquired), right foot M20.41 and Other hammer toe(s) (acquired), left foot M20.[address] [address] 01/22/2024 Kaylen Ribeiro Type 2 diabetes mellitus with diabetic polyneuropathy E11.42 ; Xerosis of skin L85.3 ; Tinea unguium B35.1 ; Other hammer toe(s) (acquired), right foot M20.41 and Other hammer toe(s) (acquired), left foot M20.42 [facility] [place] [address] 04/22/2024 Kaylen Ribeiro Type 2 diabetes mellitus with diabetic polyneuropathy E11.42 ; Xerosis of skin L85.3 ; Tinea unguium B35.1 ; Other hammer toe(s) (acquired), right foot M20.41 and Other hammer toe(s) (acquired), left foot M20.42 [facility] [address] [place] [address] 04/22/2024 Kaylen Ribeiro [facility] [address] 07/10/2023 Kaylen Perica [facility] [address] 10/23/2023 [facility] [address] 01/22/2024 Kaylen Perica [facility] [address] 04/22/2024 Kaylen Ribeiro Assessments Encounter Date Diagnosis (ICD Code) Assessment Notes Treatment Notes Treatment Clinical Notes Section Notes 07/10/2023 Type 2 diabetes mellitus with diabetic polyneuropathy (ICD-10 - E11.42) 07/10/2023 Tinea unguium (ICD-10 - B35.1) 10/23/2023 Type 2 diabetes mellitus with diabetic polyneuropathy (ICD-10 - E11.42) 01/22/2024 Type 2 diabetes mellitus with diabetic polyneuropathy (ICD-10 - E11.42) 01/22/2024 Xerosis of skin (ICD-10 - L85.3) 04/22/2024 Type 2 diabetes mellitus with diabetic polyneuropathy (ICD-10 - E11.42) 04/22/2024 Xerosis of skin (ICD-10 - L85.3) 04/22/2024 Tinea unguium (ICD-10 - B35.1) 01/22/2024 Tinea unguium (ICD-10 - B35.1) 07/10/2023 [...] toe(s) (acquired), left foot (ICD-10 - M20.42) 04/22/2024 Other hammer toe(s) (acquired), right foot (ICD-10 - M20.41) 04/22/2024 Other hammer toe(s) (acquired), left foot (ICD-10 - M20.42) 10/23/2023 Other hammer toe(s) (acquired), left foot (ICD-10 - M20.42) 01/22/2024 Other hammer toe(s) (acquired), left foot (ICD-10 - M20.42) Plan Of Treatment Next Appt Details Provider Name:Kaylen lyn, 07/22/2024 01:00:00 PM, [address] [place], [address], Insurance Providers Payer Name Payer Address Payer Phone Subscriber Number Group Number Insured Name Patient Relationship to Insured Coverage Start Date Coverage End Date [facility] [employer] Claims [address] [place] [id number] Sergio Yepez Self - patient is the insured Medical (General) History Medical History History ICD Code Diabetic High Blood Pressure asthma nerve pain Surgical History Surgery Date(Month/Year) Hospitalization History Reason Date(Month/Year) blood pressure too low [facility] 11/2023 [facility] water in lungs
--- OUTSIDE RECORDS SUMMARY | 2024-07-01 09:01 | XMS_ITS ---
Author Organization [facility] Address [address] [place] [address] Care Team Providers Care Patient Financial Coordinator Name Role Phone Marge Posadas Primary Care Provider Kaylen Castro Unavailable [phone] Allergies Allergen (clinical drug ingredient) Drug/Non Drug Allergy documented on EMR Reaction Allergy Type Onset Date Status Lactose Unknown Drug Allergy Active Tetanus Toxoids Unknown Drug Allergy A ctive REASON FOR VISIT At Risk Footcare, Toe Irritation, Skin problem(s) Medications Medication SIG (Take, Route, Frequency, Duration) Notes Start Date End Date Status Clobetasol Propionate 0.05 % External for 15 Not-Andres ing Alfuzosin HCl ER 10 MG TAKE 1 TABLET BY MOUTH AT BEDTIME Oral for 30 R3912,Unavai lable Not-Taking Albuterol Sulfate (2.5 MG/3ML) 0.083% INHALE 1 AMPULE USING A NEBULIZER THREE TIMES DAILY NEEDED FOR ASTHMA AND SHORTNESS OF BREATH Inhalation for 10 Not-Taking Aspirin Adult Low Strength 81 MG Oral for 90 Not-Taking Incruse Ellipta 62.5 MCG/ACT Inhalation for 30 Not-Taking Atorvastatin Calcium 80 MG TAKE 1 TABLET BY MOUTH AT BEDTIME Oral for 90 Active Ammonium Lactate 12 % 1 application Externally to affected areas of dry skin to feet except for between the toes Twice a day for 30 days Active Extra Depth Orthopedic Shoes (1 Pair) with Customized Heat Molded Multidensity Innersoles (3 Pair) as directed Dx: NIDDM/Polyneuropathy (E11.42), Hammertoe Foot Deformity (M20.41,M20.42), Preulcerative Skin Lesion(s) (L85.1 Active Diclofenac Sodium 1 % APPLY 4 GRAMS TOPICALLY FOUR TIMES DAILY FOR PAIN External for 7 days Not-Taking Isosorbide Mononitrate ER 120 MG TAKE 1 Tablet BY MOUTH EVERY MORNING Oral for 90 I5022,Unavai lable Not-Taking Furosemide 80 MG TAKE 1 TABLET BY JYOTI TH TWICE DAILY IN THE MORNING AND IN THE EVENING Oral for 90 I5032,Unavai lable Active Ventolin HFA 108 (90 Base) MCG/ACT Inhalation for 17 Active Lisinopril 40 MG TAKE 1 TABLET BY JYOTI TH EVERY MORNING Oral for 90 Active TRUEplus Lancets 33G - for 17 Active Trulicity 3 MG/0.5ML INJECT ONE PEN (= 3 MG) SUBCUTANEOUSLY ONCE A WEEK DIRECTED Subcutaneous for 28 E1169,Unavai lable Active Easy Touch Lancets 33G/Twist - USE TO TEST BLOOD SUGAR 6 TIMES PER DAY for 17 Active Pentips 32G X 4 MM USE UP TO FIVE TIMES DAILY for 20 E1142,Unavai lable Active Labetalol HCl 100 MG TAKE 1 TABLET BY MO UTH TWICE DAILY IN THE MORNING AND IN THE EVENING Oral for 30 I10,Unavaila ble Active Multivitamin - TAKE 1 TABLET BY JYOTI TH EVERY MORNING WITH FOOD Oral for 90 Active Ozempic (1 MG/DOSE) 4 MG/3ML Inject 1 MG SUBCUTANEOUSLY EVERY 7 DAYS IN THE ABDOMEN, THIGHS OR UPPER ARM. ROTATE INJECTION SITES. Subcutaneous for 28 E1169,Unavai lable Active Lantus SoloStar 100 UNIT/ML INJECT 44 UNITS SUBCUTANEOUSLY ONCE DAILY DIRECTED Subcutaneous for 33 E119,Unavail able Active NovoLOG FlexPen 100 UNIT/ML Subcutaneous for 21 Active FreeStyle Donna 2 Sensor - USE DIRECTED AND CHANGE EVERY 14 DAYS for 84 E1169,Unavai lable Active metFORMIN HCl 1000 MG TAKE 1 TABLET BY MOUTH TWICE DAILY IN THE MORNING AND IN THE EVENING WITH MEALS Oral for 90 E1142,Unavai lable Active Gabapentin 100 MG TAKE 1 CAPSULE BY MOUTH TWICE DAILY IN THE MORNING AND AT BEDTIME Oral for 30 Active Warfarin Sodium 5 MG TAKE 1 TO 3 TABLETS BY MOUTH ONCE DAILY DIRECTED PER [facility] Oral for 23 Z7901,Unavai lable Active Social History Tobacco Use: Social History [...] 0 Interpretation Negative Vital Signs Height 5ft 5 in in 04/22/2024 Weight 280 lbs 04/22/2024 BMI 46.59 kg/m2 04/22/2024 Blood pressure systolic 147 mm Hg 04/23/19 25 Blood pressure diastolic 82 mm Hg 025 Encounters Encounter Location Date Provider Diagnosis [facility] [address] [address] 04/22/2024 Kaylen Ribeiro Type 2 diabetes mellitus with diabetic polyneuropathy E11.42 ; Xerosis of skin L85.3 ; Tinea unguium B35.1 ; Other hammer toe(s) (acquired), right foot M20.41 and Other hammer toe(s) (acquired), left foot M20.42 Assessments Encounter Date Diagnosis (ICD Code) Assessment Notes Treatment Notes Treatment Clinical Notes Section Notes 04/22/2024 Type 2 diabetes mellitus with diabetic polyneuropathy (ICD-10 - E11.42) 04/22/2024 Xerosis of skin (ICD-10 - L85.3) 04/22/2024 Tinea unguium (ICD-10 - B35.1) 04/22/2024 Other hammer toe(s) (acquired), right foot (ICD-10 - M20.41) 04/22/2024 Other hammer toe(s) (acquired), left foot (ICD-10 - M20.42) Plan Of Treatment Next Appt Details Follow Up: 3 Months, Reason: Provider Name:Kaylen lyn, 07/22/2024 01:00:00 PM, [address] [facility], [place], [address], Procedure Notes * Category Sub-Category Detail Notes Debride Nail 6-10 Nail debridement Due to the cl inical pathology outlined in the exam findings, performance of this nail treatment is medically necessary as its management by an unskilled/untrained nonprofessional would put this patients foot and overall health at risk. Therefore, debridement to affected nail(s), as described in exam ( TA, T1, T2, T3, T4, T5, T6, T7, T8, T9, ), was performed exclusively by the physician of record to reduce/remove overall nail length, girth, thickness, subungual debris, and necrotic tissue, by manual and/or electrical means through the use of a nail nipper and/or dremel-type lens edge grinder machine, to a more viable healthy nail plate [...] to maintain effectiveness in symptomatic relief - 85649 Keratoma Treatment Parring or Cutting o f Benign Hyperkeratotic Lesion(s) (-57) More than 4 Lesions - Due to the at risk nature of the patients medical condition as documented in the exam findings, performance of this keratoderma treatment is medically necessary as its management by an unskilled/untrained nonprofessional would put this patients foot and overall health at risk. Therefore, the benign hyperkeratotic lesions, ( 5 ) in total, locations as stated and described in the exam ( TA , T5 ,T4, T5, Heel Left ), were pared, and/or cut utilizing a sterile 15 blade, tissue nippers, and/or power dremel instrumentation by the physician of record - 26151 Progress Notes * Sergio YEPEZ FDO B:1950 (73 yo M)Acc No.[id number]:04/22/2024 Progress Note Patient:?ESPINOSA LIZKavonn moraima Abby Provider:?Kaylen Ribeiro DPM :1950???Age:73 Y???Sex:Male Catarino e:04/22/2024 Address:[address] [place], [place] [id number] Pcp:Marge Posadas Subjective: * Chief Complaints: * ???At Risk FootcareToe Irrit ationSkin problem(s) * HPI: ???At Risk footcare:?Pt States Last PCP Visit:?Date?04/13/2024 ?[place] Cutter Helper presentTranslator present. ???Toe pain:?Location:?B/L feet.?Duration:?several years.?Aggravated by:?shoes, any pressure.?Treatments:?Rx shoes-presents today without them.?Skin problems:?Nature:?dryness , scaling.?Location:?B/L .?Course:?improved.? * ROS:?General/Constitutional:?Nausea?denies.?Vomiting?denies.?Hunger Thirst?denies.?Loss appetite?denies.?Chills?denies.?Fatigue?denies.?Fever?denies.?Night Sweats?denies.?Unexplained weight loss?denies.?Unexplained [...] an other tobacco user??No ?Tobacco Control (Standard)?Tobacco use:?Nonsmoker ?Additional Findings: Tobacco non-user?Current nonsmoker ???Drugs/Alcohol:?Drugs?Have you used drugs other than those for medical reasons in the past 12 months??No ???Miscellaneous:?Caffeine: yes, frequency:, 1-2 cups per day. ?Children: yes, 6. ?Exercise: no. ?Marital status: . ?Occupation: Retired [employer], [employer]. ???Drug/Alcohol:?AUDIT-C (Standard)?Did you have a drink containing [...] Foot Deformity (M20.41,M20.42), Preulcerative Skin Lesion(s) (L85.1 Ammonium Lactate 12 % Cream 1 application Externally to affected areas of dry skin to feet except for between the toes Twice a day Taking Warfarin Sodium 5 MG Tablet TAKE [...] Subcutaneous Taking Lantus SoloStar 100 UNIT/ML Solution Pen-injector INJECT 44 UNITS SUBCUTANEOUSLY ONCE DAILY DIRECTED [...] Taking Ozempic (1 MG/DOSE) 4 MG/3ML Solution Pen- injector Inject 1 MG SUBCUTANEOUSLY EVERY 7 DAYS [...] Deformity (M20.41,M20.42), Preulcerative Skin Lesion(s) (L85.1 Taking Ammonium Lactate 12 % Cream 1 application Externally to affected areas of dry skin to feet except for between the toes Twice a day Not-Taking/PRNDiclofenac Sodium 1 % Gel APPLY 4 [...] ToxoidsLa ctoseyes[Allergies Verified] Objective: * Vitals:?Ht: 5ft 5 in, Wt:280 , BMI:46.59, Shoe size: 10.5, BP:147/82mm Hg, Ht-cm: 165.1 cm, Wt-k.01 kg. * ???Past Orders: ???Lab:HEMOGLOBIN A1C (GLYCO HEMOGLOBIN) (Order Date - 11/18/2023) (Collection Date & Time - 04/22/2024 01:30 PM) ? Value Reference Range ?HEMOGLOBIN A1C % (HH) 8.1 * Examination: ???Ophthalmology Referral: ?DIABETES EYE EXAM?Procedure Performed:?Yes ?Date of Exam Performed?04/17/2023 ?Diabetic Retinopathy Screening:?Yes ?Findings of Diabetic Eye Exam:?no retinopathy?Neurological: ?SENSORY:? Neurological exam demonstrates, reduced light touch sensation, reduced sharp/dull pin prick discrimination , B/L, 5.07 monofilament test performed at plantar aspects of 5 varied sites per foot shows sensation, reduced , B/L.?Nails: ?NAILS are:?Elongated, overgrown, dystrophic, lytic, greater than 3mm thick, discolored and friable with crumbly malodorous subungual debris, with dull to no pain on palpation due to neuropathy, , TA, T1, T2, T3, T4, T5, T6, T7, T8, T9.?Dermatologic: ?SKIN FINDINGS:?Skin exam reveals Keratotic lesion(s) located at , TA , T5 ,T4, T5, Heel Left Skin shows approximately 75 percent LESS, sign(s) of, dryness, scaling, in a stocking fashion, no fissure(s) present, B/L.?Vascular: ?DP PULSES (B):? 3/4, B/L.?PT PULSES (B):? 1/4, B/L.?CAPILLARY FILL TIME:?immediate, all digits, B/L.?TEMPERTURE GRADIENT (C):?normal, warm to cool, proximal to distal, B/L, [...] for office visit today.?ORIENTED:?person, place, and time.?FOOT EXAM:?Lower Extremity Neurological Exam performed:?Yes ?Visual exam of foot performed:?Yes ?Date?04/22/2024 ?Footwear Evaluation?Footwear Evaluation performed:?Yes??? Assessment: * Assessment: 1.?Type 2 diabetes mellitus with diabetic polyneuropathy - E11.42???2.?Xerosis of skin - L85.3 (Primary)???3.?Tinea unguium - B35.1???4.?Other hammer toe(s) (acquired), right foot - M20.41???5.?Other hammer toe(s) (acquired), left foot - M20.42??? Plan: * Treatment: * Procedures:?Debride Nail 6-10:?Nail debridement?Due to the clinical pathology outlined in the exam findings, performance of this nail treatment is medically necessary as its management by an unskilled/untrained nonprofessional would put this patients foot and overall health at risk. Therefore, debridement to affected nail(s), as described in exam ( TA, T1, T2, T3, T4, T5, T6, T7, T8, T9, ), was performed exclusively by the physician of record to reduce/remove overall nail length, girth, thickness, subungual debris, and necrotic tissue, by manual and/or electrical means through the use of a nail nipper and/or dremel-type lens edge grinder machine, to a more viable healthy nail plate or bed tissue 6- 10 nails in total. Silver nitrate was used for any petechial bleeding as necessary. Definitive antifungal treatment options, both pharmaceutical and surgical, have been reviewed and discussed with the patient. The patient solely prefers the use of intermittent/as needed professional debridement services for their nail condition and understands the need for additional periodic treatments to maintain effectiveness in symptomatic relief - 07654.?Keratoma Treatment:?Parring or Cutting of Benign Hyperkeratotic Lesion(s)?(-57) More than 4 Lesions - Due to the at risk nature of the patients medical condition as documented in the exam findings, performance of this keratoderma treatment is medically necessary as its management by an unskilled/untrained nonprofessional would put this patients foot and overall health at risk. Therefore, the benign hyperkeratotic lesions, ( 5 ) in total, locations as stated and described in the exam (??TA?,?T5?,T4, T5, Heel Left?), were pared, and/or cut utilizing a sterile 15 blade, tissue nippers, and/or power dremel instrumentation by the physician of record - 04258.? * Procedure Codes:?26347 DEBRI DE NAIL, 6 OR MORE, Modifiers: XS 34974 TRIM SKIN LESIONS, OVER 4, Modifiers: XS * Preventive Medicine:? ??Counseling:?Discussion:?-13: [...] the patient to call the office.?Shoe Gear Counseling:?We reviewed the many important medical advantages for adhering to regularly wearing these shoe and insert accomidative devices daily as well as reviewed the fact that a failure in accepting these recommedations may be deleterious, unable to prevent, and disadvantagely result in, many pedal complications such as skin irritation, skin ulceration, infection, and even loss of toe/foot/leg/or even their life. Time was also spent reviewing the proper footcare techniques including daily skin moisturization, daily foot inspection for any interruption in skin integrity, open lesions, or sign of infection such as redness/malodor/drainage/swelling as well as daily shoe inspection for the presence of internal foreign bodies and shoe as well as insert wear. Patient questions re: shoes, inserts, and self foot inspections were answered to their satisfaction as the patient verbally confirmed a full understanding of the above information.?Xerosis:?Given recent successful results to treatment, The patient is to cont the rx cream as directed.? * Follow Up:?3 Months * Images: * Sign off status: Completed true * Provider:?Kaylen Ribeiro DPM Date:? Generated for Aldo blanton/David/Fay on:?07/01/2024 09:01 AM EDT History and Physical Notes * HPI (History of Present Illness) Category Sub-Category Detail Notes Category Not es Toe pain Location: B/L feet Duration: several years Aggravated by: shoes, any pressure Treatments: Rx shoes-presents to day without them Skin problems Nature: dryness , scaling Location: B/L Course: improved At Risk footcare Pt States Last PCP Visit: Date: 04/13/2024 Cordwood Cutter Helper present Cordwood Cutter Helper present Examination Category Sub-Category Detail Notes Category Not es Neurological SENSORY: Neurological exa m demonstrates, reduced light touch sensation, reduced sharp/dull pin prick discrimination , B/L, 5.07 monofilament test performed at plantar aspects of 5 varied sites per foot shows sensation, reduced , B/L Dermatologic SKIN FINDINGS: Skin exam reveal s Keratotic lesion(s) located at , TA , T5 ,T4, T5, Heel Left Skin shows approximately 75 percent LESS, sign(s) of, dryness, scaling, in a stocking fashion, no fissure(s) present, B/L Orthopedic FOOTWEAR EVALUATION: worn, non-s upportive, shoe gear properties exacerbate patient's foot/toe deformity [...] Lower Extremity Neurological Exa m performed:: Yes Visual exam of foot performed:: Yes Date: 04/22/2024 ORIENTED: person, place, and t fatimah Footwear Evaluation Footwear Evaluation performe d:: Yes Ophthalmology Referral DIABETES EYE EXAM Procedure Perform ed:: Yes ?Date of Exam Performed: 04/17/2023 Diabetic Retinopathy Screening:: Yes Findings of Diabetic [...] no pain on palpation due to neuropathy, , TA, T1, T2, T3, T4, T5, T6, T7, T8, T9
--- OUTSIDE RECORDS SUMMARY | 2024-07-01 09:01 | XMS_ITS ---
[facility] Organization [facility] Address [address] [place] [address] Care Team Providers Care Fruit Buyer Name Role Phone Marge Posadas Primary Care Provider Kaylen Castro [phone] REASON FOR VISIT Piano Instructor Encounters Encounter Location Date Provider Diagnosis [facility] [address] [place] [address] 04/22/2024 Kaylen Ribeiro Plan Of Treatment Next Appt Details Provider Name:Kaylen lyn, 07/22/2024 01:00:00 PM, [address] [place] [address] [place], [place], [address], Progress Notes * Sergio YEPEZ FDO B:1950 (73 yo M)Acc No.[id number]:04/22/2024 Patient:?Seamus YEPEZ :1950???Age:73 Y???Sex:Male Address:[address] [place] [address], [address] * * Date:?
--- OUTSIDE RECORDS SUMMARY | 2024-07-01 09:01 | XMS_ITS | Encounter Summary ---
Author Organization [employer] Address [address] [place] [address] 7[address] [place] [address] Care Team Providers Care Staff Anesthetist Name Role Phone Yashira Tello MD Primary Care Provider + Marge Posadas Primary Care Provider [phone] Encounter Details Date Type Department Care Team ([facility] Contact Info) Description 04/15/2022 Orders Only [facility] [address] [place], [place] [phone] April Collins LPN Social History Tobacco Use [...] Upcoming Encounters Date Type Department Care Team ([facility] Contact Info) Description 07/14/2024 10:30 AM EDT Office Visit [facility] [address] [place], [place] [phone] Anuradha Golden, OLIVE [address] [place] [address] documented as of this encounter Visit Diagnoses Not on filedocumented in this encounter Care Teams Staff Anesthetist Relationship Specialty Start Date End Date Yashira Tello MD [address] [place], [place] [phone] PCP - General Family Medicine 06/29/20 04/30/22 Marge Posadas ANP [address] [place], [place] [phone] PCP - General Family Medicine 05/01/22 04/19/24 documented as of this encounter
--- OUTSIDE RECORDS SUMMARY | 2024-07-01 09:01 | XMS_ITS | Encounter Summary ---
Author Organization [employer] Address [address] [facility] 7t [place] [address] Care Team Providers Care Circulation Representative Name Role Phone Marge Posadas Primary Care Provider [phone] Reason for Visit * Reason Comments Med Refill Encounter Details Date Type Department Care Team (Late st Contact Info) Description 04/14/2024 Refill [facility] [address] [place] [phone] Marge Posadas ANP [address] [place], [place] [phone] Diabetes mellitus due to underlying condition with diabetic neuropathy, with long-term current use of insulin ([facility]) Social History Tobacco Use Types [...] Description 07/14/2024 10:30 AM EDT Office Visit [facility] [address] [place] [address] Anuradha Golden OD [address] [place] [address] documented as of this encounter Visit Diagnoses Diagnosis Diabetes mellitus due to underlying condition with diabetic neuropathy, with long-term current use of insulin ([facility]) documented in this encounter Additional Health Concerns Assessment Noted Time PHQ-9 Depression Total Score: 1 06/12/19 24 11:18 AM EDT documented as of this encounter Care Teams Circulation Representative Relationship Specialty Start Date End Date Marge Posadas ANP [address] [place] [address] PCP - General Family Medicine 05/01/22 04/19/24 documented as of this encounter
--- OUTSIDE RECORDS SUMMARY | 2024-07-01 09:01 | XMS_ITS | Clinical Summary ---
Author Organization [facility] Address [address] [facility] [address] [place] [address] Phone Care Team Providers Care Wiring Mechanic Name Role Phone Marge Posadas NP Primary Care Provider [phone] Allergies Active Allergy Reactions Criticality Noted Date [...] 28 DAYS 04/29/19 24 Active Continuous Glucose Purification Supervisor (FreeStyle Donna 2 [place]) device 1 each 05/31/19 23 Active Continuous Glucose Sensor (FreeStyle Donna 2 Sensor) [facility] USE DIRECTED, CHANGE EVERY 14 [...] Encounters Date Type Department Care Team Description 05/21/2024 Orders Only [facility] [address] [place] [address] Yrn Sneed MD Stage 3a chronic kidney disease (HCC) 04/23/2024 Orders Only [facility] [address] [place] [address] Yrn Sneed MD Stage 3a chronic kidney [...] Visual Foot Exam 07/23/2023 Diabetes: Hemoglobin A1C 02/18/2024 11/18/2023, 05/0 03/2023 Pneumococcal Vaccine: 50+ Years Completed 04/08/2023, 04/08/2023, 12/04/2018, Additional history exists Pneumococcal Vaccine: Peds (0 to 5 Years) and At-Risk Patients (6 to 49 Years) Discontinued 04/08/2023, 04/08/2023, 12/04/2018, Additional history exists Influenza Vaccine Completed 02/19/2024, , 10/28/2017, Additional history exists Hepatitis B Vaccine Aged Out No longe r eligible based on patient's age to complete this topic [place] [address] ([id number]) SHABNAM PORTER [id number] [facility] ([id number]) Care Teams Wiring Mechanic Relationship Specialty Start Date End Date Marge Posadas NP [address] [place] [address] PCP - General Nurse Practitioner 07/24/23
--- OUTSIDE RECORDS SUMMARY | 2024-07-01 09:02 | XMS_ITS | Encounter Summary ---
Author Organization [employer] Address [address] [place] [address] 7t [place] [address] Care Team Providers Care Correspondence Coordinator Name Role Phone Marge Posadas Primary Care Provider [phone] Reason for Visit * Reason Comments Med Refill Encounter Details Date Type Department Care Team (Late st Contact Info) Description 11/14/2022 Refill [facility] [address] [place], [place] [phone] Yashira Tello MD [address] [place], [place] [phone] Chronic obstructive pulmonary disease, unspecified COPD type [...] Description 07/14/2024 10:30 AM EDT Office Visit [facility] [address] [place], [place] [phone] Anuradha Golden OD [address] [place] [address] documented as of this encounter Visit Diagnoses Diagnosis Chronic obstructive pulmonary disease, unspecified COPD type ([facility]) documented in this encounter Care Teams Correspondence Coordinator Relationship Specialty Start Date End Date Marge Posadas ANP [address] [facility] [place] [phone] PCP - General Family Medicine 05/01/22 04/19/24 documented as of this encounter
--- OUTSIDE RECORDS SUMMARY | 2024-07-01 09:02 | XMS_ITS | Encounter Summary ---
Author Organization [employer] Address [address] [facility] 7t [place] [address] Care Team Providers Care Facility Practice Specialist Name Role Phone [facility] Marge MELGAR Primary Care Provider [phone] Reason for Visit * Reason Comments Med Refill Encounter Details Date Type Department Care Team (Late st Contact Info) Description 11/19/2023 Refill [facility] [address] [place], [place] [phone] April Shaver DO [address] [place], [place] [phone] Social History Tobacco Use Types Packs/Day Years [...] Description 07/14/2024 10:30 AM EDT Office Visit [facility] [address] [place] [address] [place], Anuradha, OD [address] [place] [address] documented as of this encounter Visit Diagnoses Not on filedocumented in this encounter Additional Health Concerns Assessment Noted Time PHQ-9 Depression Total Score: 1 06/12/19 24 11:18 AM EDT documented as of this encounter Care Teams Facility Practice Specialist Relationship Specialty Start Date End Date Marge Posadas ANP [address] [place] [address] PCP - General Family Medicine 05/01/22 04/19/24 documented as of this encounter
--- OUTSIDE RECORDS SUMMARY | 2024-07-01 09:02 | XMS_ITS | Encounter Summary ---
Author Organization [employer] Address [address] [place] [address] 7[address] [place] [address] Care Team Providers Care Sap Pp Consultant Name Role Phone Marge Posadas Primary Care Provider [phone] Reason for Visit * Reason Comments Med Refill Encounter Details Date Type Department Care Team (Late st Contact Info) Description 01/31/2023 Refill [facility] [address] [place], [place] [phone] Marge Posadas ANP [address] [place], [place] [phone] Social History Tobacco Use Types Packs/Day Years [...] 10:30 AM EDT Office Visit [facility] [address] [place], [place] [phone] Anuradha Golden, OLIVE [address] [place] [address] documented as of this encounter Visit Diagnoses Not on filedocumented in this encounter Care Teams Sap Pp Consultant Relationship Specialty Start Date End Date Marge Posadas ANP [address] [place] [address] PCP - General Family Medicine 05/01/22 04/19/24 documented as of this encounter
--- OUTSIDE RECORDS SUMMARY | 2024-07-01 09:02 | XMS_ITS | Encounter Summary ---
Author Organization [employer] Address [address] [place] [address] 7t [place] [address] Care Team Providers Care Accounting Bookkeeper Name Role Phone Cuauhtemoc Marge MELGAR Primary Care Provider [phone] Reason for Visit * Reason Comments Med Refill Encounter Details Date Type Department Care Team (Late st Contact Info) Description 12/16/2022 Refill [facility] [address] [place], [place] [phone] Tamera Clemente FNP [address] [place], [place] [phone] Type 2 diabetes mellitus with hyperlipidemia (CMS/HCC) [...] Description 07/14/2024 10:30 AM EDT Office Visit [facility] [address] [place], [place] [phone] Anuradha Golden, OD 230 [place] [address] documented as of this encounter Visit Diagnoses Diagnosis Type 2 diabetes mellitus with hyperlipidemia (CMS/HCC) (CMS/HCC) documented in this encounter Care Teams Accounting Bookkeeper Relationship Specialty Start Date End Date Marge Posadas ANP 230 [place] [address] PCP - General Family Medicine 05/01/22 04/19/24 documented as of this encounter
--- OUTSIDE RECORDS SUMMARY | 2024-07-01 09:02 | XMS_ITS | Encounter Summary ---
Author Organization [employer] Address [address] [place] [address] 7 [place] [address] Care Team Providers Care Bottom Wheeler Name Role Phone Marge Posadas Primary Care Provider [phone] Reason for Visit * Reason Onset Date Comments Med Refill 11/13/2022 Medication Question 11/13/2022 Encounter Details Date Type Department Care Team ([facility] st Contact Info) Description 11/13/2022 Telephone [facility] MEDICINE 230 [place], [place] [phone] Marge Posadas ANP [address] [place], [place] [phone] Med Refill; Medication Question Social History Tobacco [...] for medication NovoLOG FLEXPEN 100 UNIT/ML pen. Hand Trimmer jenn flores has refills at the pharmacy but pt states has ran out of medication and that he is taking 16 units and script states to take 10 units . Hand Trimmer spoke with pharmacy and a new script is needed . documented in this encounter Plan of Treatment Upcoming Encounters Date Type Department Care Team (Late st Contact Info) Description 07/14/2024 10:30 AM EDT Office Visit [facility] OPTOMETRY [address] [place] [address] Anuradha Golden, OD [address] [place] [address] documented as of this encounter Visit Diagnoses Not on filedocumented in this encounter Care Teams Bottom Wheeler Relationship Specialty Start Date End Date Marge Posadas ANP 230 [place] [address] PCP - General Family Medicine 05/01/22 04/19/24 documented as of this encounter
--- OUTSIDE RECORDS SUMMARY | 2024-07-01 09:02 | XMS_ITS | Encounter Summary ---
Author Organization [employer] Address [address] [place] [address] 7t [place] [address] Care Team Providers Care Route Salesman Name Role Phone Marge Posadas Primary Care Provider [phone] Reason for Visit * Reason Comments Med Refill Encounter Details Date Type Department Care Team (Late st Contact Info) Description 01/29/2023 Refill [facility] 230 [place], [place] [phone] Marge Posadas ANP 230 [place], [place] [phone] Psoriasis Social History Tobacco Use Types Packs/Day [...] Description 07/14/2024 10:30 AM EDT Office Visit [facility] [address] [place], [place] [phone] Anuradha Golden OD 230 [place] [address] documented as of this encounter Visit Diagnoses Diagnosis Psoriasis Other psoriasis documented in this encounter Care Teams Route Salesman Relationship Specialty Start Date End Date Marge Posadas ANP 230 [place] [address] PCP - General Family Medicine 05/01/22 04/19/24 documented as of this encounter
--- OUTSIDE RECORDS SUMMARY | 2024-07-01 09:02 | XMS_ITS | Encounter Summary ---
Author Organization [employer] Address [address] [place] [address] 7t [place] [address] Care Team Providers Care Budget Assistant Name Role Phone Marge Posadas Primary Care Provider [phone] Reason for Visit * Reason Comments Med Refill Encounter Details Date Type Department Care Team (Late st Contact Info) Description 03/10/2023 Refill [facility] MEDICINE [address] [place], [place] [phone] Marge Posadas ANP 230 [place], [place] [phone] Rash Social History Tobacco Use Types Packs/Day [...] Description 07/14/2024 10:30 AM EDT Office Visit [facility] OPTOMETRY [address] [place], [place] [phone] Anuradha Golden, OLIVE 230 [place] [address] documented as of this encounter Visit Diagnoses Diagnosis Rash Rash and other nonspecific skin eruption documented in this encounter Care Teams Budget Assistant Relationship Specialty Start Date End Date Marge Posadas ANP 230 [place] [address] PCP - General Family Medicine 05/01/22 04/19/24 documented as of this encounter
--- OUTSIDE RECORDS SUMMARY | 2024-07-01 09:02 | XMS_ITS | Encounter Summary ---
Author Organization [employer] Address [address] [facility] 7t [place] [address] Care Team Providers Care Vibrating Screen Operator Name Role Phone Marge Posadas Primary Care Provider [phone] Reason for Visit * Reason Comments Med Refill Encounter Details Date Type Department Care Team (Late st Contact Info) Description 11/23/2023 Refill [facility] 230 [place], [place] [phone] Marge Posadas ANP 230 [place], [place] [phone] Pulmonary emphysema, unspecified emphysema type (CMS/HCC) Social [...] Description 07/14/2024 10:30 AM EDT Office Visit [facility] 267 [place] [address] ChicoAnuradha javed, OD 230 [place] [address] documented as of this encounter Visit Diagnoses Diagnosis Pulmonary emphysema, unspecified emphysema type (CMS/HCC) documented in this encounter Additional Health Concerns Assessment Noted Time PHQ-9 Depression Total Score: 1 06/12/19 24 11:18 AM EDT documented as of this encounter Care Teams Vibrating Screen Operator Relationship Specialty Start Date End Date Marge Posadas ANP [address] [place] [address] PCP - General Family Medicine 05/01/22 04/19/24 documented as of this encounter
--- OUTSIDE RECORDS SUMMARY | 2024-07-01 09:02 | XMS_ITS | Clinical Summary ---
Author Organization [employer] Address [address] [place] [address] 7 [place] [address] Care Team Providers Care Gas Pump Attendant Name Role Phone Unavailable Primary Care Provider Unavailabl e Allergies Active Allergy Reactions Criticality Noted Date Comments Metoprolol 10/07/2018 Germanium 12/30/2022 Tetanus Toxoids 01/19/2022 Tetanus vaccines and toxoid per previous EHR Medications calcipotriene (Dovonex) 0.005 % creamIndications:P soriasis Apply twice daily for 2 weeks 60 g 1 03/19/19 23 Active omeprazole (PriLOSEC) [address] capsule TAKE 1 CAPSULE BY MOUTH DAILY ON EMPTY STOMACH 30 MINUTES BEFORE BREAKFAST 12/06/19 23 Active TRUEplus Lancets 33G misc TEST BLOOD SUGAR SIX TIMES DAILY 100 each 02/20/19 24 Active glucose blood (FreeStyle Precision Reid Test) test strip TEST BLOOD SUGAR SIX TIMES DAILY FOR cgm failure OR BLOOD SUGAR extremes 100 each 03/03/19 24 Active albuterol (2.5 MG/3ML) 0.083% nebulizer solution INHALE 1 AMPULE USING A NEBULIZER THREE TIMES DAILY NEEDED FOR ASTHMA OR SHORTNESS OF BREATH 90 mL 1 04/16/19 24 Active Continuous Glucose Sensor (FreeStyle Donna 2 Sensor) miscIndications:Ty pe 2 diabetes mellitus with hyperlipidemia (CMS/HCC) (CMS/[facility]) USE DIRECTED, CHANGE EVERY 14 DAYS 6 each 3 06/25/19 24 Active Pentips 32G X 4 MM miscIndications:Di abetic polyneuropathy associated with type 2 diabetes mellitus (CMS/HCC) USE UP TO FIVE TIMES DAILY 100 each 07/01/19 24 Active Blood Glucose Monitoring Suppl (FreeStyle Lite) w/Device kitIndications:Domonique betic polyneuropathy associated with type 2 diabetes mellitus ([facility]/HCC) 1 each 3 times daily. USE Directed 1 kit 09/15/19 24 Active NovoLOG FLEXPEN 100 UNIT/ML penIndications:Typ e 2 diabetes mellitus with hyperlipidemia ([facility]/HCC) ([facility]) INJECT 16 UNITS SUBCUTANEOUSLY BEFORE MEALS AND SNACKS 15 mL 11 10/02/19 24 Active Aspirin Low Dose 81 MG EC tabletIndications: Other specified personal risk factors, not elsewhere classified TAKE 1 TABLET BY MOUTH EVERY EVENING 90 tablet 1 10/10/19 24 Active furosemide (Lasix) 80 MG tabletIndications: Chronic diastolic heart failure ([facility]) Take 1 tab BID 180 tablet 1 11/18/19 24 Active Diclofenac Sodium 1 % gelIndications:Acu te pain of left shoulder APPLY 2 GRAMS TOPICALLY NEEDED TO AFFECTED AREA(S) FOUR TIMES DAILY FOR PAIN 100 g 2 11/18/19 24 Active Multiple Vitamin (Multivitamin) tablet TAKE 1 TABLET BY MOUTH EVERY MORNING WITH FOOD ( VITAMIN) 30 tablet 1 11/18/19 24 Active amLODIPine (Norvasc) 10 MG tablet Take 1 tablet by mouth Once per day. 11/12/19 24 Active Farxiga 10 MG Take 1 tablet by mouth Once per day. Active Ozempic, 1 MG/DOSE, 4 MG/3ML solution pen-injector Inject 1 MG SUBCUTANEOUSLY EVERY 7 DAYS IN THE ABDOMEN, THIGHS OR UPPER ARM. ROTATE INJECTION SITES. Active warfarin (Coumadin) 5 MG tabletIndications: Anticoagulated on Coumadin TAKE 1 TO 3 TABLETS DAILY DIRECTED BY coumadin clinic (PREVENT COAGULOS DE BLOOD) 68 tablet 2 11/28/19 24 Active Lantus SoloStar 100 UNIT/ML penIndications:Typ e 2 diabetes mellitus without complication, unspecified whether rn long term care insulin use ([facility]) INJECT 44 UNITS SUBCUTANEOUSLY ONCE DAILY DIRECTED 15 mL 3 12/09/19 24 Active Continuous Glucose Cytologist (FreeStyle Donna 2 [place]) deviceIndications: Type 2 diabetes mellitus with hyperlipidemia (CMS/HCC) ([facility]) 1 each 5 (five) times a day. 1 each 12/09/19 24 Active clotrimazole (Clotrimazole Anti-Fungal) 1 % creamIndications:R lázaro APPLY TOPICALLY TO THE AFFECTED AREA(S) TWICE DAILY FOR FOURTEEN DAYS 45 g 1 01/21/20 24 Active clobetasol (Temovate) 0.05 % ointmentIndication s:Psoriasis APPLY 2 GRAMS TOPICALLY TO AFFECTED AREA(S) TWICE DAILY FOR FOURTEEN DAYS 60 g 1 01/21/20 24 Active gabapentin (Neurontin) 100 MG capsuleIndications :Diabetes mellitus due to underlying condition with diabetic neuropathy, with long-term current use of insulin (CMS/HCC) TAKE 1 CAPSULE BY MOUTH TWICE DAILY IN THE MORNING AND AT BEDTIME (for nerve pain) 60 capsule 1 01/21/20 24 Active Serevent Diskus 50 MCG/ACT aerosol powderIndications: Pulmonary emphysema, unspecified emphysema type (CMS/HCC) INHALE 1 PUFF BY MOUTH TWICE DAILY (for COPD) 60 each 2 01/21/20 24 Active albuterol (Ventolin HFA) 108 (90 Base) MCG/ACT inhalerIndications :Pulmonary emphysema, unspecified emphysema type (CMS/HCC) INHALE 2 PUFFS BY MOUTH EVERY 4 TO 6 HOURS NEEDED 18 g 01/21/20 24 Active Incruse Ellipta 62.5 MCG/ACT aerosol powderIndications: Chronic obstructive pulmonary disease, unspecified COPD type (CMS/HCC) INHALE 1 PUFF BY MOUTH EVERY DAY AT THE SAME TIME 30 each 3 01/21/20 24 Active lisinopril 40 MG tablet TAKE 1 TABLET BY MOUTH EVERY DAY IN THE MORNING 90 tablet 1 02/11/19 25 Active Dextromethorphan-g uaiFENesin (Mucinex DM) 30-600 MG tablet sustained-release 12 hour Use 1 tab TID 28 tablet 02/24/19 25 Active isosorbide mononitrate ER (Imdur) 120 MG 24 hr tabletIndications: Chronic systolic heart failure (CMS/HCC) TAKE 1 TABLET BY MOUTH EVERY MORNING (for the heart) 90 tablet 1 03/10/19 25 Active atorvastatin (Lipitor) 80 MG tablet TAKE 1 TABLET BY MOUTH AT BEDTIME (for cholesterol) 90 tablet 2 04/13/19 25 Active metFORMIN (Glucophage) 1000 MG tabletIndications: Type 2 diabetes mellitus with diabetic polyneuropathy (CMS/HCC) TAKE 1 TABLET BY MOUTH TWICE DAILY IN THE MORNING AND IN THE EVENING WITH MEALS 180 tablet 2 04/13/19 25 Active nystatin (Mycostatin) creamIndications:B alanitis APPLY TOPICALLY TO THE AFFECTED AREA(S) TWICE DAILY FOR RASH 15 g 1 04/24/19 Active Active Problems Problem Noted Date Diagnosed Date Cough 03/09/2024 Assessment & Plan (03/09/2024 2:25 PM EST): Persistent cough in setting of COVID 2 weeks ago and emphysema. - CT of lungs 2021 IMPRESSION: emphysematous disease without interval developing suspicious pulmonary nodule by low-dose screening CT analysis when compared to . -CXR 03/03/24 in [facility] IMPRESSION: No acute abnormality. -referred to Station Repairer 03/09/24 Lung nodule 03/09/2024 Assessment & Plan (03/09/2024 2:25 PM EST): Persistent cough in setting of COVID 2 weeks ago and emphysema. - CT of lungs 2021 IMPRESSION: emphysematous disease without interval developing suspicious pulmonary nodule by low-dose screening CT analysis when compared to . -CXR 03/03/24 in [facility] IMPRESSION: No acute abnormality. -referred to Station Repairer 03/09/24 Balanitis 03/13/2023 Assessment & Plan (03/09/2024 2:14 PM EST): Discussed suspecting that his Farxiga could be causing the recurring balanitis. Encouraged to discuss medication changes with Curator who prescribed the medication. Also gave pt the phone number for [facility] to call and make appt [...] likes to eats desserts every day) I curriculum counselor about better control with his diabetes [...] hb1AC 9.8, CBG 181, I called his retail business manager's office and discussed that surgery is a low risk procedure but the pt should be optimize with his DM management prior to do surgery, currently his HB1AC is close to 10 so can increase risk for infection and poor healing of tissue after surgery. Blueprint Tracer's staff explained that cataract is not severe and there is no urgency for the procedure -I explained to patient today and to retail business manager's staff that will not clear for now to pt until DM is better controlled. Pt agreed with plan and this note will be faxed to his retail business manager Blueprint Tracer: Location: [facility] [address]on[address] Youssef, [place] [address] RICCI positive 06/04/2022 Assessment & Plan (06/04/2022 1:45 PM EDT): Pt referred at last visit by PCP to compressor house operator x + RICCI in recent labs --advised [...] low-dose screening CT analysis when compared to [id number]. -CXR 03/03/24 in [facility] IMPRESSION: No acute abnormality. -referred to Station Repairer 03/09/24 Slow transit constipation 01/19/2022 Systolic heart [...] microalbuminuria associated with type 2 diabetes mellitus 12/07/2015 Chronic obstructive lung disease 09/27/2015 Depressive [...] x continued glucose monitoring -referred today to doll wigs hackler -RTC in 6 weeks w PCP -may need to consider to resume GLP1 if possible in the future x weight loss -pt in MTM program Resolved Problems Problem Noted Date Diagnosed Date Resolved Date Acute diarrhea 01/19/2022 12/09/2023 Acute exacerbation of chroni c obstructive bronchitis 01/01/2017 11/18/2023 Encounters Date Type Department Care Team Description 06/22/2024 Refill [facility] MEDIC[facility] [address] [place] [address] Marge Posadas ANP Emphysema, unspecified ([facility]) 06/13/2024 Refill [facility] [address] [place] [address] Marge Posadas ANP Chronic obstructive pulmonary disease, unspecified COPD type ([facility]) 05/16/2024 Refill [facility] [address] [place] [address] Marge Posadas ANP Pulmonary emphysema, unspecified emphysema type ([facility]) 04/26/2024 Refill [facility] [address] [place] [address] Marge Posadas ANP Anticoagulated on Coumadin 04/23/2024 Refill [facility] [address] [place] [address] Carleen Avilez MD Balanitis 04/14/2024 Refill [facility] [address] [place] [address] Marge Posadas ANP Diabetes mellitus due to underlying condition with diabetic neuropathy, with long-term current use of insulin ([facility]) 04/11/2024 Refill [facility] [address] [place] [address] Marge Posadas ANP Type 2 diabetes mellitus with diabetic polyneuropathy ([facility]) from Last 3 Months Immunizations Immunization Administration Dates Next Due Influenza High-dose Quadriva [...] Description 07/14/2024 10:30 AM EDT Office Visit [facility] OPTOMETRY [address] [place] [address] [place], Anuradha, OD [address] [place] [address] Health Maintenance Due Date Last Done Comments [...] 04/24/2022 Pneumococcal Vaccine: 50+ Years Completed 04/08/2023, 04/08/2023, 12/04/2018, Additional history exists Influenza Vaccine Completed 02/19/2024, , 12/18/2022, Additional history exists HIB Vaccines Aged Out [...] patient's age to complete this topic Meningococcal B Vaccine Aged Out No l onger eligible based on patient's age to complete [...] Procedure Name Priority Date/Time Associated Diagnosis Comments POCT GLYCATED HEMOGLOBIN, TOTAL Routine 11/18/2023 11:41 AM EDT Persistent microalbuminuria associated with type 2 diabetes mellitus (CMS/HCC) (CMS/HCC) FECAL GLOBIN BY IMMUNOCHEMISTRY Routine 04/15/2023 8:30 AM EST Acute diarrhea LIPID PANEL, STANDARD Routine 09/20/2021 9:03 AM EDT HM COLONOSCOPY Routine 09/16/2011 from Last 3 Months or Most Recently Relevant to Health Maintenance Results * (ABNORMAL) POCT HGB A1C (11/18/2023 11:41 AM EDT) Hemoglobin A1C 8.1(A) 4.0 - 6.0 % QC Media Lot # [id number] Lot# Expiration Date [id number] Blood 11/18/2023 11:4 1 AM EDT us Marge MELGAR POINT OF CARE TEST ENTER/EDIT OR DERABLES Final Result * Fecal Globin by Immunochemistry (04/15/2023 8:30 AM EST) Fecal Globin By Immunochemistry SEE NOTE [facility] Comment:FECAL GLOBIN BY IMMU NOCHEMISTRY Micro Number: [id number] Test Status: Final Specimen Source: Not given Specimen Quality: Inadequate Fecal Globin: Test not performed. No specimen received.THIS TEST WAS PERFORMED AT:[facility] [place] [id number] OWUSU MD Stool Rectal contents / Unknown 04/15/2023 8:30 AM EST 04/15/2023 12:02 PM EST us Marge MELGAR LAB BODY FLUIDS AND STOOLS ORDER TARYN Final Result [facility] [address] [place] [address] [phone] * LIPID PANEL, STANDARD (09/20/2021 9:03 AM EDT) Chol/HDLC Ratio 2.5 <5.0 (calc) [facility] Cholesterol, Total 103 <200 mg/dL [facility] HDL Cholesterol 42 > OR = 40 mg/dL [facility] LDL Cholesterol 49 mg/dL (calc) [facility] Comment: Reference range: <100 ?? [...] ?? Fran GOMES et al. JACEK. 2013;310(19): 6155-5155 ?? (http://education.SponsorHub/faq/UOL596) Non-HDL Cholesterol 61 <130 mg/dL (calc) [facility] Comment: For patients with diabetes plus 1 major ASCVD risk ?? factor, treating to a non-HDL-C goal of <100 mg/dL ?? (LDL-C of <70 mg/dL) is considered a therapeutic ?? option. Triglycerides 50 <150 mg/dL [facility] 09/20/2021 9:03 AM EDT us Ricci Tello MD LAB BLOOD ORDERABLES Fin al Result [facility] [address] * Colonoscopy (09/16/2011) Colonoscopy Normal Normal us Historical Provider HEALTH MAINTENANCE Final Result from Last 3 Months or Most Recently Relevant to Health Maintenance Insurance [facility] [employer] (O D-SNP) [place] [id number]
[2024-07-01 11:06] LABS: Anion Gap 15 (12-20); Blood Urea Nitrogen 17 mg/dL (9-16); Calcium 9.2 mg/dL (8.4-10.2); Carbon Dioxide 24 mmol/L (22-29); Chloride 106 mmol/L (96-108); Estimated Glomerular Filt Rate > 60; Phosphorus 2.3 mg/dL (2.7-4.5); Potassium 3.7 mmol/L (3.3-5.1); Sodium 141 mmol/L (135-145)
[2024-07-01 11:25] LABS: Parathyroid Hormone Intact 196.3 pg/mL (8.7-77.1)
== END 2024-07-01 08:51 | disposition home or self-care (01) ==
LOC: HO.LAB 08:50
PROVIDERS: Visit Provider Internal Medicine Nephrology
DX: N18.31 Chronic kidney disease, stage 3a (principal); I10 Essential (primary) hypertension
CPT/HCPCS: 36415; 80051; 82306; 82310; 82565; 83970; 84100; 84520

== ENCOUNTER 2024-07-28 11:35 | Outpatient (REF) | payer OTHER, SELFPAY ==
[2024-07-28 13:01] LABS: Anion Gap 12 (12-20); Blood Urea Nitrogen 20 mg/dL (9-16); Calcium 9.6 mg/dL (8.4-10.2); Carbon Dioxide 28 mmol/L (22-29); Chloride 106 mmol/L (96-108); Estimated Glomerular Filt Rate > 60; Potassium 3.7 mmol/L (3.3-5.1); Sodium 142 mmol/L (135-145)
[2024-07-28 13:04] LABS: Parathyroid Hormone Intact 179.3 pg/mL (8.7-77.1)
--- OUTSIDE RECORDS SUMMARY | 2024-07-28 13:35 | XMS_ITS | Encounter Summary ---
Author Organization [employer] Address [address] [facility] 7t [place] [address] Care Team Providers Care Stock Saw Operator Name Role Phone Marge Posadas Primary Care Provider [phone] Reason for Visit * Reason Comments Med Refill Encounter Details Date Type Department Care Team (Late st Contact Info) Description 04/14/2024 Refill [facility] [address] [place] [phone] Marge Posadas ANP [address] [place], [place] [phone] Diabetes mellitus due to underlying condition with diabetic neuropathy, with long-term current use of insulin ([facility]) Social History Tobacco Use Types Packs/Day Years [...] neuropathy, with long-term current use of insulin ([facility]) documented in this encounter Additional Health Concerns Assessment Noted Time PHQ-9 Depression Total Score: 1 06/12/19 24 11:18 AM EDT documented as of this encounter Care Teams Stock Saw Operator Relationship Specialty Start Date End Date Marge Posadas ANP [address] [place] [phone] PCP - General Family Medicine 05/01/22 04/19/24 documented as of this encounter
== END 2024-07-28 11:36 | disposition home or self-care (01) ==
LOC: HO.LAB 11:35
PROVIDERS: Visit Provider Internal Medicine Nephrology
DX: I12.9 Hypertensive chronic kidney disease with stage 1 through stage 4 chronic kidney disease, or unspecified chronic kidney disease (principal); N18.31 Chronic kidney disease, stage 3a
CPT/HCPCS: 36415; 80051; 82310; 82565; 83970; 84520

== ENCOUNTER 2024-07-30 15:38 | Outpatient (AMB) | payer OTHER, SELFPAY ==
--- OUTSIDE RECORDS SUMMARY | 2024-07-30 15:42 | XMS_ITS | Clinical Summary ---
Author Organization [facility] Address [address] [facility] [address] [place] [address] Phone Care Team Providers Care Booster Assembler Name Role Phone Marge Posadas NP Primary Care Provider [phone] Allergies Active Allergy Reactions Criticality Noted Date [...] 28 DAYS 04/29/19 24 Active Continuous Glucose Bone Cooking Operator (FreeStyle Donna 2 [place]) device 1 each 05/31/19 23 Active Continuous Glucose Sensor (FreeStyle Donna 2 Sensor) [facility], CHANGE EVERY 14 DAYS 06/25/19 [...] the morning 30 tablet 11 07/26/19 24 Active Active Problems Problem Noted Date Diagnosed Date Obstructive sleep apnea 04/26/2014 Hyperlipidemia 10/26/2013 Screening colonoscopy 07/22/2011 Hypertension 07/22/2011 Type 2 diabetes mellitus 07/22/2011 Encounters Date Type Department Care Team Description 05/21/2024 Orders Only [facility] [address] [place], [place] [phone] Yrn Sneed MD Stage 3a chronic kidney [...] patient's age to complete this topic Insurance * Guarantor: Sergio Enriquez Account Type Relation to Patient Date of Phone Billing Address Personal/Family Self [address] MCR ([id number]) [place] [phone] [facility] MCR ([id number]) Care Teams Booster Assembler Relationship Specialty Start Date End Date Marge Posadas NP [address] [place] [address] PCP - General Nurse Practitioner 07/24/23
--- NOTE | 2024-07-30 15:44 | HO.NEPHOV_ITS ---
Vital Signs 07/30/24 15:45 Height 5 ft 6 in Weight 293 lb 2 oz BMI 47.3 BP 130/60 Blood Pressure Location Rt brachial Position Sitting Pulse 60 Pulse Source Pulse Oximeter Pulse Oximetry (%) 97 Oxygen Delivery Method Room Air Intake Visit Reasons: CKD-Conf Enamel Finisher Required: Yes Enamel Finisher Language: Structural Engineering Technician Services: Enamel Finisher Of[place] Declined [place] [place] Accompanied by: Self / Same As Patient Allergies Tetanus Vaccines and Toxoid (TETANUS) Allergy (Unknown, Verified 07/30/24 15:45) SWELLING TETNUS SHOT Allergy (Unknown, Uncoded 01/13/24 11:04) UNKNOWN HPI Comments Details: Sergio was seen in follow up for chronic kidney disease. He has diabetes and hypertension for over 20 years. He has obstructive sleep apnea and uses his CPAP machine. He is known to have positive antinuclear antibody. He does not have any hematuria, dysuria, dribbling of urine, nausea, vomiting, diarrhea. He has no history of any renal stones. He claims to be compliant with his medications. He has high BMI. He denies any sinusitis, recurrent sore throat, joint swellings, epistaxis, photosensitivity, new skin rashes, orthostatic symptoms. He is known to have renal cysts. [facility] Medical History Degenerative joint disease of both ankles and feet MAN on CPAP Morbid obesity Dyspnea on exertion CRP elevated RICCI positive Chronic diastolic heart failure Type 2 diabetes mellitus with hyperlipidemia Psoriasis Obstructive sleep apnea Essential hypertension Diabetic polyneuropathy Depressive disorder COPD (chronic obstructive pulmonary disease) Chronic low back pain Asthma Anemia Surgical History No history of previous surgery Family History Mother Cancer Diabetes Hypertension Father Stomach cancer Social History Household Members: Spouse and Children Alcohol intake: former Patient Tobacco Use Status: Former Tobacco user Review of Systems Const All systems reviewed & are unremarkable except as noted in HPI and below Physical Exam Vital Signs: Last Vital Signs Pulse 60 07/30/24 15:45 BP 130/60 07/30/24 15:45 Pulse Ox 97 06/20/25 15:45 Oxygen Delivery Method Room Air 07/30/24 15:45 BMI result Body Mass Index 47.3 Const General: comfortable and no acute distress Orientation/consciousness: patient oriented x3 HEENT Head: Yes normocephalic Mouth: Normal oral and palatal mucosa present Eyes EOM: EOMs intact bilaterally Neck Neck: Yes supple Resp Auscultation: clear to auscultation bilaterally Cardio Jugular venous distension: no JVD Rate: regular rate GI Palpation (GI): Soft to palpation Auscultation: normal bowel sounds General: Yes no CVA tenderness Back/Spine/Pelvis Back: no CVA tenderness Skin General skin exam: no rashes or lesions noted Neuro General: patient oriented x3 and moves all extremities Extrem General: Yes no pedal edema Results Reviewed Nephrology Results: Sodium, (135-145) 142 mmol/L 07/28/24 Potassium, (3.3-5.1) 3.7 mmol/L 07/28/24 Chloride, (96-108) 106 mmol/L 07/28/24 Carbon Dioxide, (22-29) 28 mmol/L 07/28/24 BUN, (9-16) 20 mg/dL H 07/28/24 Creatinine, (0.5-1.4) 1.13 mg/dL 07/28/24 Calcium, (8.4-10.2) 9.6 mg/dL 07/28/24 Phosphorus, (2.7-4.5) 2.3 mg/dL L 07/01/24 PTH Intact, (8.7-77.1) 179.3 pg/mL H 07/28/24 Assessment & Plan Assessment & Plan (1) Hypertension: Code(s): I10 - Essential (primary) hypertension Category: Medical Qualifiers: Hypertension type: primary hypertension Qualified Code(s): I10 - Essential (primary) hypertension (2) CKD stage 3a, GFR 45-59 ml/min: Code(s): N18.31 - Chronic kidney disease, stage 3a Category: Medical (3) Secondary hyperparathyroidism (of renal origin): Code(s): N25.81 - Secondary hyperparathyroidism of renal origin Category: Medical Plan 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 He is at risk for secondary FSGS. His last urine studies showed microalbuminuria . His renal ultrasound showed cysts on the right kidney. His blood sugar needs to be maintained at goal. He should maintain his blood pressure at goal. He should avoid nonsteroidal anti-inflammatories. He tries to keep with good hydration. He is on statins. He has been on ABIGAIL inhibitor and Farxiga. He will benefit from weight loss. Follow-up blood work and urine studies ordered. He is started on calcitriol 0.25 mcg twice a week. I did not make any other medication changes today. Answered all questions. Follow-up appointment given Orders: Orders Protein Creatinine Ratio, Ur 3 Months I10 - Essential (primary) hypertension, N18.31 - Chronic kidney disease, stage 3a, N25.81 - Secondary hyperparathyroidism of renal origin Electrolytes 3 Months I10 - Essential (primary) hypertension, N18.31 - Chronic kidney disease, stage 3a, N25.81 - Secondary hyperparathyroidism of renal origin Creatinine 3 Months I10 - Essential (primary) hypertension, N18.31 - Chronic kidney disease, stage 3a, N25.81 - Secondary hyperparathyroidism of renal origin Vitamin D 25-OH Total 3 Months I10 - Essential (primary) hypertension, N18.31 - Chronic kidney disease, stage 3a, N25.81 - Secondary hyperparathyroidism of renal origin Calcium 3 Months I10 - Essential (primary) hypertension, N18.31 - Chronic kidney disease, stage 3a, N25.81 - Secondary hyperparathyroidism of renal origin Blood Urea Nitrogen 3 Months I10 - Essential (primary) hypertension, N18.31 - Chronic kidney disease, stage 3a, N25.81 - Secondary hyperparathyroidism of renal origin Parathyroid Hormone Intact 3 Months I10 - Essential (primary) hypertension, N18.31 - Chronic kidney disease, stage 3a, N25.81 - Secondary hyperparathyroidism of renal origin Medications: New calcitriol 0.25 mcg PO 2XW 10 caps 6RF Coding Level of Care Code Est Pt Level 4 (21393) Diagnoses Primary hypertension I10 Hypertension type: primary hypertension CKD stage 3a, GFR 45-59 ml/min N18.31 Secondary hyperparathyroidism (of renal origin) N25.81
[2024-07-30 15:45] VITALS: BP 130/60; PULSE 60; O2SAT 97; BMI 47.3
== END 2024-07-30 16:03 | disposition home or self-care (01) ==
LOC: HO.HKA 15:39
PROVIDERS: PCP Nurse Practitioner Primary Care; Visit Provider Internal Medicine Nephrology
DX: I10 Essential (primary) hypertension (principal); N18.31 Chronic kidney disease, stage 3a; N25.81 Secondary hyperparathyroidism of renal origin
CPT/HCPCS: 99214

== ENCOUNTER → 2024-07-30 15:38 | Outpatient (BNVA) | payer OTHER, SELFPAY | PROVIDERS: PCP Nurse Practitioner Primary Care; Visit Provider Internal Medicine Nephrology | DX: I10 Essential (primary) hypertension (principal); N18.31 Chronic kidney disease, stage 3a; N25.81 Secondary hyperparathyroidism of renal origin | CPT/HCPCS: 99212 ==

== ENCOUNTER 2024-11-23 09:53 | Outpatient (REF) | payer OTHER, SELFPAY ==
--- OUTSIDE RECORDS SUMMARY | 2024-04-12 09:00 | XMS_ITS ---
Author Organization [facility] Address [address] [place] [address] Care Team Providers Care Tool And Die Maker/Designer Name Role Phone Amos Rogers Primary Care Provider Unav ailable Kaylen Ribeiro [phone] REASON FOR VISIT ERROR Encounters Encounter Location Date Provider Diagnosis [address] [address] 04/12/2024 Kaylen Ribeiro Plan Of Treatment Next Appt Details Provider Name:Kaylen lyn, 01/20/2025 09:00:00 AM, [address] [facility], [place], [address], Progress Notes * Sergio YEPEZ FDO B:1950 (74 yo M)Acc No.[id number]:04/12/2024 Progress Note Patient: Sergio MCKEON Provider: Rosie Ribeiro DPM :1950 A ge:73 Y S ex:Male Date:04/12/2024 Address:[address] [place], [place] [id number] Pcp:Amos Rogers Subjective: * Chief Complaints: * 1 . ERROR. * Medical History: Objective: * Vitals: Assessment: Plan: * Treatment: * Images: * The named appointment provid er may or may not be the originator of this progress note, and it is not deemed complete until electronically signed by the appointment provider. Sign off status: Pending * Provider: Rosie Ribeiro DPM Date: 0 04/12/2024 Generated for Aldo blanton/David/Fay on: 1 11:19 AM EDT
[2024-11-23 11:06] LABS: Anion Gap 14 (12-20); Blood Urea Nitrogen 15 mg/dL (9-16); Calcium 9.0 mg/dL (8.4-10.2); Carbon Dioxide 24 mmol/L (22-29); Chloride 108 mmol/L (96-108); Estimated Glomerular Filt Rate > 60; Parathyroid Hormone Intact 244.3 pg/mL (8.7-77.1); Potassium 3.7 mmol/L (3.3-5.1); Sodium 142 mmol/L (135-145)
--- OUTSIDE RECORDS SUMMARY | 2024-11-23 11:18 | XMS_ITS | Encounter Summary ---
Author Organization [employer] Address [address] [place] [address] [address] [place] [address] Care Team Providers Care Ship Painter Helper Name Role Phone Unavailable Primary Care Provider Unavailabl e Reason for Visit * Reason Comments Med Refill Encounter Details Date Type Department Care Team (Late st Contact Info) Description 06/22/2024 Refill [facility] [address] [place], [place] [phone] Marge Posadas, ANP [address] [place], [place] [phone] Emphysema, unspecified (CMS/HCC) Social History Tobacco Use [...] Care Team (Late st Contact Info) Description 11/25/2024 9:30 AM EDT Office Visit [facility] [address] [place], [place] [phone] Yamilet Awan FNP [address] [place] [address] documented as of this encounter Visit Diagnoses Diagnosis Emphysema, unspecified (HCC) documented in this encounter Additional Health Concerns Assessment Noted Time PHQ-9 Depression Total Score: 1 06/12/19 24 11:18 AM EDT documented as of this encounter
--- OUTSIDE RECORDS SUMMARY | 2024-11-23 11:18 | XMS_ITS | Encounter Summary ---
Author Organization [employer] Address [address] [facility] [address] [place] [address] Care Team Providers Care Clay Artist Name Role Phone Marge Posadas Primary Care Provider [phone] Reason for Visit * Reason Onset Date Comments Durable Medical Equipment 04/21/2023 Encounter Details Date Type Department Care Team ([facility] st Contact Info) Description 04/21/2023 Telephone [facility] [address] [place], [place] [phone] Marge Posadas ANP [address] [place] [address] Durable Medical Equipment Social History Tobacco Use [...] Fidaxomicin not in stock at [facility] but vanco is. No answer, [...] blood glucose monitor. Please contact pt at [phone] documented in this encounter Plan of Treatment Upcoming Encounters Date Type Department Care Team (Late st Contact Info) Description 11/25/2024 9:30 AM EDT Office Visit [facility] [address] [place], [place] [phone] Yamilet Awan FNP [address] [place], [place] [phone] documented as of this encounter Visit Diagnoses Not on filedocumented in this encounter Care Teams Clay Artist Relationship Specialty Start Date End Date Marge Posadas ANP [address] [place], [place] [phone] PCP - General Family Medicine 05/01/22 04/19/24 documented as of this encounter
--- OUTSIDE RECORDS SUMMARY | 2024-11-23 11:18 | XMS_ITS | Encounter Summary ---
Author Organization [employer] Address [address] [place] [address] [address] [place] [address] Care Team Providers Care Vocational Instructor Name Role Phone Unavailable Primary Care Provider Unavailabl e Reason for Visit * Reason Comments Med Refill Encounter Details Date Type Department Care Team ([facility] st Contact Info) Description 07/02/2024 Refill [facility] [address] [place], [place] [phone] Marge Posadas ANP [address] [place], [place] [phone] Type 2 diabetes mellitus with hyperlipidemia (CMS/HCC) ([facility]/HCC) Social History Tobacco Use Types Packs/Day Years [...] Description 11/25/2024 9:30 AM EDT Office Visit [facility] [address] [place], [place] [phone] Yamilet Awan FNP [address] [place] [address] documented as of this encounter Visit Diagnoses Diagnosis Type 2 diabetes mellitus with hyperlipidemia (HCC) documented in this encounter Additional Health Concerns Assessment Noted Time PHQ-9 Depression Total Score: 1 06/12/19 24 11:18 AM EDT documented as of this encounter
--- OUTSIDE RECORDS SUMMARY | 2024-11-23 11:18 | XMS_ITS | Encounter Summary ---
Author Organization [employer] Address [address] [facility] [address] [place] [address] Care Team Providers Care Single Spindle Screw Machine Operator Name Role Phone Unavailable Primary Care Provider Unavailabl e Reason for Visit * Reason Comments Med Refill Encounter Details Date Type Department Care Team (Late st Contact Info) Description 06/13/2024 Refill [facility] [address] [place], [place] [phone] Marge Posadas ANP [address] [place] [address] Chronic obstructive pulmonary disease, unspecified COPD type [...] Description 11/25/2024 9:30 AM EDT Office Visit [facility] [address] [place], [place] [phone] Yamilet Awan FNP [address] [place], [place] [phone] documented as of this encounter Visit Diagnoses Diagnosis Chronic obstructive pulmonary disease, unspecified COPD type (CMS/HCC) (HCC) documented in this encounter Additional Health Concerns Assessment Noted Time PHQ-9 Depression Total Score: 1 06/12/19 24 11:18 AM EDT documented as of this encounter
--- OUTSIDE RECORDS SUMMARY | 2024-11-23 11:18 | XMS_ITS | Data Portability ---
Author Organization [place] - [facility], Allergy Address [address] [address] Care Team Providers Care Director Of Strategy & Mobile Name Role Phone FREEDOM GUEVARA Primary Care Provider [phone] Assessment Encounter Date Assessment Date Assessment LastModified by Organization Details LastModified Time 06/02/2024 06/02/2024 73 y.o. male with past medical history of chronic atrial fibrillation, chronic diastolic heart failure, hypertension, hyperlipidemia , insulin-depend ant type 2 diabetes, diabetic neuropathy and retinopathy, COPD, MAN, eczema and depression 2 yr hx of loss of smell and test. Hx COVID x 2 prior to loss of smell and taste No breathing issues through nose. No epistaxis Notes ear wax No eating, drinking or swallowing issues. Notes recent EGD normal Rin [id number] night club manager andre Not available 06/02/2024 13:44:54 Plan of Treatment Reminders Order Date Submit Date Provider Last Modified By Organization Details Last Modified Time Details Appointments None recorded. Lab None recorded. Referral None recorded. Procedures None recorded. Surgeries None recorded. Imaging None recorded. Medication Orders fluticasone propionate 50 mcg/actuati on nasal spray,suspe nsion 2024 025 [facility], [address] [facility], [place], [place], [id number], 13:09:13 Patient TargetsNo targets recorded. Patient Instructions Encounter Date Encounter Id Patient Instructions Last Modified By Organization Details Last Modified Time 06/02/2024 [id number] We reviewed with using the night club manager that the most likely cause of his loss of taste and smell is from COVID-19 infection. He reports having COVID twice before he noticed the change in taste and smell. With his history of diabetes he is more at risk for prolonged difficulties. There was minimal cerumen noted bilaterally. I have suggested 3 drops distilled vinegar twice weekly. I have suggested a trial of fluticasone nasal spray. If he has persistent symptoms of loss of smell and taste we can consider a CT of the sinuses but given the lack of other symptoms the yield is likely to be low. He will have his register fro our portal and contact us with his response to thenasa spray andre Not available 06/02/2024 13:43:50 Reason for Referral None Reported. Problems Name Problem SNOMED Code Status Onset Date Resolution Date Notes Provider Name and Address Organization Details Recorded Time Loss of sense of smell 18831154 Active 025 SHELLIE CLAROS MD [address] [place] [address],[place] [address], [place], [address], [facility] - [facility] 5 13:39:58 Disorder of taste 491024883 Active 025 SHELLIE CLAROS MD [address] [place] [address], [address] [facility], [place], [address], [facility] - [facility] 5 13:40:04 Excessive cerumen in ear canal 790672500 Active 025 SHELLIE CLAROS MD [address] [facility],[place] [address], [place], [address], [facility] - [facility] 5 13:41:51 Type 2 diabetes mellitus 33542517 Active 025 SHELLIE CLAROS MD [address] [place] [address], [address] [facility], [place], [address], [facility] - [facility] 5 13:41:56 Problem Notes None recorded. Procedures Surgical History Date Name Laterality Status Provider Name and Address Organization Details Recorded Time JMSNasal/Sinus Endoscopy completed SHELLIE FERNANDEZ MD [address] [facility],[address], [address], [place] - [facility] 06/02/2024 13:44:27 Imaging Results None recorded. Procedure Notes None recorded. Medical Equipment None Reported. Allergies Allergen ID Allergen Name Allergen Category Reaction Reaction Severity Criticality Documentation Date Start Date Code Code System Note Provider Name and Address Organization Details Recorded Time 138186 cow milk allergeni c extract food,medi cation Not available Not available Not available 06/02/2024 30494 5 RxNorm Yashira duran [facility] 13:07:02 396071 Tetanus toxoid adsorbed Not available Not available Not available Not available 06/02/2024 35321 RxNorm Yashira duran [facility] 13:07:25 Medications Name Sig Start Date Stop Date Status Note LastModified by Organization Details LastModified Time multivitami n tablet TAKE 1 TABLET BY MOUTH EVERY MORNING WITH FOOD ( VITAMIN) active Not Available Not Available No t Available atorvastati n 80 mg tablet TAKE 1 TABLET BY MOUTH EVERY DAY AT BEDTIME active Not Available Not Available No t Available albuterol sulfate 2.5 mg/3 mL (0.083 %) solution for nebulizatio n INHALE 1 AMPULE USING A NEBULIZER EVERY 6 HOURS NEEDED FOR COUGH, WHEEZING, OR SHORTNESS OF BREATH 06/02 completed Not Available Not Available Not Available prednisone 5 mg tablet TAKE 6 TABS X2 DAYS, 5 TABS X2 DAYS, 4 TABS X2 DAYS, 3 TABS X2 DAYS, 2 TABS X2 DAYS, 1 TAB X2 DAYS 06/02 completed Not Available Not Available Not Available amlodipine 5 mg tablet TAKE 1 TABLET BY MOUTH EVERY DAY 06/02 completed Not Available Not Available Not Available aspirin 81 mg tablet,wil yed release TAKE 1 TABLET BY MOUTH EVERY EVENING (for the heart) active Not Available Not Available No t Available isosorbide mononitrate ER 120 mg tablet,exte nded release 24 hr TAKE 1 TABLET BY MOUTH DAILY IN THE MORNING (for the heart) active Not Available Not Available No t Available Serevent Diskus 50 mcg/dose powder for inhalation INHALE 1 PUFF BY MOUTH TWICE DAILY (for COPD) active Not Available Not Available No t Available furosemide 80 mg tablet TAKE 1 TABLET BY MOUTH TWICE DAILY A DIURETIC active Not Available Not Available No t Available amlodipine 10 mg tablet MARILYN 1 TABLETA POR LA ALTAF MANN BRYANT. 06/02 completed Not Available Not Available Not Available metformin 1,000 mg tablet TAKE 1 TABLET BY MOUTH TWICE DAILY IN THE MORNING AND IN THE EVENING WITH MEALS active Not Available Not Available No t Available nystatin 100,000 unit/gram topical cream APPLY TOPICALLY TO THE AFFECTED AREA(S) TWICE DAILY FOR RASH 06/02 completed Not Available Not Available Not Available warfarin 5 mg tablet TAKE 2-3 TABLETS BY MOUTH DAILY DIRECTED BY THE [facility]. active Not Available Not Available No t Available omeprazole 20 mg capsule,del ayed release TAKE 1 CAPSULE BY MOUTH EVERY DAY ON AN EMPTY STOMACH 30 MINUTES BEFORE BREAKFAST (for stomach acid) active Not Available Not Available No t Available aspirin 81 mg chewable tablet MASTICAR 1 TABLETA POR LA ALTAF MANN BRYANT. 06/02 completed Not Available Not Available Not Available ammonium lactate 12 % topical cream APPLY TOPICALLY TO THE AFFECTED AREA(S) OF THE FEET (EXCEPT BETWEEN THE TOES) TWICE DAILY DIRECTED FOR DRY SKIN 06/02 completed Not Available Not Available Not Available gabapentin 100 mg capsule TAKE 1 CAPSULE BY MOUTH TWICE DAILY FOR (for nerve pain) active Not Available Not Available No t Available clobetasol 0.05 % topical ointment APPLY 2 GRAMS TOPICALLY TO AFFECTED AREA(S) TWICE DAILY FOR FOURTEEN DAYS FOR RASH 06/02 completed Not Available Not Available Not Available labetalol 100 mg tablet TAKE 1 TABLET BY MOUTH TWICE DAILY IN THE MORNING AND IN THE EVENING (for high blood pressure) 06/02 completed Not Available Not Available Not Available lisinopril 40 mg tablet TAKE 1 TABLET BY MOUTH EVERY MORNING (for high blood pressure) active Not Available Not Available No t Available fluticasone propionate 50 mcg/actuati on nasal spray,suspe nsion Allyn 2 sprays every day by intranasa l route. 2024 active Not Available Not Available Not Avai lable clotrimazol e 1 % topical cream APPLY TOPICALLY TWICE DAILY FOR 7 DAYS FOR RASH 06/02 completed Not Available Not Available Not Available Ventolin HFA 90 mcg/actuati on aerosol inhaler INHALE 2 PUFFS BY MOUTH EVERY 4 TO 6 HOURS NEEDED FOR SHORTNESS OF BREATH active Not Available Not Available No t Available Novolog FlexPen U-100 Insulin aspart 100 unit/mL (3 mL) subcutaneou s INJECT 16 UNITS SUBCUTANE OUSLY BEFORE MEALS AND SNACKS (for diabetes) active Not Available Not Available No t Available alfuzosin ER 10 mg tablet,exte nded release 24 hr TAKE 1 TABLET BY MOUTH AT BEDTIME 06/02 completed Not Available Not Available Not Available peg 3350-electr olytes 236 gram-22.74 gram-6.74 gram-5.86 gram solution MIX DIRECTED AND DRINK 1 GLASS EVERY 15 TO 30 MINUTES UNTIL FINISHED 06/02 completed Not Available Not Available Not Available Lantus Solostar U-100 Insulin 100 unit/mL (3 mL) subcutaneou s pen INJECT 44 UNITS SUBCUTANE OUSLY EVERY DAY DIRECTED (diabetes ) active Not Available Not Available No t Available FreeStyle [place] Lite kit USE DIRECTED TO TEST BLOOD SUGAR THREE TIMES DAILY 06/02 completed Not Available Not Available Not Available diclofenac 1 % topical gel APPLY 4 GRAMS TOPICALLY TO AFFECTED AREA(S) FOUR TIMES DAILY NEEDED FOR PAIN 06/02 completed Not Available Not Available Not Available blood pressure test kit-large cuff USE DIRECTED TO CHECK BLOOD PRESSURE 06/02 completed Not Available Not Available Not Available BD Ultra-Fine Jyo Pen Needle 32 gauge x /32 USE DIRECTED UP TO FIVE TIMES DAILY (for diabetes) active Not Available Not Available No t Available TRUEplus Lancets 33 gauge USE TO TEST BLOOD SUGAR 6 TIMES PER DAY (for diabetes) 06/02 completed Not Available Not Available Not Available Mucus DM 30 mg-600 mg tablet,exte nded release TAKE 1 TABLET BY MOUTH THREE TIMES DAILY 06/02 completed Not Available Not Available Not Available Farxiga 10 mg tablet TAKE 1 TABLET BY MOUTH EVERY MORNING (for diabetes) active Not Available Not Available No t Available Incruse Ellipta 62.5 mcg/actuati on powder for inhalation INHALE 1 PUFF BY MOUTH EVERY DAY AT THE SAME TIME RINSE MOUTH AFTER USING (for COPD) active Not Available Not Available No t Available FreeStyle Precision Reid Strips TEST BLOOD SUGAR 6 TIMES PER DAY NEEDED DIRECTED (for diabetes) 06/02 completed Not Available Not Available Not Available Wixela Inhub 250 mcg-50 mcg/dose powder for inhalation INHALE 1 PUFF 2 TIMES A DAY active Not Available Not Available No t Available UltiGuard SafePack-Pe n Needle 32 gauge x /32 USE DIRECTED UP TO FIVE TIMES DAILY 06/02 completed Not Available Not Available Not Available FreeStyle Donna 2 Sensor kit USE DIRECTED AND CHANGE EVERY 14 DAYS . (for diabetes) 06/02 completed Not Available Not Available Not Available FreeStyle Donna 2 [place] USE DIRECTED TO TEST BLOOD SUGAR FIVE TIMES DAILY 06/02 completed Not Available Not Available Not Available Ozempic 1 mg/dose (4 mg/3 mL) subcutaneou s pen injector Inject 1 MG SUBCUTANE OUSLY EVERY 7 DAYS IN THE ABDOMEN, THIGHS OR UPPER ARM. ROTATE INJECTION SITES. (for diabetes) active Not Available Not Available No t Available Paxlovid 300 mg (150 mg x 2)-100 mg tablets in a dose pack TAKE 1 TABLET (150 MG) OF NIRMATREL VIR & 1 TABLET (100 MG) OF RITONAVIR BY MOUTH TWICE DAILY FOR 5 DAYS 06/02 completed Not Available Not Available Not Available Vitals Date Recorded Body height Body weight Provider Name and Address Organization Details Last Updated DateTime 06/02/2024 165.1 cm 146472.83 g Yashira Watt [place] - [facility] 06/02/2024 13:04:36 Social History None recorded. Functional Status None recorded. Mental Status None recorded. Family History Nothing Reported. Medical History Condition Response Diabetes Y Hyperlipidemia Y Hypertension Y Depression Y COPD Y Sleep Disorder Y Past Encounters Encounter ID Performer Location Encounter Start Date Encounter Closed Date Diagnosis/Indication Diagnosis SNOMED-CT Code Diagnosis ICD10 Code Diagnosis IMO Codes Diagnosis Note [id number] SHELLIE JENSEN MD [facility] [address] [address] 06/02/2024 13:02:38 06/02/2024 13:49:40 Loss of sense of smell 45454825 R43.0 Disorder of taste 669999 004 R43.9 Excessive cerumen in ear canal 016800835 H61.23 Type 2 bryant betes mellitus 35652396 E11.9 Health Concerns Section Related Observation LastModified by Organization Detai ls LastModified Time None Recorded Concern Status LastModified by Organization Details LastModified Time None Recorded Advance Directives Directive None Recorded Payers Insurance Date Sequence Insurance Name Policy Number Policy [place] Covered Member ID [place] Member ID Guarantor Name 06/02/2024 1 [facility] - DOS ON OR AFTER 2022 - MEDICARE [place]VANTAGE [place] (MEDICARE REPLACEMENT/AD VANTAGE - PPO) Sergio Britt [id number] Sergio Enriquez Notes Date Note Type Note Provider Name and Address Organization Details Recorded Time 06/02/2024 text/html ROS as noted in the HPI 73 y.o. male with past medical history of chronic atrial fibrillation, chronic diastolic heart failure, hypertension, hyperlipidemia, insulin-dependant type 2 diabetes, diabetic neuropathy and retinopathy, COPD, MAN, eczema and depression2 yr hx of loss of smell and test. Hx COVID x 2 prior to loss of smell and tasteNo breathing issues through nose. No epistaxisNotes ear waxNo eating, drinking or swallwoing issues.Notes recent EGD normalGloria [id number] night club manager SHELLIE FERNANDEZ MD [address] [place] [address], [address], [facility] - [facility] 06/02/2024 13:45:11
--- OUTSIDE RECORDS SUMMARY | 2024-11-23 11:18 | XMS_ITS | Encounter Summary ---
Author Organization [employer] Address [address] [facility] 7 [place] [address] Care Team Providers Care Audit Manager Name Role Phone Posadas Marge MELGAR Primary Care Provider [phone] Reason for Visit * Reason Comments Med Refill Encounter Details Date Type Department Care Team ([facility] st Contact Info) Description 04/14/2023 Refill [facility] [address] [place], [place] [phone] Artem Benites MD [address] [place] [address] Social History Tobacco Use Types Packs/Day Years [...] Description 11/25/2024 9:30 AM EDT Office Visit [facility] [address] [place], [place] [phone] Yamilet Awan FNP 230 [place] [address] documented as of this encounter Visit Diagnoses Not on filedocumented in this encounter Care Teams Audit Manager Relationship Specialty Start Date End Date Marge Posadas ANP [address] [place], [place] [phone] PCP - General Family Medicine 05/01/22 04/19/24 documented as of this encounter
--- OUTSIDE RECORDS SUMMARY | 2024-11-23 11:18 | XMS_ITS | Encounter Summary ---
Author Organization [employer] Address [address] [place] [address] 7 [place] [address] Care Team Providers Care Clarifier Operator Helper Name Role Phone Yashira Tello MD Primary Care Provider + Marge Posadas Primary Care Provider [phone] Encounter Details Date Type Department Care Team ([facility] Contact Info) Description 04/15/2022 Orders Only [facility] [address] [place], [place] [phone] April Collins LPN Social History Tobacco Use [...] Upcoming Encounters Date Type Department Care Team ([facility] Contact Info) Description 11/25/2024 9:30 AM EDT Office Visit [facility] [address] [place] [address] Yamilet Awan FNP [address] [place], [place] [phone] documented as of this encounter Visit Diagnoses Not on filedocumented in this encounter Care Teams Clarifier Operator Helper Relationship Specialty Start Date End Date Yashira Tello MD 230 [place], [place] [phone] PCP - General Family Medicine 06/29/20 04/30/22 Marge Posadas ANP [address] [place], [place] [phone] PCP - General Family Medicine 05/01/22 04/19/24 documented as of this encounter
--- OUTSIDE RECORDS SUMMARY | 2024-11-23 11:18 | XMS_ITS | Encounter Summary ---
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, with long-term current use of insulin ([facility] Social History Tobacco Use Types Packs/Day Years [...] Description 11/25/2024 9:30 AM EDT Office Visit [facility] [address] [place] [address] Yamilet Awan FNP [address] [place] [address] documented as of this encounter Visit Diagnoses Diagnosis 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
--- OUTSIDE RECORDS SUMMARY | 2024-11-23 11:18 | XMS_ITS | Encounter Summary ---
Author Organization [employer] Address [address] [facility] 7 [place] [address] Care Team Providers Care Supervisor Type Bar And Segment Name Role Phone Unavailable Primary Care Provider Unavailabl e Reason for Visit * Reason Comments Med Refill Encounter Details Date Type Department Care Team (Late st Contact Info) Description 05/16/2024 Refill [facility] [address] [place], [place] [phone] Marge Posadas ANP [address] [place] [address] Pulmonary emphysema, unspecified emphysema type (CMS/HCC) Social [...] Description 11/25/2024 9:30 AM EDT Office Visit [facility] [address] [place], [place] [phone] Yamilet Awan FNP 230 [place] [address] documented as of this encounter Visit Diagnoses Diagnosis Pulmonary emphysema, unspecified emphysema type documented in this encounter Additional Health Concerns Assessment Noted Time PHQ-9 Depression Total Score: 1 06/12/19 24 11:18 AM EDT documented as of this encounter
--- OUTSIDE RECORDS SUMMARY | 2024-11-23 11:18 | XMS_ITS | Encounter Summary ---
Author Organization [employer] Address [address] [facility] 7 [place] [address] Care Team Providers Care Oyster Sorter Name Role Phone Posadas Marge MELGAR Primary Care Provider [phone] Reason for Visit * Reason Comments Med Refill Encounter Details Date Type Department Care Team ([facility] st Contact Info) Description 04/09/2023 Refill [facility] [address] [place], [place] [phone] Artem Benites MD [address] [place] [address] Social History Tobacco Use Types Packs/Day Years [...] Description 11/25/2024 9:30 AM EDT Office Visit [facility] [address] [place], [place] [phone] Yamilet Awan FNP 230 [place] [address] documented as of this encounter Visit Diagnoses Not on filedocumented in this encounter Care Teams Oyster Sorter Relationship Specialty Start Date End Date Marge Posadas ANP 230 [place], [place] [phone] PCP - General Family Medicine 05/01/22 04/19/24 documented as of this encounter
--- OUTSIDE RECORDS SUMMARY | 2024-11-23 11:18 | XMS_ITS | Clinical Summary ---
Author Organization [facility] Address [address] [place] [address] Care Team Providers Care Child Caregiver Name Role Phone Cuauhtemoc Marge Pandey NP Primary Care Provider [phone] Social History Tobacco Use Types Packs/Day Years Used Date Smoking Tobacco: Never Assessed Sex and Gender Information Value Date Recorded Sex Assigned at Not on file Legal Sex Male 12:52 AM EST Gender Identity Not on file Sexual Orientation Not on file Plan of Treatment Health Maintenance Due Date Last Done Comments DTaP,Tdap,and Td Vaccines (1 - Tdap) 11/08/1971 Pneumococcal Vaccine: 50+ Ye ars (1 of 1 - PCV) 2002 Zoster Vaccines (1 of 2) 2002 Depression Screening 02/11/2024 COVID-19 Vaccine (1 - 2023-2 5 season) 2024 Influenza Vaccine (#1) 2024 RSV Immunization Adult Patie nts (1 - 1-dose 75+ series) 11/08/2027 HIB Vaccines Aged Out No longer eligi [...] on patient's age to complete this topic MMR Vaccines Aged Out No longer eligi ble based on patient's age to complete this topic Meningococcal ACWY Vaccine Aged Out N o longer eligible based on patient's age to complete this topic Meningococcal B Vaccine Aged Out No l onger eligible based on patient's age to complete this topic RSV Immunization Patients Un elver 20 months Aged Out No longer eligible b ased on patient's age to complete this topic Varicella Vaccines Aged Out No longer eligible based on patient's age to complete this topic Care Teams Child Caregiver Relationship Specialty Start Date End Date Marge Posadas NP [address] [place] [phone] PCP - General 06/13/23
--- OUTSIDE RECORDS SUMMARY | 2024-11-23 11:18 | XMS_ITS | Encounter Summary ---
Author Organization [employer] Address [address] [place] [address] 7 [place] [address] Care Team Providers Care Song Plugger Name Role Phone Yashira Tello MD Primary Care Provider + Marge Posadas Primary Care Provider [phone] Encounter Details Date Type Department Care Team ([facility] Contact Info) Description 03/19/2022 Orders Only [facility] [address] [place], [place] [phone] April Collins LPN Social History Tobacco Use [...] Upcoming Encounters Date Type Department Care Team ([facility] Contact Info) Description 11/25/2024 9:30 AM EDT Office Visit [facility] 230 [place] [address] Yamilet Awan FNP 230 [place], [place] [phone] documented as of this encounter Visit Diagnoses Not on filedocumented in this encounter Care Teams Song Plugger Relationship Specialty Start Date End Date Yashira Tello MD [address] [place], [place] [phone] PCP - General Family Medicine 06/29/20 04/30/22 Marge Posadas ANP [address] [place], [place] [phone] PCP - General Family Medicine 05/01/22 04/19/24 documented as of this encounter
--- OUTSIDE RECORDS SUMMARY | 2024-11-23 11:19 | XMS_ITS | Encounter Summary ---
Author Organization [employer] Address [address] [place] [address] 7 [place] [address] Care Team Providers Care Director Of Photography Name Role Phone Cuauhtemoc Marge MELGAR Primary Care Provider [phone] Reason for Visit * Reason Comments Med Refill Encounter Details Date Type Department Care Team ([facility] st Contact Info) Description 12/16/2022 Refill [facility] [address] [place], [place] [phone] Tamera Clemente FNP [address] [place] [address] Type 2 diabetes mellitus with hyperlipidemia (CMS/HCC) [...] 9:30 AM EDT Office Visit [facility] [address] [place] [address] Yamilet Awan FNP [address] [place] [address] documented as of this encounter Visit Diagnoses Diagnosis Type 2 diabetes mellitus with hyperlipidemia (HCC) documented in this encounter Care Teams Director Of Photography Relationship Specialty Start Date End Date Marge Posadas ANP [address] [place] [address] PCP - General Family Medicine 05/01/22 04/19/24 documented as of this encounter
--- OUTSIDE RECORDS SUMMARY | 2024-11-23 11:19 | XMS_ITS | Encounter Summary ---
Author Organization [employer] Address [address] [place] [address] 7 [place] [address] Care Team Providers Care Cardiology Clinical Nurse Specialist Name Role Phone Marge Posadas Primary Care Provider [phone] Reason for Visit * Reason Comments Med Refill Encounter Details Date Type Department Care Team ([facility] st Contact Info) Description 09/28/2023 Refill [facility] MEDICINE [address] [place], [place] [phone] Marge Posadas ANP [address] [place], [place] [phone] Pulmonary emphysema, unspecified emphysema type (CMS/HCC) Social [...] 9:30 AM EDT Office Visit [facility] MEDICINE [address] [place] [address] Yamilet Awan FNP 230 [place] [address] documented as of this encounter Visit Diagnoses Diagnosis Pulmonary emphysema, unspecified emphysema type documented in this encounter Additional Health Concerns Assessment Noted Time PHQ-9 Depression Total Score: 1 06/12/19 24 11:18 AM EDT documented as of this encounter Care Teams Cardiology Clinical Nurse Specialist Relationship Specialty Start Date End Date Marge Posadas ANP [address] [place] [address] PCP - General Family Medicine 05/01/22 04/19/24 documented as of this encounter
--- OUTSIDE RECORDS SUMMARY | 2024-11-23 11:19 | XMS_ITS | Encounter Summary ---
Author Organization [employer] Address [address] [facility] 7 [place] [address] Care Team Providers Care Early Childhood Lead Teacher Name Role Phone Marge Posadas Primary Care Provider [phone] Reason for Visit * Reason Comments Med Refill Encounter Details Date Type Department Care Team ([facility] Contact Info) Description 01/31/2023 Refill [facility] MEDICINE 230 [place], [place] [phone] Marge Posadas ANP [address] [place] [address] Social History Tobacco Use Types Packs/Day Years [...] Description 11/25/2024 9:30 AM EDT Office Visit [facility] MEDICINE 230 [place], [place] [phone] Yamilet Awan FNP 230 [place] [address] documented as of this encounter Visit Diagnoses Not on filedocumented in this encounter Care Teams Early Childhood Lead Teacher Relationship Specialty Start Date End Date Marge Posadas ANP [address] [place] [address] PCP - General Family Medicine 05/01/22 04/19/24 documented as of this encounter
--- OUTSIDE RECORDS SUMMARY | 2024-11-23 11:19 | XMS_ITS | Clinical Summary ---
Author Organization [facility] Address [address] [facility] [address] 0 [place] [address] Phone Care Team Providers Care Import Specialist Name Role Phone Marge Posadas NP Primary Care Provider [phone] Allergies Active Allergy Reactions Criticality Noted Date Comments Metoprolol 10/07/2018 Tetanus Toxoid-Containing Vaccines 01/19/2022 Tetanus vaccines and toxoid per previous [...] 28 DAYS 04/29/19 24 Active Continuous Glucose Contour Stitcher (FreeStyle Donna 2 Antonito) device 1 each 05/31/19 23 Active Continuous Glucose Sensor (FreeStyle Donna 2 Sensor) [facility] [place] DIRECTED, CHANGE EVERY 14 DAYS 06/25/19 [...] Hypertension 07/22/2011 Type 2 diabetes mellitus 07/22/2011 Social History Tobacco Use Types Packs/Day Years [...] Diabetes: Hemoglobin A1C 02/18/2024 11/18/2023, 05/0 03/2023 Influenza Vaccine (#1) 2024 5, 12/04/2018, 10/28/2017, Additional history exists Pneumococcal Vaccine: 50+ Years Completed 04/08/2023, 04/08/2023, 12/04/2018, Additional history exists Pneumococcal Vaccine: Peds (0 to 5 Years) and At-Risk Patients (6 to 49 Years) Discontinued 04/08/2023, 04/08/2023, 12/04/2018, Additional history exists Hepatitis B Vaccine Aged Out No longe r eligible based on patient's age to complete this topic [place] [address] ([id number]) [facility] ([id number]) Care Teams Import Specialist Relationship Specialty Start Date End Date Marge Posadas NP [address] [place] [address] PCP - General Nurse Practitioner 07/24/23
--- OUTSIDE RECORDS SUMMARY | 2024-11-23 11:19 | XMS_ITS | Encounter Summary ---
Author Organization [employer] Address [address] [facility] 7 [place] [address] Care Team Providers Care Venetian Blind Maker Name Role Phone Marge Posadas Primary Care Provider [phone] Reason for Visit * Reason Comments Med Refill Encounter Details Date Type Department Care Team ([facility] Contact Info) Description 03/10/2023 Refill [facility] MEDICINE 230 [place], [place] [phone] Marge Posadas ANP 230 [place], [place] [phone] Rash Social History Tobacco Use Types Packs/Day [...] Description 11/25/2024 9:30 AM EDT Office Visit [facility] MEDICINE [address] [place] [address] Yamilet Awan FNP 230 [place] [address] documented as of this encounter Visit Diagnoses Diagnosis Rash Rash and other nonspecific skin eruption documented in this encounter Care Teams Venetian Blind Maker Relationship Specialty Start Date End Date Marge Posadas ANP 230 [place] [address] PCP - General Family Medicine 05/01/22 04/19/24 documented as of this encounter
--- OUTSIDE RECORDS SUMMARY | 2024-11-23 11:19 | XMS_ITS | Patient Health Record ---
Author Organization [facility] Address [address] [place] [address] Care Team Providers Care Hotel And Dining Room Cashier Name Role Phone Amos Rogers Primary Care Provider Ashleymerly Kaylen Mcgregor Unavailable [phone] Allergies Allergen (clinical drug ingredient) Drug/Non Drug Allergy documented on EMR Reaction Allergy Type Onset Date Status Lactose Unknown Drug Allergy Active Tetanus Toxoids Unknown Drug Allergy A ctive Reason For Referral No Information Medications Medication SIG (Take, Route, Frequency, Duration) Notes Start Date End Date Status Gabapentin 100 MG TAKE 1 CAPSULE BY MOUTH TWICE DAILY IN THE MORNING AND AT BEDTIME Oral; Duration: 30 Active Incruse Ellipta 62.5 MCG/ACT Inhalation; Duration: 30 Not-Taking Isosorbide Mononitrate ER 120 MG TAKE 1 Tablet BY MOUTH EVERY MORNING Oral; Duration: 90 I5022,Unavai lable Not-Taking FreeStyle Donna 2 Sensor - USE DIRECTED AND CHANGE EVERY 14 DAYS; Duration: 84 E1169,Unavai lable Active Warfarin Sodium 5 MG TAKE 1 TO 3 TABLETS BY MOUTH ONCE DAILY DIRECTED PER [facility]ADIN CLIN[facility] Oral; Duration: 23 Z7901,Unavai lable Active Alfuzosin HCl ER 10 MG TAKE 1 TABLET BY MOUTH AT BEDTIME Oral; Duration: 30 R3912,Unavai lable Not-Taking Extra Depth Orthopedic Shoes (1 Pair) with Customized Heat Molded Multidensity Innersoles (3 Pair) as directed Dx: NIDDM/Polyneuropathy (E11.42), Hammertoe Foot Deformity (M20.41,M20.42), Preulcerative Skin Lesion(s) (L85.1 Active Atorvastatin Calcium 80 MG TAKE 1 TABLET BY MOUTH AT BEDTIME Oral; Duration: 90 Active Diclofenac Sodium 1 % APPLY 4 GRAMS TOPICALLY FOUR TIMES DAILY FOR PAIN External; Duration: 7 days Not-Taking Ammonium Lactate 12 % APPLY TOPICALLY TO THE AFFECTED AREA(S) OF DRY SKIN ON THE FEET EXCEPT BETWEEN THE TOES TWICE DAILY DIRECTED; Duration: 30 Active Trulicity 3 MG/0.5ML INJECT ONE PEN (= 3 MG) SUBCUTANEOUSLY ONCE A WEEK DIRECTED Subcutaneous; Duration: ,Unavai lable Active Furosemide 80 MG TAKE 1 TABLET BY JYOTI TH TWICE DAILY IN THE MORNING AND IN THE EVENING Oral; Duration: 90 I5032,Unavai lable Active TRUEplus Lancets 33G - ; Duration: 17 Active Multivitamin - TAKE 1 TABLET BY JYOTI TH EVERY MORNING WITH FOOD Oral; Duration: 90 Active Ozempic (1 MG/DOSE) 4 MG/3ML Inject 1 MG SUBCUTANEOUSLY EVERY 7 DAYS IN THE ABDOMEN, THIGHS OR UPPER ARM. ROTATE INJECTION SITES. Subcutaneous; Duration: ,Unavai lable Active Ventolin HFA 108 (90 Base) MCG/ACT Inhalation; Duration: 17 Active Ammonium Lactate 12 % 1 application Externally to affected areas of dry skin to feet except for between the toes Twice a day; Duration: 30 days Active Lisinopril 40 MG TAKE 1 TABLET BY JYOTI TH EVERY MORNING Oral; Duration: 90 Active Labetalol HCl 100 MG TAKE 1 TABLET BY MO UTH TWICE DAILY IN THE MORNING AND IN THE EVENING Oral; Duration: 30 I10,Unavaila ble Active Lantus SoloStar 100 UNIT/ML INJECT 44 UNITS SUBCUTANEOUSLY ONCE DAILY DIRECTED Subcutaneous; Duration: E119,Unavail able Active Easy Touch Lancets 33G/Twist - USE TO TEST BLOOD SUGAR 6 TIMES PER DAY; Duration: 17 Active Pentips 32G X 4 MM USE UP TO FIVE TIMES DAILY; Duration: ,Unavai lable Active Aspirin Adult Low Strength 81 MG Oral; Duration: 90 Not-Andres ing Clobetasol Propionate 0.05 % External; Duration: 15 Not-Taking NovoLOG FlexPen 100 UNIT/ML Subcutaneous; Duration: 21 Active metFORMIN HCl 1000 MG TAKE 1 TABLET BY MOUTH TWICE DAILY IN THE MORNING AND IN THE EVENING WITH MEALS Oral; Duration: ,Unavai lable Active Albuterol Sulfate (2.5 MG/3ML) 0.083% INHALE 1 AMPULE USING A NEBULIZER THREE TIMES DAILY NEEDED FOR ASTHMA AND SHORTNESS OF BREATH Inhalation; Duration: 10 Not-Taking Immunizations Vaccine Route Administration Date Status Comme nts Influenza Unknown 02/24/2024 Administered Social History Tobacco Use: Social History Observation [...] Problem Acquired hammer toe of right foot ([id number] ) Other hammer toe(s) (acquired), right foot (M20.41) Active confirmed Problem Acquired hammer toe of left foot ([id number] ) Other hammer toe(s) (acquired), left foot (M20.42) Active confirmed Problem Polyneuropathy due to type 2 diabetes mellitus (479305227) Type 2 diabetes mellitus with diabetic polyneuropathy (E11.42) Active confirmed Vital Signs Blood pressure diastolic 82 mm Hg 10/21/2024 Height 5ft 5in in 10/21/2024 Blood pressure systolic 147 mm Hg 10/21/2024 Weight 280 lbs 10/21/2024 BMI 46.59 kg/m2 10/21/2024 Encounters Encounter Location Date Provider Diagnosis [address] [address] 01/22/2024 Kaylen Ribeiro Type 2 diabetes mellitus with diabetic polyneuropathy E11.42 ; Xerosis of skin L85.3 ; Tinea unguium B35.1 ; Other hammer toe(s) (acquired), right foot M20.41 and Other hammer toe(s) (acquired), left foot M20.[address] [address] 04/22/2024 Kaylen Ribeiro Type 2 diabetes mellitus with diabetic polyneuropathy E11.42 ; Xerosis of skin L85.3 ; Tinea unguium B35.1 ; Other hammer toe(s) (acquired), right foot M20.41 and Other hammer toe(s) (acquired), left foot M20.[address] [facility] [place] [address] 07/22/2024 Kaylen Ribeiro Type 2 diabetes mellitus with diabetic polyneuropathy E11.42 and Tinea unguium B35.[address] [address] 10/21/2024 Kaylen Ribeiro Type 2 diabetes mellitus with diabetic polyneuropathy E11.42 ; Xerosis of skin L85.3 and Tinea unguium B35.[address] [facility] [address] 10/27/2024 Kay[facility] Perica [facility] [address] 01/22/2024 Kaylen Perica [facility] [address] 04/22/2024 Kaylen Perica [address] [address] 04/22/2024 Kaylen Perica [facility] [address] 07/22/2024 Kaylen Ribeiro Assessments Encounter Date Diagnosis (ICD Code) Assessment Notes Treatment Notes Treatment Clinical Notes Section Notes 01/22/2024 Type 2 diabetes mellitus with diabetic polyneuropathy (ICD-10 - E11.42) 01/22/2024 Xerosis of skin (ICD-10 - L85.3) 04/22/2024 Type 2 diabetes mellitus with diabetic polyneuropathy (ICD-10 - E11.42) 04/22/2024 Xerosis of skin (ICD-10 - L85.3) 07/22/2024 Type 2 diabetes mellitus with diabetic polyneuropathy (ICD-10 - E11.42) 07/22/2024 Tinea unguium (ICD-10 - B35.1) 10/21/2024 Type 2 diabetes mellitus with diabetic polyneuropathy (ICD-10 - E11.42) 10/21/2024 Xerosis of skin (ICD-10 - L85.3) 10/21/2024 Tinea unguium (ICD-10 - B35.1) 04/22/2024 Tinea unguium (ICD-10 - B35.1) 01/22/2024 Tinea unguium (ICD-10 - B35.1) 01/22/2024 Other hammer toe(s) (acquired), right foot (ICD-10 - M20.41) 04/22/2024 Other hammer toe(s) (acquired), right foot (ICD-10 - M20.41) 04/22/2024 Other hammer toe(s) (acquired), left foot (ICD-10 - M20.42) 01/22/2024 Other hammer toe(s) (acquired), left foot (ICD-10 - M20.42) Plan Of Treatment Next Appt Details Provider Name:Kaylen lyn, 01/20/2025 09:00:00 AM, [address] [facility], [place], [address], Insurance Providers Payer Name Payer Address Payer Phone Subscriber Number Group Number Insured Name Patient Relationship to Insured Coverage Start Date Coverage End Date [facility] [employer] Claims [address] [place] [id number] Sergio Yepez Self - patient is the insured Medical (General) History Medical History History ICD Code Diabetic High Blood Pressure asthma nerve pain Surgical History Surgery Date(Month/Year) Hospitalization History Reason Date(Month/Year) blood pressure too low [facility] 11/2023 [facility] or [facility] water in lungs
--- OUTSIDE RECORDS SUMMARY | 2024-11-23 11:19 | XMS_ITS | Encounter Summary ---
Author Organization [employer] Address [address] [place] [address] 7 [place] [address] Care Team Providers Care Social Scientist Name Role Phone Marge Posadas Primary Care Provider [phone] Reason for Visit * Reason Comments Med Refill Encounter Details Date Type Department Care Team (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, with long-term current use of insulin ([facility]) Social History Tobacco Use Types [...] Description 11/25/2024 9:30 AM EDT Office Visit [facility] MEDICINE [address] [place] [address] Yamilet Awan FNP 230 [place] [address] documented as of this encounter Visit Diagnoses Diagnosis Diabetes 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
--- OUTSIDE RECORDS SUMMARY | 2024-11-23 11:19 | XMS_ITS | Encounter Summary ---
Author Organization [employer] Address [address] [place] [address] 7 [place] [address] Care Team Providers Care Family Assessment Worker Name Role Phone Yashira Tello MD Primary Care Provider + Marge Posadas Primary Care Provider Reason for Visit * Reason Onset Date Comments Referral 01/15/2022 Encounter Details Date Type Department Care Team (Late st Contact Info) Description 01/15/[address] [facility] MEDICINE 230 [place], [place] [phone] Yashira Tello MD [address] [place], [place] [phone] Referral Social History Tobacco Use Types Packs/Day [...] agrees to notify pt to come into [facility] tomorrow for exam. Reviewed operating hours [...] 9:30 AM EDT Office Visit [facility] MEDICINE [address] [place] [address] Yamilet Awan FNP [address] [place] [address] documented as of this encounter Visit Diagnoses Not on filedocumented in this encounter Care Teams Family Assessment Worker Relationship Specialty Start Date End Date Yashira Tello MD [address] [place] [address] PCP - General Family Medicine 06/29/20 04/30/22 Marge Posadas ANP [address] [place] [address] PCP - General Family Medicine 05/01/22 04/19/24 documented as of this encounter
--- OUTSIDE RECORDS SUMMARY | 2024-11-23 11:19 | XMS_ITS | Encounter Summary ---
Author Organization [employer] Address [address] [place] [address] 7 [place] [address] Care Team Providers Care Humanities Teacher Name Role Phone Marge Posadas TALIA Primary Care Provider [phone] Encounter Details Date Type Department Care Team (Late Contact Info) Description 10/29/2022 Orders Only [facility] MED & PEDS [address] [place], [place] [phone] Kellie Cramer LPN Social History Tobacco Use [...] Description 11/25/2024 9:30 AM EDT Office Visit [facility] MEDICINE 230 [place], [place] [phone] Yamilet Awan FNP [address] [place], [place] [phone] documented as of this encounter Visit Diagnoses Not on filedocumented in this encounter Care Teams Humanities Teacher Relationship Specialty Start Date End Date Marge Posadas ANP [address] [place] [address] PCP - General Family Medicine 05/01/22 04/19/24 documented as of this encounter
--- OUTSIDE RECORDS SUMMARY | 2024-11-23 11:19 | XMS_ITS | Encounter Summary ---
Author Organization [employer] Address [address] [place] [address] 7 [place] [address] Care Team Providers Care Model Builder Display Name Role Phone Unavailable Primary Care Provider Unavailabl e Reason for Visit * Reason Comments Med Refill Encounter Details Date Type Department Care Team (Late st Contact Info) Description 08/12/2024 Refill [facility] MEDICINE 230 [place] [address] Marge Posadas, ANP 230 [place] [address] Social History Tobacco Use Types Packs/Day Years [...] 9:30 AM EDT Office Visit [facility] MEDICINE [address] [place], [place] [phone] Yamilet Awan FNP 230 [place] [address] documented as of this encounter Visit Diagnoses Not on filedocumented in this encounter Additional Health Concerns Assessment Noted Time PHQ-9 Depression Total Score: 1 06/12/19 24 11:18 AM EDT documented as of this encounter
--- OUTSIDE RECORDS SUMMARY | 2024-11-23 11:19 | XMS_ITS | Encounter Summary ---
Author Organization [employer] Address [address] [facility] 7 [place] [address] Care Team Providers Care Detective Bureau Chief Name Role Phone Marge Posadas Primary Care Provider Reason for Visit * Reason Comments Med Refill Encounter Details Date Type Department Care Team ([facility] Contact Info) Description 01/29/2023 Refill [facility] MEDICINE [address] [place], [place] [phone] Marge Posadas ANP 230 [place], [place] [phone] Psoriasis Social History Tobacco Use Types Packs/Day [...] [facility] MEDICINE [address] [place] [address] Yamilet Awan FNP [address] [place] [address] documented as of this encounter Visit Diagnoses Diagnosis Psoriasis Other psoriasis documented in this encounter Care Teams Detective Bureau Chief Relationship Specialty Start Date End Date Marge Posadas ANP [address] [place] [address] PCP - General Family Medicine 05/01/22 04/19/24 documented as of this encounter
--- OUTSIDE RECORDS SUMMARY | 2024-11-23 11:19 | XMS_ITS | Encounter Summary ---
Author Organization [employer] Address [address] [facility] 7 [place] [address] Care Team Providers Care Geospatial Imagery Intelligence Analyst Name Role Phone Marge Posadas Primary Care Provider [phone] Encounter Details Date Type Department Care Team ([facility] st Contact Info) Description 02/18/2023 Orders Only [facility] CH[facility] MED & PEDS [address] [place], [place] [phone] Smith Barnes MD 505 [place] [address] Chronic pain of right ankle (Primary Dx) [...] Description 11/25/2024 9:30 AM EDT Office Visit [facility] MEDICINE 230 [place] [address] Yamilet wAan FNP 230 [place] [address] documented as of this encounter Visit Diagnoses Diagnosis Chronic pain of right ankle- Primary documented in this encounter Care Teams Geospatial Imagery Intelligence Analyst Relationship Specialty Start Date End Date Marge Posadas ANP [address] [place] [address] PCP - General Family Medicine 05/01/22 04/19/24 documented as of this encounter
--- OUTSIDE RECORDS SUMMARY | 2024-11-23 11:19 | XMS_ITS | Encounter Summary ---
Author Organization [employer] Address [address] [facility] 7t [place] [address] Care Team Providers Care Timber Management Assistant Name Role Phone Unavailable Primary Care Provider Unavailabl e Reason for Visit * Reason Comments Med Refill Encounter Details Date Type Department Care Team (Late st Contact Info) Description 07/23/2024 Refill [facility] 230 [place], [place] [phone] Marge Posadas ANP 230 [place] [address] [place] Social History Tobacco Use Types Packs/Day Years [...] 9:30 AM EDT Office Visit [facility] MEDICINE 230 [place], [place] [phone] Yamilet Awan FNP 230 [place] [address] documented as of this encounter Visit Diagnoses Diagnosis Balanitis Balanoposthitis documented in this encounter Additional Health Concerns Assessment Noted Time PHQ-9 Depression Total Score: 1 06/12/19 24 11:18 AM EDT documented as of this encounter
--- OUTSIDE RECORDS SUMMARY | 2024-11-23 11:19 | XMS_ITS | Encounter Summary ---
Author Organization [employer] Address [address] [place] [address] 7 [place] [address] Care Team Providers Care Supervisory Geographer Name Role Phone Unavailable Primary Care Provider Unavailabl e Reason for Visit * Reason Comments Pre-visit Planning SDOH unable to reach LVM Encounter Details Date Type Department Care Team ([facility] Contact Info) Description 11/18/2024 Patient Outreach [facility] MED & PEDS [address] [place] [address] Yamilet Awan, CHAVEZ 230 [place] [address] Pre-visit Planning (SDOH unable to reach LVM ) Social History Tobacco Use Types Packs/Day Years [...] as of this encounter Progress Notes * Estrella Hardy - 11/18/2024 10:24 AM EDT CC Estrella [place] placed outbound call to patient to complete pre-visit planning. No answer at this time. Patient name and were not confirmed. CC left voicemail requesting return call. Direct contactinformation provided. documented in this encounter Plan of Treatment Upcoming Encounters Date Type Department Care Team (Late st Contact Info) Description 11/25/2024 9:30 AM EDT Office Visit [facility] MEDICINE 230 [place] [address] Yamilet Awan FNP [address] [place] [address] documented as of this encounter Visit Diagnoses Not on filedocumented in this encounter Additional Health Concerns Assessment Noted Time PHQ-9 Depression Total Score: 1 06/12/19 24 11:18 AM EDT documented as of this encounter
--- OUTSIDE RECORDS SUMMARY | 2024-11-23 11:20 | XMS_ITS | Clinical Summary ---
Author Organization [employer] Address [address] [place] [address] 7 [place] [address] Care Team Providers Care Press Operator Carbon Blocks Name Role Phone Unavailable Primary Care Provider Unavailabl e Allergies Active Allergy Reactions Criticality Noted Date Comments Diphth-Acell Pertussis-Tetanus 07/19/2024 Other Reaction(s): Not available Metoprolol 10/07/2018 Germanium 12/30/2022 Tetanus Toxoid-Containing Vaccines 01/19/2022 Tetanus vaccines and [...] miscIndications:Ty pe 2 diabetes mellitus with hyperlipidemia (HCC) USE DIRECTED, CHANGE EVERY 14 DAYS 6 each 3 06/25/19 24 Active Pentips 32G X 4 MM miscIndications:Di abetic polyneuropathy associated with type 2 diabetes mellitus (HCC) USE UP TO FIVE TIMES DAILY 100 each 11 07/01/19 24 Active Blood Glucose Monitoring Suppl (FreeStyle Lite) w/Device kitIndications:Domonique betic polyneuropathy associated with type 2 diabetes mellitus (HCC) 1 each 3 times daily. USE Directed 1 kit 09/15/19 Active NovoLOG FLEXPEN 100 UNIT/ML penIndications:Typ e 2 diabetes mellitus with hyperlipidemia (HCC) INJECT 16 UNITS SUBCUTANEOUSLY BEFORE MEALS AND SNACKS 15 mL 11 10/02/19 24 Active Aspirin Low Dose 81 MG EC tabletIndications: Other specified personal risk factors, not elsewhere classified TAKE 1 TABLET BY MOUTH EVERY EVENING 90 tablet 1 10/10/19 24 Active furosemide (Lasix) 80 MG tabletIndications: Chronic diastolic heart failure (HCC) Take 1 tab BID 180 tablet 1 [...] without complication, unspecified whether half-way insulin use INJECT 44 UNITS SUBCUTANEOUSLY ONCE DAILY DIRECTED 15 mL 3 12/09/19 24 Active Continuous Glucose Internet Sales Director (FreeStyle Donna 2 [place]) deviceIndications: Type 2 diabetes mellitus with hyperlipidemia (HCC) 1 each 5 (five) times a day. [...] neuropathy, with long-term current use of insulin ([facility]) TAKE 1 CAPSULE BY MOUTH TWICE DAILY IN THE MORNING AND AT BEDTIME (for nerve pain) 60 capsule 1 01/21/20 24 Active Serevent Diskus 50 MCG/ACT aerosol powderIndications: Pulmonary emphysema, unspecified emphysema type INHALE 1 PUFF BY MOUTH TWICE DAILY (for COPD) 60 each 2 01/21/20 24 Active albuterol (Ventolin HFA) 108 (90 Base) MCG/ACT inhalerIndications :Pulmonary emphysema, unspecified emphysema type INHALE 2 PUFFS BY MOUTH EVERY 4 TO 6 HOURS NEEDED 18 g 1 01/21/20 24 Active Incruse Ellipta 62.5 MCG/ACT aerosol powderIndications: Chronic obstructive pulmonary disease, unspecified COPD type (CMS/HCC) ([facility]) INHALE 1 PUFF BY MOUTH EVERY DAY [...] 24 hr tabletIndications: Chronic systolic heart failure (HCC) TAKE 1 TABLET BY MOUTH EVERY MORNING (for the heart) 90 tablet 1 03/10/19 25 Active atorvastatin (Lipitor) 80 MG tablet TAKE 1 TABLET BY MOUTH AT BEDTIME (for cholesterol) 90 tablet 2 04/13/19 25 Active metFORMIN (Glucophage) 1000 MG tabletIndications: Type 2 diabetes mellitus with diabetic polyneuropathy (HCC) TAKE 1 TABLET BY MOUTH TWICE DAILY IN THE MORNING AND IN THE EVENING WITH MEALS 180 tablet 2 04/13/19 25 Active nystatin (Mycostatin) creamIndications:B alanitis APPLY TOPICALLY TO THE AFFECTED AREA(S) TWICE DAILY FOR RASH 15 g 1 04/24/19 Active ammonium lactate (Amlactin) 12 % cream APPLY TOPICALLY TO THE AFFECTED AREA(S) OF DRY SKIN ON THE FEET EXCEPT BETWEEN THE TOES TWICE DAILY DIRECTED Active fluticasone (Flonase) 50 MCG/ACT nasal spray [place] 2 sprays every day by intranasal route. 06/03/19 Active Active Problems Problem Noted Date Diagnosed [...] [place] IMPRESSION: No acute abnormality. -referred to Photographic Process Screen Maker 03/09/24 Lung nodule 03/09/2024 Assessment & Plan (03/09/2024 2:25 PM EST): Persistent cough in setting of COVID 2 weeks ago and emphysema. - CT of lungs 2021 IMPRESSION: emphysematous disease without interval developing suspicious pulmonary nodule by low-dose screening CT analysis when compared to . -CXR 03/03/24 in [facility] IMPRESSION: No acute abnormality. -referred to Photographic Process Screen Maker 03/09/24 Balanitis 03/13/2023 Assessment & Plan (03/09/2024 2:14 PM EST): Discussed suspecting that his Farxiga could be causing the recurring balanitis. Encouraged to discuss medication changes with Ticket Agent who prescribed the medication. Also gave pt the phone number for [facility] to call and make appt [...] likes to eats desserts every day) I certified drug counselor about better control with his diabetes and to f/u with PCP Benign prostatic hyperplasia with urinary freque ncy 03/13/2023 Assessment & Plan (03/13/2023 12:05 PM EST): Possible prostate problem PSA ordered urology referral Hyperlipidemia 09/05/2022 Chronic atrial fibrillation (CMS/HCC) 06/04/2022 Overview (06/04/2022): Anticoagulated on coumadin Cataract of left eye 06/04/2022 Assessment & Plan (06/04/2022 1:52 PM EDT): Pt was here today for preop visit x left eye cataract surgery Pt is a high risk patient w mx comorbidities including AF on AC, HF,COPD uncontrolled DM today hb1AC 9.8, CBG 181, I called his newborn photographer's office and discussed that surgery is a low risk procedure but the pt should be optimize with his DM management prior to do surgery, currently his HB1AC is close to 10 so can increase risk for infection and poor healing of tissue after surgery. [employer]'s staff explained that cataract is not severe and there is no urgency for the procedure -I explained to patient today and to newborn photographer's staff that will not clear for now to pt until DM is better controlled. Pt agreed with plan and this note will be faxed to his newborn photographer [employer]: Location: [facility] [address], [place] [address] RICCI positive 06/04/2022 Assessment & Plan (06/04/2022 1:45 PM EDT): Pt referred at last visit by PCP to seat coverer x + RICCI in recent labs --advised [...] low-dose screening CT analysis when compared to [id number]. -CXR 03/03/24 in [facility] IMPRESSION: No acute abnormality. -referred to Photographic Process Screen Maker 03/09/24 Slow transit constipation 01/19/2022 Systolic heart [...] Depressive disorder 09/27/2015 Hypertension 09/27/2015 Severe obesity (CMS/HCC) 09/27/2015 Type 2 diabetes mellitus 09/27/2015 Assessment [...] x continued glucose monitoring -referred today to manager beverage -RTC in 6 weeks w PCP -may need to consider to resume GLP1 if possible in the future x weight loss -pt in MTM program Resolved Problems Problem Noted Date Diagnosed Date Resolved Date Acute diarrhea 01/19/2022 12/09/2023 Acute exacerbation of chroni c obstructive bronchitis ([facility]) 01/01/2017 11/18/2023 Encounters Date Type Department Care Team Description 11/18/2024 Patient Outreach [facility] [address] [place], [place] [phone] Yamilet Awan FNP Pre-visit Planning ([facility] unable to reach [facility] ) 11/02/2024 Telephone [facility] [address] [place] [address] Casper Lamb MD 09/30/2024 Telephone [facility] [address] [place] [address] Casper Lamb MD Appointment Request from Last 3 Months Immunizations Immunization Administration Dates Next Due Influenza High-dose Quadriva lent Preservative Free 12/18/2022,10/30/2021,11/30/2020,12/05 Influenza injectable quadriv alent IIV4 with preservative 10/28/2017,10/30/2016,10/31/2015 Influenza, High Dose Seasona l, Preservative Free 02/19/2024,12/04/2018 Moderna Covid-19 Vaccine 12+ 05/21/2021,04/28/19 21,03/30/2020 Pfizer Covid-19 Vaccine 12+ 12/04/2020 Pfizer Covid-19 [...] is your housing situation today? I have dioniiso hamlin 06/12/[address] you [...] 67 03/09/2024 1:50 PM EST Temperature 36.1 C (97 F) 03/09/2024 1:50 PM EST Respiratory Rate 20 [...] Description 11/25/2024 9:30 AM EDT Office Visit [facility] [address] [place], [place] [phone] Yamilet Awan FNP [address] [place], [place] [phone] Health Maintenance Due Date Last Done Comments CT Colonography 1952 FIT DNA/Cologuard 1950 Sigmoidoscopy 1952 Alcohol/Substance Use Screening 1964 Hepatitis C Screening 1970 DTaP/Tdap/Td Vaccines (1 - Tdap) 11/08/1971 RSV Patients and Patients Aged 60 years or older (1 - Risk 60-74 years 1-dose series) 2012 Colonoscopy 09/15/2021 09/16/2011, 09/16/2011 Lipid Panel 09/20/2022 09/20/2021, 05/12, 11/11/2019 Diabetes: Urine Protein Screening 05/21/2023 05/20/2022, 06/06/2020, 11/11/2019 Diabetes: Hemoglobin A1C 02/18/2024 024, 06/12/2023, 04/08/2023, Additional history exists Colorectal Cancer Screening 04/14/2024 FIT 04/14/2024 04/15/2023 FOBT 04/14/2024 04/15/2023 Depression Screening 06/11/2024 06/12/2023, 06/12/19 Diabetes: Foot Exam 06/11/2024 06/12/2023, 06/12/2023, 12/19/2022, Additional history exists SDOH Screening 06/11/2024 06/12/2023 COVID-19 Vaccine ( season) 2024 12/04/2021, 05/21/2021, 12/04/2020, Additional history exists Influenza Vaccine (#1) 2024 , 02/19/2024, 12/18/2022, Additional history exists Tobacco Screening 07/19/2025 07/19/2024 Eye Exam 07/14/2026 07/14/2024, 06/0 05/2024, 07/14/2024, Additional history exists Zoster Vaccines Completed 07/02/2022, 04/24/2022 Pneumococcal Vaccine: 50+ Years Completed 04/08/2023, 04/08/2023, 12/04/2018, Additional history exists HIB Vaccines Aged Out [...] Routine 04/15/2023 8:30 AM EST Acute diarrhea ALBUMIN, RANDOM URINE W/CREATININE Routine 05/20/2022 9:30 AM EDT Essential hypertension LIPID PANEL, STANDARD Routine 09/20/2021 9:03 AM EDT HM COLONOSCOPY Routine 09/16/2011 from Last 3 Months or Most Recently Relevant to Health Maintenance Results * (ABNORMAL) POCT HGB A1C (11/18/2023 11:41 AM EDT) Hemoglobin A1C 8.1(A) 4.0 - 6.0 % QC Media Lot # [id number] Lot# Expiration Date [id number] Blood 11/18/2023 11:4 1 AM EDT us Marge MELGAR POINT OF CARE TEST ENTER/EDIT OR DERABLES Final Result * Fecal Globin by Immunochemistry (04/15/2023 8:30 AM EST) Fecal Globin By Immunochemistry SEE NOTE [facility] Comment:FECAL GLOBIN BY IMMU NOCHEMISTRY Micro Number: [id number] Test Status: Final Specimen Source: Not given Specimen Quality: Inadequate Fecal Globin: Test not performed. No specimen received.THIS TEST WAS PERFORMED AT:[facility] [place] [id number] OWUSU MD Stool Rectal contents / Unknown 04/15/2023 8:30 AM EST 04/15/2023 12:02 PM EST us Marge MELGAR LAB BODY FLUIDS AND STOOLS ORDER TARYN Final Result [facility] [address] [place] [phone] * (ABNORMAL) Albumin, Random Urine W/Creatinine (05/20/2022 9:30 AM EDT) Pathologist [facility] Creatinine, Random Urine 57 20 - 320 mg/dL [facility] [place] [facility] Albumin, Urine 5.1 See Note: mg/dL [facility] Comment: Reference Range: Reference Range Not established Albumin/Creatinin e Ratio, Random Urine 89(H) <30 mcg/mg creat [facility] Comment: The ADA defines abnormalities in albumin excretion as follows: Albuminuria Category Result (mcg/mg creatinine) Normal to Mildly increased <30 Moderately increased 30-299 Severely increased > OR = 300 The ADA recommends that at least two of three specimens collected within a 3-6 month period be abnormal before considering a patient to be within a diagnostic category. 05/20/2022 9:30 AM EDT 05/20/2022 9:30 AM EDT Narrative [facility] - 05/24/2022 11:45 AM EDT FASTING:UNKNOWN FASTING: UNKNOWN [facility] LAB URINE ORDERABLES Final Resul t [facility] [address], [place] [address] [facility] [address] [place] [address] * LIPID PANEL, STANDARD (09/20/2021 9:03 AM EDT) [facility] Chol/HDLC Ratio 2.5 <5.0 (calc) [facility] Cholesterol, Total 103 <200 mg/dL [facility] HDL Cholesterol 42 > OR = 40 mg/dL [facility] LDL Cholesterol 49 mg/dL (calc) [facility] Comment: Reference range: <100 Desirable range <100 mg/dL for primary prevention; <70 mg/dL for patients with CHD or diabetic patients with > or = 2 CHD risk factors. LDL-C is now calculated using the Antwon calculation, which is a validated novel method providing better accuracy than the Friedewald equation in the estimation of LDL-C. Fran GOMES et al. JACEK. 2013;310(19): 1140-7595 (http://education.Xigen/faq/QOR029) Non-HDL Cholesterol 61 <130 mg/dL (calc) [facility] Comment: For patients with diabetes plus 1 major ASCVD risk factor, treating to a non-HDL-C goal of <100 mg/dL (LDL-C of <70 mg/dL) is considered a therapeutic option. Triglycerides 50 <150 mg/dL [facility] 09/20/2021 9:03 AM EDT us Ricci Tello MD LAB BLOOD ORDERABLES Fin al Result [facility] [address] * Colonoscopy (09/16/2011) Colonoscopy Normal Normal us Historical Provider HEALTH MAINTENANCE Final Result from Last 3 Months or Most Recently Relevant to Health Maintenance Insurance [facility] OPTIONS (O D-SNP) SHABNAM PORTER [id number]
--- OUTSIDE RECORDS SUMMARY | 2024-11-23 11:20 | XMS_ITS | Encounter Summary ---
Author Organization [employer] Address [address] [facility] [address] [place] [address] Care Team Providers Care Liquefaction Plant Operator Name Role Phone Marge Posadas Primary Care Provider [phone] Reason for Visit * Reason Comments Med Refill Encounter Details Date Type Department Care Team ([facility] Contact Info) Description 11/23/2023 Refill [facility] [address] [place], [place] [phone] Marge Posadas ANP [address] [place] [address] Pulmonary emphysema, unspecified emphysema type (CMS/HCC) Social [...] 9:30 AM EDT Office Visit [facility] [address] [place] [address] Yamilet Awan FNP [address] [place] [address] documented as of this encounter Visit Diagnoses Diagnosis Pulmonary emphysema, unspecified emphysema type documented in this encounter Additional Health Concerns Assessment Noted Time PHQ-9 Depression Total Score: 1 06/12/19 24 11:18 AM EDT documented as of this encounter Care Teams Liquefaction Plant Operator Relationship Specialty Start Date End Date Marge Posadas ANP [address] [place] [address] PCP - General Family Medicine 05/01/22 04/19/24 documented as of this encounter
--- OUTSIDE RECORDS SUMMARY | 2024-11-23 11:20 | XMS_ITS | Encounter Summary ---
Author Organization [employer] Address [address] [facility] [address] [place] [address] Care Team Providers Care Nitroglycerin Distributor Name Role Phone Cuauhtemoc Marge MELGAR Primary Care Provider [phone] Reason for Visit * Reason Comments Med Refill Encounter Details Date Type Department Care Team ([facility] st Contact Info) Description 11/19/2023 Refill [facility] [address] [place], [place] [phone] April Shaver DO [address] [place] [address] Social History Tobacco Use Types Packs/Day Years [...] Description 11/25/2024 9:30 AM EDT Office Visit [facility] [address] [place] [address] Yamilet Awan FNP [address] [place] [address] documented as of this encounter Visit Diagnoses Not on filedocumented in this encounter Additional Health Concerns Assessment Noted Time PHQ-9 Depression Total Score: 1 06/12/19 24 11:18 AM EDT documented as of this encounter Care Teams Nitroglycerin Distributor Relationship Specialty Start Date End Date Marge Posadas ANP [address] [place] [address] PCP - General Family Medicine 05/01/22 04/19/24 documented as of this encounter
--- OUTSIDE RECORDS SUMMARY | 2024-11-23 11:20 | XMS_ITS | Encounter Summary ---
Author Organization [employer] Address [address] [place] [address] [address] [address] Care Team Providers Care Finishing Range Feeder Name Role Phone Marge Posadas Primary Care Provider [phone] Reason for Visit * Reason Onset Date Comments Med Refill 11/13/2022 Medication Question 11/13/2022 Encounter Details Date Type Department Care Team ([facility] st Contact Info) Description 11/13/2022 Telephone [facility] [address] [place], [place] [phone] Marge Posadas ANP [address] [place], [place] [phone] Med Refill; Medication Question Social History Tobacco [...] for medication NovoLOG FLEXPEN 100 UNIT/ML pen. Civil Engineering Technician informed hestill has refills at the pharmacy but pt states has ran out of medication and that he is taking 16 units and script states to take 10 units . Civil Engineering Technician spoke with pharmacy and a new script is needed . documented in this encounter Plan of Treatment Upcoming Encounters Date Type Department Care Team (Late st Contact Info) Description 11/25/2024 9:30 AM EDT Office Visit [facility] [address] [place], [place] [phone] Yamilet Awan FNP [address] [place], [place] [phone] documented as of this encounter Visit Diagnoses Not on filedocumented in this encounter Care Teams Finishing Range Feeder Relationship Specialty Start Date End Date Marge Posadas ANP [address] [place], [place] [phone] PCP - General Family Medicine 05/01/22 04/19/24 documented as of this encounter
--- OUTSIDE RECORDS SUMMARY | 2024-11-23 11:20 | XMS_ITS | Encounter Summary ---
Author Organization [employer] Address [address] [place] [address] [address] [address] Care Team Providers Care Cheerleading Coach Name Role Phone Marge Posadas TALIA Primary Care Provider [phone] Reason for Visit * Reason Comments Med Refill Encounter Details Date Type Department Care Team (Late st Contact Info) Description 11/14/2022 Refill [facility] [address] [place], [place] [phone] Yashira Tello MD [address] [place], [place] [phone] Chronic obstructive pulmonary disease, unspecified COPD type [...] 11/25/2024 9:30 AM EDT Office Visit [facility] [address] [place] [address] Yamilet Awan FNP [address] [place] [address] documented as of this encounter Visit Diagnoses Diagnosis Chronic obstructive pulmonary disease, unspecified COPD type (CMS/HCC) (HCC) documented in this encounter Care Teams Cheerleading Coach Relationship Specialty Start Date End Date Marge Posadas ANP [address] [place] [address] PCP - General Family Medicine 05/01/22 04/19/24 documented as of this encounter
[2024-11-23 11:49] LABS: Protein/Creatinine Ratio, Ur 1.54 (<0.2); Total Protein Urine Random 100 mg/dL (<12)
== END 2024-11-23 09:54 | disposition home or self-care (01) ==
LOC: HO.LAB 09:53
PROVIDERS: PCP Physician Assistant; Visit Provider Internal Medicine Nephrology
DX: I12.9 Hypertensive chronic kidney disease with stage 1 through stage 4 chronic kidney disease, or unspecified chronic kidney disease (principal); N18.31 Chronic kidney disease, stage 3a; N25.81 Secondary hyperparathyroidism of renal origin
CPT/HCPCS: 36415; 80051; 82306; 82310; 82565; 82570; 83970; 84156; 84520

== ENCOUNTER 2024-11-25 10:57 | Outpatient (REF) | payer OTHER, SELFPAY ==
--- OUTSIDE RECORDS SUMMARY | 2023-07-03 05:30 | XMS_ITS ---
Author Organization [facility] Address [address] [place] [address] Care Team Providers Care Document Analyst Name Role Phone Amos Rogers Primary Care Provider Unav ailable Kaylen Ribeiro [phone] Encounters Encounter Location Date Provider Diagnosis [address] [address] 07/03/2023 Kaylen Ribeiro Plan Of Treatment Next Appt Details Provider Name:Kaylen lyn, 01/20/2025 09:00:00 AM, [address] [place] [address], [place], [address], Progress Notes * Sergio YEPEZ FDO B:1950 (74 yo M)Acc No.[id number]:07/03/2023 Progress Notes Patient: Sergio MCKEON Provider: Rosie Ribeiro DPM :1950 A ge:72 Y S ex:Male Date:07/03/2023 Address:[address] [place], [place] [id number] Pcp:Amos Rogers Subjective: * Chief Complaints: * * Medical History: Objective: * Vitals: Assessment: Plan: * Treatment: * Images: * The named appointment provid er may or may not be the originator of this progress note, and it is not deemed complete until electronically signed by the appointment provider. Sign off status: Pending * Provider: Rosie Ribeiro DPM Date: 0 07/03/2023 Generated for Aldo blanton/David/Fay on: 1 01:53 PM EDT
--- OUTSIDE RECORDS SUMMARY | 2024-04-12 09:00 | XMS_ITS ---
Author Organization [facility] Address [address] [place] [address] Care Team Providers Care Personal Financial Advisor Name Role Phone Amos Rogers Primary Care Provider Unav ailable Kaylen Ribeiro [phone] REASON FOR VISIT ERROR Encounters Encounter Location Date Provider Diagnosis [address] [address] 04/12/2024 Kaylen Ribeiro Plan Of Treatment Next Appt Details Provider Name:Kaylen lyn, 01/20/2025 09:00:00 AM, [address] [facility], [place], [address], Progress Notes * Sergio YEPEZ FDO B:1950 (74 yo M)Acc No.[id number]:04/12/2024 Progress Note Patient: Sergio MCKEON Provider: Rosie Ribeiro DPM :1950 A ge:73 Y S ex:Male Date:04/12/2024 Address:[address] [place], [place] [id number] Pcp:Amos Rogers Subjective: * Chief Complaints: * [...] 04/12/2024 Generated for Aldo blanton/David/Fay on: 1 09:00 AM EDT
--- OUTSIDE RECORDS SUMMARY | 2024-11-25 09:30 | XMS_ITS | Encounter Summary ---
Author Organization [employer] Address [address] [place] [address] 7 [place] [address] Care Team Providers Care Community Relations Police Lieutenant Name Role Phone Unavailable Primary Care Provider Unavailabl e Encounter Details Date Type Department Care Team (Latest Contact Info) Description 11/25/2024 9:30 AM EDT Office Visit [facility] [address] [place] [address] Yamilet Awan FNP [address] [place] [address] Adult wellness visit (Primary Dx); Type 2 diabetes mellitus with hyperlipidemia (HCC) Social History Tobacco Use Types Packs/Day Years Used Date Smoking Tobacco: Former Cigarettes Passive Smoke Exposure: Past Smokeless Tobacco: Never Alcohol Use Standard Drinks/Week Comments Not Currently 0 (1 standard drink = 0.6 oz pur e alcohol) Depression Answer Date Recorded Patient Health Questionnaire-9 Score 0 11/25/2024 Patient Health Questionnaire-9 Score 0 11/25/2024 Last PHQ-9: Questionnaire Data Not on file 1 Housing Stability Answer Date Recorded What is your housing situation today? I have dionisio hamlin 11/25/[address] you li ve. Do you have problems with any of the following? None of the above 11/25/2024 Food Insecurity Answer Date Recorded Within the past 12 months, y ou worried that your food would run out before you got money to buy more: Never True 11/25/2024 Within the past 12 months,th e food you bought just didn't last and you didn't have enough money to get more: Never True Transportation Answer Date Recorded In the past 12 months, has l ack of transportation kept you from medical appts, meetings, work or from getting things needed for daily living? No 11/25/2024 Utilities Answer Date Recorded In the past 12 months, has t he electric, gas, oil or water company threatened to shut off services in your home? No 11/25/2024 Depression Answer Date Recorded Patient Health Questionnaire-2 Score 0 11/25/2024 Internet Access Answer Date Recorded Internet Access Q1 Yes 11/25/2024 Internet Access Q2 Not on file 11/25/2024 Sex and Gender Information Value Date Recorded Sex Assigned at Male 12/10/2021 10:24 AM EDT Legal Sex Male 10:24 AM EDT Gender Identity Male 12/10/2021 10:24 AM EDT Sexual Orientation Straight 12/10/2021 10 :24 AM EDT documented as of this encounter Last Filed Vital Signs Vital Sign Reading Time Taken Comments Blood Pressure 162/90 11/25/2024 10:00 AM EDT Pulse 62 11/25/2024 10:00 AM EDT Temperature 36.6 C (97.8 F) 11/25/2024 10:00 AM EDT Respiratory Rate 18 11/25/2024 10:00 AM EDT Oxygen Saturation 99% 11/25/2024 10:00 AM EDT Inhaled Oxygen Concentration - - Weight 134 kg (295 lb 6 oz) 11/25/2024 10:00 AM EDT Height 167.1 cm (5' 5.8 ) 11/25/2024 10:00 AM ED T Body Mass Index 47.97 11/25/2024 10:00 AM EDT documented in this encounter Functional Status * Over the past 2 weeks, how often have you been bothered by any of the following problems? Question Answer Date of Assessment Author Patient Health Questionnaire-2 Score 0 11/25/2024 10:01 AM EDT Zoraida Pollock [place] * Little interest or pleasure in doing things Answer Date of Assessment Author Not at all 11/25/2024 10:01 AM EDT Zoraida Santiago [place], [place] * Feeling down, depressed, or hopeless Answer Date of Assessment Author Not at all 11/25/2024 10:01 AM EDT Zoraida Santiago [place], [place] * Trouble falling or staying asleep, or sleeping too much Answer Date of Assessment Author Not at all 11/25/2024 10:01 AM Zoraida Cisneros [place], [place] * Feeling tired or having little energy Answer Date of Assessment Author Not at all 11/25/2024 10:01 AM Zoraida Cisneros [place], [place] * Poor appetite or overeating Answer Date of Assessment Author Not at all 11/25/2024 10:01 AM Zoraida Cisneros [place], [place] * Feeling bad about yourself - or that you are a failure or have let yourself or your family down Answer Date of Assessment Author Not at all 11/25/2024 10:01 AM Zoraida Cisneros [place], [place] * Trouble concentrating on things, such as reading the newspaper or watching television Answer Date of Assessment Author Not at all 11/25/2024 10:01 AM Zoraida Cisneros [place], [place] * Moving or speaking so slowly that other people could have noticed? Or the opposite - being so fidgety or restless that you have been moving around a lot more than usual. Answer Date of Assessment Author Not at all 11/25/2024 10:01 AM Zoraida Cisneros [place], [place] * Thoughts that you would be better off or hurting yourself in some way Answer Date of Assessment Author Not at all 11/25/2024 10:01 AM Zoraida Cisneros [place], [place] * Patient Health Questionnaire-9 Score Answer Date of Assessment Author 0 11/25/2024 10:01 AM Zoraida Cisneros [place], [place] * Over the last 2 weeks, how often have you been bothered by any of the following problems? Question Answer Date of Assessment Author Feeling nervous, anxious, or on edge 0 11/25/2024 10:01 AM Zoraida Calle [place] Not being able to stop or control worrying 0 11/25/2024 10:01 AM Zoraida Calle [place] Worrying too much about different things 0 11/25/2024 10:01 AM EDT Zoraida Beck MA Trouble relaxing 0 11/25/2024 10:01 AM EDT Zoraida Beck [place] Being so restless that it is hard to sit still 0 11/25/2024 10:01 AM EDT Zoraida Beck MA Becoming easily annoyed or irritable 0 11/25/2024 10:01 AM EDT Zoraida Beck MA Feeling afraid as if something awful might happen 0 11/25/2024 10:01 AM EDT Zoraida Dixon MA FARHAN-7 Total Score 0 11/25/2024 10:01 AM EDT Zoraida Beck [place] documented as of this encounter Plan of Treatment Upcoming Encounters Date Type Department Care Team (Late st Contact Info) Description 12/16/2024 10:00 AM EST Office Visit [facility] MED[facility]INE [address] [place] [address] Janice Gutierrez NP [address] [place] [address] Scheduled Orders Name Type Priority Associated Diagnoses Orde r Schedule Comprehensive Metabolic Panel Lab Routine Adult wellness visit Expected: 11/25/2024 (Approximate), Expires: 11/25/2025 TSH Lab Routine Adult wellness visit Expected: 11/25/2024 (Approximate), Expires: 11/25/2025 Hepatitis B surface antigen, EIA Lab Routine Adult wellness visit Expected: 11/25/2024 (Approximate), Expires: 11/25/2025 Hepatitis C Antibody with Reflex to HCV, RNA, Quantitative, Real-Time PCR Lab Routine Adult wellness visit Expected: 11/25/2024, Expires: 11/25/2025 HIV-1/2 Antigen and Antibodies, Fourth Generation, with Reflexes Lab Routine Adult wellness visit Expected: 11/25/2024 (Approximate), Expires: 11/25/2025 Lipid Panel, Standard Lab Routine Adult wellness visit Expected: 11/25/2024 (Approximate), Expires: 11/25/2025 Chlamydia/N. Gonorrhoeae, PCR, Urine Lab Routine Adult wellness visit Ordered: 11/25/2024 documented as of this encounter Procedures Procedure Name Priority Date/Time Associated Diagnosis Comments CBC WITH AUTO DIFFERENTIAL Routine 11/25/2024 11:07 AM EDT Adult wellness visit POCT GLYCATED HEMOGLOBIN, TOTAL Routine 11/25/2024 10:03 AM EDT Type 2 diabetes mellitus with hyperlipidemia (HCC) POCT GLUCOSE Routine 11/25/2024 10:02 AM EDT Type 2 diabetes mellitus with hyperlipidemia (HCC) documented in this encounter Results * (ABNORMAL) CBC auto differential (11/25/2024 11:07 AM EDT) White Blood Count 8.7 4.8 - 10.8 X10*3/uL [facility] Red Blood Count 4.85 4.60 - 5.80 X10*6/uL [facility] Hemoglobin 12.7(L) 14.0 - 18.0 g/dl [facility] Hematocrit 39.8(L) 42.0 - 52.0 % [facility] Mean Corpuscular Volume 82.1 80.0 - 98.0 fL [facility] Mean Corpuscular Hemoglobin 26.2(L) 27.0 - 33.0 pg [facility] Mean Corpuscular HGB Conc 31.9 31.0 - 36.0 g/dl [facility] Red Cell Distribution Width 15.9 11.0 - 16.0 % [facility] Platelet Count 187 160 - 400 X10*3/uL [facility] Mean Platelet Volume 12.3 9.4 - 12.4 fL [facility] Neutrophils Percent Auto 62.8 45 - 73 % [facility] Imm Gran Pct Auto 0.6(H) 0.0 - 0.4 % [facility] Lymphocytes Percent Auto 25.5 20 - 40 % [facility] Monocytes Percent Auto 8.4 2 - 11 % [facility] Eosinophils Percent Auto 2.2 0 - 4 % [facility] Basophils Percent Auto 0.5 0 - 2 % [facility] NRBC Pct Auto 0.0 0.0 - 0.2 /100WBC [facility] Neutrophils Absolute Auto 5.5 2.0 - 8.3 x10*3/uL [facility] Imm Gran Abs Auto 0.05(H) 0.00 - 0.03 X10*3/uL [facility] Lymphocytes Absolute Auto 2.2 1.2 - 4.9 X10*3/uL [facility] Monocytes Absolute Auto 0.7 0.1 - 1.2 X10*3/uL [facility] Eosinophils Absolute Auto 0.2 0.0 - 0.4 X10*3/uL [facility] Basophils Absolute Auto 0.0 0.0 - 0.2 X10*3/uL [facility] NRBC Abs Auto 0.000 0.0 - 0.012 X10*3/uL [facility] Blood Venous blood specimen / Unknown 11/25/2024 11:07 AM EDT 11/25/2024 1:11 PM EDT AubreyP LAB BLOOD ORDERABLES Final Res ult [facility] [address] [place], [place] [phone] * (ABNORMAL) POCT Hgb A1c (11/25/2024 10:03 AM EDT) Hemoglobin A1C 9.4(A) 4.0 - 5.7 % QC Media Lot # [id number] Lot# Expiration Date 162,027 Blood 11/25/2024 10:0 3 AM EDT [employer] DEPUTY CLERK OF COURT POINT OF CARE TEST ENTER/EDIT ORDERABLES Final Result * (ABNORMAL) POCT Glucose (11/25/2024 10:02 AM EDT) Pathologist [facility] Glucose Blood, POC 226(A) 60 - 200 mg/dL QC Media Lot # [id number] Lot# Expiration Date 3,026 Blood Capillary blood specimen / Unknown 11/25/2024 10:02 AM EDT Result [place] [facility] Yamilet Awan DEPUTY CLERK OF COURT POINT OF CARE TEST ENTER/EDIT ORDERABLES Final Result documented in this encounter Visit Diagnoses Diagnosis Adult wellness visit- Primary Type 2 diabetes mellitus with hyperlipidemia (HCC) documented in this encounter Additional Health Concerns Assessment Noted Time PHQ-9 Depression Total Score: 0 11/26/19 25 10:01 AM EDT documented as of this encounter
[2024-11-25 13:13] LABS: MANUAL DIFF FLAG NO
[2024-11-25 13:38] LABS: Hematocrit 39.8 % (42.0-52.0); Hemoglobin 12.7 g/dl (14.0-18.0); Imm Gran Abs Auto 0.05 X10*3/uL (0.00-0.03); Imm Gran Pct Auto 0.6 % (0.0-0.4); Lymphocytes Absolute Auto 2.2 X10*3/uL (1.2-4.9); Mean Corpuscular HGB Conc 31.9 g/dl (31.0-36.0); Mean Corpuscular Hemoglobin 26.2 pg (27.0-33.0); Mean Corpuscular Volume 82.1 fL (80.0-98.0); NRBC Abs Auto 0.000 X10*3/uL (0.0-0.012); NRBC Pct Auto 0.0 /100WBC (0.0-0.2); Platelet Count 187 X10*3/uL (160-400); Red Blood Count 4.85 X10*6/uL (4.60-5.80); White Blood Count 8.7 X10*3/uL (4.8-10.8)
--- OUTSIDE RECORDS SUMMARY | 2024-11-25 13:52 | XMS_ITS | Encounter Summary ---
Author Organization [employer] Address [address] [facility] 7 [place] [address] Care Team Providers Care Manager Clinical Research Name Role Phone Marge Posadas Primary Care Provider [phone] Reason for Visit * Reason Comments Med Refill Encounter Details Date Type Department Care Team ([facility] st Contact Info) Description 04/14/2024 Refill [facility] [address] [place], [place] [phone] Marge Posadas ANP [address] [place] [address] Diabetes mellitus due to underlying condition with diabetic neuropathy, with long-term current use of insulin ([facility]) Social History Tobacco Use Types Packs/Day Years [...] Description 12/16/2024 10:00 AM EST Office Visit [facility] [address] [place] [address] Janiec Gutierrez NP [address] [place] [address] documented as of this encounter Visit Diagnoses Diagnosis 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
--- OUTSIDE RECORDS SUMMARY | 2024-11-25 13:53 | XMS_ITS | Encounter Summary ---
Author Organization [employer] Address [address] [facility] 7 [place] [address] Care Team Providers Care Inventory Representative Name Role Phone Unavailable Primary Care Provider Unavailabl e Reason for Visit * Reason Comments Med Refill Encounter Details Date Type Department Care Team (Late st Contact Info) Description 05/16/2024 Refill [facility] [address] [place], [place] [phone] Marge Posadas ANP [address] [place] [address] Pulmonary emphysema, unspecified emphysema type (CMS/HCC) Social [...] Description 12/16/2024 10:00 AM EST Office Visit [facility] [address] [place] [address] Janiec Gutierrez NP [address] [place] [address] documented as of this encounter Visit Diagnoses Diagnosis Pulmonary emphysema, unspecified emphysema type documented in this encounter Additional Health Concerns Assessment Noted Time PHQ-9 Depression Total Score: 1 06/12/19 24 11:18 AM EDT documented as of this encounter
--- OUTSIDE RECORDS SUMMARY | 2024-11-25 13:53 | XMS_ITS | Encounter Summary ---
Author Organization [employer] Address [address] [place] [address] 7 [place] [address] Care Team Providers Care Yacht Builder Name Role Phone Unavailable Primary Care Provider Unavailabl e Reason for Visit * Reason Comments Med Refill Encounter Details Date Type Department Care Team (Late st Contact Info) Description 08/12/2024 Refill [facility] [address] [place] [address] Marge Posadas, ANP [address] [place] [address] Social History Tobacco Use Types Packs/Day Years [...] Description 12/16/2024 10:00 AM EST Office Visit [facility] [address] [place], [place] [phone] Janice Gutierrez NP [address] [place] [address] documented as of this encounter Visit Diagnoses Not on filedocumented in this encounter Additional Health Concerns Assessment Noted Time PHQ-9 Depression Total Score: 1 06/12/19 24 11:18 AM EDT documented as of this encounter
--- OUTSIDE RECORDS SUMMARY | 2024-11-25 13:53 | XMS_ITS | Encounter Summary ---
Author Organization [employer] Address [address] [place] [address] 7 [place] [address] Care Team Providers Care Cash Grain Grower Name Role Phone Marge Posadas Primary Care Provider [phone] Reason for Visit * Reason Comments Med Refill Encounter Details Date Type Department Care Team ([facility] st Contact Info) Description 09/28/2023 Refill [facility] MEDICINE [address] [place], [place] [phone] Marge Posadas ANP [address] [place], [place] [phone] Pulmonary emphysema, unspecified emphysema type (CMS/HCC) Social [...] 10:00 AM EST Office Visit [facility] MEDICINE [address] [place] [address] Janice Gutierrez NP [address] [place] [address] documented as of this encounter Visit Diagnoses Diagnosis Pulmonary emphysema, unspecified emphysema type documented in this encounter Additional Health Concerns Assessment Noted Time PHQ-9 Depression Total Score: 1 06/12/19 24 11:18 AM EDT documented as of this encounter Care Teams Cash Grain Grower Relationship Specialty Start Date End Date Marge Posadas ANP [address] [place] [address] PCP - General Family Medicine 05/01/22 04/19/24 documented as of this encounter
--- OUTSIDE RECORDS SUMMARY | 2024-11-25 13:53 | XMS_ITS | Encounter Summary ---
Author Organization [employer] Address [address] [facility] 7t [place] [address] Care Team Providers Care Psychiatric Social Worker Name Role Phone Unavailable Primary Care Provider Unavailabl e Reason for Visit * Reason Comments Med Refill Encounter Details Date Type Department Care Team (Late st Contact Info) Description 07/23/2024 Refill [facility] [address] [place], [place] [phone] Marge Posadas ANP [address] [place] [address] [place] Social History Tobacco Use Types Packs/Day [...] Description 12/16/2024 10:00 AM EST Office Visit [facility] [address] [place], [place] [address] Janice Gutierrez NP 230 [place] [address] documented as of this encounter Visit Diagnoses Diagnosis Balanitis Balanoposthitis documented in this encounter Additional Health Concerns Assessment Noted Time PHQ-9 Depression Total Score: 1 06/12/19 24 11:18 AM EDT documented as of this encounter
--- OUTSIDE RECORDS SUMMARY | 2024-11-25 13:53 | XMS_ITS | Patient Health Record ---
Author Organization [facility] Address [address] [place] [address] Care Team Providers Care Cross Cut Saw Operator Name Role Phone Amos Rogers Primary Care Provider Ashleymerly Kaylen Mcgregor Unavailable [phone] Allergies Allergen (clinical drug ingredient) Drug/Non Drug [...] Problem Acquired hammer toe of right foot (5311977834855630 ) Other hammer toe(s) (acquired), right foot (M20.41) Active confirmed Problem Acquired hammer toe of left foot ([id number] ) Other hammer toe(s) (acquired), left foot (M20.42) Active confirmed Problem Polyneuropathy due to type 2 diabetes mellitus (062847487) Type 2 diabetes mellitus with diabetic polyneuropathy (E11.42) Active confirmed Vital Signs Blood pressure diastolic 82 mm Hg 10/21/2024 Height 5ft 5in in 10/21/2024 Blood pressure systolic 147 mm Hg 10/21/2024 Weight 280 lbs 10/21/2024 BMI 46.59 kg/m2 10/21/2024 Encounters Encounter Location Date Provider Diagnosis [address] [address] 01/22/2024 Kaylen Ribeiro Type 2 diabetes mellitus with diabetic polyneuropathy E11.42 ; Xerosis of skin L85.3 ; Tinea unguium B35.1 ; Other hammer toe(s) (acquired), right foot M20.41 and Other hammer toe(s) (acquired), left foot M20.[address] [address] 04/22/2024 Kaylen Ribeiro Type 2 diabetes mellitus with diabetic polyneuropathy E11.42 ; Xerosis of skin L85.3 ; Tinea unguium B35.1 ; Other hammer toe(s) (acquired), right foot M20.41 and Other hammer toe(s) (acquired), left foot M20.[address] [facility] [address] [place] [address] 07/22/2024 Kaylen Ribeiro Type 2 diabetes mellitus with diabetic polyneuropathy E11.42 and Tinea unguium B35.[address] [address] 10/21/2024 Kaylen Ribeiro Type 2 diabetes mellitus with diabetic polyneuropathy E11.42 ; Xerosis of skin L85.3 and Tinea unguium B35.[address] [facility] [address] 10/27/2024 Kaylen Perica [facility] [address] 01/22/2024 Kaylen Perica [facility] [address] 04/22/2024 Kaylen Perica [address] [address] 04/22/2024 Kaylen Perica [facility] [address] 07/22/2024 Kaylen Ribeiro Assessments Encounter Date Diagnosis [...] Provider Name:Kaylen lyn, 01/20/2025 09:00:00 AM, [address] [facility], [place], [address], Insurance Providers Payer Name Payer Address Payer Phone Subscriber Number Group Number Insured Name Patient Relationship to Insured Coverage Start Date Coverage End Date [facility] [employer] Claims [address] [place] [id number] Sergio Yepez Self - patient is the insured Medical (General) History Medical History History ICD Code Diabetic High Blood Pressure asthma nerve pain Surgical History Surgery Date(Month/Year) Hospitalization History Reason Date(Month/Year) blood pressure too low [facility] 11/2023 [facility] water in lungs
--- OUTSIDE RECORDS SUMMARY | 2024-11-25 13:53 | XMS_ITS | Clinical Summary ---
Author Organization [facility] Address [address] [facility] [address] [place] [address] Phone Care Team Providers Care Computer Security Manager Name Role Phone Marge Posadas NP Primary Care Provider [phone] Allergies Active Allergy Reactions Criticality Noted Date [...] 28 DAYS 04/29/19 24 Active Continuous Glucose Pack Train Driver (FreeStyle Donna 2 [place]) device 1 each 05/31/19 23 Active Continuous Glucose Sensor (FreeStyle Donna 2 Sensor) [facility] USE DIRECTED, CHANGE EVERY 14 DAYS 06/25/19 [...] patient's age to complete this topic [place] [address] [place] [address] ([id number]) [facility] ([id number]) Care Teams Computer Security Manager Relationship Specialty Start Date End Date Marge Posadas NP [address] [place] [address] PCP - General Nurse Practitioner 07/24/23
--- OUTSIDE RECORDS SUMMARY | 2024-11-25 13:53 | XMS_ITS | Encounter Summary ---
Author Organization [employer] Address [address] [place] [address] 7 [place] [address] Care Team Providers Care Public Health Engineer Name Role Phone Yashira Tello MD Primary Care Provider + Marge Posadas Primary Care Provider [phone] Encounter Details Date Type Department Care Team ([facility] Contact Info) Description 03/19/2022 Orders Only [facility] [address] [place], [place] [phone] April Collins LPN Social History Tobacco Use [...] Upcoming Encounters Date Type Department Care Team ([facility] Contact Info) Description 12/16/2024 10:00 AM EST Office Visit [facility] [address] [place] [address] Janice Gutierrez NP [address] [place] [address] documented as of this encounter Visit Diagnoses Not on filedocumented in this encounter Care Teams Public Health Engineer Relationship Specialty Start Date End Date Yashira Tello MD [address] [place] [address] PCP - General Family Medicine 06/29/20 04/30/22 Marge Posadas ANP [address] [place], [place] [phone] PCP - General Family Medicine 05/01/22 04/19/24 documented as of this encounter
--- OUTSIDE RECORDS SUMMARY | 2024-11-25 13:53 | XMS_ITS | Encounter Summary ---
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
--- OUTSIDE RECORDS SUMMARY | 2024-11-25 13:53 | XMS_ITS | Encounter Summary ---
Author Organization [employer] Address [address] [facility] 7 [place] [address] Care Team Providers Care On Car Supervisor Name Role Phone Posadas Marge MELGAR Primary Care Provider [phone] Reason for Visit * Reason Comments Med Refill Encounter Details Date Type Department Care Team ([facility] st Contact Info) Description 04/09/2023 Refill [facility] [address] [place], [place] [phone] Artem Benites MD [address] [place] [address] Social History Tobacco Use Types Packs/Day Years [...] Description 12/16/2024 10:00 AM EST Office Visit [facility] [address] [place], [place] [phone] Janice Gutierrez NP [address] [place] [address] documented as of this encounter Visit Diagnoses Not on filedocumented in this encounter Care Teams On Car Supervisor Relationship Specialty Start Date End Date Marge Posadas ANP [address] [place] [address] PCP - General Family Medicine 05/01/22 04/19/24 documented as of this encounter
--- OUTSIDE RECORDS SUMMARY | 2024-11-25 13:53 | XMS_ITS | Encounter Summary ---
Author Organization [employer] Address 75 [facility] 7 [place] [address] Care Team Providers Care Feltmaker And Weigher Name Role Phone Marge Posadas Primary Care Provider [phone] Reason for Visit * Reason Onset Date Comments Durable Medical Equipment 04/21/2023 Encounter Details Date Type Department Care Team ([facility] st Contact Info) Description 04/21/2023 Telephone [facility] MEDICINE [address] [place], [place] [phone] Marge Posadas ANP [address] [place] [address] Durable Medical Equipment Social History Tobacco Use [...] 4x/d x10d. Fidaxomicin not in stock at [facility] but vanco is. No answer, No [...] blood glucose monitor. Please contact pt at [phone] documented in this encounter Plan of Treatment Upcoming Encounters Date Type Department Care Team (Late st Contact Info) Description 12/16/2024 10:00 AM EST Office Visit [facility] MEDICINE [address] [place], [place] [phone] Janice Gutierrez NP 230 [place], [place] [phone] documented as of this encounter Visit Diagnoses Not on filedocumented in this encounter Care Teams Feltmaker And Weigher Relationship Specialty Start Date End Date Marge Posadas ANP [address] [place], [place] [phone] PCP - General Family Medicine 05/01/22 04/19/24 documented as of this encounter
--- OUTSIDE RECORDS SUMMARY | 2024-11-25 13:53 | XMS_ITS | Encounter Summary ---
Author Organization [employer] Address 75 [facility] 7t [place] [address] Care Team Providers Care Captain Cannery Tender Name Role Phone Unavailable Primary Care Provider Unavailabl e Encounter Details Date Type Department Care Team (Latest Contact Info) Description 11/25/2024 Travel Social History Tobacco Use Types Packs/Day Years [...] AM EDT documented as of this encounter Functional Status * Over the [...] EDT Zoraida [place] * Feeling bad about yourself [...] AM EDT Zoraida [place] * Thoughts that you would be better off or hurting yourself in some way Answer Date of Assessment Author Not at all 11/25/2024 10:01 AM Zoraida Cisneros [place] * Patient Health Questionnaire-9 Score Answer Date of Assessment Author 0 11/25/2024 10:01 AM EDT Zoraida [place] * Over the last 2 weeks, how often have you been bothered by any of the following problems? Question Answer Date of Assessment Author Feeling nervous, anxious, or on edge 0 11/25/2024 10:01 AM EDT Zoraida Beck [place] Not being able to stop or control worrying 0 11/25/2024 10:01 AM EDT Zoraida Beck [place] Worrying too much about different things 0 11/25/2024 10:01 AM EDT Zoraida Beck [place] Trouble relaxing 0 11/25/2024 10:01 AM LAURAT Zoraida Beck [place] Being so restless that it is hard to sit still 0 11/25/2024 10:01 AM Zoraida Calle [place] Becoming easily annoyed or irritable 0 11/25/2024 10:01 AM LAURAT Zoraida Beck [place] Feeling afraid as if something awful might happen 0 11/25/2024 10:01 AM EDT Zoraida Dixon [place] FARHAN-7 Total Score 0 11/25/2024 10:01 AM Zoraida Calle [place] documented as of this encounter Plan of Treatment Upcoming Encounters Date Type Department Care Team (Late st Contact Info) Description 12/16/2024 10:00 AM EST Office Visit [facility] MEDICINE [address] [place] [address] Janice Gutierrez NP [address] [place] [address] documented as of this encounter Visit Diagnoses Not on filedocumented in this encounter Additional Health Concerns Assessment Noted Time PHQ-9 Depression Total Score: 0 11/26/19 25 10:01 AM EDT documented as of this encounter
--- OUTSIDE RECORDS SUMMARY | 2024-11-25 13:53 | XMS_ITS | Encounter Summary ---
Author Organization [employer] Address 75 [facility] 7 [place] [address] Care Team Providers Care Mdm Sr Name Role Phone Unavailable Primary Care Provider Unavailabl e Reason for Visit * Reason Comments Med Refill Encounter Details Date Type Department Care Team (Late st Contact Info) Description 06/13/2024 Refill [facility] [address] [place], [place] [phone] Marge Posadas ANP 230 [place] [address] Chronic obstructive pulmonary disease, unspecified COPD type [...] Description 12/16/2024 10:00 AM EST Office Visit [facility] MEDICINE [address] [place] [address] Janice Gutierrez NP 230 [place] [address] documented as of this encounter Visit Diagnoses Diagnosis Chronic obstructive pulmonary disease, unspecified COPD type (CMS/HCC) (HCC) documented in this encounter Additional Health Concerns Assessment Noted Time PHQ-9 Depression Total Score: 1 06/12/19 24 11:18 AM EDT documented as of this encounter
--- OUTSIDE RECORDS SUMMARY | 2024-11-25 13:53 | XMS_ITS | Encounter Summary ---
Author Organization [employer] Address [address] [place] [address] 7 [place] [address] Care Team Providers Care Director Of Labor And Delivery Name Role Phone Yashira Tello MD Primary Care Provider + Marge Posadas Primary Care Provider [phone] Reason for Visit * Reason Onset Date Comments Referral 01/15/2022 Encounter Details Date Type Department Care Team (Late st Contact Info) Description 01/15/2022 Telephone [facility] MEDICINE [address] [place], [place] [phone] Yashira Tello MD [address] [place], [place] [phone] Referral Social History Tobacco Use Types Packs/Day [...] agrees to notify pt to come into [facility] tomorrow for exam. Reviewed operating hours and [...] become worse * Telephone Encounter - Natalie Oglesby - 01/15/2022 10:05 AM EST Tc from [...] Description 12/16/2024 10:00 AM EST Office Visit [facility] MEDICINE [address] [place] [address] Janice Gutierrez NP [address] [place] [address] documented as of this encounter Visit Diagnoses Not on filedocumented in this encounter Care Teams Director Of Labor And Delivery Relationship Specialty Start Date End Date Yashira Tello MD [address] [place] [address] PCP - General Family Medicine 06/29/20 04/30/22 Marge Posadas ANP [address] [place] [address] PCP - General Family Medicine 05/01/22 04/19/24 documented as of this encounter
--- OUTSIDE RECORDS SUMMARY | 2024-11-25 13:53 | XMS_ITS | Encounter Summary ---
Author Organization [employer] Address 75 [facility] 7 [place] [address] Care Team Providers Care Strong Nitric Operator Name Role Phone Posadas Marge MELGAR Primary Care Provider [phone] Reason for Visit * Reason Comments Med Refill Encounter Details Date Type Department Care Team ([facility] st Contact Info) Description 04/14/2023 Refill [facility] [address] [place], [place] [phone] Artem Benites MD 230 [place] [address] Social History Tobacco Use Types Packs/Day Years [...] Description 12/16/2024 10:00 AM EST Office Visit [facility] MEDICINE [address] [place], [place] [phone] Janice Gutierrez NP 230 [place] [address] documented as of this encounter Visit Diagnoses Not on filedocumented in this encounter Care Teams Strong Nitric Operator Relationship Specialty Start Date End Date Marge Posadas ANP 230 [place] [address] PCP - General Family Medicine 05/01/22 04/19/24 documented as of this encounter
--- OUTSIDE RECORDS SUMMARY | 2024-11-25 13:53 | XMS_ITS | Encounter Summary ---
Author Organization [employer] Address [address] [place] [address] 7 [place] [address] Care Team Providers Care Cable Reeler Name Role Phone Unavailable Primary Care Provider Unavailabl e Reason for Visit * Reason Comments Med Refill Encounter Details Date Type Department Care Team (Late st Contact Info) Description 06/22/2024 Refill [facility] MEDICINE 230 [place], [place] [phone] Marge Posadas, ANP 230 [place], [place] [phone] Emphysema, unspecified (CMS/HCC) Social History Tobacco Use [...] Description 12/16/2024 10:00 AM EST Office Visit [facility] MEDICINE 230 [place], [place] [phone] Janice Gutierrez NP 230 [place] [address] documented as of this encounter Visit Diagnoses Diagnosis Emphysema, unspecified (HCC) documented in this encounter Additional Health Concerns Assessment Noted Time PHQ-9 Depression Total Score: 1 06/12/19 24 11:18 AM EDT documented as of this encounter
--- OUTSIDE RECORDS SUMMARY | 2024-11-25 13:53 | XMS_ITS | Clinical Summary ---
Author Organization [facility] Address [address] [place] [address] Care Team Providers Care Rotary Drier Feeder Name Role Phone Cuauhtemoc Marge Pandey NP Primary Care Provider [phone] Social History Tobacco Use Types Packs/Day Years [...] age to complete this topic Care Teams Rotary Drier Feeder Relationship Specialty Start Date End Date Marge Posadas NP [address] [place] [phone] PCP - General 06/13/23
--- OUTSIDE RECORDS SUMMARY | 2024-11-25 13:53 | XMS_ITS | Encounter Summary ---
Author Organization [employer] Address [address] [place] [address] 7 [place] [address] Care Team Providers Care Repossession Agent Name Role Phone Yashira Tello MD Primary Care Provider + Marge Posadas Primary Care Provider [phone] Encounter Details Date Type Department Care Team ([facility] Contact Info) Description 04/15/2022 Orders Only [facility] CH[facility] MED & PEDS [address] [place], [place] [phone] April Collins LPN Social History Tobacco Use [...] Upcoming Encounters Date Type Department Care Team ([facility] Contact Info) Description 12/16/2024 10:00 AM EST Office Visit [facility] MEDICINE [address] [place] [address] Janice Gutierrez NP [address] [place] [address] documented as of this encounter Visit Diagnoses Not on filedocumented in this encounter Care Teams Repossession Agent Relationship Specialty Start Date End Date Yashira Tello MD [address] [place] [address] PCP - General Family Medicine 06/29/20 04/30/22 Marge Posadas ANP [address] [place], [place] [phone] PCP - General Family Medicine 05/01/22 04/19/24 documented as of this encounter
--- OUTSIDE RECORDS SUMMARY | 2024-11-25 13:53 | XMS_ITS | Encounter Summary ---
Author Organization [employer] Address [address] [place] [address] 7 [place] [address] Care Team Providers Care Guest Services Officer Name Role Phone Marge Posadas Primary Care Provider [phone] Encounter Details Date Type Department Care Team (Late Contact Info) Description 10/29/2022 Orders Only [facility] CH[facility] MED & PEDS [address] [place], [place] [phone] Kellie Cramer LPN Social History Tobacco Use [...] Description 12/16/2024 10:00 AM EST Office Visit [facility] MEDICINE [address] [place], [place] [phone] Janice Gutierrez NP [address] [place], [place] [phone] documented as of this encounter Visit Diagnoses Not on filedocumented in this encounter Care Teams Guest Services Officer Relationship Specialty Start Date End Date Marge Posadas ANP [address] [place] [address] PCP - General Family Medicine 05/01/22 04/19/24 documented as of this encounter
--- OUTSIDE RECORDS SUMMARY | 2024-11-25 13:53 | XMS_ITS | Encounter Summary ---
Author Organization [employer] Address [address] [place] [address] 7 [place] [address] Care Team Providers Care Air And Missile Defense Crewmember Name Role Phone Unavailable Primary Care Provider Unavailabl e Reason for Visit * Reason Comments Med Refill Encounter Details Date Type Department Care Team ([facility] st Contact Info) Description 07/02/2024 Refill [facility] MEDICINE [address] [place], [place] [phone] Marge Posadas ANP [address] [place], [place] [phone] Type 2 diabetes mellitus with hyperlipidemia (CMS/HCC) ([facility]/HCC) Social History Tobacco Use Types Packs/Day [...] 12/16/2024 10:00 AM EST Office Visit [facility] MEDICINE [address] [place] [address] Janice Gutierrez NP [address] [place] [address] documented as of this encounter Visit Diagnoses Diagnosis Type 2 diabetes mellitus with hyperlipidemia (HCC) documented in this encounter Additional Health Concerns Assessment Noted Time PHQ-9 Depression Total Score: 1 06/12/19 24 11:18 AM EDT documented as of this encounter
--- OUTSIDE RECORDS SUMMARY | 2024-11-25 13:54 | XMS_ITS | Encounter Summary ---
Author Organization [employer] Address 75 [facility] 7 [place] [address] Care Team Providers Care Freight Elevator Operator Name Role Phone Cuauhtemoc Marge MELGAR Primary Care Provider [phone] Reason for Visit * Reason Comments Med Refill Encounter Details Date Type Department Care Team ([facility] st Contact Info) Description 11/19/2023 Refill [facility] MEDICINE [address] [place], [place] [phone] April Shaver DO [address] [place] [address] Social History Tobacco Use Types Packs/Day Years [...] Description 12/16/2024 10:00 AM EST Office Visit [facility] MEDICINE [address] [place] [address] Janice Gutierrez NP [address] [place] [address] documented as of this encounter Visit Diagnoses Not on filedocumented in this encounter Additional Health Concerns Assessment Noted Time PHQ-9 Depression Total Score: 1 06/12/19 24 11:18 AM EDT documented as of this encounter Care Teams Freight Elevator Operator Relationship Specialty Start Date End Date Marge Posadas ANP [address] [place] [address] PCP - General Family Medicine 05/01/22 04/19/24 documented as of this encounter
--- OUTSIDE RECORDS SUMMARY | 2024-11-25 13:54 | XMS_ITS | Encounter Summary ---
Author Organization [employer] Address [address] [place] [address] 7 [place] [address] Care Team Providers Care Water Jet Operator Name Role Phone Cuauhtemoc Marge MELGAR Primary Care Provider Reason for Visit * Reason Comments Med Refill Encounter Details Date Type Department Care Team ([facility] st Contact Info) Description 12/16/2022 Refill [facility] MEDICINE [address] [place], [place] [phone] Tamera Clemente FNP [address] [place] [address] Type 2 diabetes mellitus with hyperlipidemia (CMS/HCC) [...] AM EST Office Visit [facility] MEDICINE [address] [place] [address] Janice Gutierrez NP [address] [place] [address] documented as of this encounter Visit Diagnoses Diagnosis Type 2 diabetes mellitus with hyperlipidemia (HCC) documented in this encounter Care Teams Water Jet Operator Relationship Specialty Start Date End Date Marge Posadas ANP [address] [place] [address] PCP - General Family Medicine 05/01/22 04/19/24 documented as of this encounter
--- OUTSIDE RECORDS SUMMARY | 2024-11-25 13:54 | XMS_ITS | Encounter Summary ---
Author Organization [employer] Address 75 [facility] 7 [place] [address] Care Team Providers Care Metal Can Inspector Name Role Phone Marge Posadas Primary Care Provider Reason for Visit * Reason Comments Med Refill Encounter Details Date Type Department Care Team ([facility] Contact Info) Description 01/31/2023 Refill [facility] MEDICINE [address] [place], [place] [phone] Marge Posadas ANP [address] [place] [address] Social History Tobacco Use Types Packs/Day Years [...] Description 12/16/2024 10:00 AM EST Office Visit [facility] MEDICINE [address] [place] [address] Janice Gutierrez NP 230 [place] [address] documented as of this encounter Visit Diagnoses Not on filedocumented in this encounter Care Teams Metal Can Inspector Relationship Specialty Start Date End Date Marge Posadas ANP [address] [place] [address] PCP - General Family Medicine 05/01/22 04/19/24 documented as of this encounter
--- OUTSIDE RECORDS SUMMARY | 2024-11-25 13:54 | XMS_ITS | Encounter Summary ---
Author Organization [employer] Address 75 [facility] 7 [place] [address] Care Team Providers Care Employee Communications Manager Name Role Phone Marge Posadas Primary Care Provider [phone] Reason for Visit * Reason Comments Med Refill Encounter Details Date Type Department Care Team ([facility] Contact Info) Description 01/29/2023 Refill [facility] MEDICINE [address] [place], [place] [phone] Marge Posadas ANP 230 [place], [place] [phone] Psoriasis Social History Tobacco Use Types Packs/Day [...] Description 12/16/2024 10:00 AM EST Office Visit [facility] MEDICINE [address] [place] [address] Janice Gutierrez NP [address] [place] [address] documented as of this encounter Visit Diagnoses Diagnosis Psoriasis Other psoriasis documented in this encounter Care Teams Employee Communications Manager Relationship Specialty Start Date End Date Marge Posadas ANP [address] [place] [address] PCP - General Family Medicine 05/01/22 04/19/24 documented as of this encounter
--- OUTSIDE RECORDS SUMMARY | 2024-11-25 13:54 | XMS_ITS | Encounter Summary ---
Author Organization [employer] Address 75 [facility] 7t [place] [address] Care Team Providers Care Bookmaker'S Clerk Name Role Phone Marge Posadas Primary Care Provider Reason for Visit * Reason Comments Med Refill Encounter Details Date Type Department Care Team ([facility] Contact Info) Description 11/23/[address] [facility]ALK[facility] [address] [place], [place] [phone] Marge Posadas ANP 230 [place] [address] Pulmonary emphysema, unspecified emphysema type (CMS/HCC) Social [...] 10:00 AM EST Office Visit [facility] MEDICINE [address] [place] [address] Janice Gutierrez NP [address] [place] [address] documented as of this encounter Visit Diagnoses Diagnosis Pulmonary emphysema, unspecified emphysema type documented in this encounter Additional Health Concerns Assessment Noted Time PHQ-9 Depression Total Score: 1 06/12/19 24 11:18 AM EDT documented as of this encounter Care Teams Bookmaker'S Clerk Relationship Specialty Start Date End Date Marge Posadas ANP 230 [place] [address] PCP - General Family Medicine 05/01/22 04/19/24 documented as of this encounter
--- OUTSIDE RECORDS SUMMARY | 2024-11-25 13:54 | XMS_ITS | Clinical Summary ---
Author Organization [employer] Address [address] [place] [address] 7 [place] [address] Care Team Providers Care Poultry Cleaner Name Role Phone Unavailable Primary Care Provider Unavailabl e Allergies Active Allergy Reactions Criticality Noted Date Comments Diphth-Acell Pertussis-Tetanus 07/19/2024 Other Reaction(s): Not available Metoprolol 10/07/2018 Germanium 12/30/2022 Tetanus Toxoid-Containing Vaccines 01/19/2022 Tetanus vaccines and toxoid per previous EHR Medications calcipotriene (Dovonex) 0.005 % creamIndications :Psoriasis Apply twice daily for 2 weeks 60 g 1 023 Active omeprazole (PriLOSEC) [address] capsule TAKE 1 CAPSULE BY MOUTH DAILY ON EMPTY STOMACH 30 MINUTES BEFORE BREAKFAST 023 Active TRUEplus Lancets 33G misc TEST BLOOD SUGAR SIX TIMES DAILY 100 each 024 Active glucose blood (FreeStyle Precision Reid Test) test strip TEST BLOOD SUGAR SIX TIMES DAILY FOR cgm failure OR BLOOD SUGAR extremes 100 each 024 Active albuterol (2.5 MG/3ML) 0.083% nebulizer solution INHALE 1 AMPULE USING A NEBULIZER THREE TIMES DAILY NEEDED FOR ASTHMA OR SHORTNESS OF BREATH 90 mL 1 024 Active Continuous Glucose Sensor (FreeStyle Donna 2 Sensor) miscIndications: Type 2 diabetes mellitus with hyperlipidemia (HCC) USE DIRECTED, CHANGE EVERY 14 DAYS 6 each 3 024 Active Additional Information Patient not taking.Reported on 11/25/2024 Pentips 32G X 4 MM miscIndications: Diabetic polyneuropathy associated with type 2 diabetes mellitus (HCC) USE UP TO FIVE TIMES DAILY 100 each 11 Active Blood Glucose Monitoring Suppl (FreeStyle Lite) w/Device kitIndications:D iabetic polyneuropathy associated with type 2 diabetes mellitus (HCC) 1 each 3 times daily. USE Directed 1 kit Active NovoLOG FLEXPEN 100 UNIT/ML penIndications:T ype 2 diabetes mellitus with hyperlipidemia (HCC) INJECT 16 UNITS SUBCUTANEOUSLY BEFORE MEALS AND SNACKS 15 mL 11 Active Aspirin Low Dose 81 MG EC tabletIndication s:Other specified personal risk factors, not elsewhere classified TAKE 1 TABLET BY MOUTH EVERY EVENING 90 tablet 1 Active Additional Information Patient not taking.Reported on 11/25/2024 furosemide (Lasix) 80 MG tabletIndication s:Chronic diastolic heart failure (HCC) Take 1 tab BID 180 tablet 1 Active Diclofenac Sodium 1 % gelIndications:A cute pain of left shoulder APPLY 2 GRAMS TOPICALLY NEEDED TO AFFECTED AREA(S) FOUR TIMES DAILY FOR PAIN 100 g 2 Active amLODIPine (Norvasc) 10 MG tablet Take 1 tablet by mouth Once per day. Active Farxiga 10 MG Take 1 tablet by mouth Once per day. Active Ozempic, 1 MG/DOSE, 4 MG/3ML solution pen-injector Inject 1 MG SUBCUTANEOUSLY EVERY 7 DAYS IN THE ABDOMEN, THIGHS OR UPPER ARM. ROTATE INJECTION SITES. Active warfarin (Coumadin) 5 MG tabletIndication s:Anticoagulated on Coumadin TAKE 1 TO 3 TABLETS DAILY DIRECTED BY coumadin clinic (PREVENT COAGULOS DE BLOOD) 68 tablet 2 Active Lantus SoloStar 100 UNIT/ML penIndications:T ype 2 diabetes mellitus without complication, unspecified whether halfway insulin use INJECT 44 UNITS SUBCUTANEOUSLY ONCE DAILY DIRECTED 15 mL 3 Active Continuous Glucose Airdrop Systems Technician (FreeStyle Donna 2 [place]) deviceIndication s:Type 2 diabetes mellitus with hyperlipidemia (HCC) 1 each 5 (five) times a day. 1 each Active clotrimazole (Clotrimazole Anti-Fungal) 1 % creamIndications :Rash APPLY TOPICALLY TO THE AFFECTED AREA(S) TWICE DAILY FOR FOURTEEN DAYS 45 g 1 024 Active clobetasol (Temovate) 0.05 % ointmentIndicati ons:Psoriasis APPLY 2 GRAMS TOPICALLY TO AFFECTED AREA(S) TWICE DAILY FOR FOURTEEN DAYS 60 g 1 024 Active gabapentin (Neurontin) 100 MG capsuleIndicatio ns:Diabetes mellitus due to underlying condition with diabetic neuropathy, with long-term current use of insulin ([facility]) TAKE 1 CAPSULE BY MOUTH TWICE DAILY IN THE MORNING AND AT BEDTIME (for nerve pain) 60 capsule 1 024 Active Serevent Diskus 50 MCG/ACT aerosol powderIndication s:Pulmonary emphysema, unspecified emphysema type INHALE 1 PUFF BY MOUTH TWICE DAILY (for COPD) 60 each 2 024 Active albuterol (Ventolin HFA) 108 (90 Base) MCG/ACT inhalerIndicatio ns:Pulmonary emphysema, unspecified emphysema type INHALE 2 PUFFS BY MOUTH EVERY 4 TO 6 HOURS NEEDED 18 g 1 024 Active Incruse Ellipta 62.5 MCG/ACT aerosol powderIndication s:Chronic obstructive pulmonary disease, unspecified COPD type (CMS/HCC) ([facility]) INHALE 1 PUFF BY MOUTH EVERY DAY AT THE SAME TIME 30 each 3 024 Active lisinopril 40 MG tablet TAKE 1 TABLET BY MOUTH EVERY DAY IN THE MORNING 90 tablet 1 025 Active Additional Information Patient not taking.Reported on 11/25/2024 Dextromethorphan -guaiFENesin (Mucinex DM) 30-600 MG tablet sustained-releas e 12 hour Use 1 tab TID 28 tablet 025 Active isosorbide mononitrate ER (Imdur) 120 MG 24 hr tabletIndication s:Chronic systolic heart failure (HCC) TAKE 1 TABLET BY MOUTH EVERY MORNING (for the heart) 90 tablet 1 025 Active atorvastatin (Lipitor) 80 MG tablet TAKE 1 TABLET BY MOUTH AT BEDTIME (for cholesterol) 90 tablet 2 025 Active metFORMIN (Glucophage) 1000 MG tabletIndication s:Type 2 diabetes mellitus with diabetic polyneuropathy (HCC) TAKE 1 TABLET BY MOUTH TWICE DAILY IN THE MORNING AND IN THE EVENING WITH MEALS 180 tablet 2 025 Active nystatin (Mycostatin) creamIndications :Balanitis APPLY TOPICALLY TO THE AFFECTED AREA(S) TWICE DAILY FOR RASH 15 g 1 025 Active ammonium lactate (Amlactin) 12 % cream APPLY TOPICALLY TO THE AFFECTED AREA(S) OF DRY SKIN ON THE FEET EXCEPT BETWEEN THE TOES TWICE DAILY DIRECTED Active fluticasone (Flonase) 50 MCG/ACT nasal spray [place] 2 sprays every day by intranasal route. 025 Active Multiple Vitamin (Multivitamin) tablet Take 1 tablet by mouth in the morning. 30 tablet 1 025 Active Multiple Vitamin (Multivitamin) tablet TAKE 1 TABLET BY MOUTH EVERY MORNING WITH FOOD ( VITAMIN) 30 tablet 1 024 2024 Discontinued(R eorder (will not trigger notification to Pharmacy)) Active Problems Problem Noted Date Diagnosed Date Cough 03/09/2024 Assessment & Plan (03/09/2024 2:25 PM EST): Persistent cough in setting of COVID 2 weeks ago and emphysema. - CT of lungs 2021 IMPRESSION: emphysematous disease without interval developing suspicious pulmonary nodule by low-dose screening CT analysis when compared to . -CXR 03/03/24 in [facility] IMPRESSION: No acute abnormality. -referred to Utility Worker Film Processing 03/09/24 Lung nodule 03/09/2024 Assessment & Plan (03/09/2024 2:25 PM EST): Persistent cough in setting of COVID 2 weeks ago and emphysema. - CT of lungs 2021 IMPRESSION: emphysematous disease without interval developing suspicious pulmonary nodule by low-dose screening CT analysis when compared to . -CXR 03/03/24 in [facility] IMPRESSION: No acute abnormality. -referred to Utility Worker Film Processing 03/09/24 Balanitis 03/13/2023 Assessment & Plan (03/09/2024 2:14 PM EST): Discussed suspecting that his Farxiga could be causing the recurring balanitis. Encouraged to discuss medication changes with Cath Lab Nurse who prescribed the medication. Also gave pt the phone number for [facility] to call and make appt to get re-evaluated for recurring balanitis. No acute findings on exam of infectious process. Able to retract foreskin although reports pain. -prescribed nystatin (Mycostatin) cream Assessment & Plan (03/13/2023 12:05 PM EST): Hygiene counseling done Clotrimazole apply BID for 2 weeks if symptoms persist RTC I also advise patient to chio rodriguez sweets ( he admits he likes to eats desserts every day) I veterans' counselor about better control with his diabetes [...] hb1AC 9.8, CBG 181, I called his grocery carrier's office and discussed that surgery is a low risk procedure but the pt should be optimize with his DM management prior to do surgery, currently his HB1AC is close to 10 so can increase risk for infection and poor healing of tissue after surgery. Electrician Supervisor Airplane's staff explained that cataract is not severe and there is no urgency for the procedure -I explained to patient today and to grocery carrier's staff that will not clear for now to pt until DM is better controlled. Pt agreed with plan and this note will be faxed to his grocery carrier Electrician Supervisor Airplane: Location: [address], [place] [address] RICCI positive 06/04/2022 Assessment & Plan (06/04/2022 1:45 PM EDT): Pt referred at last visit by PCP to dry mill worker x + RICCI in recent labs --advised [...] low-dose screening CT analysis when compared to [id number]. -CXR 03/03/24 in [facility] IMPRESSION: No acute abnormality. -referred to Utility Worker Film Processing 03/09/24 Slow transit constipation 01/19/2022 Systolic heart [...] x continued glucose monitoring -referred today to supervisor frame sample and pattern -RTC in 6 weeks w PCP -may need to consider to resume GLP1 if possible in the future x weight loss -pt in MTM program Resolved Problems Problem Noted Date Diagnosed Date Resolved Date Acute diarrhea 01/19/2022 12/09/2023 Acute exacerbation of chroni c obstructive bronchitis (CMS/HCC) 01/01/2017 11/18/2023 Encounters Date Type Department Care Team Description 11/25/2024 9:30 AM EDT Office Visit [facility] [address] [place] [address] Yamilet Awan FNP Adult wellness visit (Primary Dx); Type 2 diabetes mellitus with hyperlipidemia (HCC) 11/25/2024 Travel 11/18/2024 Patient Outreach [facility] [address] [place] [address] Yamilet Awan FNP Pre-visit Planning (SDOH unable to reach LVM ) 11/02/2024 Telephone [facility] [address] [place] [address] Casper Lamb MD 09/30/2024 Telephone [facility] [address] [place], [place] [phone] Casper Lamb MD Appointment Request from Last [...] is your housing situation today? I have dionisiochandrakant hamlin 11/25/[address] you [...] Mass Index 47.97 11/25/2024 10:00 AM EDT Plan of Treatment Upcoming Encounters Date Type Department Care Team (Late st Contact Info) Description 12/16/2024 10:00 AM EST Office Visit [facility] [address] [place] [address] Janice Gutierrez NP [address] [place] [address] Health Maintenance Due Date Last Done Comments CT Colonography 1952 FIT DNA/Cologuard 1950 Sigmoidoscopy 1950 Hepatitis C Screening 1970 DTaP/Tdap/Td Vaccines (1 - Tdap) 11/08/1971 RSV Patients and Patients Aged 60 years or older (1 - Risk 60-74 years 1-dose series) 2012 Colonoscopy 09/15/2021 09/16/2011, 09/16/2011 Lipid Panel 09/20/2022 09/20/2021, 05/12, 11/11/2019 Diabetes: Urine Protein Screening 05/21/2023 05/20/2022, 06/06/2020, 11/11/2019 Colorectal Cancer Screening 04/14/2024 FIT 04/14/2024 04/15/2023 FOBT 04/14/2024 04/15/2023 Diabetes: Foot Exam 06/11/2024 06/12/2023, 06/12/2023, 12/19/2022, Additional history exists COVID-19 Vaccine ( season) 2024 12/04/2021, 05/21/2021, 12/04/2020, Additional history exists Influenza Vaccine (#1) 2024 , 02/19/2024, 12/18/2022, Additional history exists Diabetes: Hemoglobin A1C 02/25/2025 025, 11/18/2023, 06/12/2023, Additional history exists Alcohol/Substance Use Screening 11/25/2025 11/25/2024 Depression Screening 11/25/2025 11/25/2024, 11/26/19 25 SDOH Screening 11/25/2025 11/25/2024 Tobacco Screening 11/25/2025 11/25/2024 Eye Exam 07/14/2026 07/14/2024, 05/2024, 07/14/2024, Additional history exists Zoster Vaccines [...] Type 2 diabetes mellitus with hyperlipidemia (HCC) FECAL GLOBIN BY IMMUNOCHEMISTRY Routine 04/15/2023 8:30 AM EST Acute diarrhea ALBUMIN, RANDOM URINE W/CREATININE Routine 05/20/2022 9:30 AM EDT Essential hypertension LIPID PANEL, STANDARD Routine 09/20/2021 9:03 AM EDT HM COLONOSCOPY Routine 09/16/2011 from Last 3 Months or Most Recently Relevant to Health Maintenance Results * (ABNORMAL) CBC auto differential (11/25/2024 11:07 AM EDT) White Blood Count 8.7 4.8 - 10.8 X10*3/uL [facility] Red Blood Count 4.85 4.60 - 5.80 X10*6/uL [facility] Hemoglobin 12.7(L) 14.0 - 18.0 g/dl [facility] Hematocrit 39.8(L) 42.0 - 52.0 % [facility] Mean Corpuscular Volume 82.1 80.0 - 98.0 fL [facility] Mean Corpuscular Hemoglobin 26.2(L) 27.0 - 33.0 pg [facility] Mean Corpuscular HGB Conc 31.9 31.0 - 36.0 g/dl [facility] Red Cell Distribution Width 15.9 11.0 - 16.0 % [facility] Platelet Count 187 160 - 400 X10*3/uL [facility] Mean Platelet Volume 12.3 9.4 - 12.4 fL [facility] Neutrophils Percent Auto 62.8 45 - 73 % [facility] Imm Gran Pct Auto 0.6(H) 0.0 - 0.4 % [facility] Lymphocytes Percent Auto 25.5 20 - 40 % [facility] Monocytes Percent Auto 8.4 2 - 11 % [facility] Eosinophils Percent Auto 2.2 0 - 4 % [facility] Basophils Percent Auto 0.5 0 - 2 % [facility] NRBC Pct Auto 0.0 0.0 - 0.2 /100WBC [facility] Neutrophils Absolute Auto 5.5 2.0 - 8.3 x10*3/uL [facility] Imm Gran Abs Auto 0.05(H) 0.00 - 0.03 X10*3/uL [facility] Lymphocytes Absolute Auto 2.2 1.2 - 4.9 X10*3/uL [facility] Monocytes Absolute Auto 0.7 0.1 - 1.2 X10*3/uL [facility] Eosinophils Absolute Auto 0.2 0.0 - 0.4 X10*3/uL [facility] Basophils Absolute Auto 0.0 0.0 - 0.2 X10*3/uL [facility] NRBC Abs Auto 0.000 0.0 - 0.012 X10*3/uL [facility] Blood Venous blood specimen / Unknown 11/25/2024 11:07 AM EDT 11/25/2024 1:11 PM EDT [facility]OD ORDERABLES Final Res ult [facility] [address] [place] [phone] * (ABNORMAL) POCT Hgb A1c (11/25/2024 10:03 AM EDT) Hemoglobin A1C 9.4(A) 4.0 - 5.7 % QC Media Lot # [id number] Lot# Expiration Date , Blood 11/25/2024 10:0 3 AM EDT [facility] POINT [facility]ARE [facility] ENTER/EDIT ORDERABLES Final Result * (ABNORMAL) POCT Glucose (11/25/2024 10:02 AM EDT) Glucose Blood, POC 226(A) 60 - 200 mg/dL QC Media Lot # [id number] Lot# Expiration Date 3,026 Blood Capillary blood specimen / Unknown 11/25/2024 10:02 AM EDT [facility] POINT OF CARE TEST ENTER/EDIT ORDERABLES Final Result * Fecal Globin by Immunochemistry (04/15/2023 8:30 AM EST) Fecal Globin By Immunochemistry SEE NOTE [facility] Comment:FECAL GLOBIN BY IMMU NOCHEMISTRY Micro Number: [id number] Test Status: Final Specimen Source: Not given Specimen Quality: Inadequate Fecal Globin: Test not performed. No specimen received.THIS TEST WAS PERFORMED AT:[facility] [place] [id number] OWUSU MD Stool Rectal contents / Unknown 04/15/2023 8:30 AM EST 04/15/2023 12:02 PM EST Marge Posadas ANP LAB BODY FLUIDS AND STOOLS ORDER TARYN Final Result Performing Organization Address City/[facility]/ZIP Co de Phone Number [facility] [address] [place] [phone] * (ABNORMAL) Albumin, Random Urine W/Creatinine (05/20/2022 9:30 AM EDT) Creatinine, Random Urine 57 20 - 320 mg/dL [facility] Albumin, Urine 5.1 See Note: mg/dL [facility] Comment: Reference Range: Reference Range Not established Albumin/Creatinin e Ratio, Random Urine 89(H) <30 mcg/mg creat [facility] Comment: The ADA defines abnormalities in albumin [...] AM EDT 05/20/2022 9:30 AM EDT Narrative [facility] - 05/24/2022 11:45 AM EDT FASTING:UNKNOWN FASTING: UNKNOWN Marge Posadas ANP LAB URINE ORDERABLES Final Resul t Performing Organization Address City/[facility] Co de Phone Number [facility] [address], [place] [address] [facility] [address] [place] [address] * LIPID PANEL, STANDARD (09/20/2021 9:03 AM [...] LDL-C. Fran GOMES et al. JACEK. 2013;310(19): 5414-1976 (http://education.NetShoes/faq/WJG846) Non-HDL Cholesterol 61 <130 mg/dL (calc) [facility] Comment: For patients with diabetes plus 1 major ASCVD risk factor, treating to a non-HDL-C goal of <100 mg/dL (LDL-C of <70 mg/dL) is considered a therapeutic option. Triglycerides 50 <150 mg/dL [facility] 09/20/2021 9:03 AM EDT Ricci Tello MD LAB BLOOD ORDERABLES Fin al Result [facility] [address] * Colonoscopy (09/16/2011) Colonoscopy Normal Normal us Historical Provider HEALTH MAINTENANCE Final Result from Last 3 Months or Most Recently Relevant to Health Maintenance Insurance [facility] [employer] (O D-SNP) SHABNAM PORTER [id number]
--- OUTSIDE RECORDS SUMMARY | 2024-11-25 13:54 | XMS_ITS | Encounter Summary ---
Author Organization [employer] Address [address] [facility] 7 [place] [address] Care Team Providers Care Motorcoach Driver Name Role Phone Marge Posadas Primary Care Provider [phone] Reason for Visit * Reason Comments Med Refill Encounter Details Date Type Department Care Team ([facility] Contact Info) Description 03/10/[address] [facility] [address] [place], [place] [phone] Marge Posadas ANP [address] [place], [place] [phone] Rash Social History Tobacco Use Types Packs/Day [...] Description 12/16/2024 10:00 AM EST Office Visit [facility] [address] [place] [address] Janice Gutierrez NP [address] [place] [address] documented as of this encounter Visit Diagnoses Diagnosis Rash Rash and other nonspecific skin eruption documented in this encounter Care Teams Motorcoach Driver Relationship Specialty Start Date End Date Marge Posadas ANP [address] [place] [address] PCP - General Family Medicine 05/01/22 04/19/24 documented as of this encounter
--- OUTSIDE RECORDS SUMMARY | 2024-11-25 13:54 | XMS_ITS | Encounter Summary ---
Author Organization [employer] Address [address] [facility] 7 [place] [address] Care Team Providers Care Carpenter Labor Supervisor Name Role Phone Marge Posadas Primary Care Provider [phone] Encounter Details Date Type Department Care Team ([facility] st Contact Info) Description 02/18/2023 Orders Only [facility] [address] [place], [place] [phone] Smith Barnes MD [address] [place] [address] Chronic pain of right ankle (Primary Dx) [...] Description 12/16/2024 10:00 AM EST Office Visit [facility] [address] [place] [address] Janice Gutierrez NP [address] [place] [address] documented as of this encounter Visit Diagnoses Diagnosis Chronic pain of right ankle- Primary documented in this encounter Care Teams Carpenter Labor Supervisor Relationship Specialty Start Date End Date Marge Posadas ANP [address] [place] [address] PCP - General Family Medicine 05/01/22 04/19/24 documented as of this encounter
--- OUTSIDE RECORDS SUMMARY | 2024-11-25 13:54 | XMS_ITS | Encounter Summary ---
Author Organization [employer] Address [address] [place] [address] [address], [place] [address] Care Team Providers Care Dog Catcher Name Role Phone Marge Posadas Primary Care Provider [phone] Reason for Visit * Reason Onset Date Comments Med Refill 11/13/2022 Medication Question 11/13/2022 Encounter Details Date Type Department Care Team ([facility] st Contact Info) Description 11/13/2022 Telephone [facility] [address] [place], [place] [phone] Marge Posadas ANP [address] [place], [place] [phone] Med Refill; Medication Question Social History Tobacco [...] for medication NovoLOG FLEXPEN 100 UNIT/ML pen. [employer] informed hestill has refills at the pharmacy but pt states has ran out of medication and that he is taking 16 units and script states to take 10 units . [employer] spoke with pharmacy and a new script is needed . documented in this encounter Plan of Treatment Upcoming Encounters Date Type Department Care Team (Late st Contact Info) Description 12/16/2024 10:00 AM EST Office Visit [facility] [address] [place], [place] [phone] Janice Gutierrez NP [address] [place] [address] documented as of this encounter Visit Diagnoses Not on filedocumented in this encounter Care Teams Dog Catcher Relationship Specialty Start Date End Date Marge Posadas ANP [address] [place] [address] PCP - General Family Medicine 05/01/22 04/19/24 documented as of this encounter
--- OUTSIDE RECORDS SUMMARY | 2024-11-25 13:54 | XMS_ITS | Encounter Summary ---
Author Organization [employer] Address [address] [place] [address] [address] [address] Care Team Providers Care Harness Tier Name Role Phone Marge Posadas TALIA Primary Care Provider [phone] Reason for Visit * Reason Comments Med Refill Encounter Details Date Type Department Care Team (Late st Contact Info) Description 11/14/2022 Refill [facility] [address] [place], [place] [phone] Yashira Tello MD [address] [place], [place] [phone] Chronic obstructive pulmonary disease, unspecified COPD type [...] Description 12/16/2024 10:00 AM EST Office Visit [facility] [address] [place] [phone] Janice Gutierrez NP [address] [place] [address] documented as of this encounter Visit Diagnoses Diagnosis Chronic obstructive pulmonary disease, unspecified COPD type (CMS/HCC) (HCC) documented in this encounter Care Teams Harness Tier Relationship Specialty Start Date End Date Marge Posadas ANP [address] [place] [address] PCP - General Family Medicine 05/01/22 04/19/24 documented as of this encounter
[2024-11-25 14:16] LABS: Alanine Aminotransferase 36 U/L (0-40); Albumin Level 4.2 g/dL (3.5-5.0); Alkaline Phosphatase 113 U/L (39-117); Anion Gap 13 (12-20); Aspartate Amino Transferase 38 U/L (5-37); Blood Urea Nitrogen 14 mg/dL (9-16); Calcium 9.7 mg/dL (8.4-10.2); Carbon Dioxide 26 mmol/L (22-29); Chloride 106 mmol/L (96-108); Cholesterol 104 mg/dL (<200); Estimated Glomerular Filt Rate > 60; HDL Cholesterol 35 mg/dL (>40); Potassium 3.9 mmol/L (3.3-5.1); Sodium 141 mmol/L (135-145); Total Protein 7.7 g/dL (6.5-8.0); Triglycerides 74 mg/dL (<150)
[2024-11-25 14:19] LABS: Thyroid Stimulating Hormone 1.06 uIU/mL (0.32-4.0)
[2024-11-25 15:24] LABS: CT PCR Urine NOT DETECTED (Not Detect.); NG PCR Urine NOT DETECTED (Not Detect.)
[2024-11-26 03:49] LABS: HBsAGNum1 0.36 S/CO (0.00-0.99); HIV Num 1 0.05 S/CO (0.00-0.99); Hepatitis B Surface Antigen Negative (Negative); ~HepC Num1 0.11 S/CO (0.00-0.79); ~Hepatitis C Antibody Nonreactive (Nonreactive)
== END 2024-11-25 10:58 | disposition home or self-care (01) ==
LOC: HO.HHCL 10:57
PROVIDERS: PCP Nurse Practitioner; Visit Provider Nurse Practitioner Family
DX: Z00.00 Encounter for general adult medical examination without abnormal findings (principal); Z11.4 Encounter for screening for human immunodeficiency virus [HIV]; Z11.59 Encounter for screening for other viral diseases; Z20.2 Contact with and (suspected) exposure to infections with a predominantly sexual mode of transmission; Z13.6 Encounter for screening for cardiovascular disorders; Z13.21 Encounter for screening for nutritional disorder
CPT/HCPCS: 80053; 80061; 84443; 85025; 86803; 87340; 87389; 87491; 87591

== ENCOUNTER 2024-11-26 10:59 | Outpatient (AMB) | payer OTHER, SELFPAY ==
--- NOTE | 2024-11-26 11:20 | HO.NEPHOV_ITS ---
Vital Signs 11/26/24 11:21 Height 5 ft 6 in Weight 298 lb 4 oz BMI 48.1 BP 130/70 Blood Pressure Location Lt brachial Position Sitting Pulse 56 Pulse Source Pulse Oximeter Pulse Oximetry (%) 95 Oxygen Delivery Method Room Air Intake Visit Reasons: 4mon follow-up w/labs-Conf Railroad Emergency Services Manager Required: Yes Railroad Emergency Services Manager Language: Recruiting Consultant Services: Railroad Emergency Services Manager [place]fered & Declined [place] [place] [facility] [place] Accompanied by: Self / Same As Patient Allergies Tetanus Vaccines and Toxoid (TETANUS) Allergy (Unknown, Verified 11/26/24 11:20) SWELLING TETNUS SHOT Allergy (Unknown, Uncoded 01/13/24 11:04) UNKNOWN HPI Comments Details: Sergio was seen in follow up for chronic kidney disease. He has diabetes and hypertension for over 20 years. He has obstructive sleep apnea and uses his CPAP machine. He is known to have positive antinuclear antibody. He does not have any hematuria, dysuria, dribbling of urine, nausea, vomiting, diarrhea. He has no history of any renal stones. He claims to be compliant with his medications. He has high BMI. He denies any sinusitis, recurrent sore throat, joint swellings, epistaxis, photosensitivity, new skin rashes, orthostatic symptoms. He is known to have renal cysts. [facility] Medical History Degenerative joint disease of both ankles and feet MAN on CPAP Morbid obesity Dyspnea on exertion CRP elevated RICCI positive Chronic diastolic heart failure Type 2 diabetes mellitus with hyperlipidemia Psoriasis Obstructive sleep apnea Essential hypertension Diabetic polyneuropathy Depressive disorder COPD (chronic obstructive pulmonary disease) Chronic low back pain Asthma Anemia Surgical History No history of previous surgery Family History Mother Cancer Diabetes Hypertension Father Stomach cancer Social History Household Members: Spouse and Children Alcohol intake: former Patient Tobacco Use Status: Former Tobacco user Review of Systems Const All systems reviewed & are unremarkable except as noted in HPI and below Physical Exam Vital Signs: Last Vital Signs Pulse 56 11/26/24 11:21 BP 130/70 11/26/24 11:21 Pulse Ox 95 11/26/24 11:21 Oxygen Delivery Method Room Air 11/26/24 11:21 BMI result Body Mass Index 48.1 Const General: comfortable and no acute distress Orientation/consciousness: patient oriented x3 HEENT Head: Yes normocephalic Mouth: Normal oral and palatal mucosa present Eyes EOM: EOMs intact bilaterally Neck Neck: Yes supple Resp Auscultation: clear to auscultation bilaterally Cardio Jugular venous distension: no JVD Rate: regular rate GI Palpation (GI): Soft to palpation Auscultation: normal bowel sounds General: Yes no CVA tenderness Back/Spine/Pelvis Back: no CVA tenderness Skin General skin exam: no rashes or lesions noted Neuro General: patient oriented x3 and moves all extremities Extrem General: Yes no pedal edema Results Reviewed Nephrology Results: Hgb, (14.0-18.0) 12.7 g/dl L 11/25/24 WBC, (4.8-10.8) 8.7 X10*3/uL 11/25/24 Plt Count, (160-400) 187 X10*3/uL 11/25/24 Sodium, (135-145) 141 mmol/L 11/25/24 Potassium, (3.3-5.1) 3.9 mmol/L 11/25/24 Chloride, (96-108) 106 mmol/L 11/25/24 Carbon Dioxide, (22-29) 26 mmol/L 11/25/24 BUN, (9-16) 14 mg/dL 11/25/24 Creatinine, (0.5-1.4) 1.07 mg/dL 11/25/24 Calcium, (8.4-10.2) 9.7 mg/dL Δ 11/25/24 Phosphorus, (2.7-4.5) 2.3 mg/dL L 07/01/24 PTH Intact, (8.7-77.1) 244.3 pg/mL H 11/23/24 Urine Creatinine 64.83 mg/dL 11/23/24 Protein/Creatinin Ratio, (<0.2) 1.54 H 11/23/24 Assessment & Plan Assessment & Plan (1) Hypertension: Code(s): I10 - Essential (primary) hypertension Category: Medical Qualifiers: Hypertension type: primary hypertension Qualified Code(s): I10 - Essential (primary) hypertension (2) Secondary hyperparathyroidism (of renal origin): Code(s): N25.81 - Secondary hyperparathyroidism of renal origin Category: Medical (3) CKD stage 3a, GFR 45-59 ml/min: Code(s): N18.31 - Chronic kidney disease, stage 3a Category: Medical Plan 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 He is at risk for secondary FSGS. His last urine studies showed microalbuminuria . His renal ultrasound showed cysts on the right kidney. His blood sugar needs to be maintained at goal. He should maintain his blood pressure at goal. He should avoid nonsteroidal anti-inflammatories. He tries to keep with good hydration. He is on statins. He has been on ABIGAIL inhibitor , GLP 1 agonist and Farxiga. He will benefit from weight loss. Follow-up blood work and urine studies ordered. I increased his calcitriol to 0.25 mcg three times a week. I did not make any other medication changes today. Answered all questions. Follow-up appointment given Orders: Orders Protein Creatinine Ratio, Ur 4 Months I10 - Essential (primary) hypertension, N18.31 - Chronic kidney disease, stage 3a, N25.81 - Secondary hyperparathyroidism of renal origin Hemoglobin A1c 4 Months I10 - Essential (primary) hypertension, N18.31 - Chroni c kidney disease, stage 3a, N25.81 - Secondary hyperparathyroidism of renal origin Electrolytes 4 Months I10 - Essential (primary) hypertension, N18.31 - Chronic kidney disease, stage 3a, N25.81 - Secondary hyperparathyroidism of renal origin Parathyroid Hormone Intact 4 Months I10 - Essential (primary) hypertension, N18.31 - Chronic kidney disease, stage 3a, N25.81 - Secondary hyperparathyroidism of renal origin Vitamin D 25-OH Total 4 Months I10 - Essential (primary) hypertension, N18.31 - Chronic kidney disease, stage 3a, N25.81 - Secondary hyperparathyroidism of renal origin Creatinine 4 Months I10 - Essential (primary) hypertension, N18.31 - Chronic kidney disease, stage 3a, N25.81 - Secondary hyperparathyroidism of renal origin Blood Urea Nitrogen 4 Months I10 - Essential (primary) hypertension, N18.31 - Chronic kidney disease, stage 3a, N25.81 - Secondary hyperparathyroidism of renal origin Medications: Changed From calcitriol 0.25 mcg PO 2XW 10 caps 6RF To calcitriol 0.25 mcg PO 3XW 14 caps 6RF Coding Level of Care Code Est Pt Level 4 (56668) Diagnoses Primary hypertension I10 Hypertension type: primary hypertension Secondary hyperparathyroidism (of renal origin) N25.81 CKD stage 3a, GFR 45-59 ml/min N18.31
[2024-11-26 11:21] VITALS: BP 130/70; PULSE 56; O2SAT 95; BMI 48.1
--- OUTSIDE RECORDS SUMMARY | 2024-11-26 13:39 | XMS_ITS | Data Portability ---
Author Organization [place] - [facility], Allergy Address [address] [address] Care Team Providers Care Rn Utilization Management Um Name Role Phone FREEDOM GUEVARA Primary Care Provider Assessment Encounter Date Assessment Date Assessment LastModified [...] swallowing issues. Notes recent EGD normal Rin [id number] computer tester andre Not available 06/02/2024 13:44:54 Plan of Treatment Reminders Order Date Submit Date Provider Last Modified By Organization Details Last Modified Time Details Appointments None recorded. Lab None recorded. Referral None recorded. Procedures None recorded. Surgeries None recorded. Imaging None recorded. Medication Orders fluticasone propionate 50 mcg/actuati on nasal spray,suspe nsion 2024 025 [facility], [address] [facility], [place], [place], [id number], 13:09:13 Patient TargetsNo targets recorded. Patient Instructions Encounter Date Encounter Id Patient Instructions Last Modified By Organization Details Last Modified Time 06/02/2024 [id number] We reviewed with using the computer tester that the most likely cause of his [...] Recorded Time Loss of sense of smell 73915197 Active 025 SHELLIE CLAROS MD [address] [place] [address],[place] [address], [place], [address], [facility] - [facility] 5 13:39:58 Disorder of taste 745374305 Active 025 SHELLIE CLAROS MD [address] [place] [address], [address] [facility], [place], [address], [facility] - [facility] 5 13:40:04 Excessive cerumen in ear canal 298160702 Active 025 SHELLIE CLAROS MD [address] [facility],[place] [address], [place], [address], [facility] - [facility] [place] 5 13:41:51 Type 2 diabetes mellitus 22204377 Active 025 SHELLIE CLAROS MD [address] [place] [address], [facility], [place], [address], [facility] - [facility] 5 13:41:56 Problem Notes None recorded. Procedures Surgical History Date Name Laterality Status Provider Name and Address Organization Details Recorded Time JMSNasal/Sinus Endoscopy completed SHELLIE FERNANDEZ MD [address] [facility],[address], [address], [place] - [facility] 06/02/2024 13:44:27 Imaging Results None recorded. Procedure Notes None recorded. Medical Equipment None Reported. Allergies Allergen ID Allergen Name Allergen Category Reaction Reaction Severity Criticality Documentation Date Start Date Code Code System Note Provider Name and Address Organization Details Recorded Time 555035 cow milk allergeni c extract food,medi cation Not available Not available Not available 06/02/2024 37110 5 RxNorm Yashira duran [facility] 13:07:02 112209 Tetanus toxoid adsorbed Not available Not available Not available Not available 06/02/2024 07583 RxNorm Yashira duran [facility] 13:07:25 Medications Name Sig Start Date [...] TABLETS BY MOUTH DAILY DIRECTED BY THE [facility]. active Not Available Not Available No [...] propionate 50 mcg/actuati on nasal spray,suspe nsion [place] 2 sprays every day by intranasa l [...] Available Not Available No t Available FreeStyle [place] Lite kit USE DIRECTED TO TEST BLOOD [...] Available Not Available Not Available BD Ultra-Fine Joy Pen Needle 32 gauge x /32 USE [...] Not Available Not Available FreeStyle Donna 2 [place] USE DIRECTED TO TEST BLOOD SUGAR FIVE [...] Details Last Updated DateTime 06/02/2024 165.1 cm 526310.83 g Yashira Watt [place] - [facility] [place] [facility] 06/02/2024 13:04:36 Social History None recorded. Functional Status None recorded. Mental Status None recorded. Family History Nothing Reported. Medical History Condition Response Diabetes Y Hyperlipidemia Y Hypertension Y Depression Y COPD Y Sleep Disorder Y Past Encounters Encounter ID Performer Location Encounter Start Date Encounter Closed Date Diagnosis/Indication Diagnosis SNOMED-CT Code Diagnosis ICD10 Code Diagnosis IMO Codes Diagnosis Note [id number] SHELLIE JENSEN MD [facility] [address] [address] 06/02/2024 13:02:38 06/02/2024 13:49:40 Loss of sense of smell 25768475 R43.0 Disorder of taste 510008 004 R43.9 Excessive cerumen in ear canal 014580435 H61.23 Type 2 bryant betes mellitus 10599130 E11.9 Health Concerns Section Related Observation LastModified by Organization Detai ls LastModified Time None Recorded Concern Status LastModified by Organization Details LastModified Time None Recorded Advance Directives Directive None Recorded Payers Insurance Date Sequence Insurance Name Policy Number Policy [place] Covered Member ID [place] Member ID Guarantor Name 06/02/[address] [facility] - DOS ON OR AFTER 2022 - MEDICARE ADVANTAGE [place] (MEDICARE REPLACEMENT/AD VANTAGE - PPO) Sergio Britt [id number] Sergio Enriquez Notes Date Note Type Note [...] drinking or swallwoing issues.Notes recent EGD normalGloria [id number] computer tester SHELLIE FERNANDEZ MD [address] [place] [address], [phone], [facility] - [facility] 06/02/2024 13:45:11
--- OUTSIDE RECORDS SUMMARY | 2024-11-26 13:40 | XMS_ITS | Clinical Summary ---
Author Organization [facility] Address [address] [facility] [address] [place] [address] Phone Care Team Providers Care Executive Kitchen Manager Name Role Phone Marge Posadas NP Primary Care Provider [phone] Allergies Active Allergy Reactions Criticality Noted Date [...] 28 DAYS 04/29/19 24 Active Continuous Glucose Supervisor Of Way (FreeStyle Donna 2 [place]) device 1 each 05/31/19 23 Active Continuous Glucose Sensor (FreeStyle Donna 2 Sensor) [facility] USE DIRECTED, CHANGE EVERY 14 DAYS 06/25/19 [...] patient's age to complete this topic [place] [address] ([id number]) [facility] ([id number]) Care Teams Executive Kitchen Manager Relationship Specialty Start Date End Date Marge Posadas NP [address] [place] [id number] PCP - General Nurse Practitioner 07/24/23
== END 2024-11-26 11:40 | disposition home or self-care (01) ==
LOC: HO.HKA 10:59
PROVIDERS: PCP Nurse Practitioner Primary Care; Visit Provider Internal Medicine Nephrology
DX: I10 Essential (primary) hypertension (principal); N25.81 Secondary hyperparathyroidism of renal origin; N18.31 Chronic kidney disease, stage 3a
CPT/HCPCS: 99214

== ENCOUNTER → 2024-11-26 10:59 | Outpatient (BNVA) | payer OTHER, SELFPAY | PROVIDERS: PCP Nurse Practitioner Primary Care; Visit Provider Internal Medicine Nephrology | DX: N18.31 Chronic kidney disease, stage 3a (principal); I10 Essential (primary) hypertension; N25.81 Secondary hyperparathyroidism of renal origin | CPT/HCPCS: 99212 ==